=== PATIENT | male | born 1970 | race African-American/Black ===

== ENCOUNTER 2018-07-19 11:29 | Inpatient (IN) | END 2018-08-15 02:10 | DRG 981 ==

== ENCOUNTER 2018-08-17 17:15 | Inpatient (IN) | END 2018-08-21 16:41 | DRG 388 ==

== ENCOUNTER 2019-02-04 13:24 | Inpatient (IN) | payer MEDICARE, MEDICAID ==
[~2019-02-04] VITALS: Ht 182.9 cm; Wt 90.0 kg
[~2019-02-04 13:24] MED LIST: BACL20TA PO; BISA10SU75 PR; OXYB5TAB7 PO
[2019-02-04] MEDS ORDERED: AMLO2.5T78 PO (16:14)
[2019-02-04] MEDS ORDERED: ACET325T45 PO (16:14)
[2019-02-04] MEDS ORDERED: BACL20TA PO (16:15)
[2019-02-04] MEDS ORDERED: OXYB5TAB7 PO (16:16)
[2019-02-04] MEDS ORDERED: BISA10SU75 PR (16:16)
[2019-02-04] MEDS ORDERED: POTA-57 PO (16:17)
[2019-02-04] MEDS ORDERED: POLY17PO6 PO (16:17)
[2019-02-04] MEDS ORDERED: SIME80TA45 PO (16:20)
[2019-02-04] MEDS ORDERED: BISA10SU55 RC (16:22)
[2019-02-04] MEDS ORDERED: PIPER-TAZO 3.375 GM IV (PMX) 100 ML IVPB ONE (18:00)
[2019-02-04] MEDS ORDERED: SOD CHLORIDE 0.9% 1,000 ML IV ONE (18:00)
--- NOTE | 2019-02-04 18:11 | ERD ---
ER Documentation Chief Complaint Chief Complaint BIB private ambulance, sent from [facility] abd distention -pt denies any pain now HPI 48-year-old male transferred to the emergency department from his care facility for evaluation of abdominal distention. Outpatient studies demonstrated evidence of a questionable ileus and the patient was referred to the emergency department. Upon arrival, patient states that he is having abdominal distention without significant abdominal pain. He is passing gas, which makes him feel better and did have a large stool yesterday. Patient reports no vomiting, but does feel like he has nausea. He reports no fevers or chills or other complaints. ROS All systems reviewed and are negative except as per history of present illness. Medications Home Meds Reported Medications Bisacodyl (Dulcolax) 10 Mg Supp.rect, 10 MG RC Q MON,WED,FRI, SUPP.RECT OR NEEDED 02/04/19 Simethicone (Gas Relief 80) 80 Mg Tab.chew, 160 MG PO QID, TAB.CHEW 02/04/19 Potassium Chloride* (Klor-Con*) 20 Meq Tabsr, 40 MEQ PO DAILY, TAB.SA 02/04/19 Polyethylene Glycol* (Miralax*) 17 Gm Powd.pack, 17 GM PO DAILY for CONSTIPATION, #30 PACKET 02/04/19 Oxybutynin Chloride* (Ditropan*) 5 Mg Tab, 5 MG PO DAILY, TAB 02/04/19 Baclofen* (Baclofen*) 20 Mg Tablet, 30 MG PO QID, TAB 02/04/19 Amlodipine Besylate* (Amlodipine Besylate*) 2.5 Mg Tablet, 2.5 MG PO BID, #30 TAB 02/04/19 Acetaminophen* (Acetaminophen*) 325 Mg Tablet, 650 MG PO Q6H PRN for MILD PAIN(1-3)OR ELEVATED TEMP, #30 TAB 02/04/19 Discontinued Reported Medications Bisacodyl* (Bisacodyl*) 10 Mg Supp, 10 MG OR Q24H PRN for NEEDED, SUPP 02/04/19 Bisacodyl* (Bisacodyl*) 10 Mg Supp, 10 MG OR QHS for CONSTIPATION, SUPP ON MON, WED,FRI 07/19/18 Oxybutynin Chloride* (Ditropan*) 5 Mg Tab, 5 MG PO BID, TAB 07/19/18 Baclofen* (Baclofen*) 20 Mg Tablet, 30 MG PO QID, TAB 07/19/18 Allergies Allergies: Coded Allergies: iodine (Verified Allergy, Unknown, 02/04/19) PMhx/Soc History of Surgery: Yes (trach, gtube, nephrostomy placement) Anesthesia Reaction: No Hx Neurological Disorder: Yes (QUADRIPLEGIC) Hx Respiratory Disorders: Yes (RESPIRATORY FAILURE-trach vent, PNA) Hx Cardiac Disorders: No Hx Psychiatric Problems: No Hx Miscellaneous Medical Probl: Yes (neurogenic bladder, htn, bowel obstruction, ) Hx Alcohol Use: No Hx Substance Use: No Hx Tobacco Use: No Smoking Status: Never smoker FmHx Noncontributory for chief complaint Physical Exam Vitals Vital Signs Date Temp Pulse Resp B/P (MAP) Pulse Ox O2 O2 Flow FiO2 Time Delivery Rate 02/04/19 60 21 144/115 99 Mechanical 17:37 (125) Ventilator T Tube Trach Collar 02/04/19 58 17 30 17:21 02/04/19 60 18 100 30 13:41 02/04/19 98.3 57 21 141/92 100 13:38 (108) Physical Exam General: Frail, bed bound, ill appearing HEENT: Mucous membranes dry, sclera nonicteric Neck: Tracheostomy noted. Ostomy patent. No inflammatory changes noted. No JVD. Cardiovascular: Regular rate and rhythm, no murmurs rubs or gallops. Lungs: Transmission of upper airway sounds. Abdomen: Soft, markedly distended. Tympanic. : Diaper in place. Omalley catheter in place Extremities: Atrophic but atraumatic with no edema, cyanosis or clubbing. Neurologic: Awake, alert, oriented. He has a cervical spinal level. Skin: Skin breakdown noted per nursing note. Result Diagram: 02/04/19 1435 02/04/19 1435 Results 24 hrs Laboratory Tests Test 02/04/19 14:35 02/04/19 15:26 White Blood Count 8.4 10^3/ul Red Blood Count 4.72 10^6/ul Hemoglobin 12.1 g/dl Hematocrit 37.8 % Mean Corpuscular Volume 80.1 fl Mean Corpuscular Hemoglobin 25.6 pg Mean Corpuscular Hemoglobin Concent 32.0 g/dl Red Cell Distribution Width 17.1 % Platelet Count 306 10^3/UL Mean Platelet Volume 11.0 fl Immature Granulocytes % 0.600 % Neutrophils % 78.6 % Lymphocytes % 8.3 % Monocytes % 11.8 % Eosinophils % 0.6 % Basophils % 0.1 % Nucleated Red Blood Cells % 0.0 /100WBC Immature Granulocytes # 0.050 10^3/ul Neutrophils # 6.6 10^3/ul Lymphocytes # 0.7 10^3/ul Monocytes # 1.0 10^3/ul Eosinophils # 0.1 10^3/ul Basophils # 0.0 10^3/ul Nucleated Red Blood Cells # 0.0 10^3/ul Sodium Level 136 mmol/L Potassium Level 4.7 mmol/L Chloride Level 104 mmol/L Carbon Dioxide Level 15 mmol/L Anion Gap 17 Blood Urea Nitrogen 36 mg/dl Creatinine 0.90 mg/dl Est Glomerular Filtrat Rate mL/min > 60 mL/min Glucose Level 105 mg/dl Calcium Level 10.2 mg/dl Total Bilirubin 0.6 mg/dl Direct Bilirubin 0.00 mg/dl Indirect Bilirubin 0.6 mg/dl Aspartate Amino Transf (AST/SGOT) 38 IU/L Alanine Aminotransferase (ALT/SGPT) 158 IU/L Alkaline Phosphatase 349 IU/L Total Protein 9.7 g/dl Albumin 4.3 g/dl Globulin 5.40 g/dl Albumin/Globulin Ratio 0.79 Lipase 101 U/L Urine Color YELLOW Urine Clarity CLOUDY Urine pH 7.0 Urine Specific [place] 1.009 Urine Ketones NEGATIVE mg/dL Urine Nitrite POSITIVE mg/dL Urine Bilirubin NEGATIVE mg/dL Urine Urobilinogen NEGATIVE mg/dL Urine Leukocyte Esterase 3+ Jessica/ul Urine Microscopic RBC 3 /HPF Urine Microscopic WBC 26 /HPF Urine Squamous Epithelial Cells FEW /HPF Urine Amorphous Crystals FEW /HPF Urine Bacteria FEW /HPF Urine Hemoglobin NEGATIVE mg/dL Urine Glucose NEGATIVE mg/dL Urine Total Protein 1+ mg/dl Current Medications Medications Dose Sig/Marcia Start Time Status Last (Trade) Ordered Route PRN Stop Time Admin Dose Reason Admin Sodium 1,000 ml @ Q1H ONCE 02/04/19 Chloride 1,000 mls/hr IV 18:00 02/04/19 18:59 Piperacillin 100 ml @ ONCE ONCE 02/04/19 Sod/ 200 mls/hr IVPB 18:00 Tazobactam 02/04/19 18:29 Sod Procedures/MDM Patient was taken to a room, seen and evaluated. Comfort measures were initiated. Diagnostic tests were ordered and reviewed. 3 LEAD RHYTHM STRIP: Normal sinus rhythm without ectopy EK lead EKG reviewed by myself: Normal Sinus Rhythm Normal [place] and intervals No ST elevation, depression, or T wave inversion Impression: Normal EKG RADIOLOGY: Reviewed with the radiologist CONSULTATION: Hospitalist was notified for admission. Surgical consultation was requested @ approx 1800. REEVALUATION: Patient remained hemodynamically stable. After CT scan was appreciated and reviewed with the radiologist, an NG tube was placed. Further IV fluids were given and antibiotics were provided. MEDICAL DECISION MAKIN-year-old male presents to the emergency department with abdominal distention. Diagnostic tests confirm that he has a bowel obstruction and I am concerned he may have a large bowel obstruction versus a volvulus. His labs do not indicate significant ischemia although his spinal level and lack of sensation will make this difficult to assess clinically. Patient will be admitted to the hospital for fluids and hydration with surgical consultation pending. Departure Diagnosis: Primary Impression: Bowel obstruction Additional Impression: Chronic respiratory failure Condition: Serious JULIUS BARROSO Feb 04, 2019 18:11
[2019-02-04 19:30] VITALS: BP 115/77; PULSE 58; RESP 20
[2019-02-04 19:34] VITALS: RESP 29
[2019-02-04 20:00] VITALS: PULSE 56; BMI 29.3
[2019-02-04] MEDS ORDERED: morphine 2 MG INJ IV PRN (20:00)
[2019-02-04] MEDS ORDERED: BISACODYL (EC) 5 MG TAB PO PRN (20:00)
[2019-02-04] MEDS ORDERED: NACL 0.9% 3 ML SYG IV SCH (20:00)
[2019-02-04] MEDS ORDERED: DOCUSATE SODIUM 100 MG CAP PO PRN (20:00)
[2019-02-04] MEDS ORDERED: ONDANSETRON 4 MG INJ IV PRN (20:00)
[2019-02-04 21:10] VITALS: RESP 27
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
[2019-02-04 23:23] VITALS: RESP 19
[2019-02-04] MEDS: SOD CHLORIDE 0.9% 1,000 ML IV SCH (23:36)
[2019-02-04] MEDS: PIPER-TAZO 3.375 GM IV (PMX) 100 ML IVPB SCH (23:36)
[2019-02-04] MEDS: BISACODYL 10 MG SUPP PR PRN (23:36)
[2019-02-05] VITALS (22 sets, daily range): BP systolic 110–187; BP diastolic 71–90; PULSE 48–88; RESP 18–30
[2019-02-05] MEDS: PIPER-TAZO 3.375 GM IV (PMX) 100 ML IVPB SCH ×3 (05:10→18:00)
[2019-02-05] MEDS: HEPARIN 5,000 UNIT/1 ML VIAL SC SCH ×3 (05:11→22:27)
[2019-02-05] MEDS ORDERED: NA PHOSPHATE/BIPHOS 133 ML ENEMA PR PRN (09:30)
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
--- NOTE | 2019-02-05 10:47 | PN ---
Date/Time of Note Date/Time of Note DATE: 02/05/19 TIME: 10:45 Assessment/Plan Lines/Catheters IV Catheter Type (from Nrsg): Peripheral IV Assessment/Plan Problems: (1) Ileus Status: Acute (2) Bowel obstruction Status: Acute Qualifiers: Intestinal obstruction type: paralytic ileus Qualified Codes: K56.0 - Paralytic ileus Assessment/Plan Patient shows significant progress. On KUB from this morning is significantly less distended loops of bowel. No distended stomach anymore. GI consult appreciated. Agree with the Gastrografin enema and possible colonoscopy if possible to prep the patientthank you Subjective 24 Hr Interval Summary Patient is second day after admission. Doing much better. Passing gas. Had bowel movement. Constitutional: no complaints Feeding: NPO Pain Control: well controlled Exam/Review of Systems Vital Signs Vitals Vital Signs Date Temp Pulse Resp B/P (MAP) Pulse Ox O2 O2 Flow FiO2 Time Delivery Rate 02/05/19 98.6 58 18 155/90 100 Mechanical 07:47 (111) Ventilator 02/04/19 30 19:34 Intake and Output 02/04/19 02/04/19 02/05/19 1515:00 23:00 07:00 IntakeIntake Total 650 ml OutputOutput Total 1000 ml BalanceBalance -350 ml Exam Constitutional: alert, oriented Psych: no complaints Head: normocephalic Eyes: nl conjunctiva ENMT: nl external ears & nose Neck: supple Respiratory: clear to auscultation Cardiovascular: regular rate and rhythm Gastrointestinal: other (Abdomen is significantly less distended soft nontender) Genitourinary - Male: nl penis, nl scrotum, other (Suprapubic catheter in place) Results Result Diagram: 02/05/19 0550 02/05/19 0550 ARACELIS WESTBROOK MD Feb 05, 2019 10:47
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
[2019-02-05] MEDS: SOD CHLORIDE 0.9% 1,000 ML IV SCH (13:49)
[2019-02-05] MEDS ORDERED: DIATR MEGLU/DIATRIZOATE SODIUM 120 ML BTL ONE ×6 (15:40→16:10)
[2019-02-06] VITALS (24 sets, daily range): BP systolic 142–185; BP diastolic 75–100; PULSE 55–88; RESP 16–25
[2019-02-06] MEDS: PIPER-TAZO 3.375 GM IV (PMX) 100 ML IVPB SCH ×4 (01:48→17:29)
[2019-02-06] MEDS: SOD CHLORIDE 0.9% 1,000 ML IV SCH ×2 (02:32→15:22)
[2019-02-06] MEDS: HEPARIN 5,000 UNIT/1 ML VIAL SC SCH ×3 (06:01→22:00)
[2019-02-06] MEDS: hydrALAzine 20 MG INJ IV PRN ×2 (07:32→16:15)
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
[2019-02-06] MEDS ORDERED: DIATR MEGLU/DIATRIZOATE SODIUM 120 ML BTL ONE ×2 (15:18→15:19)
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
[2019-02-06] MEDS: BISACODYL 10 MG SUPP PR PRN (17:15)
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
[2019-02-07] VITALS (33 sets, daily range): BP systolic 127–194; BP diastolic 81–100; PULSE 39–80; RESP 16–30
[2019-02-07] MEDS: PIPER-TAZO 3.375 GM IV (PMX) 100 ML IVPB SCH ×5 (00:46→23:18)
[2019-02-07] MEDS: SOD CHLORIDE 0.9% 1,000 ML IV SCH ×2 (04:50→11:22)
[2019-02-07] MEDS: HEPARIN 5,000 UNIT/1 ML VIAL SC SCH ×3 (05:38→21:33)
[2019-02-07] MEDS: hydrALAzine 20 MG INJ IV PRN ×2 (08:22→21:27)
[2019-02-07] MEDS ORDERED: DIATR MEGLU/DIATRIZOATE SODIUM 120 ML BTL ONE (12:26)
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
[2019-02-07] MEDS ORDERED: BISACODYL 10 MG SUPP PR PRN (22:00)
[2019-02-07] MEDS ORDERED: BACLOFEN 10 MG TAB PO SCH (22:00)
[2019-02-07] MEDS: BACLOFEN 10 MG TAB PO SCH (22:19)
[2019-02-07] MEDS: ACETAMINOPHEN 325 MG TAB PO PRN (22:19)
[2019-02-08] VITALS (35 sets, daily range): BP systolic 76–208; BP diastolic 48–104; PULSE 46–86; RESP 18–33; Ht 182.9 cm; Wt 90.0 kg
[2019-02-08] MEDS: ACETAMINOPHEN 325 MG TAB PO PRN (05:25)
[2019-02-08] MEDS: hydrALAzine 20 MG INJ IV PRN (05:26)
[2019-02-08] MEDS: PIPER-TAZO 3.375 GM IV (PMX) 100 ML IVPB SCH ×3 (05:26→17:42)
[2019-02-08] MEDS: HEPARIN 5,000 UNIT/1 ML VIAL SC SCH ×4 (05:26→21:42)
[2019-02-08] MEDS ORDERED: hydrALAzine 20 MG INJ IV PRN (07:00)
[2019-02-08] MEDS: AMLODIPINE 2.5 MG TAB PO SCH ×2 (08:05→20:53)
[2019-02-08] MEDS: BACLOFEN 10 MG TAB PO SCH ×4 (08:05→20:59)
[2019-02-08] MEDS: OXYBUTYNIN 5 MG TAB PO SCH (08:06)
[2019-02-08] MEDS ORDERED: POTASSIUM CHLORIDE 20 MEQ POWDER FOR ORAL SOLN PO ONE ×2 (10:00→16:30)
[2019-02-08] MEDS ORDERED: SOD CHLORIDE 0.9% 1,000 ML IV ONE (10:00)
[2019-02-08] MEDS: SOD CHLORIDE 0.45% 1,000 ML IV SCH ×2 (11:31→20:53)
[2019-02-08] MEDS: POLYETHYLENE GLYCOL 17 GM PACKET PO SCH (11:31)
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
[2019-02-08] MEDS ORDERED: BISACODYL (EC) 5 MG TAB PO ONE (13:00)
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
[2019-02-08] MEDS ORDERED: POTASSIUM CHLORIDE (SR) 20 MEQ TAB PO STA (16:55)
[2019-02-08] MEDS ORDERED: MAGNESIUM CITRATE 300 ML BTL PO ONE (17:30)
[2019-02-08] MEDS ORDERED: POLYETHYLENE GLYCOL 3350 119 GM POWDER PO ONE (18:30)
[2019-02-08] MEDS ORDERED: ALBUTEROL/IPRATROPIUM (NEB) 3 ML AMP HHN PRN (19:00)
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
[2019-02-08] MEDS ORDERED: ENOXAPARIN 100 MG/ML SYG SC SCH (22:20)
[2019-02-09] VITALS (24 sets, daily range): BP systolic 127–159; BP diastolic 72–90; PULSE 39–64; RESP 18–29
[2019-02-09] MEDS: PIPER-TAZO 3.375 GM IV (PMX) 100 ML IVPB SCH ×4 (00:25→17:58)
[2019-02-09] MEDS: SOD CHLORIDE 0.45% 1,000 ML IV SCH ×3 (00:26→11:19)
[2019-02-09] MEDS ORDERED: POLYETHYLENE GLYCOL 3350 119 GM POWDER PO ONE (06:00)
[2019-02-09] MEDS ORDERED: BISACODYL (EC) 5 MG TAB PO ONE (08:00)
[2019-02-09] MEDS ORDERED: ENOXAPARIN 100 MG/ML SYG SC SCH (09:00)
[2019-02-09] MEDS: AMLODIPINE 2.5 MG TAB PO SCH (09:00)
[2019-02-09] MEDS: POLYETHYLENE GLYCOL 17 GM PACKET PO SCH (09:00)
[2019-02-09] MEDS: OXYBUTYNIN 5 MG TAB PO SCH (09:26)
[2019-02-09] MEDS: BACLOFEN 10 MG TAB PO SCH ×3 (09:26→17:58)
[2019-02-09] MEDS ORDERED: POTASSIUM CHLORIDE (SR) 20 MEQ TAB PO STA (15:34)
--- NOTE | 2019-02-15 19:40 | DS ---
Date/Time of Note Date/Time of Note DATE: 02/15/19 TIME: 19:38 Discharge Summary Admission/Discharge Info Admit Date/Time Feb 04, 2019 at 18:07 Discharge Date/Time Feb 09, 2019 at 21:17 Discharge Diagnosis 48 yo male with quadriplegia, chronic respiratory failure on MV who presents with constipation from paralytic ileus -Patient with bowel movements, ileus appears resolved - continue laxatives - Colonoscopy no longer indicated Hypernatremia and hypokalemia: Resolved - IV fluids, potassium repletion Chronic respiratory failure - Continue MV via trach Quadriplegia - stable Patient Condition: Good Hospital Course Patient is a 48 yo male with quadriplegia, chronic respiratory failure on MV who presents with constipation from paralytic ileus. Patient was also noted to have electrolyte deficiencies which resolved with fluid resuscitation. Patient did have resolution of his ileus and no longer required endoscopy. Patient was stable for DC back to facility, on the day of discharge patient's vitals, labs of exam are stable. Home Meds Reported Medications Bisacodyl (Dulcolax) 10 Mg Supp.rect, 10 MG RC Q MON,WED,FRI, SUPP.RECT OR NEEDED 02/04/19 Simethicone (Gas Relief 80) 80 Mg Tab.chew, 160 MG PO QID, TAB.CHEW 02/04/19 Potassium Chloride* (Klor-Con*) 20 Meq Tabsr, 40 MEQ PO DAILY, TAB.SA 02/04/19 Polyethylene Glycol* (Miralax*) 17 Gm Powd.pack, 17 GM PO DAILY for CONSTIPATION, #30 PACKET 02/04/19 Oxybutynin Chloride* (Ditropan*) 5 Mg Tab, 5 MG PO DAILY, TAB 02/04/19 Baclofen* (Baclofen*) 20 Mg Tablet, 30 MG PO QID, TAB 02/04/19 Amlodipine Besylate* (Amlodipine Besylate*) 2.5 Mg Tablet, 2.5 MG PO BID, #30 TAB 02/04/19 Acetaminophen* (Acetaminophen*) 325 Mg Tablet, 650 MG PO Q6H PRN for MILD PAIN(1-3)OR ELEVATED TEMP, #30 TAB 02/04/19 Follow-up Plan Follow-up with physicians at facility Primary Care Provider Fernando Martinez MD Time spent on discharge: > 30 minutes AARTI FRENCH Feb 15, 2019 19:40
== END 2019-02-09 21:17 | DRG 388 ==
LOC: E/R 13:24 → TEL 18:07 → CANRESERV 18:26 → EDBEDREQ 18:28
PROVIDERS: ADMIT Internal Medicine; ATTEND Internal Medicine
PROC: 5A1955Z Respiratory Ventilation, Greater than 96 Consecutive Hours (ICD-10-PCS; principal; 2019-02-04)
DX: K56.0 Paralytic ileus (principal); G82.50 Quadriplegia, unspecified; T83.511A Infection and inflammatory reaction due to indwelling urethral catheter, initial encounter; N39.0 Urinary tract infection, site not specified; E87.0 Hyperosmolality and hypernatremia; J96.11 Chronic respiratory failure with hypoxia; Y73.2 Prosthetic and other implants, materials and accessory gastroenterology and urology devices associated with adverse incidents; S14.102S Unspecified injury at C2 level of cervical spinal cord, sequela; V89.2XXS Person injured in unspecified motor-vehicle accident, traffic, sequela; I10 Essential (primary) hypertension; Z87.81 Personal history of (healed) traumatic fracture; Z93.0 Tracheostomy status; Z93.3 Colostomy status; N31.9 Neuromuscular dysfunction of bladder, unspecified; N28.1 Cyst of kidney, acquired; N21.0 Calculus in bladder; E87.6 Hypokalemia; I95.89 Other hypotension
CPT/HCPCS: 36415; 36600; 71045; 74018; 74176; 74250; 74270; 76775; 80048; 80053; 80061; 81001; 82803; 83036; 83690; 83735; 84443; 85025; 85610; 87086; 93005; 94002; 94003; J0360; J1644; J1650; J2543; J7030

== ENCOUNTER 2019-05-28 03:18 | Inpatient (IN) | payer MEDICARE, MEDICAID ==
[~2019-05-28] VITALS: Ht 190.5 cm; Wt 72.0 kg
[2019-05-28] VITALS (16 sets, daily range): BP systolic 82–142; BP diastolic 65–88; PULSE 59–91; RESP 16–24; Ht 190.5 cm; Wt 72.0 kg
[~2019-05-28 03:18] MED LIST changes: +ACET325T45 PO; +AMLO2.5T78 PO; +BACI1TAB3 PO; +BISA-57 PO; +BISA10SU55 RC; -BISA10SU75 PR; +DOCU-144 PO; +IPRA3AMP29 INHALATION; +POLY17PO6 PO; +POTA-57 PO; +SIME80TA45 PO
[2019-05-28] MEDS ORDERED: ONDANSETRON 4 MG INJ ONE ×2 (04:45→04:53)
[2019-05-28] MEDS ORDERED: ONDANSETRON INJ 8 MG in DEXTROSE 5% 50 ML IV STA (04:51)
--- NOTE | 2019-05-28 05:52 | ERD ---
ER Documentation Chief Complaint Chief Complaint n/v since 2199, decreased u/o, distended abd. no fevers. pt suspects uti. HPI This is a 40-year-old male nausea vomiting 2199 with the decreased urine output and distended abdomen. Patient has history of multiple small bowel obstructions in the past. Denies any fevers or chills. Denies any other current complaints. ROS All systems reviewed and are negative except as per history of present illness. Medications Home Meds Reported Medications Ipratropium-Albuterol (Ipratropium-Albuterol) 0.5-3 Mg/3 Ml Ampul.neb, 3 ML INHALATION Q6 for SOB, #30 VIAL 05/28/19 Bacillus Coagulans (Probiotic) 1 Each Tab.chew, 1 EACH PO BID, TAB.CHEW 05/28/19 Docusate Sodium* (Colace*) 100 Mg Capsule, 200 MG PO DAILY, #30 CAP 05/28/19 Bisacodyl* (Dulcolax*) 5 Mg Tablet.dr, 10 MG PO DAILY PRN for [id number], TAB 05/28/19 Bisacodyl (Dulcolax) 10 Mg Supp.rect, 10 MG RC Q MON,WED,FRI, SUPP.RECT OR NEEDED 02/04/19 Simethicone (Gas Relief 80) 80 Mg Tab.chew, 160 MG PO QID, TAB.CHEW 02/04/19 Potassium Chloride* (Klor-Con*) 20 Meq Tabsr, 40 MEQ PO DAILY, TAB.SA 02/04/19 Polyethylene Glycol* (Miralax*) 17 Gm Powd.pack, 17 GM PO DAILY for CONSTIPATION, #30 PACKET 02/04/19 Oxybutynin Chloride* (Ditropan*) 5 Mg Tab, 5 MG PO DAILY, TAB 02/04/19 Baclofen* (Baclofen*) 20 Mg Tablet, 30 MG PO QID, TAB 02/04/19 Amlodipine Besylate* (Amlodipine Besylate*) 2.5 Mg Tablet, 2.5 MG PO BID, #30 TAB 02/04/19 Acetaminophen* (Acetaminophen*) 325 Mg Tablet, 650 MG PO Q6H PRN for MILD PAIN(1-3)OR ELEVATED TEMP, #30 TAB 02/04/19 Allergies Allergies: Coded Allergies: iodine (Unverified Allergy, Unknown, 05/28/19) PMhx/Soc History of Surgery: Yes Anesthesia Reaction: No Hx Neurological Disorder: Yes Hx Respiratory Disorders: Yes (trach to vent) Hx Cardiac Disorders: No Hx Psychiatric Problems: No Hx Miscellaneous Medical Probl: Yes (quadraplegic) Hx Alcohol Use: No Hx Substance Use: No Hx Tobacco Use: No Smoking Status: Never smoker Physical Exam Vitals Vital Signs Date Temp Pulse Resp B/P (MAP) Pulse Ox O2 O2 Flow FiO2 Time Delivery Rate 05/28/19 79 22 100 50 05:33 05/28/19 77 25 96 50 03:30 05/28/19 98.7 80 20 138/98 97 03:27 (111) Physical Exam Const: No acute distress Head: Atraumatic Eyes: Normal Conjunctiva ENT: Normal External Ears, Nose and Mouth. Neck: Full range of motion. No meningismus. Resp: Clear to auscultation bilaterally Cardio: Regular rate and rhythm, no murmurs Abd: Soft, non tender, non distended. Normal bowel sounds Skin: No petechiae or rashes Back: No midline or flank tenderness Ext: No cyanosis, or edema Neur: Awake and alert Psych: Normal Mood and Affect Result Diagram: 05/28/19 0427 05/28/19 042 Results 24 hrs Laboratory Tests Test 05/28/19 04:13 05/28/19 04:27 05/28/19 04:30 Urine Color BARBARA Urine Clarity TURBID Urine pH 8.0 Urine Specific [place] 1.023 Urine Ketones NEGATIVE mg/dL Urine Nitrite NEGATIVE mg/dL Urine Bilirubin 1+ mg/dL Urine Urobilinogen NEGATIVE mg/dL Urine Leukocyte Esterase 3+ Jessica/ul Urine Microscopic RBC 2 /HPF Urine Microscopic WBC 121 /HPF Urine Squamous FEW /HPF Epithelial Cells Urine Uric Acid Crystals MANY /HPF Urine Bacteria FEW /HPF Urine Mucus MANY /HPF Urine Hemoglobin NEGATIVE mg/dL Urine Glucose NEGATIVE mg/dL Urine Total Protein 3+ mg/dl White Blood Count 13.2 10^3/ul Red Blood Count 5.02 10^6/ul Hemoglobin 12.1 g/dl Hematocrit 36.3 % Mean Corpuscular Volume 72.3 fl Mean Corpuscular 24.1 pg Hemoglobin Mean Corpuscular 33.3 g/dl Hemoglobin Concent Red Cell Distribution 16.7 % Width Platelet Count 411 10^3/UL Mean Platelet Volume 10.3 fl Immature Granulocytes % 0.800 % Neutrophils % 90.8 % Lymphocytes % 1.6 % Monocytes % 6.6 % Eosinophils % 0.0 % Basophils % 0.2 % Nucleated Red Blood Cells 0.0 /100WBC % Immature Granulocytes # 0.100 10^3/ul Neutrophils # 12.0 10^3/ul Lymphocytes # 0.2 10^3/ul Monocytes # 0.9 10^3/ul Eosinophils # 0.0 10^3/ul Basophils # 0.0 10^3/ul Nucleated Red Blood Cells 0.0 10^3/ul # Sodium Level 132 mmol/L Potassium Level 4.6 mmol/L Chloride Level 94 mmol/L Carbon Dioxide Level 16 mmol/L Anion Gap 22 Blood Urea Nitrogen 40 mg/dl Creatinine 1.21 mg/dl Est Glomerular Filtrat > 60 mL/min Rate mL/min Glucose Level 132 mg/dl Calcium Level 11.2 mg/dl Total Bilirubin 0.5 mg/dl Direct Bilirubin 0.00 mg/dl Indirect Bilirubin 0.5 mg/dl Aspartate Amino 19 IU/L Transf (AST/SGOT) Alanine 35 IU/L Aminotransferase (ALT/SGP T) Alkaline Phosphatase 374 IU/L Troponin I < 0.012 ng/ml Total Protein 10.9 g/dl Albumin 4.6 g/dl Globulin 6.30 g/dl Albumin/Globulin Ratio 0.73 Lipase 32 U/L Blood Gas Specimen Source Blood arterial Arterial Blood Date 05/28/2019 5:35:37 AM Drawn Arterial Blood pH 7.448 (Temp corrected) Arterial Blood pCO2 26.0 mmhg (Temp correct) Arterial Blood pO2 90.9 mmHG (Temp corrected) Arterial Blood HCO3 17.6 mmol/L Arterial Blood Base -4.8 mmol/L Excess Arterial Blood 97.6 mmHG Oxygen Saturation Kwame Test ACCEPTAB Arterial Blood Gas Right Radial Puncture Site Arterial 0.5 % Blood Carboxyhemoglobin Arterial Blood 0.5 % Methemoglobin Blood Gas A-a O2 236.4 mmHg Differential Oxyhemoglobin Percent 96.6 % Blood Gas Temperature 37.0 C Blood Gas Respiration 16.0 Rate Blood Gas Actual 22 Respiration Rate Blood Gas Modality VENT - SIMV FiO2 50.0 % Blood Gas Inspiratory 1 Time Blood Gas High PEEP 28.0 cmH2O Setting Blood Gas Low PEEP 5.0 cmH2O Setting Blood Gas Inspiratory 33.0 Pressure Blood Gas Notified Whom KM Blood Gas Notified Time 05/28/2019 5:45:25 AM Current Medications Medications Dose Sig/Marcia Start Time Status Last (Trade) Ordered Route PRN Stop Time Admin Dose Reason Admin Ondansetron 54 ml @ ONCE STAT 05/28/19 DC 05/28/19 HCl 8 200 mls/hr IV 04:51 05:13 mg/Dextrose 05/28/19 05:07 10 mg ONCE ONCE 05/28/19 05/28/19 Metoclopramid IV 06:00 05:42 e HCl 05/28/19 06:01 (Reglan) Procedures/MDM X-ray Abdomen 1V Interpreted by me: Free Air: [None] Bowel Gas: Distended bowel loops Soft Tissue: [Normal] Patient was unable to tolerate CT as he could not lie flat down that significant discomfort and vomiting despite multiple rounds of Zofran and Reglan. NG tube was placed EKG: Rate/Rhythm: [Normal Sinus Rhythm] QRS, ST, T-waves: [No changes consistent w/ acute ischemia] Impression: [No evidence of ischemia or arrhythmia] Chest X-ray 1V Interpreted by me: Soft Tissue: No acute abnormalities Bones: No acute abnormalities Mediastinum/Cardiac Silhouette/Lungs: [No acute abnormalities] Medical decision making: This 48-year-old male has a presumed small bowel obstruction based on KUB will need to be admitted. Dr. Avelar is been made aware. Dr. Quinonez of surgery has been contacted. Departure Diagnosis: Primary Impression: Abdominal pain Abdominal location: unspecified location Qualified Codes: R10.9 - Unspecified abdominal pain Additional Impression: SBO (small bowel obstruction) Condition: Serious FRAN ALEGRE May 28, 2019 05:52
[2019-05-28] MEDS ORDERED: METOCLOPRAMIDE 10 MG INJ IV ONE (06:00)
[2019-05-28] MEDS ORDERED: SOD CHLORIDE 0.9% 1,000 ML IV SCH (06:17)
[2019-05-28] MEDS ORDERED: METOCLOPRAMIDE 10 MG INJ IV PRN (06:30)
[2019-05-28] MEDS ORDERED: NACL 0.9% 3 ML SYG IV SCH ×2 (06:30→10:30)
[2019-05-28] MEDS ORDERED: ONDANSETRON 4 MG INJ IV PRN ×2 (06:30→10:30)
[2019-05-28] MEDS ORDERED: morphine 2 MG INJ IV PRN (06:30)
--- NOTE | 2019-05-28 07:34 | CONS ---
Assessment/Plan Assessment/Plan Assessment/Plan (Daily) KUB suggest small bowel obstruction. There are no hernias Plan: Small bowel follow-through Further recommendations will be forthcoming based on the patient's further work- up and clinical course. Consultation Date/Type/Reason Admit Date/Time Date of Consultation: May 28, 2019 Type of Consult General surgery Reason for Consultation Small bowel obstruction Date/Time of Note DATE: 05/28/19 TIME: 07:30 Hx of Present Illness Patient is a 48-year-old quadriplegic ventilator dependent who was brought in because of nausea and vomiting. He was found to have a slightly distended abdomen and a KUB was compatible with small bowel obstruction. Review of systems: Head ears eyes nose and throat: Tracheostomy Pulmonary: No known history of pneumonia Cardiac: No history of chest pain, MO or arrhythmia Abdomen: As in the HPI Past Medical History Medical History: other (Quadriplegia) Home Meds Reported Medications Ipratropium-Albuterol (Ipratropium-Albuterol) 0.5-3 Mg/3 Ml Ampul.neb, 3 ML INHALATION Q6 for SOB, #30 VIAL 05/28/19 Bacillus Coagulans (Probiotic) 1 Each Tab.chew, 1 EACH PO BID, TAB.CHEW 05/28/19 Docusate Sodium* (Colace*) 100 Mg Capsule, 200 MG PO DAILY, #30 CAP 05/28/19 Bisacodyl* (Dulcolax*) 5 Mg Tablet.dr, 10 MG PO DAILY PRN for [id number], TAB 05/28/19 Bisacodyl (Dulcolax) 10 Mg Supp.rect, 10 MG RC Q MON,WED,FRI, SUPP.RECT OR NEEDED 02/04/19 Simethicone (Gas Relief 80) 80 Mg Tab.chew, 160 MG PO QID, TAB.CHEW 02/04/19 Potassium Chloride* (Klor-Con*) 20 Meq Tabsr, 40 MEQ PO DAILY, TAB.SA 02/04/19 Polyethylene Glycol* (Miralax*) 17 Gm Powd.pack, 17 GM PO DAILY for CONSTIPATION, #30 PACKET 02/04/19 Oxybutynin Chloride* (Ditropan*) 5 Mg Tab, 5 MG PO DAILY, TAB 02/04/19 Baclofen* (Baclofen*) 20 Mg Tablet, 30 MG PO QID, TAB 02/04/19 Amlodipine Besylate* (Amlodipine Besylate*) 2.5 Mg Tablet, 2.5 MG PO BID, #30 TAB 02/04/19 Acetaminophen* (Acetaminophen*) 325 Mg Tablet, 650 MG PO Q6H PRN for MILD PAIN(1-3)OR ELEVATED TEMP, #30 TAB 02/04/19 Medications Current Medications Sodium Chloride 1,000 ml @ 70 mls/hr [id number] IV Last administered on 05/28/19at 06:48; Admin Dose 70 MLS/HR; Start 05/28/19 at 06:17 IV Flush (NS 3 ml) 3 ml PER PROTOCOL IV ; Start 05/28/19 at 06:30 Ondansetron HCl (Zofran Inj) 4 mg Q4 PRN IV NAUSEA/VOMITING; Start 05/28/19 at 06:30 Metoclopramide HCl (Reglan) 10 mg Q6H PRN IV NAUSEA/VOMITING; Start 05/28/19 at 06:30 Acetaminophen (Tylenol Tab) 650 mg Q6H PRN PO .PAIN 1-3 OR TEMP; Start 05/28/19 at 06:30 Morphine Sulfate (morphine) 2 mg Q4H PRN IV .PAIN 7-10; Start 05/28/19 at 06:30 Allergies: Coded Allergies: iodine (Unverified Allergy, Unknown, 05/28/19) Past Surgical History Past Surgical Hx: no surgical history, other (Tracheostomy) Family History Significant Family History: no pertinent family hx Social History Smoking Status: Never smoker Exam/Review of Systems Exam Vitals Vital Signs Date Temp Pulse Resp B/P (MAP) Pulse Ox O2 O2 Flow FiO2 Time Delivery Rate 05/28/19 77 20 106/83 100 Mechanical 06:55 (91) Ventilator 05/28/19 50 05:33 05/28/19 98.7 03:27 Constitutional: alert, oriented Psych: no complaints Head: normocephalic ENMT: other (Bib ostomy) Neck: supple Respiratory: clear to auscultation Cardiovascular: regular rate and rhythm Gastrointestinal: distended Musculoskeletal: nl extremities to inspection Extremities: normal pulses Neurological: FLOWER MAKER II-XII intact Results Result Diagram: 05/28/1942605/28/19426 Results 24hrs Laboratory Tests Test 05/28/19 04:13 05/28/19 04:27 05/28/19 04:30 Urine Color BARBARA Urine Clarity TURBID A Urine pH 8.0 Urine Specific [place] 1.023 Urine Ketones NEGATIVE Urine Nitrite NEGATIVE Urine Bilirubin 1+ H Urine Urobilinogen NEGATIVE Urine Leukocyte Esterase 3+ H Urine Microscopic RBC 2 Urine Microscopic WBC 121 H Urine Squamous FEW Epithelial Cells Urine Uric Acid Crystals MANY A Urine Bacteria FEW A Urine Mucus MANY A Urine Hemoglobin NEGATIVE Urine Glucose NEGATIVE Urine Total Protein 3+ H White Blood Count 13.2 #H Red Blood Count 5.02 # Hemoglobin 12.1 L Hematocrit 36.3 L Mean Corpuscular Volume 72.3 L Mean Corpuscular Hemoglobin 24.1 L Mean Corpuscular 33.3 Hemoglobin Concent Red Cell Distribution Width 16.7 H Platelet Count 411 # Mean Platelet Volume 10.3 Immature Granulocytes % 0.800 H Neutrophils % 90.8 H Lymphocytes % 1.6 L Monocytes % 6.6 Eosinophils % 0.0 Basophils % 0.2 Nucleated Red Blood Cells % 0.0 Immature Granulocytes # 0.100 H Neutrophils # 12.0 H Lymphocytes # 0.2 L Monocytes # 0.9 Eosinophils # 0.0 Basophils # 0.0 Nucleated Red Blood Cells # 0.0 Sodium Level 132 L Potassium Level 4.6 Chloride Level 94 L Carbon Dioxide Level 16 L Anion Gap 22 H Blood Urea Nitrogen 40 H Creatinine 1.21 Est Glomerular Filtrat > 60 Rate mL/min Glucose Level 132 Calcium Level 11.2 H Total Bilirubin 0.5 Direct Bilirubin 0.00 Indirect Bilirubin 0.5 Aspartate Amino 19 Transf (AST/SGOT) Alanine 35 Aminotransferase (ALT/SGPT) Alkaline Phosphatase 374 H Troponin I < 0.012 Total Protein 10.9 H Albumin 4.6 Globulin 6.30 H Albumin/Globulin Ratio 0.73 Lipase 32 Blood Gas Specimen Source Blood arterial Arterial Blood Date Drawn 05/28/2019 5:35:37 AM Arterial Blood pH 7.448 (Temp corrected) Arterial Blood pCO2 26.0 L (Temp correct) Arterial Blood pO2 90.9 (Temp corrected) Arterial Blood HCO3 17.6 L Arterial Blood Base Excess -4.8 L Arterial Blood 97.6 Oxygen Saturation Kwame Test ACCEPTAB Arterial Blood Gas Right Radial Puncture Site Arterial 0.5 Blood Carboxyhemoglobin Arterial Blood Methemoglobin 0.5 Blood Gas A-a O2 236.4 H Differential Oxyhemoglobin Percent 96.6 Blood Gas Temperature 37.0 Blood Gas Respiration Rate 16.0 Blood Gas Actual 22 Respiration Rate Blood Gas Modality VENT - SIMV FiO2 50.0 Blood Gas Inspiratory Time 1 Blood Gas High PEEP Setting 28.0 Blood Gas Low PEEP Setting 5.0 Blood Gas Inspiratory 33.0 Pressure Blood Gas Notified Whom KM Blood Gas Notified Time 05/28/2019 5:45:25 AM Medications Medication Current Medications Sodium Chloride 1,000 ml @ 70 mls/hr [id number] IV Last administered on 05/28/19at 06:48; Admin Dose 70 MLS/HR; Start 05/28/19 at 06:17 IV Flush (NS 3 ml) 3 ml PER PROTOCOL IV ; Start 05/28/19 at 06:30 Ondansetron HCl (Zofran Inj) 4 mg Q4 PRN IV NAUSEA/VOMITING; Start 05/28/19 at 06:30 Metoclopramide HCl (Reglan) 10 mg Q6H PRN IV NAUSEA/VOMITING; Start 05/28/19 at 06:30 Acetaminophen (Tylenol Tab) 650 mg Q6H PRN PO .PAIN 1-3 OR TEMP; Start 05/28/19 at 06:30 Morphine Sulfate (morphine) 2 mg Q4H PRN IV .PAIN 7-10; Start 05/28/19 at 06:30 ZENA CALDERÓN MD May 28, 2019 07:34
[2019-05-28] MEDS ORDERED: ALBUTEROL/IPRATROPIUM (NEB) 3 ML AMP NEB PRN (10:30)
[2019-05-28] MEDS ORDERED: NITROGLYCERIN (SL) 0.4 MG TAB SL PRN (10:30)
[2019-05-28] MEDS ORDERED: VANCOMYCIN IV PER PHARMACY XX SCH (10:30)
[2019-05-28] MEDS ORDERED: ACETAMINOPHEN 650 MG SUPP PR PRN (10:30)
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
[2019-05-28] MEDS: SOD CHLORIDE 0.9% 1,000 ML IV SCH ×2 (10:32→23:28)
[2019-05-28] MEDS: PIPER-TAZO 3.375 GM IV (PMX) 100 ML IVPB SCH ×2 (11:14→22:00)
[2019-05-28] MEDS ORDERED: SOD CHLORIDE 0.9% 2,540 ML IV ONE (11:30)
[2019-05-28] MEDS ORDERED: BISACODYL 10 MG SUPP PR ONE (11:30)
[2019-05-28] MEDS ORDERED: IOHEXOL 300MG/ML 150 ML BTL ONE ×2 (11:58→14:57)
[2019-05-28] MEDS ORDERED: VANCOMYCIN HCL 1.5 GM in SOD CHLORIDE 0.9% 250 ML IVPB SCH (12:00)
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
[2019-05-28] MEDS ORDERED: ALBUTEROL/IPRATROPIUM (NEB) 3 ML AMP NEB SCH (13:00)
[2019-05-28] MEDS ORDERED: LIDOCAINE 1% (MPF) 5 ML VIAL SC ONE (13:00)
[2019-05-28] MEDS: IPRATROPIUM (HFA) 12.9 GM INHALER INH SCH ×2 (14:30→20:22)
[2019-05-28] MEDS: ALBUTEROL HFA 8 GM INHALER INH SCH ×2 (17:00→20:22)
[2019-05-28] MEDS: metroNIDAZOLE 500 MG/NS (PMX) 100 ML IVPB SCH ×2 (19:16→22:00)
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
[2019-05-28] MEDS: FAMOTIDINE 20 MG INJ IV SCH (21:33)
[2019-05-29] VITALS (30 sets, daily range): BP systolic 88–139; BP diastolic 61–103; PULSE 50–76; RESP 16–26
[2019-05-29] MEDS: IPRATROPIUM (HFA) 12.9 GM INHALER INH SCH ×4 (01:04→19:30)
[2019-05-29] MEDS: ALBUTEROL HFA 8 GM INHALER INH SCH ×5 (01:04→19:30)
[2019-05-29] MEDS: metroNIDAZOLE 500 MG/NS (PMX) 100 ML IVPB SCH ×3 (06:22→21:09)
[2019-05-29] MEDS: PIPER-TAZO 3.375 GM IV (PMX) 100 ML IVPB SCH ×3 (06:22→21:09)
[2019-05-29] MEDS: FAMOTIDINE 20 MG INJ IV SCH ×2 (08:28→21:09)
[2019-05-29] MEDS ORDERED: ENOXAPARIN 40 MG/0.4 ML SYG SC SCH (09:00)
--- NOTE | 2019-05-29 09:42 | CONS ---
Assessment/Plan Assessment/Plan Assessment/Plan (Daily) Ventilator setting; assist control of 16, pressure controlled, PEEP of 5, 40% FiO2. Assessment and recommendations; 1. Patient with history of quadriplegia and VDR F admitted for small bowel obstruction with interval clinical improvement. Etiology is unclear. 2. Intravascular volume depletion with acute renal injury. 3. History of muscle spasms. 4. Right lower lobe segmental atelectasis. 5. Anemia. Continue current supportive care. Increase IV fluid to normal saline 150 mL/h. Monitor renal function. Add Mucomyst via nebulizer 4 times daily at least for 48 hours for right lower lobe segmental atelectasis. Obtain follow-up chest x- ray 24 hours. Consider starting TPN. Further recommendations per general surgeons. His input is appreciated. 35 minutes of critical care time was spent evaluating patient. Consultation Date/Type/Reason Admit Date/Time May 28, 2019 at 06:21 Initial Consult Date 05/28/19 Type of Consult Pulmonary/critical care Patient is a pleasant 48-year-old gentleman who was sent over from detention with abdominal distention and vomiting. Upon evaluation here patient was hypotensive and had been diagnosed with bowel obstruction. Nasogastric tube was placed and 3200 mL of fluid was drained. Chest x-ray also was done which is showing right upper lobe infiltrate. Possibly aspiration. At the time I saw the patient in ER, patient is on ventilator via tracheostomy and is completely awake and alert. Denies any shortness of breath, abdominal pain any fever or chills. Past medical history; 1. VDRF. 2. Quadriplegia. 3. Status post tracheostomy with interval removal of G-tube. Medications; reviewed. Allergies; iodine. Social history; noncontributory. Family history; noncontributory. Occupational history; patient is disabled. Review of systems; denies any headache, shortness of breath, coughing. Complains of abdominal discomfort. Complains of nausea. Denies any fever or chills. Denies any chronic dysphagia. General exam; young male, quadriplegic. On ventilator via tracheostomy currently no distress. Requesting Provider: TYLOR REESE Date/Time of Note DATE: 05/29/19 TIME: 09:39 24 HR Interval Summary Free Text/Dictation Patient's condition has improved. Denies any shortness of breath, abdominal pain. No further drainage from nasogastric tube. General exam; middle-aged male, on ventilator via tracheostomy, awake and alert. Able to talk. Exam/Review of Systems Exam Vitals Vital Signs Date Temp Pulse Resp B/P (MAP) Pulse Ox O2 O2 Flow FiO2 Time Delivery Rate 05/29/19 59 16 91/76 (81) 100 Mechanical 09:00 Ventilator 05/29/19 97.7 08:00 05/29/19 40 08:00 Intake and Output 05/28/19 05/28/19 05/29/19 1515:00 23:00 07:00 IntakeIntake Total 200 ml 450 ml OutputOutput Total 2000 ml 55 ml 40 ml BalanceBalance -2000 ml 145 ml 410 ml Exam H ENT exam; supple neck, no JVD. No lymphadenopathy. Midline trachea. No thyromegaly. Tracheostomy placed. Insertion site is clean. Patient has fair dentition. Pupils are midsize bilaterally. Chest exam; diminished but clear breath sounds. S1-S2 audible, no murmurs. Regular rhythm. Abdomen exam; mildly protuberant. Nontender. Bowel sounds are audible. Multiple well-healed scars are present. No organomegaly felt. Extremity exam; no peripheral edema. Patient does have mild contractures. [employer]; patient is awake alert able to talk. Exhibiting stable quadriplegia. Results Result Diagram: 05/29/19 0400 05/29/19 0525 Results 24hrs Laboratory Tests Test 05/28/19 10:28 05/29/19 04:00 05/29/19 05:25 Lactic Acid Level 1.4 White Blood Count 11.8 H Red Blood Count 4.37 L Hemoglobin 10.5 L Hematocrit 32.1 L Mean Corpuscular Volume 73.5 L Mean Corpuscular Hemoglobin 24.0 L Mean Corpuscular Hemoglobin Concent 32.7 Red Cell Distribution Width 16.9 H Platelet Count 376 Mean Platelet Volume 10.8 H Immature Granulocytes % 0.500 H Neutrophils % 83.5 H Lymphocytes % 3.4 L Monocytes % 12.4 H Eosinophils % 0.0 Basophils % 0.2 Nucleated Red Blood Cells % 0.0 Immature Granulocytes # 0.060 H Neutrophils # 9.9 H Lymphocytes # 0.4 L Monocytes # 1.5 H Eosinophils # 0.0 Basophils # 0.0 Nucleated Red Blood Cells # 0.0 Hemoglobin A1c 5.3 Sodium Level 139 Potassium Level 3.6 Chloride Level 101 Carbon Dioxide Level 18 L Anion Gap 20 H Blood Urea Nitrogen 63 H Creatinine 2.17 H Est Glomerular Filtrat Rate mL/min 39 L Glucose Level 116 Calcium Level 9.7 Magnesium Level 2.1 Total Bilirubin 0.5 Direct Bilirubin 0.00 Indirect Bilirubin 0.5 Aspartate Amino Transf (AST/SGOT) 17 Alanine Aminotransferase (ALT/SGPT) 16 Alkaline Phosphatase 283 H Total Protein 9.8 H Albumin 4.1 Globulin 5.70 H Albumin/Globulin Ratio 0.71 Medications Medication Current Medications IV Flush (NS 3 ml) 3 ml PER PROTOCOL IV ; Start 05/28/19 at 06:30 Metoclopramide HCl (Reglan) 10 mg Q6H PRN IV NAUSEA/VOMITING; Start 05/28/19 at 06:30 Acetaminophen (Tylenol Tab) 650 mg Q6H PRN PO .PAIN 1-3 OR TEMP; Start 05/28/19 at 06:30 Piperacillin Sod/ Tazobactam Sod 100 ml @ 200 mls/hr Q8 IVPB Last administered on 05/29/19at 06:22; Admin Dose 200 MLS/HR; Start 05/28/19 at 11:15 Vancomycin HCl (Vanco Iv Per Pharmacy) VANCOMYCIN PER PHARMACY PER PROTOCOL XX ; Start 05/28/19 at 10:30 Metronidazole 100 ml @ 100 mls/hr Q8 IVPB Last administered on 05/29/19at 06:22; Admin Dose 100 MLS/HR; Start 05/28/19 at 11:30 Albuterol/ Ipratropium (Duoneb) 3 ml Q2H RESP THERAPY PRN NEB SHORTNESS OF BREATH; Start 05/28/19 at 10:30 Nitroglycerin (Nitroglycerin (Sl Tab) 0.4 Mg) 1 tab Q5M PRN SL CHEST PAIN; Start 05/28/19 at 10:30 Acetaminophen (Tylenol Supp) 650 mg Q4H PRN [place] PAIN LEVEL 1-3 OR FEVER; Start 05/28/19 at 10:30 Morphine Sulfate (morphine) 2 mg Q4H PRN IV PAIN LEVEL 7-10; Start 05/28/19 at 10:30 Bisacodyl (Dulcolax Supp) 10 mg DAILY PRN [place] CONSTIPATION; Start 05/28/19 at 10:30 Enoxaparin Sodium (Lovenox) 40 mg DAILY SC Last administered on 05/29/19 08:31; Admin Dose 40 MG; Start 05/29/19 at 09:00 Sodium Chloride 1,000 ml @ 150 mls/hr Q6H40M IV Last administered on 05/28/19 23:28; Admin Dose 75 MLS/HR; Start 05/28/19 at 10:08 IV Flush (NS 3 ml) 3 ml PER PROTOCOL IV ; Start 05/28/19 at 10:30 Ondansetron HCl (Zofran Inj) 4 mg Q6H PRN IV NAUSEA/VOMITING; Start 05/28/19 at 10:30 Famotidine (Pepcid Iv) 20 mg Q12 IV Last administered on 05/29/19 08:28; Admin Dose 20 MG; Start 05/28/19 at 21:00 Vancomycin HCl 1.25 gm/Sodium Chloride 250 ml @ 83.333 mls/ hr Q24H IVPB ; Start 05/29/19 at 21:00 Miscellaneous Information (*Rx Drug Level Order Reminder*) SERGIO VICKERS AT 11... 1999 ONCE XX ; Start 05/31/19 at 20:00; Stop 05/31/19 at 20:01 Albuterol (Ventolin Hfa) 4 puff Q4H RESP THERAPY INH Last administered on 05/29/19 08:54; Admin Dose 4 PUFF; Start 05/28/19 at 17:00 Ipratropium [place] (Atrovent Hfa) 4 puff Q6H RESP THERAPY INH Last administered on 05/29/19 08:54; Admin Dose 4 PUFF; Start 05/28/19 at 14:30 IV Flush (NS 10 ml) 10 ml Q8 PRN IV IV PROTOCOL; Start 05/28/19 at 19:00 ROLANDO OLIVEROS May 29, 2019 09:42
[2019-05-29] MEDS: ACETYLCYSTEINE 20% 4 ML VIAL NEB SCH ×3 (10:00→19:30)
[2019-05-29] MEDS: SOD CHLORIDE 0.9% 1,000 ML IV SCH ×3 (11:02→17:42)
[2019-05-29] MEDS: ACCU-CHEK XX SCH ×6 (13:22→21:00)
--- NOTE | 2019-05-29 14:49 | CONS ---
DATE OF ADMISSION: 05/28/2019 DATE OF CONSULTATION: 05/29/2019 TYPE OF CONSULTATION: Infectious disease. REASON FOR CONSULTATION: Antibiotic management. HISTORY OF PRESENT ILLNESS: Burke Owusu Jr. is a 48-year-old male who comes in with decreased urinary output, distended abdomen and possible UTI. The patient has had nausea and vomiting with decreased urine output and distended abdomen. He has a history of multiple small bowel obstructions in the pas t. Denies any other complaints. PAST MEDICAL HISTORY: He is trached to vent. He is quadriplegic. Obviously neurological difficulti es. FAMILY HISTORY: Noncontributory. SOCIAL HISTORY: He does not smoke, drink or abuse drugs. ALLERGIES: NONE TO PENICILLIN, SULFA OR FOODS. MEDICATIONS: Per chart. REVIEW OF SYSTEMS: Noncontributory. PHYSICAL EXAMINATION: GENERAL: He is in no acute distress. VITAL SIGNS: Stable. He is afebrile. SKIN: Without generalized rash. HEENT: Within normal limits. NECK: Supple. LYMPH NODES: None palpable. CHEST: Decreased breath sounds at the bases. HEART: Without murmur or gallop. ABDOMEN: Soft, nontender, without organosplenomegaly or masses. EXTREMITIES: No cyanosis, clubbing, or edema. RECTAL AND GENITAL: Deferred. NEUROLOGIC: The patient is quadriplegic. HOSPITAL COURSE: He also has a trach and PEG. He has an NG tube in place. His white count is 13.2 with 91% neutrophils, H and H 12.1 and 36.3, platelet count 411,000. BUN and creatinine 40/1.21. Hi s urinalysis shows 3+ leukocyte esterase, 121 white cells per high powered field. A small bowel x-ra y showed very slow bowel transit with dilated loops of jejunum and ileum either partial small-bowel o bstruction or moderately severe hypodynamic ileus. NG tube with the tip distorting the duodenal bulb , withdrawal of the tube by at least 2 to 3 cm is suggested. Chest x-ray: Interval placement of an NG tube, small-bowel obstruction, consolidation involving the mid right lower lung consistent with at electasis and/or scarring, right basilar infiltrate should not be excluded. A chest ultrasound was d one, trace right pleural effusion. Chest x-ray: increased density right perihilar lung region, acut e infiltrate cannot be excluded. CT scan of the abdomen and pelvis, incomplete visualization, perica rdial effusion, moderate right pleural effusion, patchy consolidation of the left lower lobe with ass ociated small left pleural effusion, mild emphysema. Follow up to resolution to exclude underlying n eoplasm, 6.2 cm exophytic lesion arising from the lower pole of the right kidney, 5.4 cm, concerning for neoplasm, suprapubic catheter with a decompressed urinary bladder, severely fluid and particulate -filled dilated loops of small bowel. The patient was seen by Dr. Lucian Quinonez in surgical consulta tion. Small bowel follow through is the plan, small-bowel obstruction. Further recommendations depe nding on patient's clinical course. The patient is a 48-year-old quadriplegic, ventilator dependent individual with nausea and vomiting. He has tracheostomy. He has an NG tube in place. Suprapubic c atheter and a PICC line placed. He has a neurogenic bladder. The patient seems to be improving at t he present time. White count today is 11.8. Urine showed gram-negative rods. Patient is on vancomy damien and metronidazole and Zosyn, being followed by pulmonary as well. Right lower lobe segmental ate lectasis. We will continue him on vancomycin and Zosyn. We may discontinue is metronidazole shortly . I will dictate my findings to the hospitalist and to the aforementioned consultants. Dictated By: APOLLO MOREL MD, JD/SUNDAY Conf#: [id number] DID#: [id number] CC: TYLOR REESE MD;*EndCC*
--- NOTE | 2019-05-29 15:16 | QN ---
Documentation Comment Awake and alert Abdomen is less distended Had a large bowel movement today Plan: IV Reglan. Follow-up [facility] in [email or web address]. ZENA CALDERÓN MD May 29, 2019 15:16
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
[2019-05-29] MEDS ORDERED: METOCLOPRAMIDE 10 MG INJ IV SCH ×2 (18:00)
[2019-05-29] MEDS: METOCLOPRAMIDE 10 MG INJ IV SCH (18:02)
[2019-05-29] MEDS: HEPARIN 5,000 UNIT/1 ML VIAL SC SCH (21:14)
[2019-05-30] VITALS (16 sets, daily range): BP systolic 133–196; BP diastolic 71–104; PULSE 49–73; RESP 16–29
[2019-05-30] MEDS: METOCLOPRAMIDE 10 MG INJ IV SCH ×2 (00:42→05:11)
[2019-05-30] MEDS: SOD CHLORIDE 0.9% 1,000 ML IV SCH (00:43)
[2019-05-30] MEDS: ACCU-CHEK XX SCH ×7 (01:00→21:52)
[2019-05-30] MEDS: IPRATROPIUM (HFA) 12.9 GM INHALER INH SCH ×4 (01:21→20:06)
[2019-05-30] MEDS: ALBUTEROL HFA 8 GM INHALER INH SCH ×4 (01:21→20:06)
[2019-05-30] MEDS: ACETYLCYSTEINE 20% 4 ML VIAL NEB SCH ×4 (01:21→20:06)
[2019-05-30] MEDS ORDERED: DEXTROSE 5%-0.9% NACL 1,000 ML IV SCH (02:00)
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
[2019-05-30] MEDS: PIPER-TAZO 3.375 GM IV (PMX) 100 ML IVPB SCH ×3 (05:11→20:40)
[2019-05-30] MEDS: metroNIDAZOLE 500 MG/NS (PMX) 100 ML IVPB SCH ×3 (05:11→21:49)
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
[2019-05-30] MEDS ORDERED: POTASSIUM CHLORIDE 50 ML IVPB SCH (09:00)
[2019-05-30] MEDS ORDERED: SOD CHLORIDE 0.45% 1,000 ML IV SCH (09:00)
--- NOTE | 2019-05-30 09:42 | QN ---
Documentation Comment Patient has had 2 more bowel movements The abdomen is much less distended and quite soft Tolerating NG tube clamping Plan: Discontinue NG tube and start clear liquids. Can consider PEG tube ZENA CALDERÓN MD May 30, 2019 09:42
[2019-05-30] MEDS: FAMOTIDINE 20 MG INJ IV SCH ×2 (09:57→20:40)
[2019-05-30] MEDS ORDERED: VANCOMYCIN HCL 1.25 GM in SOD CHLORIDE 0.9% 250 ML IVPB SCH (10:00)
[2019-05-30] MEDS: POTASSIUM CHLORIDE 20 MEQ/SW 100 ML IVPB SCH ×2 (10:03→12:54)
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
[2019-05-30] MEDS: HEPARIN 5,000 UNIT/1 ML VIAL SC SCH ×2 (10:28→20:42)
[2019-05-30] MEDS: DEXTROSE 5%-0.45% NACL 1,000 ML IV SCH (11:23)
--- NOTE | 2019-05-30 14:13 | CONS ---
Assessment/Plan Assessment/Plan Hospital Course (Demo Recall) Patient is alert looks comfortable denies pain discomfort no fevers overnight. WBC 11.8 from yesterday with neutrophils 83.5 BUN this morning 47 creatinine 1.2 potassium 2.8 sodium 146 Microbiology: Urine culture 2 days ago grew Providencia stuartii, blood cultures and MRSA swab negative, sputum culture growing gram-negative rods CT of the abdomen on admission revealed moderate right pleural effusion with associated right lung base consolidation. Patchy consolidation of the left lower lobe with associated small left pleural effusion. Questionable underlying neoplasm. 6.2 cm exophytic lesion arising from the lower pole of the right kidney. Previously it measures 5.4 cm. This is concerning for neoplasm. Severely fluid and particulate filled dilated loops of small bowel measuring up to 6.3 cm. Stomach and small bowel loops are very dilated with air-fluid levels. Questionable high-grade small bowel obstruction. Large stable right hydrocephaly. Please see full report in the chart. Indwelling: Trach, suprapubic catheter, PICC line Antimicrobials: Vancomycin, Zosyn PHYSICAL EXAMINATION: GENERAL: This is a chronically ill-appearing, quadriplegic 48-year-old - [place] man who is alert, in no distress. HEENT: Head atraumatic, normocephalic. Sclerae anicteric. Buccal mucosa dry. NECK: Supple. Tracheostomy present. CHEST: Rise symmetrical. Breath sounds diminished to bases. HEART: S1, S2. ABDOMEN: Distended, semi-soft. Bowel sounds present. The patient has NG tube to suction. EXTREMITIES: With trace edema. ASSESSMENT: 1. Small bowel obstruction on admission 2. Healthcare associated pneumonia 3. Urinary tract infection 4. Neurogenic bladder with chronic suprapubic catheter 5. Quadriplegia status post C-spine injury 6. Questionable right kidney neoplasm Plan: Patient is doing better, surgery on case, plan to start clears, continue Zosyn, discontinue vancomycin Consultation Date/Type/Reason Admit Date/Time May 28, 2019 at 06:21 Initial Consult Date 05/28/19 Type of Consult id Requesting Provider: TYLOR REESE Date/Time of Note DATE: 05/30/19 TIME: 14:13 Exam/Review of Systems Exam Vitals Vital Signs Date Temp Pulse Resp B/P (MAP) Pulse Ox O2 O2 Flow FiO2 Time Delivery Rate 05/30/19 40 13:38 05/30/19 59 18 98 13:02 05/30/19 98.2 177/87 Mechanical 12:18 (117) Ventilator Intake and Output 05/29/19 05/29/19 05/30/19 1515:00 23:00 07:00 IntakeIntake Total 450 ml 200 ml 800 ml OutputOutput Total 30 ml 200 ml 1650 ml BalanceBalance 420 ml 0 ml -850 ml Results Result Diagram: 05/29/19 0400 05/30/19 0545 Results 24hrs Laboratory Tests Test 05/29/19 19:00 05/29/19 21:07 05/30/19 01:24 05/30/19 05:13 Urine Color YELLOW Urine Clarity CLOUDY Urine pH 5.0 Urine Specific 1.018 [place] Urine Ketones TRACE Urine Nitrite NEGATIVE Urine Bilirubin NEGATIVE Urine Urobilinogen NEGATIVE Urine Leukocyte 3+ H Esterase Urine Microscopic 4 RBC Urine Microscopic 128 H WBC Urine Squamous FEW Epithelial Cells Urine Hemoglobin 1+ H Urine Random 47.20 Creatinine Urine Random Sodium 54 Urine Glucose NEGATIVE Urine Total Protein 85.0 H Bedside Glucose 85 79 101 Test 05/30/19 05:45 05/30/19 08:25 05/30/19 12:46 Sodium Level 146 H Potassium Level 2.8 *L Chloride Level 115 H Carbon Dioxide Level 16 L Anion Gap 15 H Blood Urea Nitrogen 47 #H Creatinine 1.20 Est Glomerular > 60 Filtrat Rate mL/min Glucose Level 88 Calcium Level 9.0 Phosphorus Level 2.4 #L Magnesium Level 2.1 Bedside Glucose 108 102 Medications Medication Current Medications IV Flush (NS 3 ml) 3 ml PER PROTOCOL IV ; Start 05/28/19 at 06:30 Acetaminophen (Tylenol Tab) 650 mg Q6H PRN PO .PAIN 1-3 OR TEMP; Start 05/28/19 at 06:30 Piperacillin Sod/ Tazobactam Sod 100 ml @ 200 mls/hr Q8 IVPB Last administered on 05/30/19at 05:11; Admin Dose 200 MLS/HR; Start 05/28/19 at 11:15 Vancomycin HCl (Vanco Iv Per Pharmacy) VANCOMYCIN PER PHARMACY PER PROTOCOL XX ; Start 05/28/19 at 10:30 Metronidazole 100 ml @ 100 mls/hr Q8 IVPB Last administered on 05/30/19at 05:11; Admin Dose 100 MLS/HR; Start 05/28/19 at 11:30 Albuterol/ Ipratropium (Duoneb) 3 ml Q2H RESP THERAPY PRN NEB SHORTNESS OF BREATH; Start 05/28/19 at 10:30 Nitroglycerin (Nitroglycerin (Sl Tab) 0.4 Mg) 1 tab Q5M PRN SL CHEST PAIN; Start 05/28/19 at 10:30 Acetaminophen (Tylenol Supp) 650 mg Q4H PRN AR PAIN LEVEL 1-3 OR FEVER; Start 05/28/19 at 10:30 Morphine Sulfate (morphine) 2 mg Q4H PRN IV PAIN LEVEL 7-10; Start 05/28/19 at 10:30 Bisacodyl (Dulcolax Supp) 10 mg DAILY PRN AR CONSTIPATION; Start 05/28/19 at 10:30 IV Flush (NS 3 ml) 3 ml PER PROTOCOL IV ; Start 05/28/19 at 10:30 Ondansetron HCl (Zofran Inj) 4 mg Q6H PRN IV NAUSEA/VOMITING; Start 05/28/19 at 10:30 Famotidine (Pepcid Iv) 20 mg Q12 IV Last administered on 05/30/19 09:57; Admin Dose 20 MG; Start 05/28/19 at 21:00 Ipratropium [place] (Atrovent Hfa) 4 puff Q6H RESP THERAPY INH Last administered on 05/30/19at 12:57; Admin Dose 4 PUFF; Start 05/28/19 at 14:30 IV Flush (NS 10 ml) 10 ml Q8 PRN IV IV PROTOCOL; Start 05/28/19 at 19:00 Acetylcysteine (Mucomyst) 3 ml Q6H RESP THERAPY NEB Last administered on 05/30/19at 12:42; Admin Dose 3 ML; Start 05/29/19 at 10:00 Diagnostic Test (Pha) (Accu-Chek) 1 ea Q4 XX Last administered on 05/30/19at 12:54; Admin Dose 1 EA; Start 05/29/19 at 13:00 Albuterol (Ventolin Hfa) 4 puff Q6H RESP THERAPY INH Last administered on 05/30/19 12:57; Admin Dose 4 PUFF; Start 05/29/19 at 14:00 Heparin Sodium (Porcine) (Heparin (5000 Units/1ml)) 5,000 unit BID SC Last administered on 05/30/19at 10:28; Admin Dose 5,000 UNIT; Start 05/29/19 at 21:00 Dextrose/Sodium Chloride 1,000 ml @ 80 mls/hr [id number] IV Last administered on 05/30/19at 11:23; Admin Dose 80 MLS/HR; Start 05/30/19 at 10:30 Vancomycin HCl 1.25 gm/Sodium Chloride 250 ml @ 83.333 mls/ hr Q24H IVPB ; Start 05/31/19 at 11:00 JOSIAS BELLA NP May 30, 2019 14:13
--- NOTE | 2019-05-30 14:37 | PN ---
DATE: 05/30/2019 SUBJECTIVE: Chart reviewed. The patient remains on ventilator on 30% FIO2 saturating 98%. The kimberlee ent had 2 large bowel movements today. PHYSICAL EXAMINATION: VITAL SIGNS: Blood pressure 177/87, pulse 66, respirations 24, temperature 98.2. HEENT: Pupils are equal and reactive to light. NECK: Supple, no JVD noted. Tracheostomy in place. LUNGS: Few scattered rhonchi. CARDIOVASCULAR: S1, S2 normal. ABDOMEN: Soft, nontender. Positive bowel sounds. EXTREMITIES: No clubbing or cyanosis noted. NEUROLOGIC: No changes. LABORATORY DATA: Sodium 146, potassium 2.8, chloride 115, CO2 16, BUN 47, creatinine 1.2, glucose 88 . IMPRESSION: 1. Ventilator-dependent respiratory failure. 2. History of quadriplegia. 3. Ileus, probably resolving. 4. Dehydration. 5. Acute kidney injury. 6. Hypokalemia. 7. Anemia. RECOMMENDATIONS: 1. Potassium supplementation as per hospitalist team. 2. Continue vent support. 3. Antibiotics. 4. Followup labs. Dictated By: RAY ARCOS MD, MA/SUNDAY Conf#: [id number] DID#: [id number] CC: TYLOR REESE MD;*EndCC*
--- NOTE | 2019-05-30 15:38 | CONS ---
Assessment/Plan Assessment/Plan Assessment/Plan (Daily) Assessment: Recurrent small bowel obstruction Quadriplegia Chronic respiratory failure status post tracheostomy Abdominal gas UTI Pneumonia Neurogenic bladder Plan: Small bowel follow-through PEG placement on Saturday Patient seen in collaboration Dr. Hall Consultation Date/Type/Reason Admit Date/Time May 28, 2019 at 06:21 Date of Consultation: May 30, 2019 Type of Consult GI Reason for Consultation Dysphagia/recurrent small bowel obstruction Date/Time of Note DATE: 05/30/19 TIME: 15:23 Hx of Present Illness This is a 48-year-old male with a history of quadriplegia status post tracheostomy and recurrent small bowel obstruction. GI was consulted for small bowel obstruction and possible G-tube placement for decompression. Nominal x- ray shows no specific gas bowel patterns, patient is complaining of slow transit and chronic gas buildup in the abdomen. He had multiple previous hospitalizations for small bowel obstruction. History of EGD and colonoscopy in the past. Currently there is no evidence of nausea, vomiting, abdominal pain or diarrhea. We will obtain small bowel follow-through with Gastrografin to rule out more bowel obstruction. Plan for PEG placement on Saturday. Gastrointestinal: no complaints (See HPI) Past Medical History Quadriplegia Medical History: hypertension, other (Quadriplegia, anemia, right renal cyst) Home Meds Reported Medications Ipratropium-Albuterol (Ipratropium-Albuterol) 0.5-3 Mg/3 Ml Ampul.neb, 3 ML INHALATION Q6 for SOB, #30 VIAL 05/28/19 Bacillus Coagulans (Probiotic) 1 Each Tab.chew, 1 EACH PO BID, TAB.CHEW 05/28/19 Docusate Sodium* (Colace*) 100 Mg Capsule, 200 MG PO DAILY, #30 CAP 05/28/19 Bisacodyl* (Dulcolax*) 5 Mg Tablet.dr, 10 MG PO DAILY PRN for QMEZ-LJB-UMA, TAB 05/28/19 Bisacodyl (Dulcolax) 10 Mg Supp.rect, 10 MG RC Q MON,WED,FRI, SUPP.RECT OR NEEDED 02/04/19 Simethicone (Gas Relief 80) 80 Mg Tab.chew, 160 MG PO QID, TAB.CHEW 02/04/19 Potassium Chloride* (Klor-Con*) 20 Meq Tabsr, 40 MEQ PO DAILY, TAB.SA 02/04/19 Polyethylene Glycol* (Miralax*) 17 Gm Powd.pack, 17 GM PO DAILY for CONSTIPATION, #30 PACKET 02/04/19 Oxybutynin Chloride* (Ditropan*) 5 Mg Tab, 5 MG PO DAILY, TAB 02/04/19 Baclofen* (Baclofen*) 20 Mg Tablet, 30 MG PO QID, TAB 02/04/19 Amlodipine Besylate* (Amlodipine Besylate*) 2.5 Mg Tablet, 2.5 MG PO BID, #30 TAB 02/04/19 Acetaminophen* (Acetaminophen*) 325 Mg Tablet, 650 MG PO Q6H PRN for MILD PAIN(1-3)OR ELEVATED TEMP, #30 TAB 02/04/19 Medications Current Medications IV Flush (NS 3 ml) 3 ml PER PROTOCOL IV ; Start 05/28/19 at 06:30 Acetaminophen (Tylenol Tab) 650 mg Q6H PRN PO .PAIN 1-3 OR TEMP; Start 05/28/19 at 06:30 Piperacillin Sod/ Tazobactam Sod 100 ml @ 200 mls/hr Q8 IVPB Last administered on 05/30/19at 14:43; Admin Dose 200 MLS/HR; Start 05/28/19 at 11:15 Vancomycin HCl (Vanco Iv Per Pharmacy) VANCOMYCIN PER PHARMACY PER PROTOCOL XX ; Start 05/28/19 at 10:30 Metronidazole 100 ml @ 100 mls/hr Q8 IVPB Last administered on 05/30/19at 14:43; Admin Dose 100 MLS/HR; Start 05/28/19 at 11:30 Albuterol/ Ipratropium (Duoneb) 3 ml Q2H RESP THERAPY PRN NEB SHORTNESS OF BREATH; Start 05/28/19 at 10:30 Nitroglycerin (Nitroglycerin (Sl Tab) 0.4 Mg) 1 tab Q5M PRN SL CHEST PAIN; S tart 05/28/19 at 10:30 Acetaminophen (Tylenol Supp) 650 mg Q4H PRN AL PAIN LEVEL 1-3 OR FEVER; Start 05/28/19 at 10:30 Morphine Sulfate (morphine) 2 mg Q4H PRN IV PAIN LEVEL 7-10; Start 05/28/19 at 10:30 Bisacodyl (Dulcolax Supp) 10 mg DAILY PRN AL CONSTIPATION; Start 05/28/19 at 10:30 IV Flush (NS 3 ml) 3 ml PER PROTOCOL IV ; Start 05/28/19 at 10:30 Ondansetron HCl (Zofran Inj) 4 mg Q6H PRN IV NAUSEA/VOMITING; Start 05/28/19 at 10:30 Famotidine (Pepcid Iv) 20 mg Q12 IV Last administered on 05/30/19 09:57; Admin Dose 20 MG; Start 05/28/19 at 21:00 Ipratropium [place] (Atrovent Hfa) 4 puff Q6H RESP THERAPY INH Last administered on 05/30/19 12:57; Admin Dose 4 PUFF; Start 05/28/19 at 14:30 IV Flush (NS 10 ml) 10 ml Q8 PRN IV IV PROTOCOL; Start 05/28/19 at 19:00 Acetylcysteine (Mucomyst) 3 ml Q6H RESP THERAPY NEB Last administered on 05/30/19 12:42; Admin Dose 3 ML; Start 05/29/19 at 10:00 Diagnostic Test (Pha) (Accu-Chek) 1 ea Q4 XX Last administered on 05/30/19 12:54; Admin Dose 1 EA; Start 05/29/19 at 13:00 Albuterol (Ventolin Hfa) 4 puff Q6H RESP THERAPY INH Last administered on 05/30/19 12:57; Admin Dose 4 PUFF; Start 05/29/19 at 14:00 Heparin Sodium (Porcine) (Heparin (5000 Units/1ml)) 5,000 unit BID SC Last administered on 05/30/19 10:28; Admin Dose 5,000 UNIT; Start 05/29/19 at 21:00 Dextrose/Sodium Chloride 1,000 ml @ 80 mls/hr [id number] IV Last administered on 05/30/19 11:23; Admin Dose 80 MLS/HR; Start 05/30/19 at 10:30 Vancomycin HCl 1.25 gm/Sodium Chloride 250 ml @ 83.333 mls/ hr Q24H IVPB ; Start 05/31/19 at 11:00 Allergies: Coded Allergies: iodine (Unverified Allergy, Unknown, 05/28/19) Past Surgical History Past Surgical Hx: other (Tracheostomy, suprapubic tube) Social History Smoking Status: Never smoker Exam/Review of Systems Exam Vitals Vital Signs Date Temp Pulse Resp B/P (MAP) Pulse Ox O2 O2 Flow FiO2 Time Delivery Rate 05/30/19 40 13:38 05/30/19 59 18 98 13:02 05/30/19 98.2 177/87 Mechanical 12:18 (117) Ventilator Intake and Output 05/29/19 05/29/19 05/30/19 1515:00 23:00 07:00 IntakeIntake Total 450 ml 200 ml 800 ml OutputOutput Total 30 ml 200 ml 1650 ml BalanceBalance 420 ml 0 ml -850 ml Exam PHYSICAL EXAMINATION: GENERAL: Quadriplegic, trached, alert & oriented x 3, in no acute distress SKIN: No lesions, no stigmata chronic liver disease, no evidence of bleeding diathesis LYMPHATIC: No palpable lymphadenopathy. HEAD: Normocephalic, atraumatic, no tenderness. EYES: Pupils equal reactive to light and accommodation, full extraocular movements, sclera clear, non-icteric, no discharge. EARS/NOSE AND THROAT: Ears normal, nose normal, oropharynx normal, oral membranes well hydrated without lesions. NECK: Supple, no masses, thyroid normal, JVP within normal limits, carotids norm al without bruits. Ileostomy in place CHEST: Inspection within normal limits. CARDIOVASCULAR: Heart: Regular rate and rhythm, no murmurs, gallops or rubs. Peripheral pulses present within normal limits, no cyanosis, clubbing or edemas. No pulsatile abdominal mass RESPIRATORY: Lungs clear to auscultation and percussion, no wheezing, no rubs GASTROINTESTINAL AND LIVER: Abdomen: Soft, no tenderness, really distended, no hernias, no masses, no organomegaly, no ascites, no guarding, no rebound tende rness, normoactive bowel sounds. Rectal: Deferred. GENITOURINARY: [Male genitalia within normal limits. EXTREMITIES: No cyanosis, clubbing or edema. Results Result Diagram: 05/29/19 0400 05/30/19 0545 Results 24hrs Laboratory Tests Test 05/29/19 19:00 05/29/19 21:07 05/30/19 01:24 05/30/19 05:13 Urine Color YELLOW Urine Clarity CLOUDY Urine pH 5.0 Urine Specific 1.018 [place] Urine Ketones TRACE Urine Nitrite NEGATIVE Urine Bilirubin NEGATIVE Urine Urobilinogen NEGATIVE Urine Leukocyte 3+ H Esterase Urine Microscopic 4 RBC Urine Microscopic 128 H WBC Urine Squamous FEW Epithelial Cells Urine Hemoglobin 1+ H Urine Random 47.20 Creatinine Urine Random Sodium 54 Urine Glucose NEGATIVE Urine Total Protein 85.0 H Bedside Glucose 85 79 101 Test 05/30/19 05:45 05/30/19 08:25 05/30/19 12:46 Sodium Level 146 H Potassium Level 2.8 *L Chloride Level 115 H Carbon Dioxide Level 16 L Anion Gap 15 H Blood Urea Nitrogen 47 #H Creatinine 1.20 Est Glomerular > 60 Filtrat Rate mL/min Glucose Level 88 Calcium Level 9.0 Phosphorus Level 2.4 #L Magnesium Level 2.1 Bedside Glucose 108 102 Medications Medication Current Medications IV Flush (NS 3 ml) 3 ml PER PROTOCOL IV ; Start 05/28/19 at 06:30 Acetaminophen (Tylenol Tab) 650 mg Q6H PRN PO .PAIN 1-3 OR TEMP; Start 05/28/19 at 06:30 Piperacillin Sod/ Tazobactam Sod 100 ml @ 200 mls/hr Q8 IVPB Last administered on 05/30/19at 14:43; Admin Dose 200 MLS/HR; Start 05/28/19 at 11:15 Vancomycin HCl (Vanco Iv Per Pharmacy) VANCOMYCIN PER PHARMACY PER PROTOCOL XX ; Start 05/28/19 at 10:30 Metronidazole 100 ml @ 100 mls/hr Q8 IVPB Last administered on 05/30/19at 14:43; Admin Dose 100 MLS/HR; Start 05/28/19 at 11:30 Albuterol/ Ipratropium (Duoneb) 3 ml Q2H RESP THERAPY PRN NEB SHORTNESS OF BREATH; Start 05/28/19 at 10:30 Nitroglycerin (Nitroglycerin (Sl Tab) 0.4 Mg) 1 tab Q5M PRN SL CHEST PAIN; Start 05/28/19 at 10:30 Acetaminophen (Tylenol Supp) 650 mg Q4H PRN AL PAIN LEVEL 1-3 OR FEVER; Start 05/28/19 at 10:30 Morphine Sulfate (morphine) 2 mg Q4H PRN IV PAIN LEVEL 7-10; Start 05/28/19 at 10:30 Bisacodyl (Dulcolax Supp) 10 mg DAILY PRN [place] CONSTIPATION; Start 05/28/19 at 10:30 IV Flush (NS 3 ml) 3 ml PER PROTOCOL IV ; Start 05/28/19 at 10:30 Ondansetron HCl (Zofran Inj) 4 mg Q6H PRN IV NAUSEA/VOMITING; Start 05/28/19 at 10:30 Famotidine (Pepcid Iv) 20 mg Q12 IV Last administered on 05/30/19 09:57; Admin Dose 20 MG; Start 05/28/19 at 21:00 Ipratropium [place] (Atrovent Hfa) 4 puff Q6H RESP THERAPY INH Last administered on 05/30/19 12:57; Admin Dose 4 PUFF; Start 05/28/19 at 14:30 IV Flush (NS 10 ml) 10 ml Q8 PRN IV IV PROTOCOL; Start 05/28/19 at 19:00 Acetylcysteine (Mucomyst) 3 ml Q6H RESP THERAPY NEB Last administered on 05/30/19 12:42; Admin Dose 3 ML; Start 05/29/19 at 10:00 Diagnostic Test (Pha) (Accu-Chek) 1 ea Q4 XX Last administered on 05/30/19 12:54; Admin Dose 1 EA; Start 05/29/19 at 13:00 Albuterol (Ventolin Hfa) 4 puff Q6H RESP THERAPY INH Last administered on 05/30/19 12:57; Admin Dose 4 PUFF; Start 05/29/19 at 14:00 Heparin Sodium (Porcine) (Heparin (5000 Units/1ml)) 5,000 unit BID SC Last administered on 05/30/19 10:28; Admin Dose 5,000 UNIT; Start 05/29/19 at 21:00 Dextrose/Sodium Chloride 1,000 ml @ 80 mls/hr [id number] IV Last administered on 05/30/19 11:23; Admin Dose 80 MLS/HR; Start 05/30/19 at 10:30 Vancomycin HCl 1.25 gm/Sodium Chloride 250 ml @ 83.333 mls/ hr Q24H IVPB ; Start 05/31/19 at 11:00 TABBY FREITAS NP May 30, 2019 15:33
[2019-05-30] MEDS ORDERED: POTASSIUM CHLORIDE 50 ML IVPB PRN (19:00)
[2019-05-30] MEDS: POTASSIUM CHLORIDE 100 ML IVPB SCH ×4 (20:28→23:19)
[2019-05-31] VITALS (18 sets, daily range): BP systolic 116–179; BP diastolic 82–98; PULSE 55–83; RESP 19–32
[2019-05-31] MEDS: ACETYLCYSTEINE 20% 4 ML VIAL NEB SCH ×4 (00:43→20:49)
[2019-05-31] MEDS: ALBUTEROL HFA 8 GM INHALER INH SCH ×4 (00:43→20:00)
[2019-05-31] MEDS: IPRATROPIUM (HFA) 12.9 GM INHALER INH SCH ×4 (00:43→21:12)
[2019-05-31] MEDS: ACCU-CHEK XX SCH ×6 (01:00→21:20)
[2019-05-31] MEDS: DEXTROSE 5%-0.45% NACL 1,000 ML IV SCH (03:19)
[2019-05-31] MEDS: PIPER-TAZO 3.375 GM IV (PMX) 100 ML IVPB SCH ×3 (05:56→21:19)
[2019-05-31] MEDS: metroNIDAZOLE 500 MG/NS (PMX) 100 ML IVPB SCH ×3 (05:56→21:19)
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
[2019-05-31] MEDS ORDERED: MAGNESIUM SULFATE 2 GM/50 ML 50 ML IVPB ONE (08:00)
[2019-05-31] MEDS: FAMOTIDINE 20 MG INJ IV SCH ×2 (08:23→21:19)
[2019-05-31] MEDS ORDERED: POTASSIUM PHOSPHATE 20 MEQ in SOD CHLORIDE 0.9% 250 ML IVPB ONE (08:30)
[2019-05-31] MEDS: HEPARIN 5,000 UNIT/1 ML VIAL SC SCH ×2 (09:38→21:00)
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
[2019-05-31] MEDS ORDERED: VANCOMYCIN HCL 1.25 GM in SOD CHLORIDE 0.9% 250 ML IVPB SCH (11:00)
[2019-05-31] MEDS: BACLOFEN 10 MG TAB NGT SCH ×2 (13:02→21:18)
--- NOTE | 2019-05-31 13:57 | PN ---
Date/Time of Note Date/Time of Note DATE: 05/31/19 TIME: 13:55 Assessment/Plan VTE Prophylaxis Risk score (from Nsg)>0 risk: 4 SCD applied (from Nsg): Yes Pharmacological prophylaxis: heparin Lines/Catheters IV Catheter Type (from Nrsg): Central Line Central line still needed: No Urinary Cath still in place: Yes (Suprapubic) Reason Cath still needed: other (indicate) Assessment/Plan Assessment/Plan Assessment: Recurrent small bowel obstruction Quadriplegia Chronic respiratory failure status post tracheostomy Abdominal gas UTI Pneumonia Neurogenic bladder Plan: Continue present regimen PEG placement on Saturday Patient seen in collaboration Dr. Hall Subjective: Patient is doing well. Reviewed results of small bowel follow-through is being negative for bowel obstruction. The study is showing gas and small intestine and ileus. Plan for PEG placement on Saturday. Patient is agreeable. Exam PHYSICAL EXAMINATION: GENERAL: Quadriplegic, trached, alert & oriented x 3, in no acute distress SKIN: No lesions, no stigmata chronic liver disease, no evidence of bleeding diathesis LYMPHATIC: No palpable lymphadenopathy. HEAD: Normocephalic, atraumatic, no tenderness. EYES: Pupils equal reactive to light and accommodation, full extraocular movements, sclera clear, non-icteric, no discharge. EARS/NOSE AND THROAT: Ears normal, nose normal, oropharynx normal, oral membranes well hydrated without lesions. NECK: Supple, no masses, thyroid normal, JVP within normal limits, carotids normal without bruits. Ileostomy in place CHEST: Inspection within normal limits. CARDIOVASCULAR: Heart: Regular rate and rhythm, no murmurs, gallops or rubs. Peripheral pulses present within normal limits, no cyanosis, clubbing or edemas. No pulsatile abdominal mass RESPIRATORY: Lungs clear to auscultation and percussion, no wheezing, no rubs GASTROINTESTINAL AND LIVER: Abdomen: Soft, no tenderness, really distended, no hernias, no masses, no organomegaly, no ascites, no guarding, no rebound tenderness, normoactive bowel sounds. Rectal: Deferred. GENITOURINARY: [Male genitalia within normal limits. EXTREMITIES: No cyanosis, clubbing or edema. Result Diagram: 05/29/19 0400 05/31/19 0736 Results 24hrs Laboratory Tests Test 05/30/19 17:04 05/30/19 17:31 05/30/19 20:27 05/31/19 01:18 Bedside Glucose 107 104 91 Potassium Level 2.7 *L Test 05/31/19 04:50 05/31/19 05:41 05/31/19 06:44 05/31/19 07:36 Bedside Glucose 102 88 Sodium Level 139 Potassium Level 3.5 Chloride Level 112 H Carbon Dioxide Level 17 L Anion Gap 10 # Blood Urea Nitrogen 23 #H Creatinine 0.77 Est Glomerular > 60 Filtrat Rate mL/min Glucose Level 443 #*H 91 # Calcium Level 8.2 L Phosphorus Level 1.6 L Magnesium Level 1.6 L Test 05/31/19 13:01 Bedside Glucose 105 CC: CHAPITO HALL MD ; Exam/Review of Systems Exam Vitals Vital Signs Date Temp Pulse Resp B/P (MAP) Pulse Ox O2 O2 Flow FiO2 Time Delivery Rate 05/31/19 40 11:32 05/31/19 98.4 83 20 116/82 98 11:20 (93) 05/30/19 Mechanical 16:14 Ventilator Intake and Output 05/30/19 05/30/19 05/31/19 1515:00 23:00 07:00 IntakeIntake Total 440 ml 320 ml 1140 ml OutputOutput Total 1500 ml 2100 ml BalanceBalance 440 ml -1180 ml -960 ml Results Results 24hrs Laboratory Tests Test 05/30/19 17:04 05/30/19 17:31 05/30/19 20:27 05/31/19 01:18 Bedside Glucose 107 104 91 Potassium Level 2.7 *L Test 05/31/19 04:50 05/31/19 05:41 05/31/19 06:44 05/31/19 07:36 Bedside Glucose 102 88 Sodium Level 139 Potassium Level 3.5 Chloride Level 112 H Carbon Dioxide Level 17 L Anion Gap 10 # Blood Urea Nitrogen 23 #H Creatinine 0.77 Est Glomerular > 60 Filtrat Rate mL/min Glucose Level 443 #*H 91 # Calcium Level 8.2 L Phosphorus Level 1.6 L Magnesium Level 1.6 L Test 05/31/19 13:01 Bedside Glucose 105 Medications Medication Current Medications IV Flush (NS 3 ml) 3 ml PER PROTOCOL IV ; Start 05/28/19 at 06:30 Acetaminophen (Tylenol Tab) 650 mg Q6H PRN PO .PAIN 1-3 OR TEMP; Start 05/28/19 at 06:30 Piperacillin Sod/ Tazobactam Sod 100 ml @ 200 mls/hr Q8 IVPB Last administered on 05/31/19at 05:56; Admin Dose 200 MLS/HR; Start 05/28/19 at 11:15 Metronidazole 100 ml @ 100 mls/hr Q8 IVPB Last administered on 05/31/19at 05:56; Admin Dose 100 MLS/HR; Start 05/28/19 at 11:30 Albuterol/ Ipratropium (Duoneb) 3 ml Q2H RESP THERAPY PRN NEB SHORTNESS OF BREATH; Start 05/28/19 at 10:30 Nitroglycerin (Nitroglycerin (Sl Tab) 0.4 Mg) 1 tab Q5M PRN SL CHEST PAIN; Start 05/28/19 at 10:30 Acetaminophen (Tylenol Supp) 650 mg Q4H PRN [place] PAIN LEVEL 1-3 OR FEVER; Start 05/28/19 at 10:30 Morphine Sulfate (morphine) 2 mg Q4H PRN IV PAIN LEVEL 7-10; Start 05/28/19 at 10:30 Bisacodyl (Dulcolax Supp) 10 mg DAILY PRN [place] CONSTIPATION; Start 05/28/19 at 10:30 IV Flush (NS 3 ml) 3 ml PER PROTOCOL IV ; Start 05/28/19 at 10:30 Ondansetron HCl (Zofran Inj) 4 mg Q6H PRN IV NAUSEA/VOMITING; Start 05/28/19 at 10:30 Famotidine (Pepcid Iv) 20 mg Q12 IV Last administered on 05/31/19at 08:23; Admin Dose 20 MG; Start 05/28/19 at 21:00 Ipratropium [place] (Atrovent Hfa) 4 puff Q6H RESP THERAPY INH Last administered on 05/31/19at 08:12; Admin Dose 4 PUFF; Start 05/28/19 at 14:30 IV Flush (NS 10 ml) 10 ml Q8 PRN IV IV PROTOCOL; Start 05/28/19 at 19:00 Acetylcysteine (Mucomyst) 3 ml Q6H RESP THERAPY NEB Last administered on 05/31/19at 08:12; Admin Dose 3 ML; Start 7/12/19 at 10:00 Diagnostic Test (Pha) (Accu-Chek) 1 ea Q4 XX Last administered on 05/31/19 13:02; Admin Dose 1 EA; Start 05/29/19 at 13:00 Albuterol (Ventolin Hfa) 4 puff Q6H RESP THERAPY INH Last administered on 05/18 08:12; Admin Dose 4 PUFF; Start 05/29/19 at 14:00 Heparin Sodium (Porcine) (Heparin (5000 Units/1ml)) 5,000 unit BID SC Last administered on 05/31/19 09:38; Admin Dose 5,000 UNIT; Start 05/29/19 at 21:00 Baclofen (Lioresal) 5 mg TID NGT Last administered on 05/31/19 13:02; Admin Dose 5 MG; Start 05/31/19 at 13:00 TABBY FREITAS NP May 31, 2019 13:57
--- NOTE | 2019-05-31 15:24 | CONS ---
Assessment/Plan Assessment/Plan Hospital Course (Demo Recall) Patient is alert feels better tolerates clears no fevers overnight Microbiology: Urine culture 2 days ago grew Providencia stuartii, blood cultures and MRSA swab negative, sputum culture growing gram-negative rods CT of the abdomen on admission revealed moderate right pleural effusion with a ssociated right lung base consolidation. Patchy consolidation of the left lower lobe with associated small left pleural effusion. Questionable underlying neoplasm. 6.2 cm exophytic lesion arising from the lower pole of the right kidney. Previously it measures 5.4 cm. This is concerning for neoplasm. Severely fluid and particulate filled dilated loops of small bowel measuring up to 6.3 cm. Stomach and small bowel loops are very dilated with air-fluid levels. Questionable high-grade small bowel obstruction. Large stable right hydrocephaly. Please see full report in the chart. Indwelling: Trach, suprapubic catheter, PICC line Antimicrobials: Zosyn PHYSICAL EXAMINATION: GENERAL: This is a chronically ill-appearing, quadriplegic 48-year-old - [place] man who is alert, in no distress. HEENT: Head atraumatic, normocephalic. Sclerae anicteric. Buccal mucosa dry. NECK: Supple. Tracheostomy present. CHEST: Rise symmetrical. Breath sounds diminished to bases. HEART: S1, S2. ABDOMEN: Distended, semi-soft. Bowel sounds present. The patient has NG tube to suction. EXTREMITIES: With trace edema. ASSESSMENT: 1. Small bowel obstruction on admission, resolved 2. Healthcare associated pneumonia 3. Urinary tract infection 4. Neurogenic bladder with chronic suprapubic catheter 5. Quadriplegia status post C-spine injury 6. Questionable right kidney neoplasm Plan: Remains stable, continue antibiotics Consultation Date/Type/Reason Admit Date/Time May 28, 2019 at 06:21 Initial Consult Date 05/28/19 Type of Consult id Requesting Provider: TYLOR REESE Date/Time of Note DATE: 05/31/19 TIME: 15:23 Exam/Review of Systems Exam Vitals Vital Signs Date Temp Pulse Resp B/P (MAP) Pulse Ox O2 O2 Flow FiO2 Time Delivery Rate 05/31/19 40 11:32 05/31/19 98.4 83 20 116/82 98 11:20 (93) 05/30/19 Mechanical 16:14 Ventilator Intake and Output 05/30/19 05/30/19 05/31/19 1515:00 23:00 07:00 IntakeIntake Total 440 ml 320 ml 1140 ml OutputOutput Total 1500 ml 2100 ml BalanceBalance 440 ml -1180 ml -960 ml Results Result Diagram: 05/29/19 0400 05/31/19 0736 Results 24hrs Laboratory Tests Test 05/30/19 17:04 05/30/19 17:31 05/30/19 20:27 05/31/19 01:18 Bedside Glucose 107 104 91 Potassium Level 2.7 *L Test 05/31/19 04:50 05/31/19 05:41 05/31/19 06:44 05/31/19 07:36 Bedside Glucose 102 88 Sodium Level 139 Potassium Level 3.5 Chloride Level 112 H Carbon Dioxide Level 17 L Anion Gap 10 # Blood Urea Nitrogen 23 #H Creatinine 0.77 Est Glomerular > 60 Filtrat Rate mL/min Glucose Level 443 #*H 91 # Calcium Level 8.2 L Phosphorus Level 1.6 L Magnesium Level 1.6 L Test 05/31/19 13:01 Bedside Glucose 105 Medications Medication Current Medications IV Flush (NS 3 ml) 3 ml PER PROTOCOL IV ; Start 05/28/19 at 06:30 Acetaminophen (Tylenol Tab) 650 mg Q6H PRN PO .PAIN 1-3 OR TEMP; Start 05/28/19 at 06:30 Piperacillin Sod/ Tazobactam Sod 100 ml @ 200 mls/hr Q8 IVPB Last administered on 05/31/19at 15:09; Admin Dose 200 MLS/HR; Start 05/28/19 at 11:15 Metronidazole 100 ml @ 100 mls/hr Q8 IVPB Last administered on 05/31/19at 15:09; Admin Dose 100 MLS/HR; Start 05/28/19 at 11:30 Albuterol/ Ipratropium (Duoneb) 3 ml Q2H RESP THERAPY PRN NEB SHORTNESS OF BREATH; Start 05/28/19 at 10:30 Nitroglycerin (Nitroglycerin (Sl Tab) 0.4 Mg) 1 tab Q5M PRN SL CHEST PAIN; Start 05/28/19 at 10:30 Acetaminophen (Tylenol Supp) 650 mg Q4H PRN [place] PAIN LEVEL 1-3 OR FEVER; Start 05/28/19 at 10:30 Morphine Sulfate (morphine) 2 mg Q4H PRN IV PAIN LEVEL 7-10; Start 05/28/19 at 10:30 Bisacodyl (Dulcolax Supp) 10 mg DAILY PRN [place] CONSTIPATION; Start 05/28/19 at 10:30 IV Flush (NS 3 ml) 3 ml PER PROTOCOL IV ; Start 05/28/19 at 10:30 Ondansetron HCl (Zofran Inj) 4 mg Q6H PRN IV NAUSEA/VOMITING; Start 05/28/19 at 10:30 Famotidine (Pepcid Iv) 20 mg Q12 IV Last administered on 05/31/19 08:23; Admin Dose 20 MG; Start 05/28/19 at 21:00 Ipratropium [place] (Atrovent Hfa) 4 puff Q6H RESP THERAPY INH Last adm inistered on 05/31/19 14:25; Admin Dose 4 PUFF; Start 05/28/19 at 14:30 IV Flush (NS 10 ml) 10 ml Q8 PRN IV IV PROTOCOL; Start 05/28/19 at 19:00 Acetylcysteine (Mucomyst) 3 ml Q6H RESP THERAPY NEB Last administered on 05/31/19 14:39; Admin Dose 3 ML; Start 05/29/19 at 10:00 Diagnostic Test (Pha) (Accu-Chek) 1 ea Q4 XX Last administered on 05/31/19 13:02; Admin Dose 1 EA; Start 05/29/19 at 13:00 Albuterol (Ventolin Hfa) 4 puff Q6H RESP THERAPY INH Last administered on 05/31/19 14:25; Admin Dose 4 PUFF; Start 05/29/19 at 14:00 Heparin Sodium (Porcine) (Heparin (5000 Units/1ml)) 5,000 unit BID SC Last administered on 05/31/19 09:38; Admin Dose 5,000 UNIT; Start 05/29/19 at 21:00 Baclofen (Lioresal) 5 mg TID NGT Last administered on 05/31/19 13:02; Admin Dose 5 MG; Start 05/31/19 at 13:00 JOSIAS BELLA NP May 31, 2019 15:24
--- NOTE | 2019-05-31 17:34 | PN ---
DATE: 05/31/2019 SUBJECTIVE: Chart reviewed. The patient remains on 40% FIO2, saturating 98% and does not appear in acute distress. PHYSICAL EXAMINATION: VITAL SIGNS: Blood pressure 116/82, pulse 83, respirations 20, temperature 98.4. HEENT: Pupils are equal and reactive to light. NECK: Supple, no JVD noted. No cervical adenopathy noted. Tracheostomy in place. LUNGS: Fair breath sounds bilaterally with few scattered rhonchi. CARDIOVASCULAR: S1, S2 normal. ABDOMEN: Soft, nontender, no megaly or masses noted. EXTREMITIES: No clubbing or cyanosis noted. NEUROLOGIC: No changes. LABORATORY DATA: Sodium 139, potassium 3.5, chloride 112, CO2 17, BUN 23, creatinine 0.77, glucose 4 43. IMPRESSION: 1. Ventilator-dependent respiratory failure. 2. History of quadriplegia. 3. Ileus. 4. Dehydration. 5. Acute kidney injury. 6. Anemia. RECOMMENDATIONS: 1. Continue vent support. 2. Antibiotics. 3. Consultants noted. Dictated By: RAY ARCOS MD, MA/SUNDAY Conf#: [id number] DID#: [id number] CC: TYLOR REESE MD;*EndCC*
[2019-05-31] MEDS: BALSAM PERU/CASTOR OIL 60 GM TUBE TOP SCH (21:00)
[2019-06-01] VITALS (20 sets, daily range): BP systolic 90–207; BP diastolic 57–106; PULSE 56–64; RESP 18–24
[2019-06-01] MEDS: ACETYLCYSTEINE 20% 4 ML VIAL NEB SCH ×4 (01:46→19:18)
[2019-06-01] MEDS: ACCU-CHEK XX SCH ×6 (01:49→21:27)
[2019-06-01] MEDS: IPRATROPIUM (HFA) 12.9 GM INHALER INH SCH ×4 (01:53→19:18)
[2019-06-01] MEDS: ALBUTEROL HFA 8 GM INHALER INH SCH ×4 (01:53→19:18)
[2019-06-01] MEDS: metroNIDAZOLE 500 MG/NS (PMX) 100 ML IVPB SCH ×3 (05:04→21:29)
[2019-06-01] MEDS: PIPER-TAZO 3.375 GM IV (PMX) 100 ML IVPB SCH ×2 (05:05→13:17)
[2019-06-01] MEDS: HEPARIN 5,000 UNIT/1 ML VIAL SC SCH ×2 (08:46→21:00)
[2019-06-01] MEDS: FAMOTIDINE 20 MG INJ IV SCH ×2 (08:46→21:28)
[2019-06-01] MEDS: BACLOFEN 10 MG TAB NGT SCH ×3 (08:46→21:29)
[2019-06-01] MEDS: BALSAM PERU/CASTOR OIL 60 GM TUBE TOP SCH ×2 (08:47→21:29)
[2019-06-01] MEDS: BISACODYL 10 MG SUPP PR PRN (08:57)
[2019-06-01] MEDS: hydrALAzine 20 MG INJ IV PRN (08:58)
--- NOTE | 2019-06-01 11:17 | CONS ---
Consultation Date/Type/Reason Admit Date/Time May 28, 2019 at 06:21 Initial Consult Date 05/28/19 Type of Consult Pulmonary/critical care Patient is a pleasant 48-year-old gentleman who was sent over from senior care with abdominal distention and vomiting. Upon evaluation here patient was hypotensive and had been diagnosed with bowel obstruction. Nasogastric tube was placed and 3200 mL of fluid was drained. Chest x-ray also was done which is showing right upper lobe infiltrate. Possibly aspiration. At the time I saw the patient in ER, patient is on ventilator via tracheostomy and is completely awake and alert. Denies any shortness of breath, abdominal pain any fever or chills. Past medical history; 1. VDRF. 2. Quadriplegia. 3. Status post tracheostomy with interval removal of G-tube. Medications; reviewed. Allergies; iodine. Social history; noncontributory. Family history; noncontributory. Occupational history; patient is disabled. Review of systems; denies any headache, shortness of breath, coughing. Complains of abdominal discomfort. Complains of nausea. Denies any fever or chills. Denies any chronic dysphagia. General exam; young male, quadriplegic. On ventilator via tracheostomy curr ently no distress. Requesting Provider: TYLOR REESE Date/Time of Note DATE: 06/01/19 TIME: 11:14 24 HR Interval Summary Free Text/Dictation Patient's condition is stable. Has remained hemodynamically stable. Denies any nausea vomiting. Any abdominal pain. General exam; young male, on ventilator via tracheostomy, awake and alert. Currently in no distress. H ENT exam; supple neck, no JVD. No lymphadenopathy. Midline trachea. No thyromegaly. Patient has fair dentition. Tracheostomy in place. Chest exam; diminished but clear breath sounds. S1-S2 audible, no murmurs. Regular rhythm. Abdomen exam; soft, nontender. No organomegaly. Bowel sounds are audible. Extremity exam; no peripheral edema. Patient has a flexion contractures. SERVER ADMINISTRATOR exam; patient has stable quadriplegia. Ventilator setting; assist control of 16, pressure control. PEEP of 5. 30% FiO2. Abdomen x-ray showing persistent ileus. Assessment and recommendations; 1. Patient with history of quadriplegia admitted for ileus. Clinically improving. 2. Likely right lower lobe aspiration pneumonia. Continue current supportive care. Patient will benefit from G-tube placement. Cleared from pulmonary perspective for the procedure. Patient also can have some amount of oral diet for gratification purposes. Exam/Review of Systems Exam Vitals Vital Signs Date Temp Pulse Resp B/P (MAP) Pulse Ox O2 O2 Flow FiO2 Time Delivery Rate 06/01/19 76 22 100 30 11:03 06/01/19 186/105 09:17 (132) 06/01/19 97.5 07:55 05/30/19 Mechanical 16:14 Ventilator Intake and Output 05/31/19 05/31/19 06/01/19 1515:00 23:00 07:00 IntakeIntake Total 600 ml 100 ml 950 ml OutputOutput Total 1200 ml 600 ml BalanceBalance -600 ml 100 ml 350 ml Results Result Diagram: 06/01/19 0525 06/01/19 0524 Results 24hrs Laboratory Tests Test 05/31/19 13:01 05/31/19 16:26 05/31/19 20:46 06/01/19 00:58 Bedside Glucose 105 94 99 86 Test 06/01/19 04:53 06/01/19 05:24 06/01/19 05:25 06/01/19 08:52 Bedside Glucose 84 84 Sodium Level 139 Potassium Level 3.7 Chloride Level 111 H Carbon Dioxide Level 17 L Anion Gap 11 Blood Urea Nitrogen 19 Creatinine 0.68 Est Glomerular > 60 Filtrat Rate mL/min Glucose Level 83 Calcium Level 8.5 Phosphorus Level 2.8 Magnesium Level 1.9 White Blood Count 8.7 # Red Blood Count 4.16 L Hemoglobin 9.8 L Hematocrit 33.3 L Mean Corpuscular 80.0 L Volume Mean Corpuscular 23.6 L Hemoglobin Mean Corpuscular 29.4 L Hemoglobin Concent Red Cell 17.8 H Distribution Width Platelet Count 288 # Mean Platelet Volume 11.3 H Immature 3.700 H Granulocytes % Neutrophils % 76.4 Lymphocytes % 9.4 L Monocytes % 8.5 Eosinophils % 1.7 Basophils % 0.3 Nucleated Red Blood 0.0 Cells % Immature 0.320 H Granulocytes # Neutrophils # 6.6 Lymphocytes # 0.8 Monocytes # 0.7 Eosinophils # 0.2 Basophils # 0.0 Nucleated Red Blood 0.0 Cells # Medications Medication Current Medications IV Flush (NS 3 ml) 3 ml PER PROTOCOL IV ; Start 05/28/19 at 06:30 Acetaminophen (Tylenol Tab) 650 mg Q6H PRN PO .PAIN 1-3 OR TEMP; Start 05/28/19 at 06:30 Piperacillin Sod/ Tazobactam Sod 100 ml @ 200 mls/hr Q8 IVPB Last administered on 06/01/19at 05:05; Admin Dose 200 MLS/HR; Start 05/28/19 at 11:15 Metronidazole 100 ml @ 100 mls/hr Q8 IVPB Last administered on 06/01/19at 05:04; Admin Dose 100 MLS/HR; Start 05/28/19 at 11:30 Albuterol/ Ipratropium (Duoneb) 3 ml Q2H RESP THERAPY PRN NEB SHORTNESS OF BREATH; Start 05/28/19 at 10:30 Nitroglycerin (Nitroglycerin (Sl Tab) 0.4 Mg) 1 tab Q5M PRN SL CHEST PAIN; Start 05/28/19 at 10:30 Acetaminophen (Tylenol Supp) 650 mg Q4H PRN [place] PAIN LEVEL 1-3 OR FEVER; Start 05/28/19 at 10:30 Morphine Sulfate (morphine) 2 mg Q4H PRN IV PAIN LEVEL 7-10; Start 05/28/19 at 10:30 Bisacodyl (Dulcolax Supp) 10 mg DAILY PRN [place] CONSTIPATION Last administered on 06/01/19at 08:57; Admin Dose 10 MG; Start 05/28/19 at 10:30 IV Flush (NS 3 ml) 3 ml PER PROTOCOL IV ; Start 05/28/19 at 10:30 Ondansetron HCl (Zofran Inj) 4 mg Q6H PRN IV NAUSEA/VOMITING; Start 05/28/19 at 10:30 Famotidine (Pepcid Iv) 20 mg Q12 IV Last administered on 06/01/19at 08:46; Admin Dose 20 MG; Start 05/28/19 at 21:00 Ipratropium [place] (Atrovent Hfa) 4 puff Q6H RESP THERAPY INH Last administered on 06/01/19at 08:18; Admin Dose 4 PUFF; Start 05/28/19 at 14:30 IV Flush (NS 10 ml) 10 ml Q8 PRN IV IV PROTOCOL; Start 05/28/19 at 19:00 Acetylcysteine (Mucomyst) 3 ml Q6H RESP THERAPY NEB Last administered on 06/01/19 08:18; Admin Dose 3 ML; Start 05/29/19 at 10:00 Diagnostic Test (Pha) (Accu-Chek) 1 ea Q4 XX Last administered on 06/01/19 08:53; Admin Dose 1 EA; Start 05/29/19 at 13:00 Albuterol (Ventolin Hfa) 4 puff Q6H RESP THERAPY INH Last administered on 06/01/19 08:18; Admin Dose 4 PUFF; Start 05/29/19 at 14:00 Heparin Sodium (Porcine) (Heparin (5000 Units/1ml)) 5,000 unit BID SC Last administered on 06/01/19 08:46; Admin Dose 5,000 UNIT; Start 05/29/19 at 21:00 Baclofen (Lioresal) 5 mg TID NGT Last administered on 06/01/19 08:46; Admin Dose 5 MG; Start 05/31/19 at 13:00 Hydralazine HCl (Apresoline) 10 mg Q6H PRN IV SBP>160 Last administered on 06/01/19 08:58; Admin Dose 10 MG; Start 06/01/19 at 09:00 Simethicone (Mylicon) 80 mg Q6 PO ; Start 06/01/19 at 12:00 ROLANDO OLIVEROS Jun 01, 2019 11:17
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
[2019-06-01] MEDS: CEFEPIME 1GM/50 ML (PMX) 50 ML IVPB SCH (21:28)
[2019-06-02] VITALS (24 sets, daily range): BP systolic 94–141; BP diastolic 56–86; PULSE 53–110; RESP 18–50
[2019-06-02] MEDS: ACCU-CHEK XX SCH ×5 (01:30→17:08)
[2019-06-02] MEDS: IPRATROPIUM (HFA) 12.9 GM INHALER INH SCH ×4 (01:41→19:44)
[2019-06-02] MEDS: ALBUTEROL HFA 8 GM INHALER INH SCH ×4 (01:41→19:43)
[2019-06-02] MEDS: ACETYLCYSTEINE 20% 4 ML VIAL NEB SCH ×4 (01:41→19:44)
[2019-06-02] MEDS: metroNIDAZOLE 500 MG/NS (PMX) 100 ML IVPB SCH ×3 (05:35→22:41)
[2019-06-02] MEDS: ONDANSETRON 4 MG INJ IV PRN ×2 (06:04→14:31)
[2019-06-02] MEDS: POTASSIUM CHLORIDE 100 ML IVPB SCH ×2 (08:45→12:25)
[2019-06-02] MEDS: CEFEPIME 1GM/50 ML (PMX) 50 ML IVPB SCH ×2 (08:45→20:51)
[2019-06-02] MEDS: FAMOTIDINE 20 MG INJ IV SCH ×2 (08:46→20:51)
[2019-06-02] MEDS: metroNIDAZOLE 500 MG TAB PO SCH ×2 (08:47→14:00)
[2019-06-02] MEDS: BACLOFEN 10 MG TAB NGT SCH ×3 (08:47→20:51)
[2019-06-02] MEDS: BALSAM PERU/CASTOR OIL 60 GM TUBE TOP SCH ×2 (08:47→20:51)
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
[2019-06-02] MEDS ORDERED: POTASSIUM CHLORIDE 100 ML IVPB SCH (09:00)
--- NOTE | 2019-06-02 10:05 | CONS ---
Consultation Date/Type/Reason Admit Date/Time May 28, 2019 at 06:21 Initial Consult Date 05/28/19 Type of Consult Pulmonary/critical care Patient is a pleasant 48-year-old gentleman who was [facility] with abdominal distention and vomiting. Upon evaluation here patient was hypotensive and had been diagnosed with bowel obstruction. Nasogastric tube was placed and 3200 mL of fluid was drained. Chest x-ray also was done which is showing right upper lobe infiltrate. Possibly aspiration. At the time I saw the patient in ER, patient is on ventilator via tracheostomy and is completely awake and alert. Denies any shortness of breath, abdominal pain any fever or chills. Past medical history; 1. VDRF. 2. Quadriplegia. 3. Status post tracheostomy with interval removal of G-tube. Medications; reviewed. Allergies; iodine. Social history; noncontributory. Family history; noncontributory. Occupational history; patient is disabled. Review of systems; denies any headache, shortness of breath, coughing. Complains of abdominal discomfort. Complains of nausea. Denies any fever or chills. Denies any chronic dysphagia. General exam; young male, quadriplegic. On ventilator via tracheostomy curr ently no distress. Requesting Provider: TYLOR REESE Date/Time of Note DATE: 06/02/19 TIME: 10:01 24 HR Interval Summary Free Text/Dictation Patient's condition is stable. Remains awake and alert. Has remained hemodyna mically stable. General exam; young male, on ventilator via tracheostomy, currently no distress. H ENT exam; supple neck, no JVD. No lymphadenopathy. Midline trachea. No thyromegaly. Patient has fair dentition. Tracheostomy in place. Chest exam; diminished but clear breath sounds. S1-S2 audible, no murmurs. Regular rhythm. Abdomen exam; soft, bowel sounds are audible. No organomegaly. Epigastric scar in place. Extremity exam; no peripheral edema. 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 Ventilator setting; assist control of 16, pressure controlled, PEEP of 5, 30% FiO2. Assessment and recommendations; 1. Patient with history of quadriplegia and VDR F admitted for bowel obstructi on with spontaneous interval improvement. 2. Right lower lobe pneumonia, possibly aspiration. 3. Intravascular volume depletion with acute renal injury with significant interval improvement. 4. History of muscle spasms. 5. Anemia. Continue current supportive care. Patient has agreed for G-tube placement. Exam/Review of Systems Exam Vitals Vital Signs Date Temp Pulse Resp B/P (MAP) Pulse Ox O2 O2 Flow FiO2 Time Delivery Rate 06/02/19 64 20 100 30 09:36 06/02/19 97.6 128/81 07:59 (97) 05/30/19 Mechanical 16:14 Ventilator Intake and Output 06/01/19 06/01/19 06/02/19 1515:00 23:00 07:00 IntakeIntake Total 360 ml 600 ml 150 ml OutputOutput Total 1900 ml 300 ml BalanceBalance 360 ml -1300 ml -150 ml Results Result Diagram: 06/02/19 0545 06/02/19 0545 Results 24hrs Laboratory Tests Test 06/01/19 13:12 06/01/19 16:13 06/01/19 21:26 06/02/19 01:24 Bedside Glucose 88 86 76 75 Test 06/02/19 05:45 06/02/19 08:55 White Blood Count 10.4 Red Blood Count 4.46 L Hemoglobin 10.6 L Hematocrit 33.9 L Mean Corpuscular 76.0 L Volume Mean Corpuscular 23.8 L Hemoglobin Mean Corpuscular 31.3 L Hemoglobin Concent Red Cell 17.5 H Distribution Width Platelet Count 405 # Mean Platelet Volume 10.5 H Immature 5.400 H Granulocytes % Neutrophils % Segmented 76 Neutrophils % (Manual) Band Neutrophils % 3 (Manual) Lymphocytes % Lymphocytes % 9 L (Manual) Reactive Lymphocytes 1 H % (Manual) Monocytes % Monocytes % (Manual) 8 Eosinophils % Basophils % Metamyelocytes % 2 H (manual) Myelocytes % 1 H (Manual) Nucleated Red Blood 0.0 Cells % Immature 0.560 H Granulocytes # Neutrophils # Neutrophils # 7.9 H (Manual) Band Neutrophils # 0.3 Lymphocytes (Manual) 0.9 Lymphocytes # Reactive Lymphocytes 0.1 H # Monocytes # Monocytes # (Manual) 0.8 Eosinophils # Basophils # Metamyelocytes # 0.2 H Myelocytes # 0.1 H Nucleated Red Blood Cells # Platelet Estimate NORMAL Giant Platelets 3 H Polychromasia 3+ Poikilocytosis 3+ Anisocytosis 1+ Microcytosis 1+ Target Cells 1+ Sodium Level 139 Potassium Level 2.9 *L Chloride Level 107 Carbon Dioxide Level 18 L Anion Gap 14 H Blood Urea Nitrogen 20 Creatinine 0.69 Est Glomerular > 60 Filtrat Rate mL/min Glucose Level 82 Calcium Level 9.1 Magnesium Level 1.9 Bedside Glucose 83 Medications Medication Current Medications IV Flush (NS 3 ml) 3 ml PER PROTOCOL IV ; Start 05/28/19 at 06:30 Acetaminophen (Tylenol Tab) 650 mg Q6H PRN PO .PAIN 1-3 OR TEMP; Start 05/28/19 at 06:30 Metronidazole 100 ml @ 100 mls/hr Q8 IVPB Last administered on 06/02/19at 05:35; Admin Dose 100 MLS/HR; Start 05/28/19 at 11:30 Albuterol/ Ipratropium (Duoneb) 3 ml Q2H RESP THERAPY PRN NEB SHORTNESS OF BREATH; Start 05/28/19 at 10:30 Nitroglycerin (Nitroglycerin (Sl Tab) 0.4 Mg) 1 tab Q5M PRN SL CHEST PAIN; Start 05/28/19 at 10:30 Acetaminophen (Tylenol Supp) 650 mg Q4H PRN [place] PAIN LEVEL 1-3 OR FEVER; Start 05/28/19 at 10:30 Morphine Sulfate (morphine) 2 mg Q4H PRN IV PAIN LEVEL 7-10; Start 05/28/19 at 10:30 Bisacodyl (Dulcolax Supp) 10 mg DAILY PRN [place] CONSTIPATION Last administered on 06/01/19at 08:57; Admin Dose 10 MG; Start 05/28/19 at 10:30 IV Flush (NS 3 ml) 3 ml PER PROTOCOL IV ; Start 05/28/19 at 10:30 Ondansetron HCl (Zofran Inj) 4 mg Q6H PRN IV NAUSEA/VOMITING Last administered on 06/02/19at 06:04; Admin Dose 4 MG; Start 05/28/19 at 10:30 Famotidine (Pepcid Iv) 20 mg Q12 IV Last administered on 06/02/19at 08:46; Admin Dose 20 MG; Start 05/28/19 at 21:00 Ipratropium [place] (Atrovent Hfa) 4 puff Q6H RESP THERAPY INH Last administered on 06/02/19at 09:36; Admin Dose 4 PUFF; Start 05/28/19 at 14:30 IV Flush (NS 10 ml) 10 ml Q8 PRN IV IV PROTOCOL Last administered on 06/02/19 06:04; Admin Dose 10 ML; Start 05/28/19 at 19:00 Acetylcysteine (Mucomyst) 3 ml Q6H RESP THERAPY NEB Last administered on 06/02/19 09:35; Admin Dose 3 ML; Start 05/29/19 at 10:00 Diagnostic Test (Pha) (Accu-Chek) 1 ea Q4 XX Last administered on 06/02/19 08:47; Admin Dose 1 EA; Start 05/29/19 at 13:00 Albuterol (Ventolin Hfa) 4 puff Q6H RESP THERAPY INH Last administered on 06/02/19 09:36; Admin Dose 4 PUFF; Start 05/29/19 at 14:00 Heparin Sodium (Porcine) (Heparin (5000 Units/1ml)) 5,000 unit BID SC Last administered on 06/01/19 08:46; Admin Dose 5,000 UNIT; Start 05/29/19 at 21:00; Status Hold Baclofen (Lioresal) 5 mg TID NGT Last administered on 06/01/19 21:29; Admin Dose 5 MG; Start 05/31/19 at 13:00 Hydralazine HCl (Apresoline) 10 mg Q6H PRN IV SBP>160 Last administered on 06/01/19 08:58; Admin Dose 10 MG; Start 06/01/19 at 09:00 Simethicone (Mylicon) 80 mg Q6 PO Last administered on 06/01/19 17:00; Admin Dose 80 MG; Start 06/01/19 at 12:00 Cefepime HCl 50 ml @ 100 mls/hr Q12 IVPB Last administered on 06/02/19 08:45; Admin Dose 100 MLS/HR; Start 06/01/19 at 21:00 Potassium Chloride 100 ml @ 50 mls/hr Q2H IVPB Last administered on 06/02/19 08:45; Admin Dose 50 MLS/HR; Start 06/02/19 at 08:00; Stop 06/02/19 at 11:59 Metronidazole (Flagyl) 500 mg Q8 PO ; Start 06/02/19 at 09:00; Stop 06/09/19 at 08:59 Potassium Chloride 100 ml @ 50 mls/hr ONCE ONCE IVPB ; Start 06/02/19 at 12:00; Stop 06/02/19 at 13:59 ROLANDO OLIVEROS Jun 02, 2019 10:05
[2019-06-02] MEDS ORDERED: POTASSIUM CHLORIDE 100 ML IVPB ONE (12:00)
--- NOTE | 2019-06-02 14:18 | CONS ---
Assessment/Plan Assessment/Plan Hospital Course (Demo Recall) All noted, no acute events, looks comfortable, no fevers Microbiology: Urine culture 2 days ago grew Providencia stuartii, blood cultures and MRSA swab negative, sputum culture growing gram-negative rods Indwelling: Trach, suprapubic catheter, PICC line Antimicrobials: Cefepime, Flagyl PHYSICAL EXAMINATION: GENERAL: This is a chronically ill-appearing, quadriplegic 48-year-old -[place] man who is alert, in no distress. HEENT: Head atraumatic, normocephalic. Sclerae anicteric. Buccal mucosa dry. NECK: Supple. Tracheostomy present. CHEST: Rise symmetrical. Breath sounds diminished to bases. HEART: S1, S2. ABDOMEN: Distended, semi-soft. Bowel sounds present. The patient has NG tube to suction. EXTREMITIES: With trace edema. ASSESSMENT: 1. Small bowel obstruction on admission, resolved 2. Healthcare associated pneumonia 3. Urinary tract infection 4. Neurogenic bladder with chronic suprapubic catheter 5. Quadriplegia status post C-spine injury 6. Questionable right kidney neoplasm Plan: Remains stable, continue abx, pending PEG Consultation Date/Type/Reason Admit Date/Time May 28, 2019 at 06:21 Initial Consult Date 05/28/19 Type of Consult id Requesting Provider: TYLOR REESE Date/Time of Note DATE: 06/02/19 TIME: 14:17 Exam/Review of Systems Exam Vitals Vital Signs Date Temp Pulse Resp B/P (MAP) Pulse Ox O2 O2 Flow FiO2 Time Delivery Rate 06/02/19 98.5 59 20 109/76 100 11:52 (87) 06/02/19 30 09:36 05/30/19 Mechanical 16:14 Ventilator Intake and Output 06/01/19 06/01/19 06/02/19 1515:00 23:00 07:00 IntakeIntake Total 360 ml 600 ml 150 ml OutputOutput Total 1900 ml 300 ml BalanceBalance 360 ml -1300 ml -150 ml Results Result Diagram: 06/02/19 0545 06/02/19 0545 Results 24hrs Laboratory Tests Test 06/01/19 16:13 06/01/19 21:26 06/02/19 01:24 06/02/19 05:45 Bedside Glucose 86 76 75 White Blood Count 10.4 Red Blood Count 4.46 L Hemoglobin 10.6 L Hematocrit 33.9 L Mean Corpuscular 76.0 L Volume Mean Corpuscular 23.8 L Hemoglobin Mean Corpuscular 31.3 L Hemoglobin Concent Red Cell 17.5 H Distribution Width Platelet Count 405 # Mean Platelet Volume 10.5 H Immature 5.400 H Granulocytes % Neutrophils % Segmented 76 Neutrophils % (Manual) Band Neutrophils % 3 (Manual) Lymphocytes % Lymphocytes % 9 L (Manual) Reactive Lymphocytes 1 H % (Manual) Monocytes % Monocytes % (Manual) 8 Eosinophils % Basophils % Metamyelocytes % 2 H (manual) Myelocytes % 1 H (Manual) Nucleated Red Blood 0.0 Cells % Immature 0.560 H Granulocytes # Neutrophils # Neutrophils # 7.9 H (Manual) Band Neutrophils # 0.3 Lymphocytes (Manual) 0.9 Lymphocytes # Reactive Lymphocytes 0.1 H # Monocytes # Monocytes # (Manual) 0.8 Eosinophils # Basophils # Metamyelocytes # 0.2 H Myelocytes # 0.1 H Nucleated Red Blood Cells # Platelet Estimate NORMAL Giant Platelets 3 H Polychromasia 3+ Poikilocytosis 3+ Anisocytosis 1+ Microcytosis 1+ Target Cells 1+ Sodium Level 139 Potassium Level 2.9 *L Chloride Level 107 Carbon Dioxide Level 18 L Anion Gap 14 H Blood Urea Nitrogen 20 Creatinine 0.69 Est Glomerular > 60 Filtrat Rate mL/min Glucose Level 82 Calcium Level 9.1 Magnesium Level 1.9 Test 06/02/19 08:55 Bedside Glucose 83 Medications Medication Current Medications IV Flush (NS 3 ml) 3 ml PER PROTOCOL IV ; Start 05/28/19 at 06:30 Acetaminophen (Tylenol Tab) 650 mg Q6H PRN PO .PAIN 1-3 OR TEMP; Start 05/28/19 at 06:30 Metronidazole 100 ml @ 100 mls/hr Q8 IVPB Last administered on 06/02/19at 05:35; Admin Dose 100 MLS/HR; Start 05/28/19 at 11:30; Stop 06/02/19 at 23:59 Albuterol/ Ipratropium (Duoneb) 3 ml Q2H RESP THERAPY PRN NEB SHORTNESS OF BREATH; Start 05/28/19 at 10:30 Nitroglycerin (Nitroglycerin (Sl Tab) 0.4 Mg) 1 tab Q5M PRN SL CHEST PAIN; Start 05/28/19 at 10:30 Acetaminophen (Tylenol Supp) [address] PAIN LEVEL 1-3 OR FEVER; Start 05/28/19 at 10:30 Morphine Sulfate (morphine) 2 mg Q4H PRN IV PAIN LEVEL 7-10; Start 05/28/19 at 10:30 Bisacodyl (Dulcolax Supp) [address] CONSTIPATION Last administered on 06/01/19 08:57; Admin Dose 10 MG; Start 05/28/19 at 10:30 IV Flush (NS 3 ml) 3 ml PER PROTOCOL IV ; Start 05/28/19 at 10:30 Ondansetron HCl (Zofran Inj) 4 mg Q6H PRN IV NAUSEA/VOMITING Last administered on 06/02/19 06:04; Admin Dose 4 MG; Start 05/28/19 at 10:30 Famotidine (Pepcid Iv) 20 mg Q12 IV Last administered on 06/02/19 08:46; Admin Dose 20 MG; Start 05/28/19 at 21:00 Ipratropium [place] (Atrovent Hfa) 4 puff Q6H RESP THERAPY INH Last administered on 06/02/19 09:36; Admin Dose 4 PUFF; Start 05/28/19 at 14:30 IV Flush (NS 10 ml) 10 ml Q8 PRN IV IV PROTOCOL Last administered on 06/02/19 06:04; Admin Dose 10 ML; Start 05/28/19 at 19:00 Acetylcysteine (Mucomyst) 3 ml Q6H RESP THERAPY NEB Last administered on 06/02/19 09:35; Admin Dose 3 ML; Start 05/29/19 at 10:00 Diagnostic Test (Pha) (Accu-Chek) 1 ea Q4 XX Last administered on 06/02/19 08:47; Admin Dose 1 EA; Start 05/29/19 at 13:00 Albuterol (Ventolin Hfa) 4 puff Q6H RESP THERAPY INH Last administered on 06/02/19 09:36; Admin Dose 4 PUFF; Start 05/29/19 at 14:00 Heparin Sodium (Porcine) (Heparin (5000 Units/1ml)) 5,000 unit BID SC Last administered on 06/01/19 08:46; Admin Dose 5,000 UNIT; Start 05/29/19 at 21:00; Status Hold Baclofen (Lioresal) 5 mg TID NGT Last administered on 06/01/19at 21:29; Admin Dose 5 MG; Start 05/31/19 at 13:00 Hydralazine HCl (Apresoline) 10 mg Q6H PRN IV SBP>160 Last administered on 06/01/19 08:58; Admin Dose 10 MG; Start 06/01/19 at 09:00 Simethicone (Mylicon) 80 mg Q6 PO Last administered on 06/02/19at 12:25; Admin Dose 80 MG; Start 06/01/19 at 12:00 Cefepime HCl 50 ml @ 100 mls/hr Q12 IVPB Last administered on 06/02/19at 08:45; Admin Dose 100 MLS/HR; Start 06/01/19 at 21:00 Metronidazole (Flagyl) 500 mg Q8 PO ; Start 06/02/19 at 09:00; Stop 06/09/19 at 08:59 JOSIAS BELLA NP Jun 02, 2019 14:18
--- NOTE | 2019-06-02 18:39 | PREAC ---
Date/Time of Note Date/Time of Note DATE: 06/02/19 TIME: 18:37 Anesthesia Eval and Record Evaluation Time Pre-Procedure Interview DATE: 06/02/19 TIME: 18:37 Age 48 Sex male NPO: 8 hrs Preoperative diagnosis Dysphagia Planned procedure EGD, PEG Placement Past Medical History Past Medical History: Includes Cardio: HTN Pulm: Other (Intubated, Respiratory Failure) Neuro: Other (Quadriplagic) Heme: Anemia Surgery & Anesthesia Issues No known issue Meds Anticoagulation: No Beta Silvia within 24 hr: No Reason Beta Silvia not given: Pt. not on B-Silvia Reported Medications Ipratropium-Albuterol (Ipratropium-Albuterol) 0.5-3 Mg/3 Ml Ampul.neb, 3 ML INHALATION Q6 for SOB, #30 VIAL 05/28/19 Bacillus Coagulans (Probiotic) 1 Each Tab.chew, 1 EACH PO BID, TAB.CHEW 05/28/19 Docusate Sodium* (Colace*) 100 Mg Capsule, 200 MG PO DAILY, #30 CAP 05/28/19 Bisacodyl* (Dulcolax*) 5 Mg Tablet.dr, 10 MG PO DAILY PRN for [id number], TAB 05/28/19 Bisacodyl (Dulcolax) 10 Mg Supp.rect, 10 MG RC Q MON,SAT,FRI, SUPP.RECT OR NEEDED 02/04/19 Simethicone (Gas Relief 80) 80 Mg Tab.chew, 160 MG PO QID, TAB.CHEW 02/04/19 Potassium Chloride* (Klor-Con*) 20 Meq Tabsr, 40 MEQ PO DAILY, TAB.SA 02/04/19 Polyethylene Glycol* (Miralax*) 17 Gm Powd.pack, 17 GM PO DAILY for CONSTIPATION, #30 PACKET 02/04/19 Oxybutynin Chloride* (Ditropan*) 5 Mg Tab, 5 MG PO DAILY, TAB 02/04/19 Baclofen* (Baclofen*) 20 Mg Tablet, 30 MG PO QID, TAB 02/04/19 Amlodipine Besylate* (Amlodipine Besylate*) 2.5 Mg Tablet, 2.5 MG PO BID, #30 TAB 02/04/19 Acetaminophen* (Acetaminophen*) 325 Mg Tablet, 650 MG PO Q6H PRN for MILD PAIN(1-3)OR ELEVATED TEMP, #30 TAB 02/04/19 Current Medications IV Flush (NS 3 ml) 3 ml PER PROTOCOL IV ; Start 05/28/19 at 06:30 Acetaminophen (Tylenol Tab) 650 mg Q6H PRN PO .PAIN 1-3 OR TEMP; Start 05/28/19 at 06:30 Metronidazole 100 ml @ 100 mls/hr Q8 IVPB Last administered on 06/02/19at 14:31; Admin Dose 100 MLS/HR; Start 05/28/19 at 11:30; Stop 06/02/19 at 23:59 Albuterol/ Ipratropium (Duoneb) 3 ml Q2H RESP THERAPY PRN NEB SHORTNESS OF BREATH; Start 05/28/19 at 10:30 Nitroglycerin (Nitroglycerin (Sl Tab) 0.4 Mg) 1 tab Q5M PRN SL CHEST PAIN; Start 05/28/19 at 10:30 Acetaminophen (Tylenol Supp) 650 mg Q4H PRN [place] PAIN LEVEL 1-3 OR FEVER; Start 05/28/19 at 10:30 Morphine Sulfate (morphine) 2 mg Q4H PRN IV PAIN LEVEL 7-10; Start 05/28/19 at 10:30 Bisacodyl (Dulcolax Supp) 10 mg DAILY PRN [place] CONSTIPATION Last administered on 06/01/19at 08:57; Admin Dose 10 MG; Start 05/28/19 at 10:30 IV Flush (NS 3 ml) 3 ml PER PROTOCOL IV ; Start 05/28/19 at 10:30 Ondansetron HCl (Zofran Inj) 4 mg Q6H PRN IV NAUSEA/VOMITING Last administered on 06/02/19at 14:31; Admin Dose 4 MG; Start 05/28/19 at 10:30 Famotidine (Pepcid Iv) 20 mg Q12 IV Last administered on 06/02/19 08:46; Admin Dose 20 MG; Start 05/28/19 at 21:00 Ipratropium [place] (Atrovent Hfa) 4 puff Q6H RESP THERAPY INH Last administered on 06/02/19 09:36; Admin Dose 4 PUFF; Start 05/28/19 at 14:30 IV Flush (NS 10 ml) 10 ml Q8 PRN IV IV PROTOCOL Last administered on 06/02/19 06:04; Admin Dose 10 ML; Start 05/28/19 at 19:00 Acetylcysteine (Mucomyst) 3 ml Q6H RESP THERAPY NEB Last administered on 06/02/19 09:35; Admin Dose 3 ML; Start 05/29/19 at 10:00 Diagnostic Test (Pha) (Accu-Chek) 1 ea Q4 XX Last administered on 06/02/19 17:08; Admin Dose 1 EA; Start 05/29/19 at 13:00 Albuterol (Ventolin Hfa) 4 puff Q6H RESP THERAPY INH Last administered on 06/02/19 09:36; Admin Dose 4 PUFF; Start 05/29/19 at 14:00 Heparin Sodium (Porcine) (Heparin (5000 Units/1ml)) 5,000 unit BID SC Last administered on 06/01/19 08:46; Admin Dose 5,000 UNIT; Start 05/29/19 at 21:00; Status Hold Baclofen (Lioresal) 5 mg TID NGT Last administered on 06/01/19 21:29; Admin Dose 5 MG; Start 05/31/19 at 13:00 Hydralazine HCl (Apresoline) 10 mg Q6H PRN IV SBP>160 Last administered on 06/01/19 08:58; Admin Dose 10 MG; Start 06/01/19 at 09:00 Simethicone (Mylicon) 80 mg Q6 PO Last administered on 06/02/19 12:25; Admin Dose 80 MG; Start 06/01/19 at 12:00 Cefepime HCl 50 ml @ 100 mls/hr Q12 IVPB Last administered on 06/02/19 08:45; Admin Dose 100 MLS/HR; Start 06/01/19 at 21:00 Meds reviewed: Yes Allergies Coded Allergies: iodine (Unverified Allergy, Unknown, 05/28/19) Allergies Reviewed: Yes Labs/Studies Labs Reviewed: Reviewed by anesthesiologist Result Diagram: 06/02/19 0545 06/02/19 1701 Laboratory Tests 06/02/19 05:45 06/02/19 17:01 test: N/A Studies: ECG (n/a), CXR (n/a) Pre-procedure Exam Last vitals Vital Signs Date Temp Pulse Resp B/P (MAP) Pulse Ox O2 O2 Flow FiO2 Time Delivery Rate 06/02/19 64 22 99 30 17:55 06/02/19 97.9 111/57 15:57 (75) 05/30/19 Mechanical 16:14 Ventilator Airway: Adequate mouth opening, Adequate thyromental dist Mallampati: Mallampati II Teeth: Normal Lung: Normal Heart: Normal ASA Physical Status ASA physical status: 3 Emergency: None Planned Anesthetic General/MAC: MAC Planned Pain Management Parenteral pain med Pre-operative Attestations Prior to commencing anesthesia and surgery, the patient was re-evaluated, there was verification of: *The patient's identity *The results of appropriate recent lab work and preoperative vital signs *The above evaluation not changing prior to induction *Anesthetic plan, risk benefits, alternative and complications discussed with patient/family; questions answered; patient/family understands, accepts and wishes to proceed. ALICIA CHEN MD Jun 02, 2019 18:39
--- NOTE | 2019-06-02 19:20 | OPPN ---
Date/Time of Note Date/Time of Note DATE: 06/02/19 TIME: 19:20 Proc Note GI Procedure Date 06/02/19 Indication: treatment Pre-procedure Diagnosis RECURRENT SBO REQUIRING DECOMPRESSION Feeding difficulties Post-procedure Diagnosis Impression: Uneventful PEG. Plan; Connect G-tube to low intermittent suction for decompression. Continue to monitor for bowel obstruction Procedure Performed: Other (EGD/PEG) Surgeon see signature line Duct Layer Helper none Anesthesia Type: MAC Tourniquet Time none EBL none Transfusion required none Biopsy 1: none Grafts/Implants FR 20 GT Tubes/Drains none Complication(s) none Disposition: other (room) Procedure Description After informed consent, with the patient/relatives understanding the procedure, its indications, potential risks and complications, including but not limited to: Allergic reaction, bleeding, perforation or infection, and all after all pertinent questions were answered to the patient's satisfaction, patient/relative signed witnessed informed consent. Following this, premedication was administered slowly IV push under care of cardiovascular respiratory monitoring with pulse oximetry, and automatic blood pressure, and digital media representative. Once to sedative effect was achieved the patient was placed in the left lateral decubitus, the panendoscope was introduced and advanced under visual control. Careful examination of the upper gastrointestinal tract, both on insertion as well as withdrawal of the instrument disclosed following findings: ESOPHAGUS: The mucosa of the entire esophagus was carefully examined and showed the following findings: []The mucosa appears within normal limits. There is no evidence of esophagitis, varices, neoplasm or stricture. No hiatal hernia identified. STOMACH: Upon entrance to the stomach air was insufflated, the gastric murphy distended normally. The mucosa of the fundus, body and antrum of the stomach was carefully examined both head-on and on retroflexion, and showed the following findings: []The mucosa appears within normal limits with no abnormalities. There is no evidence of gastritis, ulcers or neoplasm. PYLORUS: The pylorus was carefully examined and showed the following findings: []The pylorus appears patent and within normal limits, with no evidence of gastric outlet obstruction. DUODENUM: The duodenal mucosa was carefully examined in the duodenal bulb as well as the second portion of the duodenum and showed the following findings: []The mucosa appears unremarkable with no evidence of duodenitis, ulcer or neoplasm. The instrument was then brought back to the stomach and the anterior wall mid- body was identified by transillumination and "finger indentation", this area was then marked in the anterior wall of the abdomen, it was cleansed with Betadine and infiltrated with Xylocaine 1%. Following this a trocar needle was introduced into the gastric lumen under visual control with the endoscope, once in the gastric lumen a guide wire was advanced and secured with a polypectomy snare, at this point the endoscope was withdrawn bringing the guidewire out through the patient's mouth. Following this a [place]ino #20 gastrostomy tube was introduced over the guidewire, with the Sachs-Vinne technique without difficulty, a small incision was performed in the skin to allow easy passage of the G-tube, once the position of the gastrostomy was confirmed, the external stopper and connectors were installed, and a clean dressing applied. The patient tolerated the procedure well and was transferred out of the endoscopy suite awake, and in good condition to continue recovery under observation, feedings will start in the next 12-24 hours and the discharge in the care will be instituted. CHAPITO LOPEZ MD Jun 02, 2019 19:20
--- NOTE | 2019-06-02 19:25 | PAC ---
Date/Time of Note Date/Time of Note DATE: 06/02/19 TIME: 19:24 Post-Anesthesia Notes Post-Anesthesia Note Last documented vital signs Vital Signs Date Temp Pulse Resp B/P (MAP) Pulse Ox O2 O2 Flow FiO2 Time Delivery Rate 06/02/19 64 22 99 30 17:55 06/02/19 97.9 83 21 111/57 100 Mechanical 19:24 (75) Ventilator 05/30/19 Mechanical 16:14 Ventilator Activity: WNL Respiratory function: WNL Cardiovascular function: WNL Mental status: Baseline Pain reasonably controlled: Yes Hydration appropriate: Yes Nausea/Vomiting absent: Yes ALICIA CHEN MD Jun 02, 2019 19:25
[2019-06-02] MEDS ORDERED: PROPOFOL 20 ML ONE (19:29)
[2019-06-03] VITALS (17 sets, daily range): BP systolic 90–156; BP diastolic 60–83; PULSE 79–97; RESP 18–48
[2019-06-03] MEDS: ACCU-CHEK XX SCH ×5 (00:32→22:04)
[2019-06-03] MEDS ORDERED: DEXTROSE 5%-0.45% NACL 1,000 ML IV SCH (01:00)
[2019-06-03] MEDS: ACETYLCYSTEINE 20% 4 ML VIAL NEB SCH ×4 (01:33→20:25)
[2019-06-03] MEDS: ALBUTEROL HFA 8 GM INHALER INH SCH ×4 (01:33→20:25)
[2019-06-03] MEDS: IPRATROPIUM (HFA) 12.9 GM INHALER INH SCH ×4 (01:33→20:25)
[2019-06-03] MEDS: morphine 2 MG INJ IV PRN (02:17)
[2019-06-03] MEDS: BACLOFEN 10 MG TAB NGT SCH ×3 (08:56→21:00)
[2019-06-03] MEDS: FAMOTIDINE 20 MG INJ IV SCH ×2 (08:57→22:05)
[2019-06-03] MEDS: HEPARIN 5,000 UNIT/1 ML VIAL SC SCH ×2 (08:58→22:48)
[2019-06-03] MEDS: BALSAM PERU/CASTOR OIL 60 GM TUBE TOP SCH ×2 (08:58→21:00)
[2019-06-03] MEDS: CEFEPIME 1GM/50 ML (PMX) 50 ML IVPB SCH ×2 (08:58→22:05)
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
[2019-06-03] MEDS ORDERED: POTASSIUM CHLORIDE 100 ML IVPB ONE (09:30)
[2019-06-03] MEDS ORDERED: MAGNESIUM SULFATE 3 GM in DEXTROSE 5% 100 ML IVPB ONE (10:00)
[2019-06-03] MEDS: SOD CHLORIDE 0.9% 1,000 ML IV SCH (10:30)
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
--- NOTE | 2019-06-03 11:42 | CONS ---
Consultation Date/Type/Reason Admit Date/Time May 28, 2019 at 06:21 Initial Consult Date 05/28/19 Type of Consult Pulmonary/critical care Patient is a pleasant 48-year-old gentleman who was sent over from residential with abdominal distention and vomiting. Upon evaluation here patient was hypotensive and had been diagnosed with bowel obstruction. Nasogastric tube was placed and 3200 mL of fluid was drained. Chest x-ray also was done which is showing right upper lobe infiltrate. Possibly aspiration. At the time I saw the patient in ER, patient is on ventilator via tracheostomy and is completely awake and alert. Denies any shortness of breath, abdominal pain any fever or chills. Past medical history; 1. VDRF. 2. Quadriplegia. 3. Status post tracheostomy with interval removal of G-tube. Medications; reviewed. Allergies; iodine. Social history; noncontributory. Family history; noncontributory. Occupational history; patient is disabled. Review of systems; denies any headache, shortness of breath, coughing. Complains of abdominal discomfort. Complains of nausea. Denies any fever or chills. Denies any chronic dysphagia. General exam; young male, quadriplegic. On ventilator via tracheostomy curr ently no distress. Requesting Provider: TYLOR REESE Date/Time of Note DATE: 06/03/19 TIME: 11:39 24 HR Interval Summary Free Text/Dictation Patient's condition is stable. Remains awake and alert. Underwent PEG tube pl acement yesterday. General exam; young male, on ventilator via tracheostomy, currently in no distress. H EENT exam; supple neck, no JVD. No lymphadenopathy. Midline trachea. No thyromegaly. Patient has fair dentition. Tracheostomy in place. Chest exam; diminished but clear breath sounds. S1-S2 audible, no murmurs. Regular rhythm. Abdomen exam; soft, mildly protuberant. PEG tube in place. Bowel sounds audible. No organomegaly. Nontender. Suprapubic catheter in place. Extremity exam; no peripheral edema. [employer] ADJUSTER exam; patient awake responsive appropriately exhibiting stable quadriplegia. Ventilator setting; assist control of 16, pressure control, PEEP of 5, 30% FiO2. Assessment and recommendations; 1. Patient admitted with partial small bowel obstruction with interval resolution spontaneously. 2. Right upper lobe pneumonia likely aspiration clinically improved. 3. Dysphagia. Status post PEG tube placement yesterday. 4. Mild dehydration with interval improvement as well. 5. History of neurogenic bladder, status post suprapubic catheter placement in the past. Continue current supportive care. Patient responding well to current treatment regimen. Antibiotics per ID recommendations. Exam/Review of Systems Exam Vitals Vital Signs Date Temp Pulse Resp B/P (MAP) Pulse Ox O2 O2 Flow FiO2 Time Delivery Rate 06/03/19 40 07:59 06/03/19 98.3 79 20 93/64 (74) 97 Mechanical 07:47 Ventilator Trach Collar Intake and Output 06/02/19 06/02/19 06/03/19 1515:00 23:00 07:00 IntakeIntake Total 360 ml 80 ml OutputOutput Total 150 ml 225 ml BalanceBalance 360 ml -150 ml -145 ml Results Result Diagram: 06/02/19 0545 06/03/19 0800 Results 24hrs Laboratory Tests Test 06/02/19 14:42 06/02/19 17:01 06/02/19 17:03 06/03/19 00:31 Bedside Glucose 85 85 67 L Potassium Level 5.0 # Test 06/03/19 05:25 06/03/19 05:43 06/03/19 08:00 Bedside Glucose 100 Sodium Level 131 L Potassium Level 3.3 L Chloride Level 104 Carbon Dioxide Level 15 L Anion Gap 12 Blood Urea Nitrogen 19 Creatinine 0.66 Est Glomerular > 60 Filtrat Rate mL/min Glucose Level 492 #*H 87 # Calcium Level 7.8 L Magnesium Level 1.5 L Medications Medication Current Medications Acetaminophen (Tylenol Tab) 650 mg Q6H PRN PO .PAIN 1-3 OR TEMP; Start 05/28/19 at 06:30 Albuterol/ Ipratropium (Duoneb) 3 ml Q2H RESP THERAPY PRN NEB SHORTNESS OF BREATH; Start 05/28/19 at 10:30 Nitroglycerin (Nitroglycerin (Sl Tab) 0.4 Mg) 1 tab Q5M PRN SL CHEST PAIN; Start 05/28/19 at 10:30 Acetaminophen (Tylenol Supp) 650 mg Q4H PRN [place] PAIN LEVEL 1-3 OR FEVER; Start 05/28/19 at 10:30 Morphine Sulfate (morphine) 2 mg Q4H PRN IV PAIN LEVEL 7-10 Last administered on 06/03/19 02:17; Admin Dose 2 MG; Start 05/28/19 at 10:30 Bisacodyl (Dulcolax Supp) 10 mg DAILY PRN [place] CONSTIPATION Last administered on 06/01/19 08:57; Admin Dose 10 MG; Start 05/28/19 at 10:30 IV Flush (NS 3 ml) 3 ml PER PROTOCOL IV ; Start 05/28/19 at 10:30 Ondansetron HCl (Zofran Inj) 4 mg Q6H PRN IV NAUSEA/VOMITING Last administered on 06/02/19 14:31; Admin Dose 4 MG; Start 05/28/19 at 10:30 Famotidine (Pepcid Iv) 20 mg Q12 IV Last administered on 06/03/19 08:57; Admin Dose 20 MG; Start 05/28/19 at 21:00 Ipratropium [place] (Atrovent Hfa) 4 puff Q6H RESP THERAPY INH Last administered on 06/03/19 08:11; Admin Dose 4 PUFF; Start 05/28/19 at 14:30 IV Flush (NS 10 ml) 10 ml Q8 PRN IV IV PROTOCOL Last administered on 06/02/19 06:04; Admin Dose 10 ML; Start 05/28/19 at 19:00 Acetylcysteine (Mucomyst) 3 ml Q6H RESP THERAPY NEB Last administered on 06/03/19 08:11; Admin Dose 3 ML; Start 05/29/19 at 10:00 Albuterol (Ventolin Hfa) 4 puff Q6H RESP THERAPY INH Last administered on 06/03/19 08:11; Admin Dose 4 PUFF; Start 05/29/19 at 14:00 Heparin Sodium (Porcine) (Heparin (5000 Units/1ml)) 5,000 unit BID SC Last administered on 06/03/19 08:58; Admin Dose 5,000 UNIT; Start 05/29/19 at 21:00 Baclofen (Lioresal) 5 mg TID NGT Last administered on 06/03/19 08:56; Admin Dose 5 MG; Start 05/31/19 at 13:00 Hydralazine HCl (Apresoline) 10 mg Q6H PRN IV SBP>160 Last administered on 7/15/19at 08:58; Admin Dose 10 MG; Start 06/01/19 at 09:00 Simethicone (Mylicon) 80 mg Q6 PO Last administered on 06/03/19 05:27; Admin Dose 80 MG; Start 06/01/19 at 12:00 Cefepime HCl 50 ml @ 100 mls/hr Q12 IVPB Last administered on 06/03/19at 08:58; Admin Dose 100 MLS/HR; Start 06/01/19 at 21:00 Diagnostic Test (Pha) (Accu-Chek) 1 ea Q6 XX Last administered on 06/03/19at 05:26; Admin Dose 1 EA; Start 06/03/19 at 00:00 Sodium Chloride 1,000 ml @ 50 mls/hr Q20H IV Last administered on 06/03/19at 10:30; Admin Dose 50 MLS/HR; Start 06/03/19 at 09:30 Magnesium Sulfate 3 gm/Dextrose 106 ml @ 35.333 mls/ hr ONCE ONCE IVPB ; Start 06/03/19 at 10:00; Stop 06/03/19 at 12:59 ROLANDO OLIVEROS Jun 03, 2019 11:42
--- NOTE | 2019-06-03 12:23 | PN ---
Date/Time of Note Date/Time of Note DATE: 06/03/19 TIME: 12:17 Assessment/Plan VTE Prophylaxis Risk score (from Nsg)>0 risk: 8 SCD applied (from Nsg): Yes Pharmacological prophylaxis: other (scds) Lines/Catheters IV Catheter Type (from Nrsg): PICC Line Central line still needed: Yes (meds) Urinary Cath still in place: No (SUPRAPUBIC CATH) Assessment/Plan Hospital Course Assessment/Plan (Daily) Assessment: Recurrent small bowel obstruction Quadriplegia Chronic respiratory failure status post tracheostomy on MV Abdominal gas UTI Pneumonia Neurogenic bladder Plan: S/p PEG placement yesterday- currently to LIS Abd slightly more distended today- will order KUB Patient seen in collaboration Dr. Hall Subjective: Course reviewed with nursing staff Patient interviewed and examined All labs, imaging and other results reviewed Patient's abd slightly more distended today Plan to order KUB- PEG to LIS. Pt being evaluated by ST- video swallow pending per ST Exam PHYSICAL EXAMINATION: GENERAL: Quadriplegic, trached on MV, alert & oriented x 3, in no acute distress SKIN: No lesions, no stigmata chronic liver disease, no evidence of bleeding diathesis HEAD: Normocephalic, atraumatic, no tenderness. EYES: Pupils equal reactive to light, no discharge. EARS/NOSE AND THROAT: Ears normal, nose normal, oropharynx normal, oral membranes well hydrated without lesions. NECK: Supple, no masses CHEST: Inspection within normal limits. CARDIOVASCULAR: Heart: Regular rate and rhythm RESPIRATORY: Lungs clear to auscultation. GASTROINTESTINAL AND LIVER: Abdomen: Soft, no tenderness, mildly distended, no hernias, no masses, no organomegaly, no ascites, no guarding, no rebound tenderness, hypoactive bowel sounds RUQ.LUQ/ severely hypoactive to RLQ.LLQ. Rectal: Deferred. GENITOURINARY: Male genitalia within normal limits. EXTREMITIES: No cyanosis, clubbing or edema. Result Diagram: 06/02/19 0545 06/03/19 0800 Results 24hrs Laboratory Tests Test 06/02/19 14:42 06/02/19 17:01 06/02/19 17:03 06/03/19 00:31 Bedside Glucose 85 85 67 L Potassium Level 5.0 # Test 06/03/19 05:25 06/03/19 05:43 06/03/19 08:00 Bedside Glucose 100 Sodium Level 131 L Potassium Level 3.3 L Chloride Level 104 Carbon Dioxide Level 15 L Anion Gap 12 Blood Urea Nitrogen 19 Creatinine 0.66 Est Glomerular > 60 Filtrat Rate mL/min Glucose Level 492 #*H 87 # Calcium Level 7.8 L Magnesium Level 1.5 L Exam/Review of Systems Exam Vitals Vital Signs Date Temp Pulse Resp B/P (MAP) Pulse Ox O2 O2 Flow FiO2 Time Delivery Rate 06/03/19 98.5 86 20 96/60 (72) 98 Mechanical 11:39 Ventilator 06/03/19 40 07:59 Intake and Output 06/02/19 06/02/19 06/03/19 1515:00 23:00 07:00 IntakeIntake Total 360 ml 80 ml OutputOutput Total 150 ml 225 ml BalanceBalance 360 ml -150 ml -145 ml Results Results 24hrs Laboratory Tests Test 06/02/19 14:42 06/02/19 17:01 06/02/19 17:03 06/03/19 00:31 Bedside Glucose 85 85 67 L Potassium Level 5.0 # Test 06/03/19 05:25 06/03/19 05:43 06/03/19 08:00 Bedside Glucose 100 Sodium Level 131 L Potassium Level 3.3 L Chloride Level 104 Carbon Dioxide Level 15 L Anion Gap 12 Blood Urea Nitrogen 19 Creatinine 0.66 Est Glomerular > 60 Filtrat Rate mL/min Glucose Level 492 #*H 87 # Calcium Level 7.8 L Magnesium Level 1.5 L Medications Medication Current Medications Acetaminophen (Tylenol Tab) 650 mg Q6H PRN PO .PAIN 1-3 OR TEMP; Start 05/28/19 at 06:30 Albuterol/ Ipratropium (Duoneb) 3 ml Q2H RESP THERAPY PRN NEB SHORTNESS OF BREATH; Start 05/28/19 at 10:30 Nitroglycerin (Nitroglycerin (Sl Tab) 0.4 Mg) 1 tab Q5M PRN SL CHEST PAIN; Start 05/28/19 at 10:30 Acetaminophen (Tylenol Supp) 650 mg Q4H PRN [place] PAIN LEVEL 1-3 OR FEVER; Start 05/28/19 at 10:30 Morphine Sulfate (morphine) 2 mg Q4H PRN IV PAIN LEVEL 7-10 Last administered on 06/03/19at 02:17; Admin Dose 2 MG; Start 05/28/19 at 10:30 Bisacodyl (Dulcolax Supp) 10 mg DAILY PRN [place] CONSTIPATION Last administered on 06/01/19 08:57; Admin Dose 10 MG; Start 05/28/19 at 10:30 IV Flush (NS 3 ml) 3 ml PER PROTOCOL IV ; Start 05/28/19 at 10:30 Ondansetron HCl (Zofran Inj) 4 mg Q6H PRN IV NAUSEA/VOMITING Last administered on 06/02/19 14:31; Admin Dose 4 MG; Start 05/28/19 at 10:30 Famotidine (Pepcid Iv) 20 mg Q12 IV Last administered on 06/03/19 08:57; Admin Dose 20 MG; Start 05/28/19 at 21:00 Ipratropium [place] (Atrovent Hfa) 4 puff Q6H RESP THERAPY INH Last administered on 06/03/19 08:11; Admin Dose 4 PUFF; Start 05/28/19 at 14:30 IV Flush (NS 10 ml) 10 ml Q8 PRN IV IV PROTOCOL Last administered on 06/02/19 06:04; Admin Dose 10 ML; Start 05/28/19 at 19:00 Acetylcysteine (Mucomyst) 3 ml Q6H RESP THERAPY NEB Last administered on 06/03/19 08:11; Admin Dose 3 ML; Start 05/29/19 at 10:00 Albuterol (Ventolin Hfa) 4 puff Q6H RESP THERAPY INH Last administered on 06/03/19 08:11; Admin Dose 4 PUFF; Start 05/29/19 at 14:00 Heparin Sodium (Porcine) (Heparin (5000 Units/1ml)) 5,000 unit BID SC Last a dministered on 06/03/19 08:58; Admin Dose 5,000 UNIT; Start 05/29/19 at 21:00 Baclofen (Lioresal) 5 mg TID NGT Last administered on 06/03/19 08:56; Admin Dose 5 MG; Start 05/31/19 at 13:00 Hydralazine HCl (Apresoline) 10 mg Q6H PRN IV SBP>160 Last administered on 06/01/19 08:58; Admin Dose 10 MG; Start 06/01/19 at 09:00 Simethicone (Mylicon) 80 mg Q6 PO Last administered on 06/03/19at 05:27; Admin Dose 80 MG; Start 06/01/19 at 12:00 Cefepime HCl 50 ml @ 100 mls/hr Q12 IVPB Last administered on 06/03/19at 08:58; Admin Dose 100 MLS/HR; Start 06/01/19 at 21:00 Diagnostic Test (Pha) (Accu-Chek) 1 ea Q6 XX Last administered on 06/03/19at 05:26; Admin Dose 1 EA; Start 06/03/19 at 00:00 Sodium Chloride 1,000 ml @ 50 mls/hr Q20H IV Last administered on 06/03/19at 10:30; Admin Dose 50 MLS/HR; Start 06/03/19 at 09:30 Magnesium Sulfate 3 gm/Dextrose 106 ml @ 35.333 mls/ hr ONCE ONCE IVPB ; Start 06/03/19 at 10:00; Stop 06/03/19 at 12:59 HOWARD MARRERO Jun 03, 2019 12:22
[2019-06-03] MEDS: ACETAMINOPHEN 325 MG TAB PO PRN (15:36)
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
[2019-06-03] MEDS ORDERED: LORAZEPAM 2 MG INJ IV PRN (17:30)
[2019-06-04] VITALS (43 sets, daily range): BP systolic 76–269; BP diastolic 40–265; PULSE 80–98; RESP 15–35
[2019-06-04] MEDS: ACETYLCYSTEINE 20% 4 ML VIAL NEB SCH ×4 (01:27→21:13)
[2019-06-04] MEDS: IPRATROPIUM (HFA) 12.9 GM INHALER INH SCH ×4 (01:27→21:12)
[2019-06-04] MEDS: ALBUTEROL HFA 8 GM INHALER INH SCH ×4 (01:28→21:13)
[2019-06-04] MEDS: SOD CHLORIDE 0.9% 1,000 ML IV SCH ×2 (05:30→12:26)
[2019-06-04] MEDS: ACCU-CHEK XX SCH ×3 (06:21→18:00)
[2019-06-04] MEDS ORDERED: IOHEXOL 14.3 MG(I)/ML (ADULT) BTL PO ONE (09:30)
[2019-06-04] MEDS: FAMOTIDINE 20 MG INJ IV SCH ×2 (09:53→21:29)
[2019-06-04] MEDS: CEFEPIME 1GM/50 ML (PMX) 50 ML IVPB SCH (09:53)
[2019-06-04] MEDS: BALSAM PERU/CASTOR OIL 60 GM TUBE TOP SCH (09:56)
[2019-06-04] MEDS: BACLOFEN 10 MG TAB NGT SCH ×3 (09:58→21:00)
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
[2019-06-04] MEDS: HEPARIN 5,000 UNIT/1 ML VIAL SC SCH ×2 (10:29→21:35)
[2019-06-04] MEDS ORDERED: VANCOMYCIN IV PER PHARMACY XX SCH (11:00)
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
--- NOTE | 2019-06-04 11:19 | CONS ---
Consultation Date/Type/Reason Admit Date/Time May 28, 2019 at 06:21 Initial Consult Date 05/28/19 Type of Consult Pulmonary/critical care Patient is a pleasant 48-year-old gentleman who was sent over from skilled nursing with abdominal distention and vomiting. Upon evaluation here patient was hypotensive and had been diagnosed with bowel obstruction. Nasogastric tube was placed and 3200 mL of fluid was drained. Chest x-ray also was done which is showing right upper lobe infiltrate. Possibly aspiration. At the time I saw the patient in ER, patient is on ventilator via tracheostomy and is completely awake and alert. Denies any shortness of breath, abdominal pain any fever or chills. Past medical history; 1. VDRF. 2. Quadriplegia. 3. Status post tracheostomy with interval removal of G-tube. Medications; reviewed. Allergies; iodine. Social history; noncontributory. Family history; noncontributory. Occupational history; patient is disabled. Review of systems; denies any headache, shortness of breath, coughing. Complains of abdominal discomfort. Complains of nausea. Denies any fever or chills. Denies any chronic dysphagia. General exam; young male, quadriplegic. On ventilator via tracheostomy curr ently no distress. Requesting Provider: TYLOR REESE Date/Time of Note DATE: 06/04/19 TIME: 11:16 24 HR Interval Summary Free Text/Dictation Patient's condition is progressively getting worse. Patient now having low-gra de fever. Abdomen is distended. General exam; middle-aged male, on ventilator via tracheostomy, awake and alert. Currently in no distress. Appropriately communicative. H EENT exam; supple neck, no JVD. No lymphadenopathy. Midline trachea. No thyromegaly. Tracheostomy in place. Patient has good dentition. Chest exam; diminished breath sounds bilaterally. S1-S2 audible, no murmurs. Regular rhythm. Abdomen exam; protuberant. Distended. Tender. G-tube in place. Bowel sounds are absent. Extremity exam; no peripheral edema. 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 Ventilator setting; assist control of 16, pressure controlled, PEEP of 5, 100% FiO2. Abdominal x-ray showing persistent small bowel obstruction with possibly free air in the abdomen. Assessment and recommendations; 1. Patient with history of quadriplegia admitted for small bowel obstruction with possibility of perforation because of increasing abdominal distention, pain as well as significant increase in leukocytosis. 2. Element of bilateral pneumonia. 3. History of suprapubic catheter placement because of neurogenic bladder. Patient also has UTI. Continue current supportive care. Transfer the patient to ICU. Patient to have repeat surgical evaluation. CT abdomen pelvis is pending. Consider adding Cancidas. Tracheostomy changed to cuffed size 8 tube because of air leak. Exam/Review of Systems Exam Vitals Vital Signs Date Temp Pulse Resp B/P (MAP) Pulse Ox O2 O2 Flow FiO2 Time Delivery Rate 06/04/19 84 34 98 30 09:02 06/04/19 97.4 98/55 (69) Mechanical 07:46 Ventilator Intake and Output 06/03/19 06/03/19 06/04/19 1515:00 23:00 07:00 IntakeIntake Total 1090 ml 650 ml OutputOutput Total 100 ml 100 ml BalanceBalance 1090 ml -100 ml 550 ml Results Result Diagram: 06/04/19 0611 06/04/19 0611 Results 24hrs Laboratory Tests Test 06/03/19 14:12 06/03/19 18:08 06/03/19 22:04 06/04/19 06:11 Bedside Glucose 74 98 85 78 White Blood Count 40.3 #H Red Blood Count 4.97 Hemoglobin 11.8 L Hematocrit 37.6 L Mean Corpuscular 75.7 L Volume Mean Corpuscular 23.7 L Hemoglobin Mean Corpuscular 31.4 L Hemoglobin Concent Red Cell 18.6 H Distribution Width Platelet Count 423 H Mean Platelet Volume 10.4 Immature 3.500 H Granulocytes % Neutrophils % Segmented 68 Neutrophils % (Manual) Band Neutrophils % 21 H (Manual) Lymphocytes % Reactive Lymphocytes 2 H % (Manual) Monocytes % Monocytes % (Manual) 6 Eosinophils % Basophils % Myelocytes % 1 H (Manual) Promyelocytes % 2 H (Manual) Nucleated Red Blood 0.0 Cells % Immature 1.420 H Granulocytes # Neutrophils # Neutrophils # 30.8 H (Manual) Band Neutrophils # 8.4 H Lymphocytes # Reactive Lymphocytes 0.8 H # Monocytes # Monocytes # (Manual) 2.4 H Eosinophils # Basophils # Myelocytes # 0.4 H Promyelocytes # 0.8 H Nucleated Red Blood Cells # Platelet Estimate NORMAL Poikilocytosis 3+ Anisocytosis 1+ Sodium Level 136 Potassium Level 4.2 Chloride Level 109 Carbon Dioxide Level 14 L Anion Gap 13 Blood Urea Nitrogen 29 H Creatinine 1.51 H Est Glomerular 60 Filtrat Rate mL/min Glucose Level 84 Calcium Level 9.1 Magnesium Level 2.6 #H Medications Medication Current Medications Acetaminophen (Tylenol Tab) 650 mg Q6H PRN PO .PAIN 1-3 OR TEMP Last administered on 06/03/19at 15:36; Admin Dose 650 MG; Start 05/28/19 at 06:30 Albuterol/ Ipratropium (Duoneb) 3 ml Q2H RESP THERAPY PRN NEB SHORTNESS OF BREATH; Start 05/28/19 at 10:30 Nitroglycerin (Nitroglycerin (Sl Tab) 0.4 Mg) 1 tab Q5M PRN SL CHEST PAIN; Start 05/28/19 at 10:30 Acetaminophen (Tylenol Supp) 650 mg Q4H PRN [place] PAIN LEVEL 1-3 OR FEVER; Start 05/28/19 at 10:30 Morphine Sulfate (morphine) 2 mg Q4H PRN IV PAIN LEVEL 7-10 Last administered on 06/03/19at 02:17; Admin Dose 2 MG; Start 05/28/19 at 10:30 Bisacodyl (Dulcolax Supp) 10 mg DAILY PRN [place] CONSTIPATION Last administered on 06/01/19at 08:57; Admin Dose 10 MG; Start 05/28/19 at 10:30 IV Flush (NS 3 ml) 3 ml PER PROTOCOL IV ; Start 05/28/19 at 10:30 Ondansetron HCl (Zofran Inj) 4 mg Q6H PRN IV NAUSEA/VOMITING Last administered on 06/02/19at 14:31; Admin Dose 4 MG; Start 05/28/19 at 10:30 Famotidine (Pepcid Iv) 20 mg Q12 IV Last administered on 06/04/19 09:53; Admin Dose 20 MG; Start 05/28/19 at 21:00 Ipratropium [place] (Atrovent Hfa) 4 puff Q6H RESP THERAPY INH Last administered on 06/04/19 09:02; Admin Dose 4 PUFF; Start 05/28/19 at 14:30 IV Flush (NS 10 ml) 10 ml Q8 PRN IV IV PROTOCOL Last administered on 06/02/19 06:04; Admin Dose 10 ML; Start 05/28/19 at 19:00 Acetylcysteine (Mucomyst) 3 ml Q6H RESP THERAPY NEB Last administered on 06/04/19 09:01; Admin Dose 3 ML; Start 05/29/19 at 10:00 Albuterol (Ventolin Hfa) 4 puff Q6H RESP THERAPY INH Last administered on 06/04/19 09:02; Admin Dose 4 PUFF; Start 05/29/19 at 14:00 Heparin Sodium (Porcine) (Heparin (5000 Units/1ml)) 5,000 unit BID SC Last administered on 06/04/19 10:29; Admin Dose 5,000 UNIT; Start 05/29/19 at 21:00 Baclofen (Lioresal) 5 mg TID NGT Last administered on 06/04/19 09:58; Admin Dose 5 MG; Start 05/31/19 at 13:00 Hydralazine HCl (Apresoline) 10 mg Q6H PRN IV SBP>160 Last administered on 06/01/19 08:58; Admin Dose 10 MG; Start 06/01/19 at 09:00 Simethicone (Mylicon) 80 mg Q6 PO Last administered on 06/03/19 18:10; Admin Dose 80 MG; Start 06/01/19 at 12:00 Diagnostic Test (Pha) (Accu-Chek) 1 ea Q6 XX Last administered on 06/04/19 06:21; Admin Dose 1 EA; Start 06/03/19 at 00:00 Sodium Chloride 1,000 ml @ 50 mls/hr Q20H IV Last administered on 06/03/19at 10:30; Admin Dose 50 MLS/HR; Start 06/03/19 at 09:30 Lorazepam (Ativan) 2 mg Q4H PRN IV anxiety; Start 06/03/19 at 17:30 Meropenem/Sodium Chloride 50 ml @ 100 mls/hr Q12 IVPB ; Start 06/04/19 at 11:30 Vancomycin HCl (Vanco Iv Per Pharmacy) VANCOMYCIN PER PHARMACY PER PROTOCOL XX ; Start 06/04/19 at 11:00 Vancomycin HCl 1.5 gm/Sodium Chloride 250 ml @ 83.333 mls/ hr ONCE IVPB ; Start 06/04/19 at 13:00; Stop 06/04/19 at 18:00 ROLANDO OLIVEROS Jun 04, 2019 11:19
[2019-06-04] MEDS: MEROPENEM 1 GM/50ML(PMX) 50 ML IVPB SCH ×2 (12:29→21:30)
[2019-06-04] MEDS ORDERED: VANCOMYCIN HCL 1.5 GM in SOD CHLORIDE 0.9% 250 ML IVPB SCH (13:00)
--- NOTE | 2019-06-04 13:53 | PN ---
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 There are dilated small bowel loops, relative to the degree of colonic distension, the differential for which includes ileus or small bowel obstruction Ct with Gastrografin has been ordered Continue to monitor labs Patient transferred to ICU for closer observation Surgical consult pending Patient seen in collaboration Dr. Hall Subjective: Course reviewed with nursing staff Patient interviewed and examined All labs, imaging and other results reviewed WBC has increased to 40,000, with noted elevated in Cr, and need for to increase FIo2 KUB reviewed today Free intraperitoneal air which may relate to the recent PEG tube placement although the possibility of hollow viscus perforation CT pending. Pt remains in ICU- Exam PHYSICAL EXAMINATION: GENERAL: Quadriplegic, trached on MV, alert & oriented x 4 SKIN: No lesions, no stigmata chronic liver disease, no evidence of bleeding diathesis HEAD: Normocephalic, atraumatic, no tenderness. EYES: Pupils equal reactive to light, no discharge. EARS/NOSE AND THROAT: Ears normal, nose normal, oropharynx normal, oral membranes well hydrated without lesions. NECK: Supple, no masses CHEST: Inspection within normal limits. CARDIOVASCULAR: Heart: Regular rate and rhythm RESPIRATORY: Lungs clear to auscultation. GASTROINTESTINAL AND LIVER: Abdomen: Soft, no tenderness, increased distension , no hernias, no masses, no organomegaly, no ascites, no guarding, no rebound tenderness, hypoactive bowel sounds RUQ.LUQ/ absent RLQ.LLQ. Rectal: Deferred. GENITOURINARY: Male genitalia within normal limits. Result Diagram: 06/04/19 0611 06/04/19 0611 Results 24hrs Laboratory Tests Test 06/03/19 14:12 06/03/19 18:08 06/03/19 22:04 06/04/19 06:11 Bedside Glucose 74 98 85 78 White Blood Count 40.3 #H Red Blood Count 4.97 Hemoglobin 11.8 L Hematocrit 37.6 L Mean Corpuscular 75.7 L Volume Mean Corpuscular 23.7 L Hemoglobin Mean Corpuscular 31.4 L Hemoglobin Concent Red Cell 18.6 H Distribution Width Platelet Count 423 H Mean Platelet Volume 10.4 Immature 3.500 H Granulocytes % Neutrophils % Segmented 68 Neutrophils % (Manual) Band Neutrophils % 21 H (Manual) Lymphocytes % Reactive Lymphocytes 2 H % (Manual) Monocytes % Monocytes % (Manual) 6 Eosinophils % Basophils % Myelocytes % 1 H (Manual) Promyelocytes % 2 H (Manual) Nucleated Red Blood 0.0 Cells % Immature 1.420 H Granulocytes # Neutrophils # Neutrophils # 30.8 H (Manual) Band Neutrophils # 8.4 H Lymphocytes # Reactive Lymphocytes 0.8 H # Monocytes # Monocytes # (Manual) 2.4 H Eosinophils # Basophils # Myelocytes # 0.4 H Promyelocytes # 0.8 H Nucleated Red Blood Cells # Platelet Estimate NORMAL Poikilocytosis 3+ Anisocytosis 1+ Sodium Level 136 Potassium Level 4.2 Chloride Level 109 Carbon Dioxide Level 14 L Anion Gap 13 Blood Urea Nitrogen 29 H Creatinine 1.51 H Est Glomerular 60 Filtrat Rate mL/min Glucose Level 84 Calcium Level 9.1 Magnesium Level 2.6 #H Test 06/04/19 11:28 06/04/19 12:28 Lactic Acid Level 1.0 Bedside Glucose 86 Exam/Review of Systems Exam Vitals Vital Signs Date Temp Pulse Resp B/P (MAP) Pulse Ox O2 O2 Flow FiO2 Time Delivery Rate 06/04/19 82 20 94/70 (78) 100 Mechanical 13:00 Ventilator 06/04/19 97.7 12:00 06/04/19 30 11:35 Intake and Output 06/03/19 06/03/19 06/04/19 1515:00 23:00 07:00 IntakeIntake Total 1090 ml 650 ml OutputOutput Total 100 ml 100 ml BalanceBalance 1090 ml -100 ml 550 ml Results Results 24hrs Laboratory Tests Test 06/03/19 14:12 06/03/19 18:08 06/03/19 22:04 06/04/19 06:11 Bedside Glucose 74 98 85 78 White Blood Count 40.3 #H Red Blood Count 4.97 Hemoglobin 11.8 L Hematocrit 37.6 L Mean Corpuscular 75.7 L Volume Mean Corpuscular 23.7 L Hemoglobin Mean Corpuscular 31.4 L Hemoglobin Concent Red Cell 18.6 H Distribution Width Platelet Count 423 H Mean Platelet Volume 10.4 Immature 3.500 H Granulocytes % Neutrophils % Segmented 68 Neutrophils % (Manual) Band Neutrophils % 21 H (Manual) Lymphocytes % Reactive Lymphocytes 2 H % (Manual) Monocytes % Monocytes % (Manual) 6 Eosinophils % Basophils % Myelocytes % 1 H (Manual) Promyelocytes % 2 H (Manual) Nucleated Red Blood 0.0 Cells % Immature 1.420 H Granulocytes # Neutrophils # Neutrophils # 30.8 H (Manual) Band Neutrophils # 8.4 H Lymphocytes # Reactive Lymphocytes 0.8 H # Monocytes # Monocytes # (Manual) 2.4 H Eosinophils # Basophils # Myelocytes # 0.4 H Promyelocytes # 0.8 H Nucleated Red Blood Cells # Platelet Estimate NORMAL Poikilocytosis 3+ Anisocytosis 1+ Sodium Level 136 Potassium Level 4.2 Chloride Level 109 Carbon Dioxide Level 14 L Anion Gap 13 Blood Urea Nitrogen 29 H Creatinine 1.51 H Est Glomerular 60 Filtrat Rate mL/min Glucose Level 84 Calcium Level 9.1 Magnesium Level 2.6 #H Test 06/04/19 11:28 06/04/19 12:28 Lactic Acid Level 1.0 Bedside Glucose 86 Medications Medication Current Medications Acetaminophen (Tylenol Tab) 650 mg Q6H PRN PO .PAIN 1-3 OR TEMP Last administered on 06/03/19at 15:36; Admin Dose 650 MG; Start 05/28/19 at 06:30 Albuterol/ Ipratropium (Duoneb) 3 ml Q2H RESP THERAPY PRN NEB SHORTNESS OF [place] ATH; Start 05/28/19 at 10:30 Nitroglycerin (Nitroglycerin (Sl Tab) 0.4 Mg) 1 tab Q5M PRN SL CHEST PAIN; Start 05/28/19 at 10:30 Acetaminophen (Tylenol Supp) 650 mg Q4H PRN [place] PAIN LEVEL 1-3 OR FEVER; Start 05/28/19 at 10:30 Morphine Sulfate (morphine) 2 mg Q4H PRN IV PAIN LEVEL 7-10 Last administered on 06/03/19 02:17; Admin Dose 2 MG; Start 05/28/19 at 10:30 Bisacodyl (Dulcolax Supp) 10 mg DAILY PRN [place] CONSTIPATION Last administered on 06/01/19 08:57; Admin Dose 10 MG; Start 05/28/19 at 10:30 IV Flush (NS 3 ml) 3 ml PER PROTOCOL IV ; Start 05/28/19 at 10:30 Ondansetron HCl (Zofran Inj) 4 mg Q6H PRN IV NAUSEA/VOMITING Last administered on 06/02/19 14:31; Admin Dose 4 MG; Start 05/28/19 at 10:30 Famotidine (Pepcid Iv) 20 mg Q12 IV Last administered on 06/04/19 09:53; Admin Dose 20 MG; Start 05/28/19 at 21:00 Ipratropium [place] (Atrovent Hfa) 4 puff Q6H RESP THERAPY INH Last a dministered on 06/04/19 09:02; Admin Dose 4 PUFF; Start 05/28/19 at 14:30 IV Flush (NS 10 ml) 10 ml Q8 PRN IV IV PROTOCOL Last administered on 06/02/19 06:04; Admin Dose 10 ML; Start 05/28/19 at 19:00 Acetylcysteine (Mucomyst) 3 ml Q6H RESP THERAPY NEB Last administered on 06/04/19 09:01; Admin Dose 3 ML; Start 05/29/19 at 10:00 Albuterol (Ventolin Hfa) 4 puff Q6H RESP THERAPY INH Last administered on 06/04/19 09:02; Admin Dose 4 PUFF; Start 05/29/19 at 14:00 Heparin Sodium (Porcine) (Heparin (5000 Units/1ml)) 5,000 unit BID SC Last administered on 06/04/19 10:29; Admin Dose 5,000 UNIT; Start 05/29/19 at 21:00 Baclofen (Lioresal) 5 mg TID NGT Last administered on 06/04/19 09:58; Admin Dose 5 MG; Start 05/31/19 at 13:00 Hydralazine HCl (Apresoline) 10 mg Q6H PRN IV SBP>160 Last administered on 7/15/19at 08:58; Admin Dose 10 MG; Start 06/01/19 at 09:00 Simethicone (Mylicon) 80 mg Q6 PO Last administered on 06/03/19 18:10; Admin Dose 80 MG; Start 06/01/19 at 12:00 Diagnostic Test (Pha) (Accu-Chek) 1 ea Q6 XX Last administered on 06/04/19 06:21; Admin Dose 1 EA; Start 06/03/19 at 00:00 Sodium Chloride 1,000 ml @ 50 mls/hr Q20H IV Last administered on 06/04/19at 12:26; Admin Dose 50 MLS/HR; Start 06/03/19 at 09:30 Lorazepam (Ativan) 2 mg Q4H PRN IV anxiety; Start 06/03/19 at 17:30 Meropenem/Sodium Chloride 50 ml @ 100 mls/hr Q12 IVPB Last administered on 06/04/19at 12:29; Admin Dose 100 MLS/HR; Start 06/04/19 at 11:30 Vancomycin HCl (Vanco Iv Per Pharmacy) VANCOMYCIN PER PHARMACY PER PROTOCOL XX ; Start 06/04/19 at 11:00 Vancomycin HCl 1.5 gm/Sodium Chloride 250 ml @ 83.333 mls/ hr ONCE IVPB ; Start 06/04/19 at 13:00; Stop 06/04/19 at 18:00 Vancomycin/Sodium Chloride 250 ml @ 83.333 mls/ hr Q24H IVPB ; Start 06/05/19 at 14:00 HOWARD MARRERO Jun 04, 2019 13:53
--- NOTE | 2019-06-04 14:49 | QN ---
Documentation Comment not available and requested to call who is oncall for surgical services today. Dr. Heredia unable see the patient as case has been already reviewed by another surgeon with current admission. Deferred this to head of surgery for review to call appropriate surgeon. F/u pending gastrograffin study and will f/u with surgical services D/w and . RIK TINAJERO NP Jun 04, 2019 14:49
--- NOTE | 2019-06-04 15:18 | PN ---
DATE: 06/04/2019 SUBJECTIVE: The patient was transferred to ICU secondary to significant abdominal distention and harjeet iting for CT of the abdomen. He is awake, in no distress and afebrile. DIAGNOSTICS: KUB showed free intraperitoneal air which may be related to recent PEG placement. Also there is a possibility of viscus perforation. VITAL SIGNS: Viscus perforation. White blood cell count today went up to 40.3, H and H 11.8 and 37. 6, platelets 423, neutrophils 68, bands 21, BUN 29, creatinine 1.51. ANTIMICROBIALS: The patient is on: 1. Vancomycin. 2. Merrem. PHYSICAL EXAMINATION: INDWELLINGS: Trach, PEG, suprapubic catheter and PICC line. PHYSICAL EXAMINATION: GENERAL: This is a chronically ill-appearing, middle-aged man who is awake, respons mega. The patient is in no distress. HEENT: Head atraumatic, normocephalic. Sclerae anicteric. Buccal mucosa dry. NECK: Supple. Tracheostomy present. CHEST: Rise symmetrical. Breath sounds diminished to bases. HEART: S1, S2. ABDOMEN: Distended, , bowel tones hypoactive. EXTREMITIES: Wasted. ASSESSMENT: 1. Sepsis. 2. Status post small-bowel obstruction. 3. Increased abdominal distention with abnormal KUB, to rule out perforation. 4. Urinary tract infection on admission. 5. Quadriplegia. 6. Neurogenic bladder with chronic suprapubic catheter. 7. Possible right kidney neoplasm. PLAN: The patient is clinically stable, awaiting for CT of the abdomen and pelvis. Continue antibio tics. Follow gastroenterology, pulmonary recommendations. Dictated By: JOSIAS BELLA FIELD CANE SCALE CLERK for APOLLO MOREL MD NI/NTS Conf#: [id number] DID#: [id number] CC: TYLOR REESE MD;*EndCC*
[2019-06-04] MEDS ORDERED: ALTEPLASE (CATHFLO) 2 MG INJ CATHETER ONE (15:30)
--- NOTE | 2019-06-04 15:35 | QN ---
Documentation Comment Spoke w/ who will f/u patient. RN to call w/Repeat CT result RIK TINAJERO NP Jun 04, 2019 15:35
--- NOTE | 2019-06-04 17:58 | QN ---
Documentation Comment The repeat CT scan suggests that the patient has a complete small bowel ob struction secondary to internal hernia The pneumoperitoneum noticed last night is noncontributory to the patient's clinical status. The abdomen is now tense and distended more than ever Plan: Immediate surgical intervention is recommended in the form of exploratory laparotomy. I have discussed this in some detail with the patient who understands the need for surgery. We will be proceeding shortly. ZENA CALDERÓN MD Jun 04, 2019 17:58
--- NOTE | 2019-06-04 18:09 | PREAC ---
Date/Time of Note Date/Time of Note DATE: 06/04/19 TIME: 18:07 Anesthesia Eval and Record Evaluation Time Pre-Procedure Interview DATE: 06/04/19 TIME: 18:07 Age 48 Sex male NPO: 8 hrs Preoperative diagnosis complete small bowel obstruction secondary to internal hernia Planned procedure exploratory laparotomy Past Medical History Past Medical History: Includes (quadriplegia) Pulm: Other (respiratory failure s/p trach, pneumonia) Surgery & Anesthesia Issues No known issue Meds Anticoagulation: No Beta Silvia within 24 hr: No Reason Beta Silvia not given: Pt. not on B-Silvia Reported Medications Ipratropium-Albuterol (Ipratropium-Albuterol) 0.5-3 Mg/3 Ml Ampul.neb, 3 ML INHALATION Q6 for SOB, #30 VIAL 05/28/19 Bacillus Coagulans (Probiotic) 1 Each Tab.chew, 1 EACH PO BID, TAB.CHEW 05/28/19 Docusate Sodium* (Colace*) 100 Mg Capsule, 200 MG PO DAILY, #30 CAP 05/28/19 Bisacodyl* (Dulcolax*) 5 Mg Tablet.dr, 10 MG PO DAILY PRN for [id number], TAB 05/28/19 Bisacodyl (Dulcolax) 10 Mg Supp.rect, 10 MG RC Q MON,SAT,FRI, SUPP.RECT OR NEEDED 02/04/19 Simethicone (Gas Relief 80) 80 Mg Tab.chew, 160 MG PO QID, TAB.CHEW 02/04/19 Potassium Chloride* (Klor-Con*) 20 Meq Tabsr, 40 MEQ PO DAILY, TAB.SA 02/04/19 Polyethylene Glycol* (Miralax*) 17 Gm Powd.pack, 17 GM PO DAILY for CONSTIPATION, #30 PACKET 02/04/19 Oxybutynin Chloride* (Ditropan*) 5 Mg Tab, 5 MG PO DAILY, TAB 02/04/19 Baclofen* (Baclofen*) 20 Mg Tablet, 30 MG PO QID, TAB 02/04/19 Amlodipine Besylate* (Amlodipine Besylate*) 2.5 Mg Tablet, 2.5 MG PO BID, #30 TAB 02/04/19 Acetaminophen* (Acetaminophen*) 325 Mg Tablet, 650 MG PO Q6H PRN for MILD PAIN(1-3)OR ELEVATED TEMP, #30 TAB 02/04/19 Current Medications Acetaminophen (Tylenol Tab) 650 mg Q6H PRN PO .PAIN 1-3 OR TEMP Last administered on 06/03/19at 15:36; Admin Dose 650 MG; Start 05/28/19 at 06:30 Albuterol/ Ipratropium (Duoneb) 3 ml Q2H RESP THERAPY PRN NEB SHORTNESS OF BREATH; Start 05/28/19 at 10:30 Nitroglycerin (Nitroglycerin (Sl Tab) 0.4 Mg) 1 tab Q5M PRN SL CHEST PAIN; Start 05/28/19 at 10:30 Acetaminophen (Tylenol Supp) 650 mg Q4H PRN [place] PAIN LEVEL 1-3 OR FEVER; Start 05/28/19 at 10:30 Morphine Sulfate (morphine) 2 mg Q4H PRN IV PAIN LEVEL 7-10 Last administered on 06/03/19at 02:17; Admin Dose 2 MG; Start 05/28/19 at 10:30 Bisacodyl (Dulcolax Supp) 10 mg DAILY PRN [place] CONSTIPATION Last administered on 06/01/19at 08:57; Admin Dose 10 MG; Start 05/28/19 at 10:30 IV Flush (NS 3 ml) 3 ml PER PROTOCOL IV ; Start 05/28/19 at 10:30 Ondansetron HCl (Zofran Inj) 4 mg Q6H PRN IV NAUSEA/VOMITING Last administered on 06/02/19 14:31; Admin Dose 4 MG; Start 05/28/19 at 10:30 Famotidine (Pepcid Iv) 20 mg Q12 IV Last administered on 06/04/19 09:53; Admin Dose 20 MG; Start 05/28/19 at 21:00 Ipratropium [place] (Atrovent Hfa) 4 puff Q6H RESP THERAPY INH Last administered on 06/04/19 15:46; Admin Dose 4 PUFF; Start 05/28/19 at 14:30 IV Flush (NS 10 ml) 10 ml Q8 PRN IV IV PROTOCOL Last administered on 06/02/19 06:04; Admin Dose 10 ML; Start 05/28/19 at 19:00 Acetylcysteine (Mucomyst) 3 ml Q6H RESP THERAPY NEB Last administered on 06/04/19at 15:45; Admin Dose 3 ML; Start 05/29/19 at 10:00 Albuterol (Ventolin Hfa) 4 puff Q6H RESP THERAPY INH Last administered on 06/04/19 15:46; Admin Dose 4 PUFF; Start 05/29/19 at 14:00 Heparin Sodium (Porcine) (Heparin (5000 Units/1ml)) 5,000 unit BID SC Last administered on 06/04/19 10:29; Admin Dose 5,000 UNIT; Start 05/29/19 at 21:00 Baclofen (Lioresal) 5 mg TID NGT Last administered on 06/04/19 09:58; Admin Dose 5 MG; Start 05/31/19 at 13:00 Hydralazine HCl (Apresoline) 10 mg Q6H PRN IV SBP>160 Last administered on 06/01/19 08:58; Admin Dose 10 MG; Start 06/01/19 at 09:00 Simethicone (Mylicon) 80 mg Q6 PO Last administered on 06/03/19 18:10; Admin Dose 80 MG; Start 06/01/19 at 12:00 Diagnostic Test (Pha) (Accu-Chek) 1 ea Q6 XX Last administered on 06/04/19 06 :21; Admin Dose 1 EA; Start 06/03/19 at 00:00 Sodium Chloride 1,000 ml @ 50 mls/hr Q20H IV Last administered on 06/04/19 12:26; Admin Dose 50 MLS/HR; Start 06/03/19 at 09:30 Lorazepam (Ativan) 2 mg Q4H PRN IV anxiety; Start 06/03/19 at 17:30 Meropenem/Sodium Chloride 50 ml @ 100 mls/hr Q12 IVPB Last administered on 06/04/19 12:29; Admin Dose 100 MLS/HR; Start 06/04/19 at 11:30 Vancomycin HCl (Vanco Iv Per Pharmacy) VANCOMYCIN PER PHARMACY PER PROTOCOL XX ; Start 06/04/19 at 11:00 Vancomycin/Sodium Chloride 250 ml @ 83.333 mls/ hr Q24H IVPB ; Start 06/05/19 at 14:00 Meds reviewed: Yes Allergies Coded Allergies: iodine (Unverified Allergy, Unknown, 05/28/19) Allergies Reviewed: Yes Labs/Studies Labs Reviewed: Reviewed by anesthesiologist Result Diagram: 06/04/19 0611 06/04/19 0611 Laboratory Tests 06/04/19 06:11 test: N/A Studies: ECG, CXR Pre-procedure Exam Last vitals Vital Signs Date Temp Pulse Resp B/P (MAP) Pulse Ox O2 O2 Flow FiO2 Time Delivery Rate 06/04/19 90 22 122/90 100 Mechanical 17:00 (101) Ventilator 06/04/19 98.0 16:00 06/04/19 30 15:39 Airway: Adequate mouth opening, Adequate thyromental dist Mallampati: Mallampati II (trached ) Teeth: Normal Lung: Abnormal (trached) Heart: Normal ASA Physical Status ASA physical status: 3 Emergency: None Planned Anesthetic General/MAC: Other (trach) Planned Pain Management Parenteral pain med Pre-operative Attestations Prior to commencing anesthesia and surgery, the patient was re-evaluated, there was verification of: *The patient's identity *The results of appropriate recent lab work and preoperative vital signs *The above evaluation not changing prior to induction *Anesthetic plan, risk benefits, alternative and complications discussed with patient/family; questions answered; patient/family understands, accepts and wishes to proceed. STEFANIE LOCKWOOD MD Jun 04, 2019 18:09
[2019-06-04] MEDS ORDERED: GLUCOSE GEL 15 GRAM TUBE BUCCAL PRN (18:30)
[2019-06-04] MEDS ORDERED: GLUCAGON 1 MG INJ IM PRN (18:30)
[2019-06-04] MEDS ORDERED: DEXTROSE 50% 50 ML SYRINGE IV PRN ×2 (18:30)
[2019-06-04] MEDS ORDERED: GLUCOSE GEL 15 GRAM TUBE PO PRN ×2 (18:30)
[2019-06-04] MEDS ORDERED: DEXTROSE 50% 50 ML SYRINGE IV ONE (18:30)
[2019-06-04] MEDS ORDERED: ROCURONIUM 50 MG INJ ONE (19:12)
[2019-06-04] MEDS ORDERED: VASOPRESSIN 20 UNITS INJ ONE (19:45)
[2019-06-04] MEDS ORDERED: PHENYLephrine (100 MCG/ML) 10ML SYG ONE (19:45)
[2019-06-04] MEDS ORDERED: GLYCOPYRROLATE 0.4 MG INJ ONE (19:53)
[2019-06-04] MEDS ORDERED: NEOSTIGMINE 3 MG/3 ML SYRINGE ONE (19:53)
--- NOTE | 2019-06-04 20:08 | OPR ---
Date/Time of Note Date/Time of Note DATE: 06/04/19 TIME: 19:57 Operative Report Procedure Date: Jun 04, 2019 Preoperative Diagnosis Small bowel obstruction Postoperative Diagnosis 1. Small bowel obstruction with perforation secondary to PEG going through small bowel into stomach 2. Perforated appendicitis 3. Meckel's diverticulum Operation/Procedure Performed 1. Exploratory laparotomy 2. Repair small bowel 3. Appendectomy 4. Meckel's diverticulectomy Surgeon Zena Calderón MD Coding Quality Analyst None Anesthesia Type: general Anesthesiologist: STEFANIE LOCKWOOD MD Estimated Blood Loss: minimal Transfusion none Specimen 1. Appendix with perforation 2. Meckel's diverticulum Grafts/Implants none Tubes/Drains None Complications none Pt Condition Post Procedure: critical Disposition: other (ICU) Indications Small bowel obstruction with peritonitis Procedure Description After satisfactory general endotracheal anesthesia was achieved, the abdomen was prepped and draped in the usual fashion. The abdomen was entered through a standard vertical midline incision. Upon entering the peritoneum there was pneumoperitoneum encountered. There were several dilated loops of small bowel in the central mid abdomen. There was collapsed distal small bowel to the cecum. During mobilization of the viscera there was a gush of enteric fluid encountered. This was suctioned off. The source of the fluid was a loop of small bowel which was obstructed and perforated by a PEG tube going through the small bowel into the stomach. The antimesenteric border of the small intestine at the PEG insertion site was divided with electrocautery releasing the small bowel. Several 100 cc of small bowel enteric content were suctioned off. The PEG tube was now going safely into the stomach and was secured at the skin entry site via its bumper. The small bowel which was obstructed and perforated was viable and was able to be repaired by placing 2 transverse staple lines of a blue TA 60 stapler. The resulting repair was widely patent and watertight. It was reinforced with a running interlocking 3-0 Vicryl suture. The small bowel was now able to be run in its entirety from the ligament of Treitz to the ileocecal valve. The cecum was mobilized. There was an appendix with a perforation 1 cm distal to the cecum. The mesoappendix was divided with electrocautery. The cecum just proximal to the appendix was divided with a blue TA 30 stapler. The appendix was submitted as such. The small bowel contents we re then run from ileocecal valve into the cecum the small bowel was now entirely intact and watertight. 2 feet proximal to the ileocecal valve a Meckel's diverticulum was encountered and was resected over a blue TA-30 stapler and submitted as such. The abdomen was now copiously irrigated with saline until clear. At the beginning the procedure a nasogastric tube was placed and its position was confirmed by palpation. The abdomen was then closed en candie with 2 running sutures of #2 Vicryl. The skin was closed with faye. Sponge, needle and instrument counts were reported as correct x2. ZENA CALDERÓN MD Jun 04, 2019 20:08
[2019-06-04] MEDS ORDERED: ONDANSETRON 4 MG INJ IV PRN (20:30)
[2019-06-04] MEDS ORDERED: morphine 2 MG INJ IV PRN (20:30)
[2019-06-04] MEDS ORDERED: FENTAnyl 50 MCG/ML VIAL IV PRN (20:30)
[2019-06-04] MEDS ORDERED: HYDROmorphONE 0.5 MG/0.5 ML SYG IV PRN (20:30)
[2019-06-04] MEDS ORDERED: EPHEDrine 25 MG/5 ML SYG IV PRN (20:30)
[2019-06-04] MEDS: morphine 2 MG INJ IV PRN (20:32)
--- NOTE | 2019-06-04 20:39 | EN ---
Date/Time of Note Date/Time of Note DATE: 06/04/19 TIME: 20:35 Event Note Medicine Medicine Event Note CT shows: CT of the abdomen pelvis demonstrates continued small bowel obstruction. On the current exam there is a swirling of the mesentery vessels and small bowel loops with decompression of 1 of the loops suggesting this is an internal hernia has the cause of the small bowel obstruction. The patient status post G-tube placement. There is no evidence of contrast leak however there is free air anteriorly to the liver and anterior to the stomach. This may have been part of the placement process or perforation cannot be excluded although no contrast leak is seen. The colon is diffusely decompressed however there is a wall thickening throughout query secondary to decompression versus a an actual inflammatory proc ess. The sigmoid colon is noted to extend into the area of possible internal hernia in the can have reactive inflammatory changes secondary to this. There is slight prominent appearance of the appendiceal murphy measuring up to 10 mm. There is some fat stranding near the appendiceal tip and and appendicitis cannot be excluded. ASSESSMENT COMPLETE BOWEL OBSTRUCTION WITH PERFORATION LIKELY 2/2 PEG PERFORATED SMALL BOWEL PRIOR REACHING STOMACH PERFORATED APPENDIX PLAN: EMERGENT OR FOR EXPLORATORY LAP WITH CONTINUE BROAD SPECTRUM ABX W/ ANAEROBIC/ESBL COVERAGE Appreciates great care of Case d/w RIK Carpenter V. SALES OFFICE ADMINISTRATOR Jun 04, 2019 20:39
--- NOTE | 2019-06-04 20:40 | PAC ---
Date/Time of Note Date/Time of Note DATE: 06/04/19 TIME: 20:40 Post-Anesthesia Notes Post-Anesthesia Note Last documented vital signs Vital Signs Date Temp Pulse Resp B/P (MAP) Pulse Ox O2 O2 Flow FiO2 Time Delivery Rate 06/04/19 95 28 117/86 100 Mechanical 18:00 (96) Ventilator 06/04/19 98.0 16:00 06/04/19 30 15:39 Activity: WNL Respiratory function: WNL Cardiovascular function: WNL Mental status: Baseline Pain reasonably controlled: Yes Hydration appropriate: Yes Nausea/Vomiting absent: Yes Comments BP: 93/62 HR: 95 RR: 16 T: 98 SaO2: 100% STEFANIE LOCKWOOD MD Jun 04, 2019 20:40
[2019-06-04] MEDS: NORepinephrine 8MG/250 ML (PMX 250 ML IV SCH (23:27)
[2019-06-05] VITALS (105 sets, daily range): BP systolic 58–134; BP diastolic 18–91; PULSE 97–141; RESP 17–34
[2019-06-05] MEDS: BALSAM PERU/CASTOR OIL 60 GM TUBE TOP SCH ×3 (01:29→21:30)
[2019-06-05] MEDS: ACETYLCYSTEINE 20% 4 ML VIAL NEB SCH ×4 (02:10→19:40)
[2019-06-05] MEDS: IPRATROPIUM (HFA) 12.9 GM INHALER INH SCH ×4 (02:10→19:39)
[2019-06-05] MEDS: ALBUTEROL HFA 8 GM INHALER INH SCH ×4 (02:10→19:39)
[2019-06-05] MEDS: SOD CHLORIDE 0.9% 1,000 ML IV SCH (02:23)
[2019-06-05] MEDS ORDERED: NA BICARBONATE 8.4% 50 ML SYG IV ONE (02:30)
[2019-06-05] MEDS: ACCU-CHEK XX SCH ×4 (06:00→21:00)
[2019-06-05] MEDS ORDERED: SODIUM BICARBONATE IN D5W 1,000 ML IV SCH (08:00)
[2019-06-05] MEDS ORDERED: SODIUM BICARBONATE (IV ADD) 150 MEQ in DEXTROSE 5% 850 ML IV SCH (08:00)
--- NOTE | 2019-06-05 08:42 | QN ---
Documentation Comment Postoperative day #1 Awake and alert, off pressors WBC up to 61,800 with 15 bands Abdomen is flat Plan: Continue aggressive medical management TPN ZENA CALDERÓN MD Jun 05, 2019 08:42
[2019-06-05] MEDS: FAMOTIDINE 20 MG INJ IV SCH ×2 (08:47→21:29)
[2019-06-05] MEDS: MEROPENEM 1 GM/50ML(PMX) 50 ML IVPB SCH ×2 (08:47→20:14)
[2019-06-05] MEDS: BACLOFEN 10 MG TAB NGT SCH ×3 (09:00→20:15)
[2019-06-05] MEDS: HEPARIN 5,000 UNIT/1 ML VIAL SC SCH ×2 (09:06→20:17)
[2019-06-05] MEDS: NORepinephrine 8MG/250 ML (PMX 250 ML IV SCH (12:15)
--- NOTE | 2019-06-05 12:25 | CONS ---
Consult Date/Type/Reason Admit Date/Time May 28, 2019 at 06:21 Initial Consult Date 05/30/19 Type of Consult Pulmonary Requesting Provider: TYLOR REESE Date/Time of Note DATE: 06/05/19 TIME: 12:21 Subjective Acute abdomen yesterday found to have perforation requiring surgical repair with appendectomy. Patient stable now on low-dose Levophed. Initiated on TPN. Objective Vital Signs Date Temp Pulse Resp B/P (MAP) Pulse Ox O2 O2 Flow FiO2 Time Delivery Rate 06/05/19 117 24 82/63 (69) 100 11:30 06/05/19 Mechanical 11:00 Ventilator 06/05/19 60 08:00 06/05/19 98.3 08:00 Intake and Output 06/04/19 06/04/19 06/05/19 1515:00 23:00 07:00 IntakeIntake Total 859.163 ml 2529.167 ml 717.375 ml OutputOutput Total 50 ml 115 ml 30 ml BalanceBalance 809.163 ml 2414.167 ml 687.375 ml Exam GENERAL: Chronically ill-appearing gentleman on mechanical ventilation via tracheostomy VITAL SIGNS: per chart NECK: Supple. No JVD or lymphadenopathy. CARDIAC EXAM: S1, S2. No added sounds or murmurs. CHEST: Diminished breath sounds bilaterally ABDOMEN: Diminished bowel sounds EXTREMITIES: No cyanosis, clubbing or edema. NEUROLOGIC: Quadriplegia Vent Setting Ventilator Support Mode: AC Fraction of Inspired Oxygen pe: 60 Positive End Expiratory Pressu: 5.0 Results/Medications Result Diagram: 06/05/19 0310 06/05/19 0932 Results 24 hrs Laboratory Tests Test 06/04/19 12:28 06/04/19 18:12 06/04/19 18:27 06/04/19 20:19 Bedside Glucose 86 65 L 126 White Blood 43.1 H Count Red Blood Count 5.02 Hemoglobin 12.1 L Hematocrit 38.3 L Mean 76.3 L Corpuscular Volume Mean 24.1 L Corpuscular Hemoglobin Mean 31.6 L Corpuscular Hemoglobin Conc ent Red Cell 18.6 H Distribution Width Platelet Count 486 H Mean Platelet 9.7 Volume Immature 3.500 H Granulocytes % Neutrophils % Segmented 90 H Neutrophils % (Manual) Band 4 Neutrophils % (Manual) Lymphocytes % Monocytes % Monocytes % 3 (Manual) Eosinophils % Basophils % Myelocytes % 1 H (Manual) Promyelocytes % 2 H (Manual) Nucleated Red 0.0 Blood Cells % Immature 1.530 H Granulocytes # Neutrophils # Neutrophils # 39.5 H (Manual) Band 1.7 H Neutrophils # Lymphocytes # Monocytes # Monocytes # 1.2 H (Manual) Eosinophils # Basophils # Myelocytes # 0.4 H Promyelocytes # 0.8 H Nucleated Red Blood Cells # Platelet NORMAL Estimate Poikilocytosis 3+ Anisocytosis 1+ Macrocytosis 1+ Test 06/04/19 23:00 06/05/19 00:28 06/05/19 02:00 06/05/19 02:21 Blood Gas Blood arterial Blood Specimen arterial Source Arterial Blood 06/04/2019 11:15 06/05/2019 1:50 Date Drawn :37 PM :57 AM Arterial Blood 7.151 *L 7.149 *L pH (Temp corrected ) Arterial Blood 36.0 31.7 L pCO2 (Temp correct) Arterial Blood 232.5 H 230.0 H pO2 (Temp corrected ) Arterial Blood 12.3 L 10.8 L HCO3 Arterial Blood -15.6 L -16.9 L Base Excess Arterial Blood 99.3 H 99.5 H Oxygen Saturati on Kwame Test N/A N/A Arterial Blood A-Line A-Line Gas Puncture Site Arterial 0 0.3 Blood Carboxyhe moglobin Arterial Blood 0.6 0.6 Methemoglobin Blood Gas A-a 444.5 H 235.0 H O2 Differential Oxyhemoglobin 98.7 98.6 Percent Blood Gas 37.0 37.0 Temperature Blood Gas 16.0 24.0 Respiration Rate Blood Gas 23 24 Actual Respiration Rat e Blood Gas VENT - AC VENT - AC/VC+ Modality FiO2 100.0 70.0 Blood Gas Tidal 500.0 500.0 Volume Blood Gas Low 5.0 5.0 PEEP Setting Blood Gas EDUARD ARREGUIN R Critical Value N Read Back Blood Gas ADRIENNE TOLEDO Notified Whom Blood Gas 06/04/2019 11:28 06/05/2019 1:58 Notified Time :45 PM :47 AM Bedside Glucose 80 Blood Gas 0.7 Inspiratory Time Blood Gas 36.0 Inspiratory Pressure White Blood 61.8 #H Count Red Blood Count 5.46 Hemoglobin 13.1 L Hematocrit 42.3 Mean 77.5 L Corpuscular Volume Mean 24.0 L Corpuscular Hemoglobin Mean 31.0 L Corpuscular Hemoglobin Conc ent Red Cell 19.3 H Distribution Width Platelet Count 596 #H Mean Platelet 10.1 Volume Immature 3.400 H Granulocytes % Neutrophils % Segmented 80 H Neutrophils % (Manual) Band 15 H Neutrophils % (Manual) Lymphocytes % Lymphocytes % 2 L (Manual) Monocytes % Monocytes % 3 (Manual) Eosinophils % Basophils % Nucleated Red 0.0 Blood Cells % Immature 2.110 H Granulocytes # Neutrophils # Neutrophils # 55.1 H (Manual) Band 9.2 H Neutrophils # Lymphocytes 1.2 (Manual) Lymphocytes # Monocytes # Monocytes # 1.8 H (Manual) Eosinophils # Basophils # Nucleated Red Blood Cells # Platelet INCREASED Estimate Giant Platelets 1 H Poikilocytosis 3+ Anisocytosis 1+ Sodium Level 137 Potassium Level 4.4 Chloride Level 114 H Carbon Dioxide 12 L Level Anion Gap 11 Blood Urea 35 H Nitrogen Creatinine 1.27 H Est Glomerular > 60 Filtrat Rate mL/min Glucose Level 76 Calcium Level 8.1 L Magnesium Level 2.3 Prealbumin 8.2 L Test 06/05/19 03:10 06/05/19 05:00 06/05/19 06:01 06/05/19 06:24 Platelet Count 542 H Prothrombin 18.0 #H Time Prothrombin 1.4 Time Ratio INR 1.48 International Normalized Rati o Activated 33.8 Partial Thrombo plast Time Thrombin Time 16.7 Lactic Acid 0.9 Level Blood Gas Blood arterial Specimen Source Arterial Blood 06/05/2019 5:15: Date Drawn 30 AM Arterial Blood 7.231 *L pH (Temp corrected ) Arterial Blood 37.6 pCO2 (Temp correct) Arterial Blood 90.2 pO2 (Temp corrected ) Arterial Blood 15.4 L HCO3 Arterial Blood -11.3 L Base Excess Arterial Blood 96.8 Oxygen Saturati on Kwame Test N/A Arterial Blood A-Line Gas Puncture Site Arterial 0.4 Blood Carboxyhe moglobin Arterial Blood 0.5 Methemoglobin Blood Gas A-a 296.2 H O2 Differential Oxyhemoglobin 95.9 Percent Blood Gas 37.0 Temperature Blood Gas 24.0 Respiration Rate Blood Gas 24 Actual Respiration Rat e Blood Gas VENT - AC Modality FiO2 60.0 Blood Gas Tidal 500.0 Volume Blood Gas Low 5.0 PEEP Setting Blood Gas EDUARD NORIEGA Critical Value Read Back Blood Gas ADRIENNE Notified Whom Blood Gas 06/05/2019 5:34: Notified Time 44 AM Bedside Glucose 66 L 115 Test 06/05/19 06:40 06/05/19 09:32 06/05/19 11:46 Bedside Glucose 115 107 Sodium Level 143 Potassium Level 4.1 Chloride Level 115 H Carbon Dioxide 19 L Level Anion Gap 9 Blood Urea 35 H Nitrogen Creatinine 1.08 Est Glomerular > 60 Filtrat Rate mL/min Glucose Level 103 Calcium Level 9.6 Phosphorus 3.9 Level Magnesium Level 2.2 Total Bilirubin 0.3 Direct 0.00 Bilirubin Indirect 0.3 Bilirubin Aspartate Amino 24 Transf (AST/SGO T) Alanine 37 Aminotransferas e (ALT/SGPT) Alkaline 152 H Phosphatase Total Protein 5.8 L Albumin 2.5 L Globulin 3.30 H Albumin/Globuli 0.75 n Ratio Prealbumin 6.6 L Triglycerides 84 Level Medications Current Medications Acetaminophen (Tylenol Tab) 650 mg Q6H PRN PO .PAIN 1-3 OR TEMP Last administered on 06/03/19at 15:36; Admin Dose 650 MG; Start 05/28/19 at 06:30 Albuterol/ Ipratropium (Duoneb) 3 ml Q2H RESP THERAPY PRN NEB SHORTNESS OF BREATH; Start 05/28/19 at 10:30 Nitroglycerin (Nitroglycerin (Sl Tab) 0.4 Mg) 1 tab Q5M PRN SL CHEST PAIN; Start 05/28/19 at 10:30 Acetaminophen (Tylenol Supp) 650 mg Q4H PRN WI PAIN LEVEL 1-3 OR FEVER; Start 05/28/19 at 10:30 Bisacodyl (Dulcolax Supp) 10 mg DAILY PRN WI CONSTIPATION Last administered on 06/01/19at 08:57; Admin Dose 10 MG; Start 05/28/19 at 10:30 IV Flush (NS 3 ml) 3 ml PER PROTOCOL IV ; Start 05/28/19 at 10:30 Ondansetron HCl (Zofran Inj) 4 mg Q6H PRN IV NAUSEA/VOMITING Last administered on 06/02/19at 14:31; Admin Dose 4 MG; Start 05/28/19 at 10:30 Famotidine (Pepcid Iv) 20 mg Q12 IV Last administered on 06/05/19at 08:47; Admin Dose 20 MG; Start 05/28/19 at 21:00 Ipratropium Dragoon (Atrovent Hfa) 4 puff Q6H RESP THERAPY INH Last administered on 06/05/19 09:52; Admin Dose 4 PUFF; Start 05/28/19 at 14:30 IV Flush (NS 10 ml) 10 ml Q8 PRN IV IV PROTOCOL Last administered on 06/02/19 06:04; Admin Dose 10 ML; Start 05/28/19 at 19:00 Acetylcysteine (Mucomyst) 3 ml Q6H RESP THERAPY NEB Last administered on 06/05/19 09:47; Admin Dose 3 ML; Start 05/29/19 at 10:00 Albuterol (Ventolin Hfa) 4 puff Q6H RESP THERAPY INH Last administered on 06/05/19 09:45; Admin Dose 4 PUFF; Start 05/29/19 at 14:00 Heparin Sodium (Porcine) (Heparin (5000 Units/1ml)) 5,000 unit BID SC Last administered on 06/05/19 09:06; Admin Dose 5,000 UNIT; Start 05/29/19 at 21:00 Baclofen (Lioresal) 5 mg TID NGT Last administered on 06/04/19 09:58; Admin Dose 5 MG; Start 05/31/19 at 13:00 Hydralazine HCl (Apresoline) 10 mg Q6H PRN IV SBP>160 Last administered on 06/01/19 08:58; Admin Dose 10 MG; Start 06/01/19 at 09:00 Simethicone (Mylicon) 80 mg Q6 PO Last administered on 06/03/19 18:10; Admin Dose 80 MG; Start 06/01/19 at 12:00 Diagnostic Test (Pha) (Accu-Chek) 1 ea Q6 XX Last administered on 06/04/19 06:21; Admin Dose 1 EA; Start 06/03/19 at 00:00 Lorazepam (Ativan) 2 mg Q4H PRN IV anxiety; Start 06/03/19 at 17:30 Meropenem/Sodium Chloride 50 ml @ 100 mls/hr Q12 IVPB Last administered on 06/05/19 08:47; Admin Dose 100 MLS/HR; Start 06/04/19 at 11:30 Vancomycin HCl (Vanco Iv Per Pharmacy) VANCOMYCIN PER PHARMACY PER PROTOCOL XX ; Start 06/04/19 at 11:00 Vancomycin/Sodium Chloride 250 ml @ 83.333 mls/ hr Q24H IVPB ; Start 06/05/19 at 14:00 Miscellaneous Information 1 ea NOTE XX ; Start 06/04/19 at 18:30 Glucose (Glutose) 15 gm Q15M PRN PO DECREASED GLUCOSE; Start 06/04/19 at 18:30 Glucose (Glutose) 22.5 gm Q15M PRN PO DECREASED GLUCOSE; Start 06/04/19 at 18:30 Dextrose (D50w Syringe) 25 ml Q15M PRN IV DECREASED GLUCOSE; Start 06/04/19 at 18:30 Dextrose (D50w Syringe) 50 ml Q15M PRN IV DECREASED GLUCOSE; Start 06/04/19 at 18:30 Glucagon (Glucagen) 1 mg Q15M PRN IM DECREASED GLUCOSE; Start 06/04/19 at 18:30 Glucose (Glutose) 15 gm Q15M PRN BUCCAL DECREASED GLUCOSE; Start 06/04/19 at 18:30 Morphine Sulfate (morphine) 2 mg Q2H PRN IV SEVERE PAIN LEVEL 7-10; Start at 20:30 Norepinephrine 250 ml @ 1.875 mls/ hr TITRATE IV Last administered on 06/05/19at 12:15; Admin Dose 52.5 MLS/HR; Start 06/04/19 at 22:00 Sodium Bicarbonate/ Dextrose 1,000 ml @ 80 mls/hr [id number] IV Last administered on 06/05/19at 08:47; Admin Dose 80 MLS/HR; Start 06/05/19 at 08:00 Total Parenteral Nutrition 1,000 ml @ 0 mls/hr Q0M IV ; Start 06/05/19 at 09:12; Status UNV Metronidazole 100 ml @ 100 mls/hr Q8 IVPB ; Start 06/05/19 at 14:00 Assessment/Plan Hospital Course (Demo Recall) Assessment 1. Acute abdomen secondary to perforated bowel following PEG tube placement 2. Vent dependent respiratory failure 3. History of quadriplegia 4. Septic shock requiring vasopressors Plan 1. Continue mechanical ventilation 2. Postop surgical recommendations 3. Aggressive volume resuscitation with vasopressor support. 4. Postop antibiotics 5. DVT GI prophylaxis Critical care time 40 minutes CARYN PERLA MD, [facility] Jun 05, 2019 12:25
[2019-06-05] MEDS: PHENYLephrine 80 MG in DEXTROSE 5% 242 ML IV SCH ×2 (13:38→21:13)
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
[2019-06-05] MEDS ORDERED: ALBUMIN HUMAN 25% 100 ML IV ONE (14:00)
--- NOTE | 2019-06-05 14:06 | PN ---
DATE: 06/05/2019 SUBJECTIVE: Patient is awake. She is on Levophed drip. No fevers overnight. WBC today 61.8, platelets 596, BUN 35, creatinine 1.08. INDWELLINGS: Trach, PEG, suprapubic catheter. ANTIMICROBIALS: The patient is on: 1. IV vancomycin 2. Meropenem. 3. Flagyl. PHYSICAL EXAMINATION: GENERAL: This is a chronically ill-appearing, wasted, middle-aged man who is awake, in no distress. HEENT: Head atraumatic, normocephalic. NECK: Supple. CHEST: Rise symmetrical. Breath sounds diminished to bases. HEART: S1, S2, tachycardic. ABDOMEN: Distended. Mid abdominal incision clean, dry and intact. Bowel tones are hypoactive. EXTREMITIES: Wasted. ASSESSMENT: 1. Severe sepsis with shock. 2. Small-bowel obstruction with perforation, status post exploratory laparotomy with small bowel rep air as well as appendectomy. 3. Meckel's diverticulectomy. 4. Healthcare-associated pneumonia, possibly aspiration, status post vomiting. 5. Urinary tract infection on admission. 6. Quadriplegia. 7. Questionable right kidney neoplasm. PLAN: Patient is on appropriate antibiotics, clinically stable. He is being seen by multiple consul tants. Continue present care. Plan to start on TPN. Add empiric antifungal therapy. Dictated By: JOSIAS BELLA [employer] DR[employer] for APOLLO MOREL MD NI/NTS Conf#: [id number] DID#: [id number]
[2019-06-05] MEDS: metroNIDAZOLE 500 MG/NS (PMX) 100 ML IVPB SCH ×2 (14:09→21:29)
[2019-06-05] MEDS: VANCOMYCIN 1.25 GM/NS 250 ML 250 ML IVPB SCH (14:09)
[2019-06-05] MEDS ORDERED: CASPOFUNGIN 70 MG in SOD CHLORIDE 0.9% 250 ML IVPB ONE (15:00)
[2019-06-05] MEDS ORDERED: TPN 1,000 ML IV SCH (16:00)
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
[2019-06-05] MEDS: TPN 1,000 ML IV SCH (16:17)
--- NOTE | 2019-06-05 16:21 | PN ---
Date/Time of Note Date/Time of Note DATE: 06/05/19 TIME: 16:10 Assessment/Plan VTE Prophylaxis Risk score (from Nsg)>0 risk: 11 SCD applied (from Nsg): Yes Pharmacological prophylaxis: heparin Assessment/Plan Assessment/Plan Assessment: Severe sepsis due to small bowel perforation during PEG insertion Status post exploratory laparotomy with small bowel repair, Meckel diverticulectomy and appendectomy Acute on chronic RD on the ventilator BHARATI Recurrent small bowel obstruction Quadriplegia Abdominal gas UTI Pneumonia Neurogenic bladder Plan: Continue supportive care Antibiotics per ID Plan to start TPN Patient seen in collaboration Dr. Hall Subjective: Course reviewed with nursing staff Patient interviewed and examined All labs, imaging and other results reviewed Patient is status post exploratory laparotomy with appendectomy and small bowel repair. Severe sepsis with white blood count 60,000, currently on pressors. Plan to start TPN. NG tube currently clamped. Continue close observation. Exam PHYSICAL EXAMINATION: GENERAL: Quadriplegic, trached on MV, alert & oriented x 4 SKIN: No lesions, no stigmata chronic liver disease, no evidence of bleeding diathesis HEAD: Normocephalic, atraumatic, no tenderness. EYES: Pupils equal reactive to light, no discharge. EARS/NOSE AND THROAT: Ears normal, nose normal, oropharynx normal, oral membranes well hydrated without lesions. NECK: Supple, no masses CHEST: Inspection within normal limits. CARDIOVASCULAR: Heart: Regular rate and rhythm RESPIRATORY: Lungs clear to auscultation. GASTROINTESTINAL AND LIVER: Abdomen: Firm, no tenderness, mild distension , G- tube in placeclamped, transverse laparotomy incision covered with dressing, no hernias, no masses, no organomegaly, no ascites, no guarding, no rebound tenderness, hypoactive bowel sounds. Rectal: Deferred. GENITOURINARY: Male genitalia within normal limits. Result Diagram: 06/05/19 0310 06/05/19 0932 Results 24hrs Laboratory Tests Test 06/04/19 18:12 06/04/19 18:27 06/04/19 20:19 06/04/19 23:00 Bedside Glucose 65 L 126 White Blood 43.1 H Count Red Blood Count 5.02 Hemoglobin 12.1 L Hematocrit 38.3 L Mean 76.3 L Corpuscular Volume Mean 24.1 L Corpuscular Hemoglobin Mean 31.6 L Corpuscular Hemoglobin Conc ent Red Cell 18.6 H Distribution Width Platelet Count 486 H Mean Platelet 9.7 Volume Immature 3.500 H Granulocytes % Neutrophils % Segmented 90 H Neutrophils % (Manual) Band 4 Neutrophils % (Manual) Lymphocytes % Monocytes % Monocytes % 3 (Manual) Eosinophils % Basophils % Myelocytes % 1 H (Manual) Promyelocytes % 2 H (Manual) Nucleated Red 0.0 Blood Cells % Immature 1.530 H Granulocytes # Neutrophils # Neutrophils # 39.5 H (Manual) Band 1.7 H Neutrophils # Lymphocytes # Monocytes # Monocytes # 1.2 H (Manual) Eosinophils # Basophils # Myelocytes # 0.4 H Promyelocytes # 0.8 H Nucleated Red Blood Cells # Platelet NORMAL Estimate Poikilocytosis 3+ Anisocytosis 1+ Macrocytosis 1+ Blood Gas Blood Specimen arterial Source Arterial Blood 06/04/2019 11:1 Date Drawn 5:37 PM Arterial Blood 7.151 *L pH (Temp corrected ) Arterial Blood 36.0 pCO2 (Temp correct) Arterial Blood 232.5 H pO2 (Temp corrected ) Arterial Blood 12.3 L HCO3 Arterial Blood -15.6 L Base Excess Arterial Blood 99.3 H Oxygen Saturati on Kwame Test N/A Arterial Blood A-Line Gas Puncture Site Arterial 0 Blood Carboxyhe moglobin Arterial Blood 0.6 Methemoglobin Blood Gas A-a 444.5 H O2 Differential Oxyhemoglobin 98.7 Percent Blood Gas 37.0 Temperature Blood Gas 16.0 Respiration Rate Blood Gas 23 Actual Respiration Rat e Blood Gas VENT - AC Modality FiO2 100.0 Blood Gas Tidal 500.0 Volume Blood Gas Low 5.0 PEEP Setting Blood Gas ABERTIROTTI Critical Value RN Read Back Blood Gas ADRIENNE Notified Whom Blood Gas 06/04/2019 11:2 Notified Time 8:45 PM Test 06/05/19 00:28 06/05/19 02:00 06/05/19 02:21 06/05/19 03:10 Bedside Glucose 80 Blood Gas Blood arterial Specimen Source Arterial Blood 06/05/2019 1:50: Date Drawn 57 AM Arterial Blood 7.149 *L pH (Temp corrected ) Arterial Blood 31.7 L pCO2 (Temp correct) Arterial Blood 230.0 H pO2 (Temp corrected ) Arterial Blood 10.8 L HCO3 Arterial Blood -16.9 L Base Excess Arterial Blood 99.5 H Oxygen Saturati on Kwame Test N/A Arterial Blood A-Line Gas Puncture Site Arterial 0.3 Blood Carboxyhe moglobin Arterial Blood 0.6 Methemoglobin Blood Gas A-a 235.0 H O2 Differential Oxyhemoglobin 98.6 Percent Blood Gas 37.0 Temperature Blood Gas 24.0 Respiration Rate Blood Gas 24 Actual Respiration Rat e Blood Gas VENT - AC/VC+ Modality FiO2 70.0 Blood Gas 0.7 Inspiratory Time Blood Gas Tidal 500.0 Volume Blood Gas Low 5.0 PEEP Setting Blood Gas 36.0 Inspiratory Pressure Blood Gas RODRÍGUEZ NORIEGA Critical Value Read Back Blood Gas AA Notified Whom Blood Gas 06/05/2019 1:58: Notified Time 47 AM White Blood 61.8 #H Count Red Blood Count 5.46 Hemoglobin 13.1 L Hematocrit 42.3 Mean 77.5 L Corpuscular Volume Mean 24.0 L Corpuscular Hemoglobin Mean 31.0 L Corpuscular Hemoglobin Conc ent Red Cell 19.3 H Distribution Width Platelet Count 596 #H 542 H Mean Platelet 10.1 Volume Immature 3.400 H Granulocytes % Neutrophils % Segmented 80 H Neutrophils % (Manual) Band 15 H Neutrophils % (Manual) Lymphocytes % Lymphocytes % 2 L (Manual) Monocytes % Monocytes % 3 (Manual) Eosinophils % Basophils % Nucleated Red 0.0 Blood Cells % Immature 2.110 H Granulocytes # Neutrophils # Neutrophils # 55.1 H (Manual) Band 9.2 H Neutrophils # Lymphocytes 1.2 (Manual) Lymphocytes # Monocytes # Monocytes # 1.8 H (Manual) Eosinophils # Basophils # Nucleated Red Blood Cells # Platelet INCREASED Estimate Giant Platelets 1 H Poikilocytosis 3+ Anisocytosis 1+ Sodium Level 137 Potassium Level 4.4 Chloride Level 114 H Carbon Dioxide 12 L Level Anion Gap 11 Blood Urea 35 H Nitrogen Creatinine 1.27 H Est Glomerular > 60 Filtrat Rate mL/min Glucose Level 76 Calcium Level 8.1 L Magnesium Level 2.3 Prealbumin 8.2 L Prothrombin 18.0 #H Time Prothrombin 1.4 Time Ratio INR 1.48 International Normalized Rati o Activated 33.8 Partial Thrombo plast Time Thrombin Time 16.7 Lactic Acid 0.9 Level Test 06/05/19 05:00 06/05/19 06:01 06/05/19 06:24 06/05/19 06:40 Blood Gas Blood arterial Specimen Source Arterial Blood 06/05/2019 5:15: Date Drawn 30 AM Arterial Blood 7.231 *L pH (Temp corrected ) Arterial Blood 37.6 pCO2 (Temp correct) Arterial Blood 90.2 pO2 (Temp corrected ) Arterial Blood 15.4 L HCO3 Arterial Blood -11.3 L Base Excess Arterial Blood 96.8 Oxygen Saturati on Kwame Test N/A Arterial Blood A-Line Gas Puncture Site Arterial 0.4 Blood Carboxyhe moglobin Arterial Blood 0.5 Methemoglobin Blood Gas A-a 296.2 H O2 Differential Oxyhemoglobin 95.9 Percent Blood Gas 37.0 Temperature Blood Gas 24.0 Respiration Rate Blood Gas 24 Actual Respiration Rat e Blood Gas VENT - AC Modality FiO2 60.0 Blood Gas Tidal 500.0 Volume Blood Gas Low 5.0 PEEP Setting Blood Gas ABERTIROTTI RN Critical Value Read Back Blood Gas MA Notified Whom Blood Gas 06/05/2019 5:34: Notified Time 44 AM Bedside Glucose 66 L 115 115 Test 06/05/19 09:32 06/05/19 11:46 Sodium Level 143 Potassium Level 4.1 Chloride Level 115 H Carbon Dioxide 19 L Level Anion Gap 9 Blood Urea 35 H Nitrogen Creatinine 1.08 Est Glomerular > 60 Filtrat Rate mL/min Glucose Level 103 Calcium Level 9.6 Phosphorus 3.9 Level Magnesium Level 2.2 Total Bilirubin 0.3 Direct 0.00 Bilirubin Indirect 0.3 Bilirubin Aspartate Amino 24 Transf (AST/SGO T) Alanine 37 Aminotransferas e (ALT/SGPT) Alkaline 152 H Phosphatase Total Protein 5.8 L Albumin 2.5 L Globulin 3.30 H Albumin/Globuli 0.75 n Ratio Prealbumin 6.6 L Triglycerides 84 Level Bedside Glucose 107 CC: CHAPITO HALL MD ; Exam/Review of Systems Exam Vitals Vital Signs Date Temp Pulse Resp B/P (MAP) Pulse Ox O2 O2 Flow FiO2 Time Delivery Rate 06/05/19 126 32 103/82 100 15:30 (89) 06/05/19 Mechanical 15:00 Ventilator 06/05/19 98.3 12:00 06/05/19 60 11:20 Intake and Output 06/04/19 06/04/19 06/05/19 1414:59 22:59 06:59 IntakeIntake Total 588.33 ml 2750.000 ml 644.875 ml OutputOutput Total 50 ml 110 ml 20 ml BalanceBalance 538.33 ml 2640.000 ml 624.875 ml Results Results 24hrs Laboratory Tests Test 06/04/19 18:12 06/04/19 18:27 06/04/19 20:19 06/04/19 23:00 Bedside Glucose 65 L 126 White Blood 43.1 H Count Red Blood Count 5.02 Hemoglobin 12.1 L Hematocrit 38.3 L Mean 76.3 L Corpuscular Volume Mean 24.1 L Corpuscular Hemoglobin Mean 31.6 L Corpuscular Hemoglobin Conc ent Red Cell 18.6 H Distribution Width Platelet Count 486 H Mean Platelet 9.7 Volume Immature 3.500 H Granulocytes % Neutrophils % Segmented 90 H Neutrophils % (Manual) Band 4 Neutrophils % (Manual) Lymphocytes % Monocytes % Monocytes % 3 (Manual) Eosinophils % Basophils % Myelocytes % 1 H (Manual) Promyelocytes % 2 H (Manual) Nucleated Red 0.0 Blood Cells % Immature 1.530 H Granulocytes # Neutrophils # Neutrophils # 39.5 H (Manual) Band 1.7 H Neutrophils # Lymphocytes # Monocytes # Monocytes # 1.2 H (Manual) Eosinophils # Basophils # Myelocytes # 0.4 H Promyelocytes # 0.8 H Nucleated Red Blood Cells # Platelet NORMAL Estimate Poikilocytosis 3+ Anisocytosis 1+ Macrocytosis 1+ Blood Gas Blood Specimen arterial Source Arterial Blood 06/04/2019 11:1 Date Drawn 5:37 PM Arterial Blood 7.151 *L pH (Temp corrected ) Arterial Blood 36.0 pCO2 (Temp correct) Arterial Blood 232.5 H pO2 (Temp corrected ) Arterial Blood 12.3 L HCO3 Arterial Blood -15.6 L Base Excess Arterial Blood 99.3 H Oxygen Saturati on Kwame Test N/A Arterial Blood A-Line Gas Puncture Site Arterial 0 Blood Carboxyhe moglobin Arterial Blood 0.6 Methemoglobin Blood Gas A-a 444.5 H O2 Differential Oxyhemoglobin 98.7 Percent Blood Gas 37.0 Temperature Blood Gas 16.0 Respiration Rate Blood Gas 23 Actual Respiration Rat e Blood Gas VENT - AC Modality FiO2 100.0 Blood Gas Tidal 500.0 Volume Blood Gas Low 5.0 PEEP Setting Blood Gas ABERTIROTTI Critical Value RN Read Back Blood Gas MA Notified Whom Blood Gas 06/04/2019 11:2 Notified Time 8:45 PM Test 06/05/19 00:28 7/19/19 02:00 06/05/19 02:21 06/05/19 03:10 Bedside Glucose 80 Blood Gas Blood arterial Specimen Source Arterial Blood 06/05/2019 1:50: Date Drawn 57 AM Arterial Blood 7.149 *L pH (Temp corrected ) Arterial Blood 31.7 L pCO2 (Temp correct) Arterial Blood 230.0 H pO2 (Temp corrected ) Arterial Blood 10.8 L HCO3 Arterial Blood -16.9 L Base Excess Arterial Blood 99.5 H Oxygen Saturati on Kwame Test N/A Arterial Blood A-Line Gas Puncture Site Arterial 0.3 Blood Carboxyhe moglobin Arterial Blood 0.6 Methemoglobin Blood Gas A-a 235.0 H O2 Differential Oxyhemoglobin 98.6 Percent Blood Gas 37.0 Temperature Blood Gas 24.0 Respiration Rate Blood Gas 24 Actual Respiration Rat e Blood Gas VENT - AC/VC+ Modality FiO2 70.0 Blood Gas 0.7 Inspiratory Time Blood Gas Tidal 500.0 Volume Blood Gas Low 5.0 PEEP Setting Blood Gas 36.0 Inspiratory Pressure Blood Gas RODRÍGUEZ NORIEGA Critical Value Read Back Blood Gas AA Notified Whom Blood Gas 06/05/2019 1:58: Notified Time 47 AM White Blood 61.8 #H Count Red Blood Count 5.46 Hemoglobin 13.1 L Hematocrit 42.3 Mean 77.5 L Corpuscular Volume Mean 24.0 L Corpuscular Hemoglobin Mean 31.0 L Corpuscular Hemoglobin Conc ent Red Cell 19.3 H Distribution Width Platelet Count 596 #H 542 H Mean Platelet 10.1 Volume Immature 3.400 H Granulocytes % Neutrophils % Segmented 80 H Neutrophils % (Manual) Band 15 H Neutrophils % (Manual) Lymphocytes % Lymphocytes % 2 L (Manual) Monocytes % Monocytes % 3 (Manual) Eosinophils % Basophils % Nucleated Red 0.0 Blood Cells % Immature 2.110 H Granulocytes # Neutrophils # Neutrophils # 55.1 H (Manual) Band 9.2 H Neutrophils # Lymphocytes 1.2 (Manual) Lymphocytes # Monocytes # Monocytes # 1.8 H (Manual) Eosinophils # Basophils # Nucleated Red Blood Cells # Platelet INCREASED Estimate Giant Platelets 1 H Poikilocytosis 3+ Anisocytosis 1+ Sodium Level 137 Potassium Level 4.4 Chloride Level 114 H Carbon Dioxide 12 L Level Anion Gap 11 Blood Urea 35 H Nitrogen Creatinine 1.27 H Est Glomerular > 60 Filtrat Rate mL/min Glucose Level 76 Calcium Level 8.1 L Magnesium Level 2.3 Prealbumin 8.2 L Prothrombin 18.0 #H Time Prothrombin 1.4 Time Ratio INR 1.48 International Normalized Rati o Activated 33.8 Partial Thrombo plast Time Thrombin Time 16.7 Lactic Acid 0.9 Level Test 06/05/19 05:00 06/05/19 06:01 06/05/19 06:24 06/05/19 06:40 Blood Gas Blood arterial Specimen Source Arterial Blood 06/05/2019 5:15: Date Drawn 30 AM Arterial Blood 7.231 *L pH (Temp corrected ) Arterial Blood 37.6 pCO2 (Temp correct) Arterial Blood 90.2 pO2 (Temp corrected ) Arterial Blood 15.4 L HCO3 Arterial Blood -11.3 L Base Excess Arterial Blood 96.8 Oxygen Saturati on Kwame Test N/A Arterial Blood A-Line Gas Puncture Site Arterial 0.4 Blood Carboxyhe moglobin Arterial Blood 0.5 Methemoglobin Blood Gas A-a 296.2 H O2 Differential Oxyhemoglobin 95.9 Percent Blood Gas 37.0 Temperature Blood Gas 24.0 Respiration Rate Blood Gas 24 Actual Respiration Rat e Blood Gas VENT - AC Modality FiO2 60.0 Blood Gas Tidal 500.0 Volume Blood Gas Low 5.0 PEEP Setting Blood Gas ABERTIROTTI RN Critical Value Read Back Blood Gas MA Notified Whom Blood Gas 06/05/2019 5:34: Notified Time 44 AM Bedside Glucose 66 L 115 115 Test 06/05/19 09:32 06/05/19 11:46 Sodium Level 143 Potassium Level 4.1 Chloride Level 115 H Carbon Dioxide 19 L Level Anion Gap 9 Blood Urea 35 H Nitrogen Creatinine 1.08 Est Glomerular > 60 Filtrat Rate mL/min Glucose Level 103 Calcium Level 9.6 Phosphorus 3.9 Level Magnesium Level 2.2 Total Bilirubin 0.3 Direct 0.00 Bilirubin Indirect 0.3 Bilirubin Aspartate Amino 24 Transf (AST/SGO T) Alanine 37 Aminotransferas e (ALT/SGPT) Alkaline 152 H Phosphatase Total Protein 5.8 L Albumin 2.5 L Globulin 3.30 H Albumin/Globuli 0.75 n Ratio Prealbumin 6.6 L Triglycerides 84 Level Bedside Glucose 107 Medications Medication Current Medications Acetaminophen (Tylenol Tab) 650 mg Q6H PRN PO .PAIN 1-3 OR TEMP Last administered on 06/03/19at 15:36; Admin Dose 650 MG; Start 05/28/19 at 06:30 Albuterol/ Ipratropium (Duoneb) 3 ml Q2H RESP THERAPY PRN NEB SHORTNESS OF BREATH; Start 05/28/19 at 10:30 Nitroglycerin (Nitroglycerin (Sl Tab) 0.4 Mg) 1 tab Q5M PRN SL CHEST PAIN; Start 05/28/19 at 10:30 Acetaminophen (Tylenol Supp) 650 mg Q4H PRN NE PAIN LEVEL 1-3 OR FEVER; Start 05/28/19 at 10:30 Bisacodyl (Dulcolax Supp) 10 mg DAILY PRN NE CONSTIPATION Last administered on 06/01/19 08:57; Admin Dose 10 MG; Start 05/28/19 at 10:30 IV Flush (NS 3 ml) 3 ml PER PROTOCOL IV ; Start 05/28/19 at 10:30 Ondansetron HCl (Zofran Inj) 4 mg Q6H PRN IV NAUSEA/VOMITING Last administered on 06/02/19 14:31; Admin Dose 4 MG; Start 05/28/19 at 10:30 Famotidine (Pepcid Iv) 20 mg Q12 IV Last administered on 06/05/19 08:47; Admin Dose 20 MG; Start 05/28/19 at 21:00 Ipratropium [place] (Atrovent Hfa) 4 puff Q6H RESP THERAPY INH Last administered on 06/05/19 13:53; Admin Dose 4 PUFF; Start 05/28/19 at 14:30 IV Flush (NS 10 ml) 10 ml Q8 PRN IV IV PROTOCOL Last administered on 06/02/19 06:04; Admin Dose 10 ML; Start 05/28/19 at 19:00 Acetylcysteine (Mucomyst) 3 ml Q6H RESP THERAPY NEB Last administered on 13:53; Admin Dose 3 ML; Start 05/29/19 at 10:00 Albuterol (Ventolin Hfa) 4 puff Q6H RESP THERAPY INH Last administered on 06/05/19 13:53; Admin Dose 4 PUFF; Start 05/29/19 at 14:00 Heparin Sodium (Porcine) (Heparin (5000 Units/1ml)) 5,000 unit BID SC Last administered on 06/05/19 09:06; Admin Dose 5,000 UNIT; Start 05/29/19 at 21:00 Baclofen (Lioresal) 5 mg TID NGT Last administered on 06/04/19at 09:58; Admin Dose 5 MG; Start 05/31/19 at 13:00 Hydralazine HCl (Apresoline) 10 mg Q6H PRN IV SBP>160 Last administered on 06/01/19at 08:58; Admin Dose 10 MG; Start 06/01/19 at 09:00 Simethicone (Mylicon) 80 mg Q6 PO Last administered on 06/03/19at 18:10; Admin Dose 80 MG; Start 06/01/19 at 12:00 Diagnostic Test (Pha) (Accu-Chek) 1 ea Q6 XX Last administered on 06/04/19at 06:21; Admin Dose 1 EA; Start 06/03/19 at 00:00 Lorazepam (Ativan) 2 mg Q4H PRN IV anxiety; Start 06/03/19 at 17:30 Meropenem/Sodium Chloride 50 ml @ 100 mls/hr Q12 IVPB Last administered on 06/05/19at 08:47; Admin Dose 100 MLS/HR; Start 06/04/19 at 11:30 Vancomycin HCl (Vanco Iv Per Pharmacy) VANCOMYCIN PER PHARMACY PER PROTOCOL XX ; Start 06/04/19 at 11:00 Vancomycin/Sodium Chloride 250 ml @ 83.333 mls/ hr Q24H IVPB Last administered on 06/05/19at 14:09; Admin Dose 83.333 MLS/HR; Start 06/05/19 at 14:00 Miscellaneous Information 1 ea NOTE XX ; Start 06/04/19 at 18:30 Glucose (Glutose) 15 gm Q15M PRN PO DECREASED GLUCOSE; Start 06/04/19 at 18:30 Glucose (Glutose) 22.5 gm Q15M PRN PO DECREASED GLUCOSE; Start 06/04/19 at 18:30 Dextrose (D50w Syringe) 25 ml Q15M PRN IV DECREASED GLUCOSE; Start 06/04/19 at 18:30 Dextrose (D50w Syringe) 50 ml Q15M PRN IV DECREASED GLUCOSE; Start 06/04/19 at 18:30 Glucagon (Glucagen) 1 mg Q15M PRN IM DECREASED GLUCOSE; Start 06/04/19 at 18:30 Glucose (Glutose) 15 gm Q15M PRN BUCCAL DECREASED GLUCOSE; Start 06/04/19 at 18:30 Morphine Sulfate (morphine) 2 mg Q2H PRN IV SEVERE PAIN LEVEL 7-10; Start 06/04/19 at 20:30 Norepinephrine 250 ml @ 1.875 mls/ hr TITRATE IV Last administered on 06/05/19at 12:15; Admin Dose 52.5 MLS/HR; Start 06/04/19 at 22:00 Sodium Bicarbonate/ Dextrose 1,000 ml @ 80 mls/hr [id number] IV Last administered on 06/05/19at 08:47; Admin Dose 80 MLS/HR; Start 06/05/19 at 08:00 Metronidazole 100 ml @ 100 mls/hr Q8 IVPB Last administered on 06/05/19at 14:09; Admin Dose 100 MLS/HR; Start 06/05/19 at 14:00 Total Parenteral Nutrition 1,000 ml @ 60 mls/hr [id number] IV ; Start 06/05/19 at 12:30 Phenylephrine HCl 80 mg/Dextrose 250 ml @ 18.75 mls/ hr TITRATE IV Last administered on 06/05/19at 13:38; Admin Dose 18.75 MLS/HR; Start 06/05/19 at 13:30 Caspofungin 50 mg/ Sodium Chloride 250 ml @ 250 mls/hr Q24H IVPB ; Start 06/06/19 at 15:00 Caspofungin 70 mg/ Sodium Chloride 250 ml @ 250 mls/hr ONCE ONCE IVPB Last administered on 06/05/19at 15:42; Admin Dose 250 MLS/HR; Start 06/05/19 at 15:00; Stop 06/05/19 at 15:59 TABBY FREITAS NP Jun 05, 2019 16:21
[2019-06-05] MEDS ORDERED: NORepinephrine 32 MG in DEXTROSE 5% 218 ML IV SCH (18:00)
[2019-06-05] MEDS: VASOPRESSIN 60 UNIT in DEXTROSE 5% 57 ML IV SCH (20:00)
[2019-06-06] VITALS (105 sets, daily range): BP systolic 40–143; BP diastolic 19–85; PULSE 76–116; RESP 22–29
[2019-06-06] MEDS: ACCU-CHEK XX SCH ×6 (01:00→20:50)
[2019-06-06] MEDS: ALBUTEROL HFA 8 GM INHALER INH SCH ×4 (01:22→19:43)
[2019-06-06] MEDS: ACETYLCYSTEINE 20% 4 ML VIAL NEB SCH ×4 (01:22→19:46)
[2019-06-06] MEDS: IPRATROPIUM (HFA) 12.9 GM INHALER INH SCH ×4 (01:22→19:44)
[2019-06-06] MEDS: PHENYLephrine 80 MG in DEXTROSE 5% 242 ML IV SCH ×2 (03:49→14:04)
[2019-06-06] MEDS: metroNIDAZOLE 500 MG/NS (PMX) 100 ML IVPB SCH ×2 (05:43→14:08)
[2019-06-06] MEDS: VASOPRESSIN 60 UNIT in DEXTROSE 5% 57 ML IV SCH ×2 (08:00→20:00)
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
[2019-06-06] MEDS: FAMOTIDINE 20 MG INJ IV SCH ×2 (08:43→20:50)
[2019-06-06] MEDS: BACLOFEN 10 MG TAB NGT SCH ×5 (08:43→20:37)
[2019-06-06] MEDS: MEROPENEM 1 GM/50ML(PMX) 50 ML IVPB SCH ×2 (08:44→20:50)
[2019-06-06] MEDS: HEPARIN 5,000 UNIT/1 ML VIAL SC SCH ×2 (08:45→20:57)
[2019-06-06] MEDS: BALSAM PERU/CASTOR OIL 60 GM TUBE TOP SCH ×2 (08:46→20:50)
[2019-06-06] MEDS: TPN 1,000 ML IV SCH (08:48)
--- NOTE | 2019-06-06 09:58 | CONS ---
Consult Date/Type/Reason Admit Date/Time May 28, 2019 at 06:21 Initial Consult Date 05/30/19 Type of Consult Pulmonary Requesting Provider: TYLOR REESE Date/Time of Note DATE: 06/06/19 TIME: 09:57 Subjective Patient continues mechanical ventilation still requiring 2 vasopressors. Continues TPN FiO2 at 60% awake and alert this morning. Objective Vital Signs Date Temp Pulse Resp B/P (MAP) Pulse Ox O2 O2 Flow FiO2 Time Delivery Rate 06/06/19 87 24 129/68 100 09:15 (88) 06/06/19 98.4 08:00 06/06/19 Mechanical 06:00 Ventilator 06/06/19 50 05:13 Intake and Output 06/05/19 06/05/19 06/06/19 1515:00 23:00 07:00 IntakeIntake Total 1157.415 ml 1774.270 ml 830.07 ml OutputOutput Total 75 ml 40 ml 25 ml BalanceBalance 1082.415 ml 1734.270 ml 805.07 ml Exam GENERAL: Chronically ill-appearing gentleman on mechanical ventilation via tr acheostomy VITAL SIGNS: per chart NECK: Supple. No JVD or lymphadenopathy. CARDIAC EXAM: S1, S2. No added sounds or murmurs. CHEST: Diminished breath sounds bilaterally ABDOMEN: Diminished bowel sounds EXTREMITIES: No cyanosis, clubbing or edema. NEUROLOGIC: Quadriplegia Vent Setting Ventilator Support Mode: AC, VC plus Fraction of Inspired Oxygen pe: 50 Positive End Expiratory Pressu: 5.0 Results/Medications Result Diagram: 06/05/19 0310 06/06/19 0240 Results 24 hrs Laboratory Tests Test 06/05/19 11:46 06/05/19 16:42 06/05/19 20:13 06/06/19 02:14 Bedside Glucose 107 152 162 173 Test 06/06/19 02:40 06/06/19 04:23 06/06/19 08:42 Sodium Level 139 Potassium Level 3.4 L Chloride Level 108 Carbon Dioxide Level 20 L Anion Gap 11 Blood Urea Nitrogen 44 H Creatinine 1.62 H Est Glomerular 55 L Filtrat Rate mL/min Glucose Level 142 Calcium Level 7.7 L Phosphorus Level 3.7 Magnesium Level 2.2 Bedside Glucose 171 162 Medications Current Medications Acetaminophen (Tylenol Tab) 650 mg Q6H PRN PO .PAIN 1-3 OR TEMP Last administered on 06/03/19 15:36; Admin Dose 650 MG; Start 05/28/19 at 06:30 Albuterol/ Ipratropium (Duoneb) 3 ml Q2H RESP THERAPY PRN NEB SHORTNESS OF BREATH; Start 05/28/19 at 10:30 Nitroglycerin (Nitroglycerin (Sl Tab) 0.4 Mg) 1 tab Q5M PRN SL CHEST PAIN; Start 05/28/19 at 10:30 Acetaminophen (Tylenol Supp) 650 mg Q4H PRN [place] PAIN LEVEL 1-3 OR FEVER; Start 05/28/19 at 10:30 Bisacodyl (Dulcolax Supp) 10 mg DAILY PRN [place] CONSTIPATION Last administered on 06/01/19 08:57; Admin Dose 10 MG; Start 05/28/19 at 10:30 IV Flush (NS 3 ml) 3 ml PER PROTOCOL IV ; Start 05/28/19 at 10:30 Ondansetron HCl (Zofran Inj) 4 mg Q6H PRN IV NAUSEA/VOMITING Last administered on 06/02/19 14:31; Admin Dose 4 MG; Start 05/28/19 at 10:30 Famotidine (Pepcid Iv) 20 mg Q12 IV Last administered on 06/06/19 08:43; Admin Dose 20 MG; Start 05/28/19 at 21:00 Ipratropium [place] (Atrovent Hfa) 4 puff Q6H RESP THERAPY INH Last administered on 06/06/19 08:06; Admin Dose 4 PUFF; Start 05/28/19 at 14:30 IV Flush (NS 10 ml) 10 ml Q8 PRN IV IV PROTOCOL Last administered on 06/02/19 06:04; Admin Dose 10 ML; Start 05/28/19 at 19:00 Acetylcysteine (Mucomyst) 3 ml Q6H RESP THERAPY NEB Last administered on 06/06/19 08:06; Admin Dose 3 ML; Start 05/29/19 at 10:00 Albuterol (Ventolin Hfa) 4 puff Q6H RESP THERAPY INH Last administered on 06/06/19 08:06; Admin Dose 4 PUFF; Start 05/29/19 at 14:00 Heparin Sodium (Porcine) (Heparin (5000 Units/1ml)) 5,000 unit BID SC Last administered on 06/06/19 08:45; Admin Dose 5,000 UNIT; Start 05/29/19 at 21:00 Baclofen (Lioresal) 5 mg TID NGT Last administered on 06/04/19 09:58; Admin Dose 5 MG; Start 05/31/19 at 13:00 Hydralazine HCl (Apresoline) 10 mg Q6H PRN IV SBP>160 Last administered on 06/01/19 08:58; Admin Dose 10 MG; Start 06/01/19 at 09:00 Simethicone (Mylicon) 80 mg Q6 PO Last administered on 06/03/19 18:10; Admin Dose 80 MG; Start 06/01/19 at 12:00 Lorazepam (Ativan) 2 mg Q4H PRN IV anxiety; Start 06/03/19 at 17:30 Meropenem/Sodium Chloride 50 ml @ 100 mls/hr Q12 IVPB Last administered on 06/06/19at 08:44; Admin Dose 100 MLS/HR; Start 06/04/19 at 11:30 Vancomycin HCl (Vanco Iv Per Pharmacy) VANCOMYCIN PER PHARMACY PER PROTOCOL XX ; Start 06/04/19 at 11:00 Vancomycin/Sodium Chloride 250 ml @ 83.333 mls/ hr Q24H IVPB Last administered on 06/05/19 14:09; Admin Dose 83.333 MLS/HR; Start 06/05/19 at 14:00 Miscellaneous Information 1 ea NOTE XX ; Start 06/04/19 at 18:30 Glucose (Glutose) 15 gm Q15M PRN PO DECREASED GLUCOSE; Start 06/04/19 at 18:30 Glucose (Glutose) 22.5 gm Q15M PRN PO DECREASED GLUCOSE; Start 06/04/19 at 18:30 Dextrose (D50w Syringe) 25 ml Q15M PRN IV DECREASED GLUCOSE; Start 06/04/19 at 18:30 Dextrose (D50w Syringe) 50 ml Q15M PRN IV DECREASED GLUCOSE; Start 06/04/19 at 18:30 Glucagon (Glucagen) 1 mg Q15M PRN IM DECREASED GLUCOSE; Start 06/04/19 at 18:30 Glucose (Glutose) 15 gm Q15M PRN BUCCAL DECREASED GLUCOSE; Start 06/04/19 at 18:30 Morphine Sulfate (morphine) 2 mg Q2H PRN IV SEVERE PAIN LEVEL 7-10; Start 06/04/19 at 20:30 Metronidazole 100 ml @ 100 mls/hr Q8 IVPB Last administered on 06/06/19 05:43; Admin Dose 100 MLS/HR; Start 06/05/19 at 14:00 Total Parenteral Nutrition 1,000 ml @ 60 mls/hr [id number] IV Last administered on 06/06/19 08:48; Admin Dose 60 MLS/HR; Start 06/05/19 at 12:30 Phenylephrine HCl 80 mg/Dextrose 250 ml @ 18.75 mls/ hr TITRATE IV Last administered on 06/06/19 03:49; Admin Dose 37.5 MLS/HR; Start 06/05/19 at 13:30 Caspofungin 50 mg/ Sodium Chloride 250 ml @ 250 mls/hr Q24H IVPB ; Start 06/06/19 at 15:00 Diagnostic Test (Pha) (Accu-Chek) 1 ea Q4 XX Last administered on 06/06/19 08:47; Admin Dose 1 EA; Start 06/05/19 at 21:00 Norepinephrine 32 mg/Dextrose 250 ml @ 0 mls/hr TITRATE IV Last administered on 06/05/19 18:18; Admin Dose 11.25 MLS/HR; Start 06/05/19 at 18:00 Vasopressin 60 unit/Dextrose 60 ml @ 0 mls/hr Q12H IV ; Start 06/05/19 at 20:00 Assessment/Plan Hospital Course (Demo Recall) Assessment 1. Acute abdomen secondary to perforated bowel following PEG tube placement 2. Vent dependent respiratory failure 3. History of quadriplegia 4. Septic shock requiring vasopressors possible component of adrenal insufficiency Plan 1. Continue mechanical ventilation 2. Postop surgical recommendations 3. Aggressive volume resuscitation with vasopressor support. Check random cortisol 4. Postop antibiotics 5. DVT GI prophylaxis Critical care time 40 minutes CARYN PERLA MD, [facility] Jun 06, 2019 09:58
--- NOTE | 2019-06-06 10:07 | CONS ---
Assessment/Plan Assessment/Plan Hospital Course (Demo Recall) ID PROGRESS NOTE CURRENT ABX: DAY # => Vanco IV + Merrem + Cancidas + Flagyl 24H INTERVAL SUMMARY * POD#2=> S/P 06/04/19 Operation/Procedure Performed 1. Exploratory laparotomy 2. Repair small bowel 3. Appendectomy 4. Meckel's diverticulectomy * Noncommunicative on the vent -- sepsis due to BOWEL PERF * WBC down by half today @ 33,000+ prior > 61,000+ DIAGNOSTIC IMAGING * 06/03/19 CXR: Interval development left lower lobe infiltrate - rule out pneumonia.Persistent partial collapse right lower lobe. Interval development pneumoperitoneum - rule out perforated viscus. * CT ABD-PEL: IMPRESSION: * CT of the abdomen pelvis demonstrates continued small bowel obstruction. On the current exam there is a swirling of the mesentery vessels and small bowel loops with decompression of 1 of the loops suggesting this is an internal hernia has the cause of the small bowel obstruction. * The patient status post G-tube placement. There is no evidence of contrast leak however there is free air anteriorly to the liver and anterior to the stomach. This may have been part of the placement process or perforation cannot be excluded although no contrast leak is seen. * The colon is diffusely decompressed however there is a wall thickening throughout query secondary to decompression versus a an actual inflammatory process. The sigmoid colon is noted to extend into the area of possible internal hernia in the can have reactive inflammatory changes secondary to this. * There is slight prominent appearance of the appendiceal murphy measuring up to 10 mm. There is some fat stranding near the appendiceal tip and and appendicitis cannot be excluded. * Stable appearance of lobulated large exophytic mass extending from the right renal inferior pole. * More confluent bilateral lower lobe infiltrates and small left pleural effusion. MICRO * 06/04/19 BCX (-) * 05/29/19 SUPRAPUBIC URINE CULTURE Final Organism 1 KLEBSIELLA ORNITHINOLYTICA COLONY COUNT 40,000 - 50,000 CFU/ml KLEB ORNIT M.I.C. RX --------- --- CEFAZOLIN R CEFOTAXIME S CIPROFLOXACIN 1 S GENTAMICIN <=1 S LEVOFLOXACIN >=8 R NITROFURANTOIN 64 I TOBRAMYCIN <=1 S TRIMETHOPRIM/SULFAMETHOXAZOLE 40 S PIPERACILLIN/TAZOBACTAM 16 S * 05/28/19 RESPIRATORY CULTURE Final Organism 1 CITROBACTER KOSERI QUANTITY 4+ Organism 2 PROVIDENCIA STUARTII QUANTITY 4+ CITROKOSER P STUARTII M.I.C. RX M.I.C. RX --------- --- --------- --- AMIKACIN <=2 S CEFOTAXIME S S CIPROFLOXACIN 1 S >=4 R GENTAMICIN <=1 S >=16 R LEVOFLOXACIN 1 S >=8 R TOBRAMYCIN <=1 S >=16 R TRIMETHOPRIM/SULFAMETHOXAZOLE <=20 S <=20 S * 05/28/19 (-)MRSA Nares * 05/28/19 BCx (-) * 05/28/19 URINE CULTURE Final Organism 1 PROVIDENCIA STUARTII COLONY COUNT >100,000 CFU/ml P STUARTII M.I.C. RX --------- --- AMIKACIN <=2 S CEFOTAXIME S CIPROFLOXACIN >=4 R GENTAMICIN >=16 R LEVOFLOXACIN >=8 R NITROFURANTOIN 256 R TOBRAMYCIN >=16 R TRIMETHOPRIM/SULFAMETHOXAZOLE <=20 S PHYSICAL EXAMINATION: GENERAL: VSS, NAD HEENT: AT, NC, NECK: Supple, CHEST: Rise symmetrical HEART: Pulse RRR ABDOMEN: POST OP : Suprapubic cath EXTREMITIES: Warm, dry SKIN: No rash, no diaphoresis ID ASSESSMENT 48 yo M admit with: Acute abdomen secondary to perforated small bowel after PEG tube placement- s/p repair of small bowel Perforated appendix- s/p appendectomy Sepsis- 2/2 to above Pneumonia Acute on chronic respiratory failure on MV- FiO2 increased 100% BHARATI Recurrent small bowel obstruction Abdominal gas UTI = COMPLICATED GNR Neurogenic bladder- suprapubic catheter Quadriplegia (-)MRSA Nares ABX ALLERGIES: IODINE INVASIVES: PIV CURRENT ABX: DAY # => Vanco IV + Merrem + Cancidas + Flagyl ID RECOMMENDATIONS/PLAN: 1. Continue current ABX & supportive care 2. DC Flagyl -- will continue to monitor . Consultation Date/Type/Reason Admit Date/Time May 28, 2019 at 06:21 Initial Consult Date 05/30/19 Requesting Provider: TYLOR REESE Date/Time of Note DATE: 06/06/19 TIME: 10:07 Exam/Review of Systems Exam Vitals Vital Signs Date Temp Pulse Resp B/P (MAP) Pulse Ox O2 O2 Flow FiO2 Time Delivery Rate 06/06/19 90 26 100 50 09:20 06/06/19 129/68 09:15 (88) 06/06/19 98.4 08:00 06/06/19 Mechanical 06:00 Ventilator Intake and Output 06/05/19 06/05/19 06/06/19 1515:00 23:00 07:00 IntakeIntake Total 1157.415 ml 1774.270 ml 830.07 ml OutputOutput Total 75 ml 40 ml 25 ml BalanceBalance 1082.415 ml 1734.270 ml 805.07 ml Results Result Diagram: 06/05/19 0310 06/06/19 0240 Results 24hrs Laboratory Tests Test 06/05/19 11:46 06/05/19 16:42 06/05/19 20:13 06/06/19 02:14 Bedside Glucose 107 152 162 173 Test 06/06/19 02:40 06/06/19 04:23 06/06/19 08:42 Sodium Level 139 Potassium Level 3.4 L Chloride Level 108 Carbon Dioxide Level 20 L Anion Gap 11 Blood Urea Nitrogen 44 H Creatinine 1.62 H Est Glomerular 55 L Filtrat Rate mL/min Glucose Level 142 Calcium Level 7.7 L Phosphorus Level 3.7 Magnesium Level 2.2 Bedside Glucose 171 162 Medications Medication Current Medications Acetaminophen (Tylenol Tab) 650 mg Q6H PRN PO .PAIN 1-3 OR TEMP Last admi nistered on 06/03/19at 15:36; Admin Dose 650 MG; Start 05/28/19 at 06:30 Albuterol/ Ipratropium (Duoneb) 3 ml Q2H RESP THERAPY PRN NEB SHORTNESS OF BREATH; Start 05/28/19 at 10:30 Nitroglycerin (Nitroglycerin (Sl Tab) 0.4 Mg) 1 tab Q5M PRN SL CHEST PAIN; Start 05/28/19 at 10:30 Acetaminophen (Tylenol Supp) 650 mg Q4H PRN MA PAIN LEVEL 1-3 OR FEVER; Start 05/28/19 at 10:30 Bisacodyl (Dulcolax Supp) 10 mg DAILY PRN MA CONSTIPATION Last administered on 06/01/19 08:57; Admin Dose 10 MG; Start 05/28/19 at 10:30 IV Flush (NS 3 ml) 3 ml PER PROTOCOL IV ; Start 05/28/19 at 10:30 Ondansetron HCl (Zofran Inj) 4 mg Q6H PRN IV NAUSEA/VOMITING Last administered on 06/02/19 14:31; Admin Dose 4 MG; Start 05/28/19 at 10:30 Famotidine (Pepcid Iv) 20 mg Q12 IV Last administered on 06/06/19 08:43; Admin Dose 20 MG; Start 05/28/19 at 21:00 Ipratropium [place] (Atrovent Hfa) 4 puff Q6H RESP THERAPY INH Last administered on 06/06/19 08:06; Admin Dose 4 PUFF; Start 05/28/19 at 14:30 IV Flush (NS 10 ml) 10 ml Q8 PRN IV IV PROTOCOL Last administered on 06/02/19 06:04; Admin Dose 10 ML; Start 05/28/19 at 19:00 Acetylcysteine (Mucomyst) 3 ml Q6H RESP THERAPY NEB Last administered on 06/06/19 08:06; Admin Dose 3 ML; Start 05/29/19 at 10:00 Albuterol (Ventolin Hfa) 4 puff Q6H RESP THERAPY INH Last administered on 06/06/19 08:06; Admin Dose 4 PUFF; Start 05/29/19 at 14:00 Heparin Sodium (Porcine) (Heparin (5000 Units/1ml)) 5,000 unit BID SC Last administered on 06/06/19 08:45; Admin Dose 5,000 UNIT; Start 05/29/19 at 21:00 Baclofen (Lioresal) 5 mg TID NGT Last administered on 06/04/19 09:58; Admin Dose 5 MG; Start 05/31/19 at 13:00 Hydralazine HCl (Apresoline) 10 mg Q6H PRN IV SBP>160 Last administered on 06/01/19 08:58; Admin Dose 10 MG; Start 06/01/19 at 09:00 Simethicone (Mylicon) 80 mg Q6 PO Last administered on 06/03/19 18:10; Admin Dose 80 MG; Start 06/01/19 at 12:00 Lorazepam (Ativan) 2 mg Q4H PRN IV anxiety; Start 06/03/19 at 17:30 Meropenem/Sodium Chloride 50 ml @ 100 mls/hr Q12 IVPB Last administered on 06/06/19at 08:44; Admin Dose 100 MLS/HR; Start 06/04/19 at 11:30 Vancomycin HCl (Vanco Iv Per Pharmacy) VANCOMYCIN PER PHARMACY PER PROTOCOL XX ; Start 06/04/19 at 11:00 Vancomycin/Sodium Chloride 250 ml @ 83.333 mls/ hr Q24H IVPB Last administered on 06/05/19at 14:09; Admin Dose 83.333 MLS/HR; Start 06/05/19 at 14:00 Miscellaneous Information 1 ea NOTE XX ; Start 06/04/19 at 18:30 Glucose (Glutose) 15 gm Q15M PRN PO DECREASED GLUCOSE; Start 06/04/19 at 18:30 Glucose (Glutose) 22.5 gm Q15M PRN PO DECREASED GLUCOSE; Start 06/04/19 at 18:30 Dextrose (D50w Syringe) 25 ml Q15M PRN IV DECREASED GLUCOSE; Start 06/04/19 at 18:30 Dextrose (D50w Syringe) 50 ml Q15M PRN IV DECREASED GLUCOSE; Start 06/04/19 at 18:30 Glucagon (Glucagen) 1 mg Q15M PRN IM DECREASED GLUCOSE; Start 06/04/19 at 18:30 Glucose (Glutose) 15 gm Q15M PRN BUCCAL DECREASED GLUCOSE; Start 06/04/19 at 18:30 Morphine Sulfate (morphine) 2 mg Q2H PRN IV SEVERE PAIN LEVEL 7-10; Start 06/04/19 at 20:30 Metronidazole 100 ml @ 100 mls/hr Q8 IVPB Last administered on 06/06/19at 05:43; Admin Dose 100 MLS/HR; Start 06/05/19 at 14:00 Total Parenteral Nutrition 1,000 ml @ 60 mls/hr [id number] IV Last administered on 06/06/19at 08:48; Admin Dose 60 MLS/HR; Start 06/05/19 at 12:30 Phenylephrine HCl 80 mg/Dextrose 250 ml @ 18.75 mls/ hr TITRATE IV Last administered on 06/06/19at 03:49; Admin Dose 37.5 MLS/HR; Start 06/05/19 at 13:30 Caspofungin 50 mg/ Sodium Chloride 250 ml @ 250 mls/hr Q24H IVPB ; Start 06/06/19 at 15:00 Diagnostic Test (Pha) (Accu-Chek) 1 ea Q4 XX Last administered on 06/06/19at 08:47; Admin Dose 1 EA; Start 06/05/19 at 21:00 Norepinephrine 32 mg/Dextrose 250 ml @ 0 mls/hr TITRATE IV Last administered on 06/05/19at 18:18; Admin Dose 11.25 MLS/HR; Start 06/05/19 at 18:00 Vasopressin 60 unit/Dextrose 60 ml @ 0 mls/hr Q12H IV ; Start 06/05/19 at 20:00 TAWNY JEFFERS NP Jun 06, 2019 10:07
[2019-06-06] MEDS ORDERED: POTASSIUM CHLORIDE 100 ML IVPB ONE (10:30)
--- NOTE | 2019-06-06 10:37 | PN ---
Date/Time of Note Date/Time of Note DATE: 06/06/19 TIME: 10:11 Assessment/Plan VTE Prophylaxis Risk score (from Nsg)>0 risk: 6 SCD applied (from Nsg): Yes Pharmacological prophylaxis: other (scds) Lines/Catheters IV Catheter Type (from Nrsg): PICC Line Central line still needed: Yes (meds) Urinary Cath still in place: Yes Reason Cath still needed: other (indicate) (monitor output) Assessment/Plan Hospital Course Assessment/Plan (Daily) Assessment: Acute abdomen secondary to perforated small bowel after PEG tube placement- s/p repair of small bowel Perforated appendix- s/p appendectomy Sepsis- 2/2 to above Acute on chronic RD on MV- FiO2 increased 100% BHARATI Recurrent small bowel obstruction Quadriplegia Abdominal gas UTI Pneumonia Neurogenic bladder- suprapubic catheter Plan: TPN Continue supportive care Antibiotics per ID Patient seen in collaboration Dr. Hall Subjective: Course reviewed with nursing staff Patient interviewed and examined All labs, imaging and other results reviewed Patient is awake and alert this am. states he feels a little better He is still requiring 2 vasopressors. FiO2 now at 50% Exam PHYSICAL EXAMINATION: GENERAL: Quadriplegic, trached on MV, alert & oriented x 4 SKIN: No lesions, no stigmata chronic liver disease, no evidence of bleeding diathesis HEAD: Normocephalic, atraumatic, no tenderness. EYES: Pupils equal reactive to light, no discharge. EARS/NOSE AND THROAT: Ears normal, nose normal, oropharynx normal, oral membranes well hydrated without lesions. NECK: Supple, no masses CHEST: Inspection within normal limits. CARDIOVASCULAR: Heart: Regular rate and rhythm RESPIRATORY: Lungs clear to auscultation. GASTROINTESTINAL AND LIVER: Abdomen: Soft, no tenderness, increased distension , no hernias, no masses, no organomegaly, no ascites, no guarding, no rebound tenderness, hypoactive bowel sounds RUQ.LUQ/ absent RLQ.LLQ. Rectal: Deferred. GENITOURINARY: Male genitalia within normal limits. Result Diagram: 06/05/19 0310 06/06/19 0240 Results 24hrs Laboratory Tests Test 06/05/19 11:46 06/05/19 16:42 06/05/19 20:13 06/06/19 02:14 Bedside Glucose 107 152 162 173 Test 06/06/19 02:40 06/06/19 04:23 06/06/19 08:42 Sodium Level 139 Potassium Level 3.4 L Chloride Level 108 Carbon Dioxide Level 20 L Anion Gap 11 Blood Urea Nitrogen 44 H Creatinine 1.62 H Est Glomerular 55 L Filtrat Rate mL/min Glucose Level 142 Calcium Level 7.7 L Phosphorus Level 3.7 Magnesium Level 2.2 Bedside Glucose 171 162 Exam/Review of Systems Exam Vitals Vital Signs Date Temp Pulse Resp B/P (MAP) Pulse Ox O2 O2 Flow FiO2 Time Delivery Rate 06/06/19 90 26 100 50 09:20 06/06/19 129/68 09:15 (88) 06/06/19 98.4 08:00 06/06/19 Mechanical 06:00 Ventilator Intake and Output 06/05/19 06/05/19 06/06/19 1515:00 23:00 07:00 IntakeIntake Total 1157.415 ml 1774.270 ml 830.07 ml OutputOutput Total 75 ml 40 ml 25 ml BalanceBalance 1082.415 ml 1734.270 ml 805.07 ml Results Results 24hrs Laboratory Tests Test 06/05/19 11:46 06/05/19 16:42 06/05/19 20:13 06/06/19 02:14 Bedside Glucose 107 152 162 173 Test 06/06/19 02:40 06/06/19 04:23 06/06/19 08:42 Sodium Level 139 Potassium Level 3.4 L Chloride Level 108 Carbon Dioxide Level 20 L Anion Gap 11 Blood Urea Nitrogen 44 H Creatinine 1.62 H Est Glomerular 55 L Filtrat Rate mL/min Glucose Level 142 Calcium Level 7.7 L Phosphorus Level 3.7 Magnesium Level 2.2 Bedside Glucose 171 162 Medications Medication Current Medications Acetaminophen (Tylenol Tab) 650 mg Q6H PRN PO .PAIN 1-3 OR TEMP Last administered on 06/03/19at 15:36; Admin Dose 650 MG; Start 05/28/19 at 06:30 Albuterol/ Ipratropium (Duoneb) 3 ml Q2H RESP THERAPY PRN NEB SHORTNESS OF BREATH; Start 05/28/19 at 10:30 Nitroglycerin (Nitroglycerin (Sl Tab) 0.4 Mg) 1 tab Q5M PRN SL CHEST PAIN; Start 05/28/19 at 10:30 Acetaminophen (Tylenol Supp) 650 mg Q4H PRN ND PAIN LEVEL 1-3 OR FEVER; Start 05/28/19 at 10:30 Bisacodyl (Dulcolax Supp) 10 mg DAILY PRN ND CONSTIPATION Last administered on 06/01/19 08:57; Admin Dose 10 MG; Start 05/28/19 at 10:30 IV Flush (NS 3 ml) 3 ml PER PROTOCOL IV ; Start 05/28/19 at 10:30 Ondansetron HCl (Zofran Inj) 4 mg Q6H PRN IV NAUSEA/VOMITING Last administered on 06/02/19 14:31; Admin Dose 4 MG; Start 05/28/19 at 10:30 Famotidine (Pepcid Iv) 20 mg Q12 IV Last administered on 06/06/19 08:43; Admin Dose 20 MG; Start 05/28/19 at 21:00 Ipratropium [place] (Atrovent Hfa) 4 puff Q6H RESP THERAPY INH Last administered on 06/06/19 08:06; Admin Dose 4 PUFF; Start 05/28/19 at 14:30 IV Flush (NS 10 ml) 10 ml Q8 PRN IV IV PROTOCOL Last administered on 06/02/19 06:04; Admin Dose 10 ML; Start 05/28/19 at 19:00 Acetylcysteine (Mucomyst) 3 ml Q6H RESP THERAPY NEB Last administered on 06/06/19 08:06; Admin Dose 3 ML; Start 05/29/19 at 10:00 Albuterol (Ventolin Hfa) 4 puff Q6H RESP THERAPY INH Last administered on 06/06/19 08:06; Admin Dose 4 PUFF; Start 05/29/19 at 14:00 Heparin Sodium (Porcine) (Heparin (5000 Units/1ml)) 5,000 unit BID SC Last administered on 06/06/19 08:45; Admin Dose 5,000 UNIT; Start 05/29/19 at 21:00 Baclofen (Lioresal) 5 mg TID NGT Last administered on 06/04/19 09:58; Admin Dose 5 MG; Start 05/31/19 at 13:00 Hydralazine HCl (Apresoline) 10 mg Q6H PRN IV SBP>160 Last administered on 7/15/19at 08:58; Admin Dose 10 MG; Start 06/01/19 at 09:00 Simethicone (Mylicon) 80 mg Q6 PO Last administered on 06/03/19at 18:10; Admin Dose 80 MG; Start 06/01/19 at 12:00 Lorazepam (Ativan) 2 mg Q4H PRN IV anxiety; Start 06/03/19 at 17:30 Meropenem/Sodium Chloride 50 ml @ 100 mls/hr Q12 IVPB Last administered on 06/06/19at 08:44; Admin Dose 100 MLS/HR; Start 06/04/19 at 11:30 Vancomycin HCl (Vanco Iv Per Pharmacy) VANCOMYCIN PER PHARMACY PER PROTOCOL XX ; Start 06/04/19 at 11:00 Vancomycin/Sodium Chloride 250 ml @ 83.333 mls/ hr Q24H IVPB Last administered on 06/05/19at 14:09; Admin Dose 83.333 MLS/HR; Start 06/05/19 at 14:00 Miscellaneous Information 1 ea NOTE XX ; Start 06/04/19 at 18:30 Glucose (Glutose) 15 gm Q15M PRN PO DECREASED GLUCOSE; Start 06/04/19 at 18:30 Glucose (Glutose) 22.5 gm Q15M PRN PO DECREASED GLUCOSE; Start 06/04/19 at 18:30 Dextrose (D50w Syringe) 25 ml Q15M PRN IV DECREASED GLUCOSE; Start 06/04/19 at 18:30 Dextrose (D50w Syringe) 50 ml Q15M PRN IV DECREASED GLUCOSE; Start 06/04/19 at 18:30 Glucagon (Glucagen) 1 mg Q15M PRN IM DECREASED GLUCOSE; Start 06/04/19 at 18:30 Glucose (Glutose) 15 gm Q15M PRN BUCCAL DECREASED GLUCOSE; Start 06/04/19 at 18:30 Morphine Sulfate (morphine) 2 mg Q2H PRN IV SEVERE PAIN LEVEL 7-10; Start 06/04/19 at 20:30 Metronidazole 100 ml @ 100 mls/hr Q8 IVPB Last administered on 06/06/19at 05:43; Admin Dose 100 MLS/HR; Start 06/05/19 at 14:00 Total Parenteral Nutrition 1,000 ml @ 60 mls/hr [id number] IV Last administered on 06/06/19at 08:48; Admin Dose 60 MLS/HR; Start 06/05/19 at 12:30 Phenylephrine HCl 80 mg/Dextrose 250 ml @ 18.75 mls/ hr TITRATE IV Last administered on 06/06/19at 03:49; Admin Dose 37.5 MLS/HR; Start 06/05/19 at 13:30 Caspofungin 50 mg/ Sodium Chloride 250 ml @ 250 mls/hr Q24H IVPB ; Start 06/06/19 at 15:00 Diagnostic Test (Pha) (Accu-Chek) 1 ea Q4 XX Last administered on 06/06/19at 08:47; Admin Dose 1 EA; Start 06/05/19 at 21:00 Norepinephrine 32 mg/Dextrose 250 ml @ 0 mls/hr TITRATE IV Last administered on 06/05/19at 18:18; Admin Dose 11.25 MLS/HR; Start 06/05/19 at 18:00 Vasopressin 60 unit/Dextrose 60 ml @ 0 mls/hr Q12H IV ; Start 06/05/19 at 20:00 HOWARD MARRERO Jun 06, 2019 10:22
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
--- NOTE | 2019-06-06 12:41 | QN ---
Documentation Comment Postoperative day #2 Still on pressors WBC down to 33,000 Hematocrit down to 16 Oliguric Plan: Transfuse 2 units now. Increase IV rate by 50 cc an hour ZENA CALDERÓN MD Jun 06, 2019 12:41
[2019-06-06] MEDS: DEXTROSE 5%-0.45% NACL 1,000 ML IV SCH (13:06)
[2019-06-06] MEDS: VANCOMYCIN 1.25 GM/NS 250 ML 250 ML IVPB SCH (14:07)
[2019-06-06] MEDS: CASPOFUNGIN 50 MG in SOD CHLORIDE 0.9% 250 ML IVPB SCH (15:50)
[2019-06-07] VITALS (93 sets, daily range): BP systolic 81–217; BP diastolic 49–110; PULSE 68–99; RESP 22–29
[2019-06-07] MEDS: ACCU-CHEK XX SCH ×6 (01:00→21:00)
[2019-06-07] MEDS: TPN 1,000 ML IV SCH ×2 (01:36→17:16)
[2019-06-07] MEDS: IPRATROPIUM (HFA) 12.9 GM INHALER INH SCH ×4 (01:43→19:24)
[2019-06-07] MEDS: ACETYLCYSTEINE 20% 4 ML VIAL NEB SCH ×4 (01:43→19:25)
[2019-06-07] MEDS: ALBUTEROL HFA 8 GM INHALER INH SCH ×4 (01:43→19:24)
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
[2019-06-07] MEDS: VASOPRESSIN 60 UNIT in DEXTROSE 5% 57 ML IV SCH ×2 (07:56→19:14)
[2019-06-07] MEDS: DEXTROSE 5%-0.45% NACL 1,000 ML IV SCH ×2 (07:57→21:15)
[2019-06-07] MEDS: BACLOFEN 10 MG TAB NGT SCH ×3 (07:58→20:57)
[2019-06-07] MEDS: FAMOTIDINE 20 MG INJ IV SCH ×2 (08:00→20:57)
[2019-06-07] MEDS: MEROPENEM 1 GM/50ML(PMX) 50 ML IVPB SCH ×2 (08:00→20:57)
[2019-06-07] MEDS: HEPARIN 5,000 UNIT/1 ML VIAL SC SCH ×2 (08:01→21:02)
[2019-06-07] MEDS: BALSAM PERU/CASTOR OIL 60 GM TUBE TOP SCH ×2 (08:05→20:57)
--- NOTE | 2019-06-07 10:01 | CONS ---
Consult Date/Type/Reason Admit Date/Time May 28, 2019 at 06:21 Initial Consult Date 05/30/19 Type of Consult Pulmonary Requesting Provider: TYLOR REESE Date/Time of Note DATE: 06/07/19 TIME: 10:01 Subjective Awake alert this morning no respiratory distress. Objective Vital Signs Date Temp Pulse Resp B/P (MAP) Pulse Ox O2 O2 Flow FiO2 Time Delivery Rate 06/07/19 81 24 98/60 (73) 99 09:45 06/07/19 Mechanical 09:00 Ventilator 06/07/19 98.4 08:00 06/07/19 40 08:00 Intake and Output 06/06/19 06/06/19 06/07/19 1515:00 23:00 07:00 IntakeIntake Total 1322.18 ml 1727.831 ml 1358.44 ml OutputOutput Total 245 ml 195 ml 310 ml BalanceBalance 1077.18 ml 1532.831 ml 1048.44 ml Exam GENERAL: Chronically ill-appearing gentleman on mechanical ventilation via tracheostomy VITAL SIGNS: per chart NECK: Supple. No JVD or lymphadenopathy. CARDIAC EXAM: S1, S2. No added sounds or murmurs. CHEST: Diminished breath sounds bilaterally ABDOMEN: Diminished bowel sounds EXTREMITIES: No cyanosis, clubbing or edema. NEUROLOGIC: Quadriplegia Vent Setting Ventilator Support Mode: AC Fraction of Inspired Oxygen pe: 40 Positive End Expiratory Pressu: 5.0 Results/Medications Result Diagram: 06/07/19 0400 06/07/19 0400 Results 24 hrs Laboratory Tests Test 06/06/19 10:13 06/06/19 11:48 06/06/19 17:38 06/06/19 17:39 White Blood Count 33.1 #H 29.3 H Red Blood Count 2.14 #L 2.60 #L Hemoglobin 5.2 #*L 6.9 #*L Hematocrit 16.0 #L 20.1 #L Mean Corpuscular 74.8 L 77.3 L Volume Mean Corpuscular 24.3 L 26.5 L Hemoglobin Mean Corpuscular 32.5 34.3 Hemoglobin Concent Red Cell 18.4 H 17.6 H Distribution Width Platelet Count 356 # 256 # Mean Platelet Volume 10.4 10.0 Immature 3.200 H 3.300 H Granulocytes % Neutrophils % 83.3 H 83.8 H Segmented 82 H Neutrophils % (Manual) Band Neutrophils % 8 H (Manual) Lymphocytes % 4.2 L 4.2 L Lymphocytes % 4 L (Manual) Monocytes % 9.1 8.5 Monocytes % (Manual) 6 Eosinophils % 0.0 0.0 Basophils % 0.2 0.2 Nucleated Red Blood 0.0 0.0 Cells % Immature 1.070 H 0.960 H Granulocytes # Neutrophils # 27.6 H 24.6 H Neutrophils # 28.0 H (Manual) Band Neutrophils # 2.6 H Lymphocytes (Manual) 1.3 Lymphocytes # 1.4 1.2 Monocytes # 3.0 H 2.5 H Monocytes # (Manual) 1.9 H Eosinophils # 0.0 0.0 Basophils # 0.1 0.1 Nucleated Red Blood 0.0 0.0 Cells # Platelet Estimate NORMAL Giant Platelets 2 H Polychromasia 3+ Hypochromasia 1+ Poikilocytosis 1+ Anisocytosis 1+ Target Cells 1+ Bedside Glucose 159 135 Test 06/06/19 21:06 06/07/19 01:08 06/07/19 04:00 06/07/19 05:26 Bedside Glucose 138 141 148 White Blood Count 27.6 H Red Blood Count 3.06 L Hemoglobin 8.4 #L Hematocrit 24.1 L Mean Corpuscular 78.8 L Volume Mean Corpuscular 27.5 L Hemoglobin Mean Corpuscular 34.9 Hemoglobin Concent Red Cell 17.3 H Distribution Width Platelet Count 225 Mean Platelet Volume 10.3 Immature 2.000 H Granulocytes % Neutrophils % 86.7 H Lymphocytes % 3.6 L Monocytes % 7.3 Eosinophils % 0.1 Basophils % 0.3 Nucleated Red Blood 0.0 Cells % Immature 0.550 H Granulocytes # Neutrophils # 23.9 H Lymphocytes # 1.0 Monocytes # 2.0 H Eosinophils # 0.0 Basophils # 0.1 Nucleated Red Blood 0.0 Cells # Sodium Level 142 Potassium Level 3.1 L Chloride Level 108 Carbon Dioxide Level 25 Anion Gap 9 Blood Urea Nitrogen 44 H Creatinine 1.08 Est Glomerular > 60 Filtrat Rate mL/min Glucose Level 128 Calcium Level 7.6 L Phosphorus Level 2.1 #L Magnesium Level 2.1 Random Cortisol 48.2 Test 06/07/19 08:06 Bedside Glucose 132 Medications Current Medications Acetaminophen (Tylenol Tab) 650 mg Q6H PRN PO .PAIN 1-3 OR TEMP Last administered on 06/03/19 15:36; Admin Dose 650 MG; Start 05/28/19 at 06:30 Albuterol/ Ipratropium (Duoneb) 3 ml Q2H RESP THERAPY PRN NEB SHORTNESS OF BREATH; Start 05/28/19 at 10:30 Nitroglycerin (Nitroglycerin (Sl Tab) 0.4 Mg) 1 tab Q5M PRN SL CHEST PAIN; Start 05/28/19 at 10:30 Acetaminophen (Tylenol Supp) 650 mg Q4H PRN [place] PAIN LEVEL 1-3 OR FEVER; Start 05/28/19 at 10:30 Bisacodyl (Dulcolax Supp) 10 mg DAILY PRN [place] CONSTIPATION Last administered on 06/01/19 08:57; Admin Dose 10 MG; Start 05/28/19 at 10:30 IV Flush (NS 3 ml) 3 ml PER PROTOCOL IV ; Start 05/28/19 at 10:30 Ondansetron HCl (Zofran Inj) 4 mg Q6H PRN IV NAUSEA/VOMITING Last administered on 06/02/19 14:31; Admin Dose 4 MG; Start 05/28/19 at 10:30 Famotidine (Pepcid Iv) 20 mg Q12 IV Last administered on 06/07/19 08:00; Admin Dose 20 MG; Start 05/28/19 at 21:00 Ipratropium [place] (Atrovent Hfa) 4 puff Q6H RESP THERAPY INH Last administered on 06/07/19 08:45; Admin Dose 4 PUFF; Start 05/28/19 at 14:30 IV Flush (NS 10 ml) 10 ml Q8 PRN IV IV PROTOCOL Last administered on 06/02/19 06:04; Admin Dose 10 ML; Start 05/28/19 at 19:00 Acetylcysteine (Mucomyst) 3 ml Q6H RESP THERAPY NEB Last administered on 05/19 08:45; Admin Dose 3 ML; Start 05/29/19 at 10:00 Albuterol (Ventolin Hfa) 4 puff Q6H RESP THERAPY INH Last administered on 06/07/19 08:45; Admin Dose 4 PUFF; Start 05/29/19 at 14:00 Heparin Sodium (Porcine) (Heparin (5000 Units/1ml)) 5,000 unit BID SC Last administered on 06/07/19at 08:01; Admin Dose 5,000 UNIT; Start 05/29/19 at 21:00 Baclofen (Lioresal) 5 mg TID NGT Last administered on 06/04/19at 09:58; Admin Dose 5 MG; Start 05/31/19 at 13:00 Hydralazine HCl (Apresoline) 10 mg Q6H PRN IV SBP>160 Last administered on 06/01/19at 08:58; Admin Dose 10 MG; Start 06/01/19 at 09:00 Simethicone (Mylicon) 80 mg Q6 PO Last administered on 06/03/19at 18:10; Admin Dose 80 MG; Start 06/01/19 at 12:00 Lorazepam (Ativan) 2 mg Q4H PRN IV anxiety; Start 06/03/19 at 17:30 Meropenem/Sodium Chloride 50 ml @ 100 mls/hr Q12 IVPB Last administered on 06/07/19at 08:00; Admin Dose 100 MLS/HR; Start 06/04/19 at 11:30 Vancomycin HCl (Vanco Iv Per Pharmacy) VANCOMYCIN PER PHARMACY PER PROTOCOL XX ; Start 06/04/19 at 11:00 Vancomycin/Sodium Chloride 250 ml @ 83.333 mls/ hr Q24H IVPB Last administered on 06/06/19at 14:07; Admin Dose 83.333 MLS/HR; Start 06/05/19 at 14:00 Miscellaneous Information 1 ea NOTE XX ; Start 06/04/19 at 18:30 Glucose (Glutose) 15 gm Q15M PRN PO DECREASED GLUCOSE; Start 06/04/19 at 18:30 Glucose (Glutose) 22.5 gm Q15M PRN PO DECREASED GLUCOSE; Start 06/04/19 at 18 :30 Dextrose (D50w Syringe) 25 ml Q15M PRN IV DECREASED GLUCOSE; Start 06/04/19 at 18:30 Dextrose (D50w Syringe) 50 ml Q15M PRN IV DECREASED GLUCOSE; Start 06/04/19 at 18:30 Glucagon (Glucagen) 1 mg Q15M PRN IM DECREASED GLUCOSE; Start 06/04/19 at 18:30 Glucose (Glutose) 15 gm Q15M PRN BUCCAL DECREASED GLUCOSE; Start 06/04/19 at 18:30 Morphine Sulfate (morphine) 2 mg Q2H PRN IV SEVERE PAIN LEVEL 7-10; Start 06/04/19 at 20:30 Total Parenteral Nutrition 1,000 ml @ 60 mls/hr [id number] IV Last administered on 06/07/19at 01:36; Admin Dose 60 MLS/HR; Start 06/05/19 at 12:30 Phenylephrine HCl 80 mg/Dextrose 250 ml @ 18.75 mls/ hr TITRATE IV Last administered on 06/06/19at 14:04; Admin Dose 18.75 MLS/HR; Start 06/05/19 at 13:30 Caspofungin 50 mg/ Sodium Chloride 250 ml @ 250 mls/hr Q24H IVPB Last administered on 06/06/19at 15:50; Admin Dose 250 MLS/HR; Start 06/06/19 at 15:00 Diagnostic Test (Pha) (Accu-Chek) 1 ea Q4 XX Last administered on 06/06/19at 17:39; Admin Dose 1 EA; Start 06/05/19 at 21:00 Norepinephrine 32 mg/Dextrose 250 ml @ 0 mls/hr TITRATE IV Last administered on 06/05/19at 18:18; Admin Dose 11.25 MLS/HR; Start 06/05/19 at 18:00 Vasopressin 60 unit/Dextrose 60 ml @ 0 mls/hr Q12H IV ; Start 06/05/19 at 20:00 Miscellaneous Information (*Rx Drug Level Order Reminder*) VANCO TROUGH @ 1,300 ON... 1300 ONCE XX ; Start 06/07/19 at 13:00; Stop 06/07/19 at 13:01 Dextrose/Sodium Chloride 1,000 ml @ 50 mls/hr Q20H IV Last administered on 06/06/19at 13:06; Admin Dose 50 MLS/HR; Start 06/06/19 at 13:00 Potassium Phosphate 15 mm/ Sodium Chloride 255 ml @ 63.75 mls/ hr ONCE ONCE IVPB ; Start 06/07/19 at 11:00; Stop 06/07/19 at 14:59 Assessment/Plan Hospital Course (Demo Recall) Assessment 1. Acute abdomen secondary to perforated bowel following PEG tube placement 2. Vent dependent respiratory failure 3. History of quadriplegia 4. Septic shock requiring vasopressors possible component of adrenal insufficiency, decreased vasopressor requirements. Plan 1. Continue mechanical ventilation 2. Postop surgical recommendations 3. Aggressive volume resuscitation with vasopressor support. Check random cortisol, titrate to keep map greater than 65 4. Postop antibiotics 5. DVT GI prophylaxis 6. Continues TPN Critical care time 40 minutes CARYN PERLA MD, [facility] Jun 07, 2019 10:01
--- NOTE | 2019-06-07 10:58 | CONS ---
Assessment/Plan Assessment/Plan Hospital Course (Demo Recall) ID PROGRESS NOTE CURRENT ABX: DAY # => Vanco IV + Merrem + Cancidas s/p Flagyl 24H INTERVAL SUMMARY * POD#3=> S/P 06/04/19 Operation/Procedure Performed 1. Exploratory laparotomy 2. Repair small bowel 3. Appendectomy 4. Meckel's diverticulectomy * NO FEVERS, WBC CONTINUED DOWNTREND ON CURRENT ABX * Noncommunicative on the vent -- sepsis due to BOWEL PERF DIAGNOSTIC IMAGING * 06/07/19 CXR: 1. Small right greater than left pleural effusions with superimposed airspace disease not excluded.2. Lines and tubes as above. * 06/03/19 CXR: Interval development left lower lobe infiltrate - rule out pneumonia.Persistent partial collapse right lower lobe. Interval development pneumoperitoneum - rule out perforated viscus. * CT ABD-PEL: IMPRESSION: * CT of the abdomen pelvis demonstrates continued small bowel obstruction. On the current exam there is a swirling of the mesentery vessels and small bowel loops with decompression of 1 of the loops suggesting this is an internal hernia has the cause of the small bowel obstruction. * The patient status post G-tube placement. There is no evidence of contrast leak however there is free air anteriorly to the liver and anterior to the stomach. This may have been part of the placement process or perforation cannot be excluded although no contrast leak is seen. * The colon is diffusely decompressed however there is a wall thickening throughout query secondary to decompression versus a an actual inflammatory process. The sigmoid colon is noted to extend into the area of possible internal hernia in the can have reactive inflammatory changes secondary to this. * There is slight prominent appearance of the appendiceal murphy measuring up to 10 mm. There is some fat stranding near the appendiceal tip and and appendicitis cannot be excluded. * Stable appearance of lobulated large exophytic mass extending from the right renal inferior pole. * More confluent bilateral lower lobe infiltrates and small left pleural effusion. MICRO * 06/04/19 BCX (-) * 05/29/19 SUPRAPUBIC URINE CULTURE Final Organism 1 KLEBSIELLA ORNITHINOLYTICA COLONY COUNT 40,000 - 50,000 CFU/ml KLEB ORNIT M.I.C. RX --------- --- CEFAZOLIN R CEFOTAXIME S CIPROFLOXACIN 1 S GENTAMICIN <=1 S LEVOFLOXACIN >=8 R NITROFURANTOIN 64 I TOBRAMYCIN <=1 S TRIMETHOPRIM/SULFAMETHOXAZOLE 40 S PIPERACILLIN/TAZOBACTAM 16 S * 05/28/19 RESPIRATORY CULTURE Final Organism 1 CITROBACTER KOSERI QUANTITY 4+ Organism 2 PROVIDENCIA STUARTII QUANTITY 4+ CITROKOSER P STUARTII M.I.C. RX M.I.C. RX --------- --- --------- --- AMIKACIN <=2 S CEFOTAXIME S S CIPROFLOXACIN 1 S >=4 R GENTAMICIN <=1 S >=16 R LEVOFLOXACIN 1 S >=8 R TOBRAMYCIN <=1 S >=16 R TRIMETHOPRIM/SULFAMETHOXAZOLE <=20 S <=20 S * 05/28/19 (-)MRSA Nares * 05/28/19 BCx (-) * 05/28/19 URINE CULTURE Final Organism 1 PROVIDENCIA STUARTII COLONY COUNT >100,000 CFU/ml P STUARTII M.I.C. RX --------- --- AMIKACIN <=2 S CEFOTAXIME S CIPROFLOXACIN >=4 R GENTAMICIN >=16 R LEVOFLOXACIN >=8 R NITROFURANTOIN 256 R TOBRAMYCIN >=16 R TRIMETHOPRIM/SULFAMETHOXAZOLE <=20 S PHYSICAL EXAMINATION: GENERAL: VSS, NAD HEENT: AT, NC, NECK: Supple, CHEST: Rise symmetrical HEART: Pulse RRR ABDOMEN: POST OP : Suprapubic cath EXTREMITIES: Warm, dry SKIN: No rash, no diaphoresis ID ASSESSMENT 48 yo M admit with: POD#3=> S/P 06/04/19 Operation/Procedure Performed 1. Exploratory laparotomy 2. Repair small bowel 3. Appendectomy 4. Meckel's diverticulectomy * Acute abdomen secondary to perforated small bowel after PEG tube placement- s/p repair of small bowel * Perforated appendix- s/p appendectomy Sepsis- 2/2 to above Pneumonia Acute on chronic respiratory failure on MV- FiO2 increased 100% BHARATI Recurrent small bowel obstruction Abdominal gas UTI = COMPLICATED GNR Neurogenic bladder- suprapubic catheter Quadriplegia (-)MRSA Nares ABX ALLERGIES: IODINE INVASIVES: PIV CURRENT ABX: DAY # => Vanco IV + Merrem + Cancidas S/P + Flagyl ID RECOMMENDATIONS/PLAN: 1. Continue current ABX & supportive care . Consultation Date/Type/Reason Admit Date/Time May 28, 2019 at 06:21 Initial Consult Date 05/30/19 Requesting Provider: TYLOR REESE Date/Time of Note DATE: 06/07/19 TIME: 10:56 Exam/Review of Systems Exam Vitals Vital Signs Date Temp Pulse Resp B/P (MAP) Pulse Ox O2 O2 Flow FiO2 Time Delivery Rate 06/07/19 79 24 96/58 (71) 99 10:15 06/07/19 Mechanical 10:00 Ventilator 06/07/19 98.4 08:00 06/07/19 40 08:00 Intake and Output 06/06/19 06/06/19 06/07/19 1515:00 23:00 07:00 IntakeIntake Total 1322.18 ml 1727.831 ml 1469.38 ml OutputOutput Total 245 ml 195 ml 310 ml BalanceBalance 1077.18 ml 1532.831 ml 1159.38 ml Results Result Diagram: 06/07/19 0400 06/07/19 0400 Results 24hrs Laboratory Tests Test 06/06/19 11:48 06/06/19 17:38 06/06/19 17:39 06/06/19 21:06 Bedside Glucose 159 135 138 White Blood Count 29.3 H Red Blood Count 2.60 #L Hemoglobin 6.9 #*L Hematocrit 20.1 #L Mean Corpuscular 77.3 L Volume Mean Corpuscular 26.5 L Hemoglobin Mean Corpuscular 34.3 Hemoglobin Concent Red Cell 17.6 H Distribution Width Platelet Count 256 # Mean Platelet Volume 10.0 Immature 3.300 H Granulocytes % Neutrophils % 83.8 H Lymphocytes % 4.2 L Monocytes % 8.5 Eosinophils % 0.0 Basophils % 0.2 Nucleated Red Blood 0.0 Cells % Immature 0.960 H Granulocytes # Neutrophils # 24.6 H Lymphocytes # 1.2 Monocytes # 2.5 H Eosinophils # 0.0 Basophils # 0.1 Nucleated Red Blood 0.0 Cells # Test 06/07/19 01:08 06/07/19 04:00 06/07/19 05:26 06/07/19 08:06 Bedside Glucose 141 148 132 White Blood Count 27.6 H Red Blood Count 3.06 L Hemoglobin 8.4 #L Hematocrit 24.1 L Mean Corpuscular 78.8 L Volume Mean Corpuscular 27.5 L Hemoglobin Mean Corpuscular 34.9 Hemoglobin Concent Red Cell 17.3 H Distribution Width Platelet Count 225 Mean Platelet Volume 10.3 Immature 2.000 H Granulocytes % Neutrophils % 86.7 H Lymphocytes % 3.6 L Monocytes % 7.3 Eosinophils % 0.1 Basophils % 0.3 Nucleated Red Blood 0.0 Cells % Immature 0.550 H Granulocytes # Neutrophils # 23.9 H Lymphocytes # 1.0 Monocytes # 2.0 H Eosinophils # 0.0 Basophils # 0.1 Nucleated Red Blood 0.0 Cells # Sodium Level 142 Potassium Level 3.1 L Chloride Level 108 Carbon Dioxide Level 25 Anion Gap 9 Blood Urea Nitrogen 44 H Creatinine 1.08 Est Glomerular > 60 Filtrat Rate mL/min Glucose Level 128 Calcium Level 7.6 L Phosphorus Level 2.1 #L Magnesium Level 2.1 Random Cortisol 48.2 Medications Medication Current Medications Acetaminophen (Tylenol Tab) 650 mg Q6H PRN PO .PAIN 1-3 OR TEMP Last administered on 06/03/19at 15:36; Admin Dose 650 MG; Start 05/28/19 at 06:30 Albuterol/ Ipratropium (Duoneb) 3 ml Q2H RESP THERAPY PRN NEB SHORTNESS OF BREATH; Start 05/28/19 at 10:30 Nitroglycerin (Nitroglycerin (Sl Tab) 0.4 Mg) 1 tab Q5M PRN SL CHEST PAIN; Start 05/28/19 at 10:30 Acetaminophen (Tylenol Supp) 650 mg Q4H PRN [place] PAIN LEVEL 1-3 OR FEVER; Start 05/28/19 at 10:30 Bisacodyl (Dulcolax Supp) 10 mg DAILY PRN [place] CONSTIPATION Last administered on 06/01/19at 08:57; Admin Dose 10 MG; Start 05/28/19 at 10:30 IV Flush (NS 3 ml) 3 ml PER PROTOCOL IV ; Start 05/28/19 at 10:30 Ondansetron HCl (Zofran Inj) 4 mg Q6H PRN IV NAUSEA/VOMITING Last administered on 06/02/19at 14:31; Admin Dose 4 MG; Start 05/28/19 at 10:30 Famotidine (Pepcid Iv) 20 mg Q12 IV Last administered on 06/07/19 08:00; Admin Dose 20 MG; Start 05/28/19 at 21:00 Ipratropium [place] (Atrovent Hfa) 4 puff Q6H RESP THERAPY INH Last administered on 06/07/19 08:45; Admin Dose 4 PUFF; Start 05/28/19 at 14:30 IV Flush (NS 10 ml) 10 ml Q8 PRN IV IV PROTOCOL Last administered on 06/02/19 06:04; Admin Dose 10 ML; Start 05/28/19 at 19:00 Acetylcysteine (Mucomyst) 3 ml Q6H RESP THERAPY NEB Last administered on 06/07/19 08:45; Admin Dose 3 ML; Start 05/29/19 at 10:00 Albuterol (Ventolin Hfa) 4 puff Q6H RESP THERAPY INH Last administered on 06/07/19 08:45; Admin Dose 4 PUFF; Start 05/29/19 at 14:00 Heparin Sodium (Porcine) (Heparin (5000 Units/1ml)) 5,000 unit BID SC Last administered on 06/07/19 08:01; Admin Dose 5,000 UNIT; Start 05/29/19 at 21:00 Baclofen (Lioresal) 5 mg TID NGT Last administered on 06/04/19 09:58; Admin Dose 5 MG; Start 05/31/19 at 13:00 Hydralazine HCl (Apresoline) 10 mg Q6H PRN IV SBP>160 Last administered on 06/01/19 08:58; Admin Dose 10 MG; Start 06/01/19 at 09:00 Simethicone (Mylicon) 80 mg Q6 PO Last administered on 06/03/19 18:10; Admin Dose 80 MG; Start 06/01/19 at 12:00 Lorazepam (Ativan) 2 mg Q4H PRN IV anxiety; Start 06/03/19 at 17:30 Meropenem/Sodium Chloride 50 ml @ 100 mls/hr Q12 IVPB Last administered on 06/07/19 08:00; Admin Dose 100 MLS/HR; Start 06/04/19 at 11:30 Vancomycin HCl (Vanco Iv Per Pharmacy) VANCOMYCIN PER PHARMACY PER PROTOCOL XX ; Start 06/04/19 at 11:00 Vancomycin/Sodium Chloride 250 ml @ 83.333 mls/ hr Q24H IVPB Last administered on 06/06/19at 14:07; Admin Dose 83.333 MLS/HR; Start 06/05/19 at 14:00 Miscellaneous Information 1 ea NOTE XX ; Start 06/04/19 at 18:30 Glucose (Glutose) 15 gm Q15M PRN PO DECREASED GLUCOSE; Start 06/04/19 at 18:30 Glucose (Glutose) 22.5 gm Q15M PRN PO DECREASED GLUCOSE; Start 06/04/19 at 18:30 Dextrose (D50w Syringe) 25 ml Q15M PRN IV DECREASED GLUCOSE; Start 06/04/19 at 18:30 Dextrose (D50w Syringe) 50 ml Q15M PRN IV DECREASED GLUCOSE; Start 06/04/19 at 18:30 Glucagon (Glucagen) 1 mg Q15M PRN IM DECREASED GLUCOSE; Start 06/04/19 at 18:30 Glucose (Glutose) 15 gm Q15M PRN BUCCAL DECREASED GLUCOSE; Start 06/04/19 at 18:30 Morphine Sulfate (morphine) 2 mg Q2H PRN IV SEVERE PAIN LEVEL 7-10; Start 06/04/19 at 20:30 Total Parenteral Nutrition 1,000 ml @ 60 mls/hr [id number] IV Last administered on 06/07/19at 01:36; Admin Dose 60 MLS/HR; Start 06/05/19 at 12:30 Phenylephrine HCl 80 mg/Dextrose 250 ml @ 18.75 mls/ hr TITRATE IV Last administered on 06/06/19at 14:04; Admin Dose 18.75 MLS/HR; Start 06/05/19 at 13:30 Caspofungin 50 mg/ Sodium Chloride 250 ml @ 250 mls/hr Q24H IVPB Last administered on 06/06/19at 15:50; Admin Dose 250 MLS/HR; Start 06/06/19 at 15:00 Diagnostic Test (Pha) (Accu-Chek) 1 ea Q4 XX Last administered on 06/06/19at 17:39; Admin Dose 1 EA; Start 06/05/19 at 21:00 Norepinephrine 32 mg/Dextrose 250 ml @ 0 mls/hr TITRATE IV Last administered on 06/05/19 18:18; Admin Dose 11.25 MLS/HR; Start 06/05/19 at 18:00 Vasopressin 60 unit/Dextrose 60 ml @ 0 mls/hr Q12H IV ; Start 06/05/19 at 20:00 Miscellaneous Information (*Rx Drug Level Order Reminder*) VANCO TROUGH @ 1,300 ON... 1300 ONCE XX ; Start 06/07/19 at 13:00; Stop 06/07/19 at 13:01 Dextrose/Sodium Chloride 1,000 ml @ 50 mls/hr Q20H IV Last administered on 06/06/19at 13:06; Admin Dose 50 MLS/HR; Start 06/06/19 at 13:00 Potassium Phosphate 15 mm/ Sodium Chloride 255 ml @ 63.75 mls/ hr ONCE ONCE IVPB ; Start 06/07/19 at 11:00; Stop 06/07/19 at 14:59 TAWNY JEFFERS NP Jun 07, 2019 10:58
[2019-06-07] MEDS ORDERED: POTASSIUM PHOSPHATE 15 MM in SOD CHLORIDE 0.9% 250 ML IVPB ONE (11:00)
--- NOTE | 2019-06-07 11:28 | QN ---
Documentation Comment Postoperative day #3 Patient awake and alert Off pressors WBC down to 27,600 Leaking around cystostomy tube Plan: Consider evaluation to evaluate cystostomy Continue aggressive medical management ZENA CALDERÓN MD Jun 07, 2019 11:28
[2019-06-07] MEDS: VANCOMYCIN 1.25 GM/NS 250 ML 250 ML IVPB SCH (13:00)
[2019-06-07] MEDS: CASPOFUNGIN 50 MG in SOD CHLORIDE 0.9% 250 ML IVPB SCH (14:29)
--- NOTE | 2019-06-07 14:51 | PN ---
Date/Time of Note Date/Time of Note DATE: 06/07/19 TIME: 14:46 Assessment/Plan VTE Prophylaxis Risk score (from Nsg)>0 risk: 5 SCD applied (from Nsg): Yes Pharmacological prophylaxis: other (scds) Lines/Catheters IV Catheter Type (from Nrsg): PICC Line Central line still needed: Yes (TPN) Urinary Cath still in place: No Assessment/Plan Hospital Course Assessment/Plan (Daily) Assessment: Acute abdomen secondary to perforated small bowel after PEG tube placement- s/p repair of small bowel Perforated appendix- s/p appendectomy Sepsis- 2/2 to above Acute on chronic RD on MV- FiO2 increased 100% BHARATI Recurrent small bowel obstruction Quadriplegia Abdominal gas UTI Pneumonia Neurogenic bladder- suprapubic catheter Plan: TPN Continue supportive care Antibiotics per ID Patient seen in collaboration Dr. Hall Subjective: Course reviewed with nursing staff Patient interviewed and examined All labs, imaging and other results reviewed Improvement of acute anemia post transfusion, WBC trending down Patient states each day he feels a little better, continue current regimen Exam PHYSICAL EXAMINATION: GENERAL: Quadriplegic, trached on MV, alert & oriented x 4 SKIN: No lesions, no stigmata chronic liver disease, no evidence of bleeding diathesis HEAD: Normocephalic, atraumatic, no tenderness. EYES: Pupils equal reactive to light, no discharge. EARS/NOSE AND THROAT: Ears normal, nose normal, oropharynx normal, oral membranes well hydrated without lesions. NECK: Supple, no masses CHEST: Inspection within normal limits. CARDIOVASCULAR: Heart: Regular rate and rhythm RESPIRATORY: Lungs clear to auscultation. GASTROINTESTINAL AND LIVER: Abdomen: Soft, no tenderness, increased distension , no hernias, no masses, no organomegaly, no ascites, no guarding, no rebound tenderness, extremely hypoactive distant BS. Rectal: Deferred. GENITOURINARY: Male genitalia within normal limits. suprapubic catheter Result Diagram: 06/07/19 0400 06/07/19 0400 Results 24hrs Laboratory Tests Test 06/06/19 17:38 06/06/19 17:39 06/06/19 21:06 06/07/19 01:08 White Blood Count 29.3 H Red Blood Count 2.60 #L Hemoglobin 6.9 #*L Hematocrit 20.1 #L Mean Corpuscular 77.3 L Volume Mean Corpuscular 26.5 L Hemoglobin Mean Corpuscular 34.3 Hemoglobin Concent Red Cell 17.6 H Distribution Width Platelet Count 256 # Mean Platelet Volume 10.0 Immature 3.300 H Granulocytes % Neutrophils % 83.8 H Lymphocytes % 4.2 L Monocytes % 8.5 Eosinophils % 0.0 Basophils % 0.2 Nucleated Red Blood 0.0 Cells % Immature 0.960 H Granulocytes # Neutrophils # 24.6 H Lymphocytes # 1.2 Monocytes # 2.5 H Eosinophils # 0.0 Basophils # 0.1 Nucleated Red Blood 0.0 Cells # Bedside Glucose 135 138 141 Test 06/07/19 04:00 06/07/19 05:26 06/07/19 08:06 06/07/19 12:50 White Blood Count 27.6 H Red Blood Count 3.06 L Hemoglobin 8.4 #L Hematocrit 24.1 L Mean Corpuscular 78.8 L Volume Mean Corpuscular 27.5 L Hemoglobin Mean Corpuscular 34.9 Hemoglobin Concent Red Cell 17.3 H Distribution Width Platelet Count 225 Mean Platelet Volume 10.3 Immature 2.000 H Granulocytes % Neutrophils % 86.7 H Lymphocytes % 3.6 L Monocytes % 7.3 Eosinophils % 0.1 Basophils % 0.3 Nucleated Red Blood 0.0 Cells % Immature 0.550 H Granulocytes # Neutrophils # 23.9 H Lymphocytes # 1.0 Monocytes # 2.0 H Eosinophils # 0.0 Basophils # 0.1 Nucleated Red Blood 0.0 Cells # Sodium Level 142 Potassium Level 3.1 L Chloride Level 108 Carbon Dioxide Level 25 Anion Gap 9 Blood Urea Nitrogen 44 H Creatinine 1.08 Est Glomerular > 60 Filtrat Rate mL/min Glucose Level 128 Calcium Level 7.6 L Phosphorus Level 2.1 #L Magnesium Level 2.1 Random Cortisol 48.2 Bedside Glucose 148 132 Vancomycin Level 20.9 *H Trough Test 06/07/19 12:52 Bedside Glucose 122 Exam/Review of Systems Exam Vitals Vital Signs Date Temp Pulse Resp B/P (MAP) Pulse Ox O2 O2 Flow FiO2 Time Delivery Rate 06/07/19 93 25 101/64 100 12:15 (76) 06/07/19 Mechanical 12:00 Ventilator 06/07/19 40 11:40 06/07/19 98.4 08:00 Intake and Output 06/06/19 06/06/19 06/07/19 1515:00 23:00 07:00 IntakeIntake Total 1322.18 ml 1727.831 ml 1469.38 ml OutputOutput Total 245 ml 195 ml 310 ml BalanceBalance 1077.18 ml 1532.831 ml 1159.38 ml Results Results 24hrs Laboratory Tests Test 06/06/19 17:38 06/06/19 17:39 06/06/19 21:06 06/07/19 01:08 White Blood Count 29.3 H Red Blood Count 2.60 #L Hemoglobin 6.9 #*L Hematocrit 20.1 #L Mean Corpuscular 77.3 L Volume Mean Corpuscular 26.5 L Hemoglobin Mean Corpuscular 34.3 Hemoglobin Concent Red Cell 17.6 H Distribution Width Platelet Count 256 # Mean Platelet Volume 10.0 Immature 3.300 H Granulocytes % Neutrophils % 83.8 H Lymphocytes % 4.2 L Monocytes % 8.5 Eosinophils % 0.0 Basophils % 0.2 Nucleated Red Blood 0.0 Cells % Immature 0.960 H Granulocytes # Neutrophils # 24.6 H Lymphocytes # 1.2 Monocytes # 2.5 H Eosinophils # 0.0 Basophils # 0.1 Nucleated Red Blood 0.0 Cells # Bedside Glucose 135 138 141 Test 06/07/19 04:00 06/07/19 05:26 06/07/19 08:06 06/07/19 12:50 White Blood Count 27.6 H Red Blood Count 3.06 L Hemoglobin 8.4 #L Hematocrit 24.1 L Mean Corpuscular 78.8 L Volume Mean Corpuscular 27.5 L Hemoglobin Mean Corpuscular 34.9 Hemoglobin Concent Red Cell 17.3 H Distribution Width Platelet Count 225 Mean Platelet Volume 10.3 Immature 2.000 H Granulocytes % Neutrophils % 86.7 H Lymphocytes % 3.6 L Monocytes % 7.3 Eosinophils % 0.1 Basophils % 0.3 Nucleated Red Blood 0.0 Cells % Immature 0.550 H Granulocytes # Neutrophils # 23.9 H Lymphocytes # 1.0 Monocytes # 2.0 H Eosinophils # 0.0 Basophils # 0.1 Nucleated Red Blood 0.0 Cells # Sodium Level 142 Potassium Level 3.1 L Chloride Level 108 Carbon Dioxide Level 25 Anion Gap 9 Blood Urea Nitrogen 44 H Creatinine 1.08 Est Glomerular > 60 Filtrat Rate mL/min Glucose Level 128 Calcium Level 7.6 L Phosphorus Level 2.1 #L Magnesium Level 2.1 Random Cortisol 48.2 Bedside Glucose 148 132 Vancomycin Level 20.9 *H Trough Test 06/07/19 12:52 Bedside Glucose 122 Medications Medication Current Medications Acetaminophen (Tylenol Tab) 650 mg Q6H PRN PO .PAIN 1-3 OR TEMP Last administered on 06/03/19at 15:36; Admin Dose 650 MG; Start 05/28/19 at 06:30 Albuterol/ Ipratropium (Duoneb) 3 ml Q2H RESP THERAPY PRN NEB SHORTNESS OF BREATH; Start 05/28/19 at 10:30 Nitroglycerin (Nitroglycerin (Sl Tab) 0.4 Mg) 1 tab Q5M PRN SL CHEST PAIN; Start 05/28/19 at 10:30 Acetaminophen (Tylenol Supp) 650 mg Q4H PRN [place] PAIN LEVEL 1-3 OR FEVER; Start 05/28/19 at 10:30 Bisacodyl (Dulcolax Supp) 10 mg DAILY PRN [place] CONSTIPATION Last administered on 06/01/19at 08:57; Admin Dose 10 MG; Start 05/28/19 at 10:30 IV Flush (NS 3 ml) 3 ml PER PROTOCOL IV ; Start 05/28/19 at 10:30 Ondansetron HCl (Zofran Inj) 4 mg Q6H PRN IV NAUSEA/VOMITING Last administered on 06/02/19at 14:31; Admin Dose 4 MG; Start 05/28/19 at 10:30 Famotidine (Pepcid Iv) 20 mg Q12 IV Last administered on 06/07/19at 08:00; Admin Dose 20 MG; Start 05/28/19 at 21:00 Ipratropium [place] (Atrovent Hfa) 4 puff Q6H RESP THERAPY INH Last administered on 06/07/19 14:03; Admin Dose 4 PUFF; Start 05/28/19 at 14:30 IV Flush (NS 10 ml) 10 ml Q8 PRN IV IV PROTOCOL Last administered on 06/02/19at 06:04; Admin Dose 10 ML; Start 05/28/19 at 19:00 Acetylcysteine (Mucomyst) 3 ml Q6H RESP THERAPY NEB Last administered on 06/07/19at 14:03; Admin Dose 3 ML; Start 05/29/19 at 10:00 Albuterol (Ventolin Hfa) 4 puff Q6H RESP THERAPY INH Last administered on 06/07/19at 14:03; Admin Dose 4 PUFF; Start 05/29/19 at 14:00 Heparin Sodium (Porcine) (Heparin (5000 Units/1ml)) 5,000 unit BID SC Last administered on 06/07/19at 08:01; Admin Dose 5,000 UNIT; Start 05/29/19 at 21:00 Baclofen (Lioresal) 5 mg TID NGT Last administered on 06/04/19at 09:58; Admin Dose 5 MG; Start 05/31/19 at 13:00 Hydralazine HCl (Apresoline) 10 mg Q6H PRN IV SBP>160 Last administered on 06/01/19at 08:58; Admin Dose 10 MG; Start 06/01/19 at 09:00 Simethicone (Mylicon) 80 mg Q6 PO Last administered on 06/03/19at 18:10; Admin Dose 80 MG; Start 06/01/19 at 12:00 Lorazepam (Ativan) 2 mg Q4H PRN IV anxiety; Start 06/03/19 at 17:30 Meropenem/Sodium Chloride 50 ml @ 100 mls/hr Q12 IVPB Last administered on 06/07/19at 08:00; Admin Dose 100 MLS/HR; Start 06/04/19 at 11:30 Vancomycin HCl (Vanco Iv Per Pharmacy) VANCOMYCIN PER PHARMACY PER PROTOCOL XX ; Start 06/04/19 at 11:00 Miscellaneous Information 1 ea NOTE XX ; Start 06/04/19 at 18:30 Glucose (Glutose) 15 gm Q15M PRN PO DECREASED GLUCOSE; Start 06/04/19 at 18:30 Glucose (Glutose) 22.5 gm Q15M PRN PO DECREASED GLUCOSE; Start 06/04/19 at 18:30 Dextrose (D50w Syringe) 25 ml Q15M PRN IV DECREASED GLUCOSE; Start 06/04/19 at 18:30 Dextrose (D50w Syringe) 50 ml Q15M PRN IV DECREASED GLUCOSE; Start 06/04/19 at 18:30 Glucagon (Glucagen) 1 mg Q15M PRN IM DECREASED GLUCOSE; Start 06/04/19 at 18:30 Glucose (Glutose) 15 gm Q15M PRN BUCCAL DECREASED GLUCOSE; Start 06/04/19 at 18:30 Morphine Sulfate (morphine) 2 mg Q2H PRN IV SEVERE PAIN LEVEL 7-10; Start 06/04/19 at 20:30 Total Parenteral Nutrition 1,000 ml @ 60 mls/hr [id number] IV Last administered on 06/07/19 01:36; Admin Dose 60 MLS/HR; Start 06/05/19 at 12:30 Phenylephrine HCl 80 mg/Dextrose 250 ml @ 18.75 mls/ hr TITRATE IV Last administered on 06/06/19 14:04; Admin Dose 18.75 MLS/HR; Start 06/05/19 at 13:30 Caspofungin 50 mg/ Sodium Chloride 250 ml @ 250 mls/hr Q24H IVPB Last administered on 06/07/19 14:29; Admin Dose 250 MLS/HR; Start 06/06/19 at 15:00 Diagnostic Test (Pha) (Accu-Chek) 1 ea Q4 XX Last administered on 06/06/19 17:39; Admin Dose 1 EA; Start 06/05/19 at 21:00 Norepinephrine 32 mg/Dextrose 250 ml @ 0 mls/hr TITRATE IV Last administered on 06/05/19 18:18; Admin Dose 11.25 MLS/HR; Start 06/05/19 at 18:00 Vasopressin 60 unit/Dextrose 60 ml @ 0 mls/hr Q12H IV ; Start 06/05/19 at 20:00 Dextrose/Sodium Chloride 1,000 ml @ 50 mls/hr Q20H IV Last administered on 06/06/19 13:06; Admin Dose 50 MLS/HR; Start 06/06/19 at 13:00 Potassium Phosphate 15 mm/ Sodium Chloride 255 ml @ 63.75 mls/ hr ONCE ONCE IVPB Last administered on 06/07/19 11:33; Admin Dose 63.75 MLS/HR; Start 06/07/19 at 11:00; Stop 06/07/19 at 14:59 Vancomycin HCl 250 ml @ 125 mls/hr Q24H IVPB ; Start 06/07/19 at 23:00 HOWARD MARRERO Jun 07, 2019 14:50
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
[2019-06-07] MEDS: VANCOMYCIN 1 GM 250 ML IVPB SCH (22:48)
[2019-06-08] VITALS (37 sets, daily range): BP systolic 98–169; BP diastolic 66–92; PULSE 61–76; RESP 21–25
[2019-06-08] MEDS: ACCU-CHEK XX SCH ×6 (01:00→21:00)
[2019-06-08] MEDS: ACETYLCYSTEINE 20% 4 ML VIAL NEB SCH ×4 (01:25→20:00)
[2019-06-08] MEDS: IPRATROPIUM (HFA) 12.9 GM INHALER INH SCH ×5 (01:25→20:02)
[2019-06-08] MEDS: ALBUTEROL HFA 8 GM INHALER INH SCH ×5 (01:25→20:02)
[2019-06-08] MEDS: POTASSIUM CHLORIDE 50 ML IVPB SCH ×3 (06:45→11:47)
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
[2019-06-08] MEDS: VASOPRESSIN 60 UNIT in DEXTROSE 5% 57 ML IV SCH ×2 (08:00→20:00)
[2019-06-08] MEDS: FAMOTIDINE 20 MG INJ IV SCH ×2 (08:30→21:20)
[2019-06-08] MEDS: BACLOFEN 10 MG TAB NGT SCH ×3 (08:30→21:20)
[2019-06-08] MEDS: HEPARIN 5,000 UNIT/1 ML VIAL SC SCH ×2 (08:35→21:32)
[2019-06-08] MEDS: MEROPENEM 1 GM/50ML(PMX) 50 ML IVPB SCH ×2 (08:35→21:21)
[2019-06-08] MEDS: BALSAM PERU/CASTOR OIL 60 GM TUBE TOP SCH ×2 (08:35→21:22)
--- NOTE | 2019-06-08 09:13 | QN ---
Documentation Comment Postoperative day #4 Abdomen is tense and distended Large amount of NG output Renal function improving Hypokalemic Leukocytosis very slightly improved. Bandemia resolved. Abdominal incision is clean Plan: Continue aggressive medical management. Expect prolonged ileus ZENA CALDERÓN MD Jun 08, 2019 09:13
--- NOTE | 2019-06-08 10:27 | CONS ---
Consult Date/Type/Reason Admit Date/Time May 28, 2019 at 06:21 Initial Consult Date 05/30/19 Type of Consult Pulmonary Requesting Provider: TYLOR REESE Date/Time of Note DATE: 06/08/19 TIME: 10:26 Subjective Patient remains stable off vasopressors. Awake alert this morning no respiratory distress. Continues TPN. Objective Vital Signs Date Temp Pulse Resp B/P (MAP) Pulse Ox O2 O2 Flow FiO2 Time Delivery Rate 06/08/19 40 08:00 06/08/19 98.0 62 25 150/80 100 Mechanical 08:00 (103) Ventilator Intake and Output 06/07/19 06/07/19 06/08/19 1515:00 23:00 07:00 IntakeIntake Total 932.82 ml 1215 ml 1080 ml OutputOutput Total 90 ml 375 ml 90 ml BalanceBalance 842.82 ml 840 ml 990 ml Exam GENERAL: Chronically ill-appearing gentleman on mechanical ventilation via tracheostomy VITAL SIGNS: per chart NECK: Supple. No JVD or lymphadenopathy. CARDIAC EXAM: S1, S2. No added sounds or murmurs. CHEST: Diminished breath sounds bilaterally ABDOMEN: Diminished bowel sounds EXTREMITIES: No cyanosis, clubbing or edema. NEUROLOGIC: Quadriplegia Vent Setting Ventilator Support Mode: AC Fraction of Inspired Oxygen pe: 40 Positive End Expiratory Pressu: 5.0 Results/Medications Result Diagram: 06/08/19 0500 06/08/19 0500 Results 24 hrs Laboratory Tests Test 06/07/19 12:50 06/07/19 12:52 06/07/19 16:21 06/07/19 20:56 Vancomycin Level 20.9 *H Trough Bedside Glucose 122 116 124 Test 06/08/19 01:10 06/08/19 05:00 06/08/19 05:05 06/08/19 05:38 Bedside Glucose 121 118 White Blood Count 26.4 H Red Blood Count 2.93 L Hemoglobin 8.1 L Hematocrit 23.2 L Mean Corpuscular 79.2 L Volume Mean Corpuscular 27.6 L Hemoglobin Mean Corpuscular 34.9 Hemoglobin Concent Red Cell 17.5 H Distribution Width Platelet Count 191 Mean Platelet 10.1 Volume Immature 1.900 H Granulocytes % Neutrophils % 86.9 H Lymphocytes % 3.9 L Monocytes % 7.1 Eosinophils % 0.0 Basophils % 0.2 Nucleated Red 0.0 Blood Cells % Immature 0.500 H Granulocytes # Neutrophils # 23.0 H Lymphocytes # 1.0 Monocytes # 1.9 H Eosinophils # 0.0 Basophils # 0.1 Nucleated Red 0.0 Blood Cells # Sodium Level 146 H Potassium Level 2.8 *L Chloride Level 107 Carbon Dioxide 32 H Level Anion Gap 7 Blood Urea 39 H Nitrogen Creatinine 0.83 Est Glomerular > 60 Filtrat Rate mL/min Glucose Level 120 Calcium Level 7.6 L Phosphorus Level 2.3 L Magnesium Level 1.9 Lab Scanned Report REFERENCE LAB Test 06/08/19 08:40 Bedside Glucose 117 Medications Current Medications Acetaminophen (Tylenol Tab) 650 mg Q6H PRN PO .PAIN 1-3 OR TEMP Last administ ered on 06/03/19at 15:36; Admin Dose 650 MG; Start 05/28/19 at 06:30 Albuterol/ Ipratropium (Duoneb) 3 ml Q2H RESP THERAPY PRN NEB SHORTNESS OF BREATH; Start 05/28/19 at 10:30 Nitroglycerin (Nitroglycerin (Sl Tab) 0.4 Mg) 1 tab Q5M PRN SL CHEST PAIN; Start 05/28/19 at 10:30 Acetaminophen (Tylenol Supp) 650 mg Q4H PRN [place] PAIN LEVEL 1-3 OR FEVER; Start 05/28/19 at 10:30 Bisacodyl (Dulcolax Supp) 10 mg DAILY PRN [place] CONSTIPATION Last administered on 06/01/19at 08:57; Admin Dose 10 MG; Start 05/28/19 at 10:30 IV Flush (NS 3 ml) 3 ml PER PROTOCOL IV ; Start 05/28/19 at 10:30 Ondansetron HCl (Zofran Inj) 4 mg Q6H PRN IV NAUSEA/VOMITING Last administered on 06/02/19at 14:31; Admin Dose 4 MG; Start 05/28/19 at 10:30 Famotidine (Pepcid Iv) 20 mg Q12 IV Last administered on 06/08/19at 08:30; Admin Dose 20 MG; Start 05/28/19 at 21:00 Ipratropium [place] (Atrovent Hfa) 4 puff Q6H RESP THERAPY INH Last administered on 06/08/19 08:11; Admin Dose 4 PUFF; Start 05/28/19 at 14:30 IV Flush (NS 10 ml) 10 ml Q8 PRN IV IV PROTOCOL Last administered on 06/02/19at 06:04; Admin Dose 10 ML; Start 05/28/19 at 19:00 Acetylcysteine (Mucomyst) 3 ml Q6H RESP THERAPY NEB Last administered on 06/07/19at 14:03; Admin Dose 3 ML; Start 05/29/19 at 10:00 Albuterol (Ventolin Hfa) 4 puff Q6H RESP THERAPY INH Last administered on 06/08/19at 08:10; Admin Dose 4 PUFF; Start 05/29/19 at 14:00 Heparin Sodium (Porcine) (Heparin (5000 Units/1ml)) 5,000 unit BID SC Last administered on 06/08/19at 08:35; Admin Dose 5,000 UNIT; Start 05/29/19 at 21:00 Baclofen (Lioresal) 5 mg TID NGT Last administered on 06/04/19at 09:58; Admin Dose 5 MG; Start 05/31/19 at 13:00 Hydralazine HCl (Apresoline) 10 mg Q6H PRN IV SBP>160 Last administered on 06/01/19at 08:58; Admin Dose 10 MG; Start 06/01/19 at 09:00 Simethicone (Mylicon) 80 mg Q6 PO Last administered on 06/03/19at 18:10; Admin Dose 80 MG; Start 06/01/19 at 12:00 Lorazepam (Ativan) 2 mg Q4H PRN IV anxiety; Start 06/03/19 at 17:30 Meropenem/Sodium Chloride 50 ml @ 100 mls/hr Q12 IVPB Last administered on 06/08/19at 08:35; Admin Dose 100 MLS/HR; Start 06/04/19 at 11:30 Vancomycin HCl (Vanco Iv Per Pharmacy) VANCOMYCIN PER PHARMACY PER PROTOCOL XX ; Start 06/04/19 at 11:00 Miscellaneous Information 1 ea NOTE XX ; Start 06/04/19 at 18:30 Glucose (Glutose) 15 gm Q15M PRN PO DECREASED GLUCOSE; Start 06/04/19 at 18:30 Glucose (Glutose) 22.5 gm Q15M PRN PO DECREASED GLUCOSE; Start 06/04/19 at 18:30 Dextrose (D50w Syringe) 25 ml Q15M PRN IV DECREASED GLUCOSE; Start 06/04/19 at 18:30 Dextrose (D50w Syringe) 50 ml Q15M PRN IV DECREASED GLUCOSE; Start 06/04/19 at 18:30 Glucagon (Glucagen) 1 mg Q15M PRN IM DECREASED GLUCOSE; Start 06/04/19 at 18:30 Glucose (Glutose) 15 gm Q15M PRN BUCCAL DECREASED GLUCOSE; Start 06/04/19 at 18:30 Morphine Sulfate (morphine) 2 mg Q2H PRN IV SEVERE PAIN LEVEL 7-10; Start 06/04/19 at 20:30 Total Parenteral Nutrition 1,000 ml @ 60 mls/hr [id number] IV Last administered on 06/07/19at 17:16; Admin Dose 60 MLS/HR; Start 06/05/19 at 12:30 Phenylephrine HCl 80 mg/Dextrose 250 ml @ 18.75 mls/ hr TITRATE IV Last administered on 06/06/19at 14:04; Admin Dose 18.75 MLS/HR; Start 06/05/19 at 13:30 Caspofungin 50 mg/ Sodium Chloride 250 ml @ 250 mls/hr Q24H IVPB Last administered on 06/07/19 14:29; Admin Dose 250 MLS/HR; Start 06/06/19 at 15:00 Diagnostic Test (Pha) (Accu-Chek) 1 ea Q4 XX Last administered on 06/06/19at 17:39; Admin Dose 1 EA; Start 06/05/19 at 21:00 Norepinephrine 32 mg/Dextrose 250 ml @ 0 mls/hr TITRATE IV Last administered on 06/05/19 18:18; Admin Dose 11.25 MLS/HR; Start 06/05/19 at 18:00 Vasopressin 60 unit/Dextrose 60 ml @ 0 mls/hr Q12H IV ; Start 06/05/19 at 20:00 Vancomycin HCl 250 ml @ 125 mls/hr Q24H IVPB Last administered on 06/07/19at 22:48; Admin Dose 125 MLS/HR; Start 06/07/19 at 23:00 Potassium Chloride 50 ml @ 25 mls/hr Q2H IVPB Last administered on 06/08/19at 09:43; Admin Dose 25 MLS/HR; Start 06/08/19 at 06:30; Stop 06/08/19 at 12:29 Dextrose/Sodium Chloride 1,000 ml @ 50 mls/hr Q20H IV ; Start 06/08/19 at 09:30 Assessment/Plan Hospital Course (Demo Recall) Assessment 1. Acute abdomen secondary to perforated bowel following PEG tube placement 2. Vent dependent respiratory failure 3. History of quadriplegia 4. Septic shock requiring vasopressors possible component of adrenal insufficiency, decreased vasopressor requirements. Plan 1. Continue mechanical ventilation 2. Postop surgical recommendations 3. Vasopressors as needed titrate to keep map greater than 65 4. Postop antibiotics 5. DVT GI prophylaxis 6. Continues TPN Critical care time 40 minutes CARYN PERLA MD, [facility] Jun 08, 2019 10:27
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
[2019-06-08] MEDS: TPN 1,000 ML IV SCH (11:47)
[2019-06-08] MEDS: DEXTROSE 5%-0.45% NACL 1,000 ML IV SCH (11:48)
--- NOTE | 2019-06-08 13:44 | PN ---
DATE: 06/08/2019 SUBJECTIVE: No acute changes overnight. The patient is alert, denies pain at the morning. Looks co mfortable, no fevers overnight. WBC 26.4, H and H 8.1 and 23.2, platelets 191, neutrophils 86.9, BUN 39, creatinine 0.83. MICROBIOLOGY: Blood cultures sent 4 days ago negative. INDWELLINGS: Trach, PEG, suprapubic catheter, PICC line. ANTIMICROBIALS: The patient is on: 1. IV vancomycin. 2. Cancidas. 3. Meropenem. PHYSICAL EXAMINATION: GENERAL: This is a chronically ill-appearing, debilitated, middle-aged man who is a wake, in no distress. HEENT: Head atraumatic, normocephalic. NECK: Supple. Tracheostomy present. CHEST: Rise symmetrical. Breath sounds diminished to bases. HEART: S1, S2. ABDOMEN: Distended, bowel tones hypoactive. EXTREMITIES: With trace edema, wasted. ASSESSMENT: 1. Resolving sepsis status post shock. 2. Status post exploratory laparotomy, small bowel repair and appendectomy secondary to perforation. 3. Healthcare-associated pneumonia. 4. Urinary tract infection. 5. Quadriplegia. 6. Kidney mass, rule out neoplasm. PLAN: The patient is stable. Postop day #4. He is covered with broad spectrum antibiotics. He is being followed by multiple consultants. He is on TPN. Continue present care. Dictated By: JOSIAS BELLA TICKET PRINTER for APOLLO MOREL MD NI/NTS Conf#: [id number] DID#: [id number] CC: TYLOR REESE MD;*EndCC*
[2019-06-08] MEDS: CASPOFUNGIN 50 MG in SOD CHLORIDE 0.9% 250 ML IVPB SCH (14:59)
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
[2019-06-08] MEDS: VANCOMYCIN 1 GM 250 ML IVPB SCH (22:53)
[2019-06-09] VITALS (35 sets, daily range): BP systolic 105–150; BP diastolic 70–102; PULSE 60–77; RESP 24
[2019-06-09] MEDS: ACCU-CHEK XX SCH ×6 (00:32→20:56)
[2019-06-09] MEDS: IPRATROPIUM (HFA) 12.9 GM INHALER INH SCH ×4 (01:55→19:58)
[2019-06-09] MEDS: ALBUTEROL HFA 8 GM INHALER INH SCH ×4 (01:55→19:58)
[2019-06-09] MEDS: ACETYLCYSTEINE 20% 4 ML VIAL NEB SCH ×4 (02:00→20:00)
[2019-06-09] MEDS: TPN 1,000 ML IV SCH ×2 (03:17→20:57)
[2019-06-09] MEDS: DEXTROSE 5%-0.45% NACL 1,000 ML IV SCH (05:15)
[2019-06-09] MEDS: POTASSIUM CHLORIDE 50 ML IVPB SCH ×3 (07:08→12:22)
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
[2019-06-09] MEDS: VASOPRESSIN 60 UNIT in DEXTROSE 5% 57 ML IV SCH ×2 (08:00→20:00)
[2019-06-09] MEDS: FAMOTIDINE 20 MG INJ IV SCH ×2 (08:38→20:56)
[2019-06-09] MEDS: MEROPENEM 1 GM/50ML(PMX) 50 ML IVPB SCH ×2 (08:38→20:57)
[2019-06-09] MEDS: HEPARIN 5,000 UNIT/1 ML VIAL SC SCH ×2 (08:47→21:00)
[2019-06-09] MEDS: BACLOFEN 10 MG TAB NGT SCH ×3 (08:48→20:56)
[2019-06-09] MEDS: BALSAM PERU/CASTOR OIL 60 GM TUBE TOP SCH ×2 (08:48→21:02)
--- NOTE | 2019-06-09 09:46 | CONS ---
Assessment/Plan Assessment/Plan Assessment/Plan (Daily) Ventilator setting; AC of 24, tidal volume 500, PEEP of 5, 30% FiO2. Patient is on TPN. Assessment and recommendations; 1. Patient with history of VDRF and quadriplegia admitted for acute abdomen due to bowel perforation status post exploratory laparotomy with surgical repair as well as appendectomy due to discovery of acute appendicitis. Patient clinically significantly improved. 2. Likely some degree of right lower lobe pneumonia with interval clinical and radiological improvement. Continue current supportive care. Continue TPN for now. Further recommendations per general surgeon. Consultation Date/Type/Reason Admit Date/Time May 28, 2019 at 06:21 Initial Consult Date 05/28/19 Type of Consult Pulmonary/critical care Patient is a pleasant 48-year-old gentleman who was sent over from [place] [facility] with abdominal distention and vomiting. Upon evaluation here patient was hypotensive and had been diagnosed with bowel obstruction. Nasogastric tube was placed and 3200 mL of fluid was drained. Chest x-ray also was done which is showing right upper lobe infiltrate. Possibly aspiration. At the time I saw the patient in ER, patient is on ventilator via tracheostomy and is completely awake and alert. Denies any shortness of breath, abdominal pain any fever or chills. Past medical history; 1. VDRF. 2. Quadriplegia. 3. Status post tracheostomy with interval removal of G-tube. Medications; reviewed. Allergies; iodine. Social history; noncontributory. Family history; noncontributory. Occupational history; patient is disabled. Review of systems; denies any headache, shortness of breath, coughing. Complains of abdominal discomfort. Complains of nausea. Denies any fever or chills. Denies any chronic dysphagia. General exam; young male, quadriplegic. On ventilator via tracheostomy curre ntly no distress. Requesting Provider: TYLOR REESE Date/Time of Note DATE: 06/09/19 TIME: 09:43 24 HR Interval Summary Free Text/Dictation Patient's condition has improved. Remains awake and alert. Has remained hemody namically stable. General exam; young male, on ventilator via tracheostomy, awake and alert. Watching TV. Exam/Review of Systems Exam Vitals Vital Signs Date Temp Pulse Resp B/P (MAP) Pulse Ox O2 O2 Flow FiO2 Time Delivery Rate 06/09/19 67 24 141/88 100 09:00 (105) 06/09/19 98.0 Mechanical 08:00 Ventilator 06/09/19 30 05:08 Intake and Output 06/08/19 06/08/19 06/09/19 1515:00 23:00 07:00 IntakeIntake Total 555 ml 1180 ml 1240 ml OutputOutput Total 180 ml 605 ml 485 ml BalanceBalance 375 ml 575 ml 755 ml Exam HEENT exam; supple neck, no JVD. No lymphadenopathy. Midline trachea. No thyromegaly. Patient has good dentition. No neck masses. Tracheostomy in place. Chest exam; clear to auscultation. S1-S2 audible, no murmurs. Regular rhythm. Abdomen exam; soft, midline dressing in place. G-tube in place. Bowel sounds audible. Extremity exam; no peripheral edema or clubbing. OFFAL SEPARATOR exam; patient has stable quadriplegia. Results Result Diagram: 06/08/19 0500 06/09/19 0446 Results 24hrs Laboratory Tests Test 06/08/19 13:28 06/08/19 16:51 06/08/19 21:14 06/09/19 00:30 Bedside Glucose 105 101 104 106 Test 06/09/19 04:46 06/09/19 04:52 06/09/19 05:03 06/09/19 08:52 Sodium Level 148 H Potassium Level 2.7 *L Chloride Level 107 Carbon Dioxide 36 H Level Anion Gap 5 Blood Urea 34 H Nitrogen Creatinine 0.76 Est Glomerular > 60 Filtrat Rate mL/min Glucose Level 101 Calcium Level 7.7 L Phosphorus Level 2.1 L Magnesium Level 1.8 Lab Scanned BLOOD TRANSFUSIO Report N Bedside Glucose 110 103 Medications Medication Current Medications Acetaminophen (Tylenol Tab) 650 mg Q6H PRN PO .PAIN 1-3 OR TEMP Last administered on 06/03/19at 15:36; Admin Dose 650 MG; Start 05/28/19 at 06:30 Albuterol/ Ipratropium (Duoneb) 3 ml Q2H RESP THERAPY PRN NEB SHORTNESS OF BREATH; Start 05/28/19 at 10:30 Nitroglycerin (Nitroglycerin (Sl Tab) 0.4 Mg) 1 tab Q5M PRN SL CHEST PAIN; Start 05/28/19 at 10:30 Acetaminophen (Tylenol Supp) 650 mg Q4H PRN [place] PAIN LEVEL 1-3 OR FEVER; Start 05/28/19 at 10:30 Bisacodyl (Dulcolax Supp) 10 mg DAILY PRN [place] CONSTIPATION Last administered on 06/01/19 08:57; Admin Dose 10 MG; Start 05/28/19 at 10:30 IV Flush (NS 3 ml) 3 ml PER PROTOCOL IV ; Start 05/28/19 at 10:30 Ondansetron HCl (Zofran Inj) 4 mg Q6H PRN IV NAUSEA/VOMITING Last administered on 06/02/19 14:31; Admin Dose 4 MG; Start 05/28/19 at 10:30 Famotidine (Pepcid Iv) 20 mg Q12 IV Last administered on 06/09/19 08:38; Admin Dose 20 MG; Start 05/28/19 at 21:00 Ipratropium [place] (Atrovent Hfa) 4 puff Q6H RESP THERAPY INH Last administered on 06/09/19 07:52; Admin Dose 4 PUFF; Start 05/28/19 at 14:30 IV Flush (NS 10 ml) 10 ml Q8 PRN IV IV PROTOCOL Last administered on 06/02/19 06:04; Admin Dose 10 ML; Start 05/28/19 at 19:00 Acetylcysteine (Mucomyst) 3 ml Q6H RESP THERAPY NEB Last administered on 06/07/19 14:03; Admin Dose 3 ML; Start 05/29/19 at 10:00 Albuterol (Ventolin Hfa) 4 puff Q6H RESP THERAPY INH Last administered on 06/09/19 07:52; Admin Dose 4 PUFF; Start 05/29/19 at 14:00 Heparin Sodium (Porcine) (Heparin (5000 Units/1ml)) 5,000 unit BID SC Last administered on 06/09/19 08:47; Admin Dose 5,000 UNIT; Start 05/29/19 at 21:00 Baclofen (Lioresal) 5 mg TID NGT Last administered on 06/08/19 21:20; Admin Dose 5 MG; Start 05/31/19 at 13:00 Hydralazine HCl (Apresoline) 10 mg Q6H PRN IV SBP>160 Last administered on 7/15/19at 08:58; Admin Dose 10 MG; Start 06/01/19 at 09:00 Simethicone (Mylicon) 80 mg Q6 PO Last administered on 06/09/19at 05:19; Admin Dose 80 MG; Start 06/01/19 at 12:00 Lorazepam (Ativan) 2 mg Q4H PRN IV anxiety; Start 06/03/19 at 17:30 Meropenem/Sodium Chloride 50 ml @ 100 mls/hr Q12 IVPB Last administered on 06/09/19at 08:38; Admin Dose 100 MLS/HR; Start 06/04/19 at 11:30 Vancomycin HCl (Vanco Iv Per Pharmacy) VANCOMYCIN PER PHARMACY PER PROTOCOL XX ; Start 06/04/19 at 11:00 Miscellaneous Information 1 ea NOTE XX ; Start 06/04/19 at 18:30 Glucose (Glutose) 15 gm Q15M PRN PO DECREASED GLUCOSE; Start 06/04/19 at 18:30 Glucose (Glutose) 22.5 gm Q15M PRN PO DECREASED GLUCOSE; Start 06/04/19 at 18:30 Dextrose (D50w Syringe) 25 ml Q15M PRN IV DECREASED GLUCOSE; Start 06/04/19 at 18:30 Dextrose (D50w Syringe) 50 ml Q15M PRN IV DECREASED GLUCOSE; Start 06/04/19 at 18:30 Glucagon (Glucagen) 1 mg Q15M PRN IM DECREASED GLUCOSE; Start 06/04/19 at 18:30 Glucose (Glutose) 15 gm Q15M PRN BUCCAL DECREASED GLUCOSE; Start 06/04/19 at 18:30 Morphine Sulfate (morphine) 2 mg Q2H PRN IV SEVERE PAIN LEVEL 7-10; Start 06/04/19 at 20:30 Total Parenteral Nutrition 1,000 ml @ 60 mls/hr [id number] IV Last administered on 06/09/19at 03:17; Admin Dose 60 MLS/HR; Start 06/05/19 at 12:30 Phenylephrine HCl 80 mg/Dextrose 250 ml @ 18.75 mls/ hr TITRATE IV Last administered on 06/06/19at 14:04; Admin Dose 18.75 MLS/HR; Start 06/05/19 at 13:30 Caspofungin 50 mg/ Sodium Chloride 250 ml @ 250 mls/hr Q24H IVPB Last administered on 06/08/19 14:59; Admin Dose 250 MLS/HR; Start 06/06/19 at 15:00 Diagnostic Test (Pha) (Accu-Chek) 1 ea Q4 XX Last administered on 06/06/19at 17:39; Admin Dose 1 EA; Start 06/05/19 at 21:00 Norepinephrine 32 mg/Dextrose 250 ml @ 0 mls/hr TITRATE IV Last administered on 06/05/19at 18:18; Admin Dose 11.25 MLS/HR; Start 06/05/19 at 18:00 Vasopressin 60 unit/Dextrose 60 ml @ 0 mls/hr Q12H IV ; Start 06/05/19 at 20:00 Vancomycin HCl 250 ml @ 125 mls/hr Q24H IVPB Last administered on 06/08/19at 22:53; Admin Dose 125 MLS/HR; Start 06/07/19 at 23:00 Potassium Chloride 50 ml @ 25 mls/hr Q2H IVPB Last administered on 06/09/19 07:08; Admin Dose 25 MLS/HR; Start 06/09/19 at 06:30; Stop 06/09/19 at 12:29 ROLANDO OLIVEROS Jun 09, 2019 09:46
--- NOTE | 2019-06-09 10:03 | PN ---
Date/Time of Note Date/Time of Note DATE: 06/09/19 TIME: 09:56 Assessment/Plan VTE Prophylaxis Risk score (from Ns)>0 risk: 8 SCD applied (from Ns): Yes Pharmacological prophylaxis: other (scds) Lines/Catheters IV Catheter Type (from Nrsg): PICC Line Central line still needed: Yes (TPN) Urinary Cath still in place: No (suprapubic catheter) Assessment/Plan Hospital Course Assessment/Plan (Daily) Assessment: Acute abdomen secondary to perforated small bowel after PEG tube placement- s/p repair of small bowel Perforated appendix- s/p appendectomy Sepsis- 2/2 to above Acute on chronic RD on MV- FiO2 increased 100% BHARATI Recurrent small bowel obstruction Quadriplegia Abdominal gas UTI Pneumonia Neurogenic bladder- suprapubic catheter Plan: NGT to suction- per surgery Continue TPN Close observation Supportive care Hypokalemia today- being replaced Patient seen in collaboration Dr. Hall Subjective: Course reviewed with nursing staff Patient interviewed and examined Labs not yet available to review Pt appears stable, no over night events less out-put from NGT- Supra-pubic catheter has been fixed- no more leakage noted Exam PHYSICAL EXAMINATION: GENERAL: Quadriplegic, trached on MV, alert & oriented x 4 SKIN: No lesions, no stigmata chronic liver disease, no evidence of bleeding diathesis HEAD: Normocephalic, atraumatic, no tenderness. EYES: Pupils equal reactive to light, no discharge. EARS/NOSE AND THROAT: Ears normal, nose normal, oropharynx normal, oral membranes well hydrated without lesions. NECK: Supple, no masses CHEST: Inspection within normal limits. CARDIOVASCULAR: Heart: Regular rate and rhythm RESPIRATORY: Lungs clear to auscultation. GASTROINTESTINAL AND LIVER: Abdomen: Soft, no tenderness, increased distension , no hernias, no masses, no organomegaly, no ascites, no guarding, no rebound tenderness, extremely hypoactive distant BS. Rectal: Deferred. GENITOURINARY: Male genitalia within normal limits. suprapubic catheter Result Diagram: 06/08/19 0500 06/09/19 0446 Results 24hrs Laboratory Tests Test 06/08/19 13:28 06/08/19 16:51 06/08/19 21:14 06/09/19 00:30 Bedside Glucose 105 101 104 106 Test 06/09/19 04:46 06/09/19 04:52 06/09/19 05:03 06/09/19 08:52 Sodium Level 148 H Potassium Level 2.7 *L Chloride Level 107 Carbon Dioxide 36 H Level Anion Gap 5 Blood Urea 34 H Nitrogen Creatinine 0.76 Est Glomerular > 60 Filtrat Rate mL/min Glucose Level 101 Calcium Level 7.7 L Phosphorus Level 2.1 L Magnesium Level 1.8 Lab Scanned BLOOD TRANSFUSIO Report N Bedside Glucose 110 103 Exam/Review of Systems Exam Vitals Vital Signs Date Temp Pulse Resp B/P (MAP) Pulse Ox O2 O2 Flow FiO2 Time Delivery Rate 06/09/19 67 24 141/88 100 09:00 (105) 06/09/19 98.0 Mechanical 08:00 Ventilator 06/09/19 30 05:08 Intake and Output 06/08/19 06/08/19 06/09/19 1515:00 23:00 07:00 IntakeIntake Total 555 ml 1180 ml 1240 ml OutputOutput Total 180 ml 605 ml 485 ml BalanceBalance 375 ml 575 ml 755 ml Results Results 24hrs Laboratory Tests Test 06/08/19 13:28 06/08/19 16:51 06/08/19 21:14 06/09/19 00:30 Bedside Glucose 105 101 104 106 Test 06/09/19 04:46 06/09/19 04:52 06/09/19 05:03 06/09/19 08:52 Sodium Level 148 H Potassium Level 2.7 *L Chloride Level 107 Carbon Dioxide 36 H Level Anion Gap 5 Blood Urea 34 H Nitrogen Creatinine 0.76 Est Glomerular > 60 Filtrat Rate mL/min Glucose Level 101 Calcium Level 7.7 L Phosphorus Level 2.1 L Magnesium Level 1.8 Lab Scanned BLOOD TRANSFUSIO Report N Bedside Glucose 110 103 Medications Medication Current Medications Acetaminophen (Tylenol Tab) 650 mg Q6H PRN PO .PAIN 1-3 OR TEMP Last administered on 06/03/19at 15:36; Admin Dose 650 MG; Start 05/28/19 at 06:30 Albuterol/ Ipratropium (Duoneb) 3 ml Q2H RESP THERAPY PRN NEB SHORTNESS OF BREATH; Start 05/28/19 at 10:30 Nitroglycerin (Nitroglycerin (Sl Tab) 0.4 Mg) 1 tab Q5M PRN SL CHEST PAIN; Start 05/28/19 at 10:30 Acetaminophen (Tylenol Supp) 650 mg Q4H PRN [place] PAIN LEVEL 1-3 OR FEVER; Start 05/28/19 at 10:30 Bisacodyl (Dulcolax Supp) 10 mg DAILY PRN [place] CONSTIPATION Last administered on 06/01/19 08:57; Admin Dose 10 MG; Start 05/28/19 at 10:30 IV Flush (NS 3 ml) 3 ml PER PROTOCOL IV ; Start 05/28/19 at 10:30 Ondansetron HCl (Zofran Inj) 4 mg Q6H PRN IV NAUSEA/VOMITING Last administered on 06/02/19 14:31; Admin Dose 4 MG; Start 05/28/19 at 10:30 Famotidine (Pepcid Iv) 20 mg Q12 IV Last administered on 06/09/19 08:38; Admin Dose 20 MG; Start 05/28/19 at 21:00 Ipratropium [place] (Atrovent Hfa) 4 puff Q6H RESP THERAPY INH Last administered on 06/09/19 07:52; Admin Dose 4 PUFF; Start 05/28/19 at 14:30 IV Flush (NS 10 ml) 10 ml Q8 PRN IV IV PROTOCOL Last administered on 06/02/19 06:04; Admin Dose 10 ML; Start 05/28/19 at 19:00 Acetylcysteine (Mucomyst) 3 ml Q6H RESP THERAPY NEB Last administered on 06/07/19 14:03; Admin Dose 3 ML; Start 05/29/19 at 10:00 Albuterol (Ventolin Hfa) 4 puff Q6H RESP THERAPY INH Last administered on 06/09/19 07:52; Admin Dose 4 PUFF; Start 05/29/19 at 14:00 Heparin Sodium (Porcine) (Heparin (5000 Units/1ml)) 5,000 unit BID SC Last administered on 06/09/19 08:47; Admin Dose 5,000 UNIT; Start 05/29/19 at 21:00 Baclofen (Lioresal) 5 mg TID NGT Last administered on 06/08/19 21:20; Admin Dose 5 MG; Start 05/31/19 at 13:00 Hydralazine HCl (Apresoline) 10 mg Q6H PRN IV SBP>160 Last administered on 06/01/19at 08:58; Admin Dose 10 MG; Start 06/01/19 at 09:00 Simethicone (Mylicon) 80 mg Q6 PO Last administered on 06/09/19at 05:19; Admin Dose 80 MG; Start 06/01/19 at 12:00 Lorazepam (Ativan) 2 mg Q4H PRN IV anxiety; Start 06/03/19 at 17:30 Meropenem/Sodium Chloride 50 ml @ 100 mls/hr Q12 IVPB Last administered on 06/09/19at 08:38; Admin Dose 100 MLS/HR; Start 06/04/19 at 11:30 Vancomycin HCl (Vanco Iv Per Pharmacy) VANCOMYCIN PER PHARMACY PER PROTOCOL XX ; Start 06/04/19 at 11:00 Miscellaneous Information 1 ea NOTE XX ; Start 06/04/19 at 18:30 Glucose (Glutose) 15 gm Q15M PRN PO DECREASED GLUCOSE; Start 06/04/19 at 18:30 Glucose (Glutose) 22.5 gm Q15M PRN PO DECREASED GLUCOSE; Start 06/04/19 at 18:30 Dextrose (D50w Syringe) 25 ml Q15M PRN IV DECREASED GLUCOSE; Start 06/04/19 at 18:30 Dextrose (D50w Syringe) 50 ml Q15M PRN IV DECREASED GLUCOSE; Start 06/04/19 at 18:30 Glucagon (Glucagen) 1 mg Q15M PRN IM DECREASED GLUCOSE; Start 06/04/19 at 18:30 Glucose (Glutose) 15 gm Q15M PRN BUCCAL DECREASED GLUCOSE; Start 06/04/19 at 18 :30 Morphine Sulfate (morphine) 2 mg Q2H PRN IV SEVERE PAIN LEVEL 7-10; Start 06/04/19 at 20:30 Total Parenteral Nutrition 1,000 ml @ 60 mls/hr [id number] IV Last administered on 06/09/19at 03:17; Admin Dose 60 MLS/HR; Start 06/05/19 at 12:30 Phenylephrine HCl 80 mg/Dextrose 250 ml @ 18.75 mls/ hr TITRATE IV Last administered on 06/06/19at 14:04; Admin Dose 18.75 MLS/HR; Start 06/05/19 at 13:30 Caspofungin 50 mg/ Sodium Chloride 250 ml @ 250 mls/hr Q24H IVPB Last administered on 06/08/19at 14:59; Admin Dose 250 MLS/HR; Start 06/06/19 at 15:00 Diagnostic Test (Pha) (Accu-Chek) 1 ea Q4 XX Last administered on 06/06/19at 17:39; Admin Dose 1 EA; Start 06/05/19 at 21:00 Norepinephrine 32 mg/Dextrose 250 ml @ 0 mls/hr TITRATE IV Last administered on 06/05/19at 18:18; Admin Dose 11.25 MLS/HR; Start 06/05/19 at 18:00 Vasopressin 60 unit/Dextrose 60 ml @ 0 mls/hr Q12H IV ; Start 06/05/19 at 20:00 Vancomycin HCl 250 ml @ 125 mls/hr Q24H IVPB Last administered on 06/08/19at 22:53; Admin Dose 125 MLS/HR; Start 06/07/19 at 23:00 Potassium Chloride 50 ml @ 25 mls/hr Q2H IVPB Last administered on 06/09/19at 07:08; Admin Dose 25 MLS/HR; Start 06/09/19 at 06:30; Stop 06/09/19 at 12:29 HOWARD MARRERO Jun 09, 2019 10:03
--- NOTE | 2019-06-09 10:10 | QN ---
Documentation Comment Postoperative day #5 Vital signs are stable NG output has diminished. Has had at least 2 bowel movements BUN improved. Still hypokalemic Abdomen remains tense but less distended Pathology shows perforated appendicitis There is no mention of the Meckel's diverticulum Plan: Continued aggressive medical management. Trial of NG tube clamping ZENA CALDERÓN MD Jun 09, 2019 10:10
[2019-06-09] MEDS ORDERED: VANCOMYCIN IV PER PHARMACY XX SCH (13:00)
--- NOTE | 2019-06-09 14:22 | PN ---
Date/Time of Note Date/Time of Note DATE: 06/09/19 TIME: 14:19 Assessment/Plan VTE Prophylaxis Risk score (from Ns)>0 risk: 8 SCD applied (from Ns): Yes Pharmacological prophylaxis: heparin Lines/Catheters IV Catheter Type (from Nrsg): PICC Line Central line still needed: Yes Urinary Cath still in place: No (suprapubic catheter) Assessment/Plan Hospital Course Paraplegia Alert, oriented no distress RRR CTAB Abdomen firm A/P: 48 yo male with paraplegia complicated by parayltic ileus, chronic respiratory failure on MV who presented with ileus, underwent PEG which was complicated by bowel perforation requiring urgent surgery Bowel perforation: - Resolved s/p OR by Dr Quinonez - Empiric abx per ID - NG management per Dr Quinonez - IV fluids//TPN for now Hypokalemia: - Replete as needed Chronic respiratory failure: - MV per pulmonary BHARATI: - Resolved Paraplegia: - Stable Paralytic ileus: - bowel regimen Anemia of chronic illness Result Diagram: 06/09/19 1046 06/09/19 0446 Results 24hrs Laboratory Tests Test 06/08/19 16:51 06/08/19 21:14 06/09/19 00:30 06/09/19 04:46 Bedside Glucose 101 104 106 Sodium Level 148 H Potassium Level 2.7 *L Chloride Level 107 Carbon Dioxide 36 H Level Anion Gap 5 Blood Urea 34 H Nitrogen Creatinine 0.76 Est Glomerular > 60 Filtrat Rate mL/min Glucose Level 101 Calcium Level 7.7 L Phosphorus Level 2.1 L Magnesium Level 1.8 Test 06/09/19 04:52 06/09/19 05:03 06/09/19 08:52 06/09/19 10:46 Lab Scanned BLOOD TRANSFUSIO Report N Bedside Glucose 110 103 White Blood Count 22.1 H Red Blood Count 2.97 L Hemoglobin 8.0 L Hematocrit 24.7 L Mean Corpuscular 83.2 Volume Mean Corpuscular 26.9 L Hemoglobin Mean Corpuscular 32.4 Hemoglobin Concen t Red Cell 18.5 H Distribution Width Platelet Count 201 Mean Platelet 10.4 Volume Immature 2.000 H Granulocytes % Neutrophils % 83.7 H Lymphocytes % 5.6 L Monocytes % 8.5 Eosinophils % 0.0 Basophils % 0.2 Nucleated Red 0.0 Blood Cells % Immature 0.440 H Granulocytes # Neutrophils # 18.5 H Lymphocytes # 1.2 Monocytes # 1.9 H Eosinophils # 0.0 Basophils # 0.1 Nucleated Red 0.0 Blood Cells # Test 06/09/19 12:24 Bedside Glucose 101 Subjective 24 Hr Interval Summary Free Text/Dictation Continues NG tube to suction, tolerating Passed BM Exam/Review of Systems Exam Vitals Vital Signs Date Temp Pulse Resp B/P (MAP) Pulse Ox O2 O2 Flow FiO2 Time Delivery Rate 06/09/19 97.9 68 24 138/95 100 Mechanical 12:00 (109) Ventilator 06/09/19 30 08:00 Intake and Output 06/08/19 06/08/19 06/09/19 1515:00 23:00 07:00 IntakeIntake Total 555 ml 1180 ml 1240 ml OutputOutput Total 180 ml 605 ml 485 ml BalanceBalance 375 ml 575 ml 755 ml Results Results 24hrs Laboratory Tests Test 06/08/19 16:51 06/08/19 21:14 06/09/19 00:30 06/09/19 04:46 Bedside Glucose 101 104 106 Sodium Level 148 H Potassium Level 2.7 *L Chloride Level 107 Carbon Dioxide 36 H Level Anion Gap 5 Blood Urea 34 H Nitrogen Creatinine 0.76 Est Glomerular > 60 Filtrat Rate mL/min Glucose Level 101 Calcium Level 7.7 L Phosphorus Level 2.1 L Magnesium Level 1.8 Test 06/09/19 04:52 06/09/19 05:03 06/09/19 08:52 06/09/19 10:46 Lab Scanned BLOOD TRANSFUSIO Report N Bedside Glucose 110 103 White Blood Count 22.1 H Red Blood Count 2.97 L Hemoglobin 8.0 L Hematocrit 24.7 L Mean Corpuscular 83.2 Volume Mean Corpuscular 26.9 L Hemoglobin Mean Corpuscular 32.4 Hemoglobin Concen t Red Cell 18.5 H Distribution Width Platelet Count 201 Mean Platelet 10.4 Volume Immature 2.000 H Granulocytes % Neutrophils % 83.7 H Lymphocytes % 5.6 L Monocytes % 8.5 Eosinophils % 0.0 Basophils % 0.2 Nucleated Red 0.0 Blood Cells % Immature 0.440 H Granulocytes # Neutrophils # 18.5 H Lymphocytes # 1.2 Monocytes # 1.9 H Eosinophils # 0.0 Basophils # 0.1 Nucleated Red 0.0 Blood Cells # Test 06/09/19 12:24 Bedside Glucose 101 Medications Medication Current Medications Acetaminophen (Tylenol Tab) 650 mg Q6H PRN PO .PAIN 1-3 OR TEMP Last administered on 06/03/19 15:36; Admin Dose 650 MG; Start 05/28/19 at 06:30 Albuterol/ Ipratropium (Duoneb) 3 ml Q2H RESP THERAPY PRN NEB SHORTNESS OF BREATH; Start 05/28/19 at 10:30 Nitroglycerin (Nitroglycerin (Sl Tab) 0.4 Mg) 1 tab Q5M PRN SL CHEST PAIN; Start 05/28/19 at 10:30 Acetaminophen (Tylenol Supp) 650 mg Q4H PRN [place] PAIN LEVEL 1-3 OR FEVER; Start 05/28/19 at 10:30 Bisacodyl (Dulcolax Supp) 10 mg DAILY PRN [place] CONSTIPATION Last administered on 06/01/19 08:57; Admin Dose 10 MG; Start 05/28/19 at 10:30 IV Flush (NS 3 ml) 3 ml PER PROTOCOL IV ; Start 05/28/19 at 10:30 Ondansetron HCl (Zofran Inj) 4 mg Q6H PRN IV NAUSEA/VOMITING Last administered on 06/02/19 14:31; Admin Dose 4 MG; Start 05/28/19 at 10:30 Famotidine (Pepcid Iv) 20 mg Q12 IV Last administered on 06/09/19 08:38; Admin Dose 20 MG; Start 05/28/19 at 21:00 Ipratropium [place] (Atrovent Hfa) 4 puff Q6H RESP THERAPY INH Last administered on 06/09/19 13:28; Admin Dose 4 PUFF; Start 05/28/19 at 14:30 IV Flush (NS 10 ml) 10 ml Q8 PRN IV IV PROTOCOL Last administered on 06/02/19 06:04; Admin Dose 10 ML; Start 05/28/19 at 19:00 Acetylcysteine (Mucomyst) 3 ml Q6H RESP THERAPY NEB Last administered on 06/07/19 14:03; Admin Dose 3 ML; Start 05/29/19 at 10:00 Albuterol (Ventolin Hfa) 4 puff Q6H RESP THERAPY INH Last administered on 7/23 /19at 13:28; Admin Dose 4 PUFF; Start 05/29/19 at 14:00 Heparin Sodium (Porcine) (Heparin (5000 Units/1ml)) 5,000 unit BID SC Last administered on 06/09/19at 08:47; Admin Dose 5,000 UNIT; Start 05/29/19 at 21:00 Baclofen (Lioresal) 5 mg TID NGT Last administered on 06/08/19at 21:20; Admin Dose 5 MG; Start 05/31/19 at 13:00 Hydralazine HCl (Apresoline) 10 mg Q6H PRN IV SBP>160 Last administered on 06/01/19at 08:58; Admin Dose 10 MG; Start 06/01/19 at 09:00 Simethicone (Mylicon) 80 mg Q6 PO Last administered on 06/09/19at 05:19; Admin Dose 80 MG; Start 06/01/19 at 12:00 Lorazepam (Ativan) 2 mg Q4H PRN IV anxiety; Start 06/03/19 at 17:30 Meropenem/Sodium Chloride 50 ml @ 100 mls/hr Q12 IVPB Last administered on 06/09/19at 08:38; Admin Dose 100 MLS/HR; Start 06/04/19 at 11:30 Miscellaneous Information 1 ea NOTE XX ; Start 06/04/19 at 18:30 Glucose (Glutose) 15 gm Q15M PRN PO DECREASED GLUCOSE; Start 06/04/19 at 18:30 Glucose (Glutose) 22.5 gm Q15M PRN PO DECREASED GLUCOSE; Start 06/04/19 at 18:30 Dextrose (D50w Syringe) 25 ml Q15M PRN IV DECREASED GLUCOSE; Start 06/04/19 at 18:30 Dextrose (D50w Syringe) 50 ml Q15M PRN IV DECREASED GLUCOSE; Start 06/04/19 at 18:30 Glucagon (Glucagen) 1 mg Q15M PRN IM DECREASED GLUCOSE; Start 06/04/19 at 18:30 Glucose (Glutose) 15 gm Q15M PRN BUCCAL DECREASED GLUCOSE; Start 06/04/19 at 18:30 Morphine Sulfate (morphine) 2 mg Q2H PRN IV SEVERE PAIN LEVEL 7-10; Start 06/04/19 at 20:30 Total Parenteral Nutrition 1,000 ml @ 60 mls/hr [id number] IV Last administered on 06/09/19 03:17; Admin Dose 60 MLS/HR; Start 06/05/19 at 12:30 Phenylephrine HCl 80 mg/Dextrose 250 ml @ 18.75 mls/ hr TITRATE IV Last administered on 06/06/19 14:04; Admin Dose 18.75 MLS/HR; Start 06/05/19 at 13:30 Caspofungin 50 mg/ Sodium Chloride 250 ml @ 250 mls/hr Q24H IVPB Last administered on 06/08/19at 14:59; Admin Dose 250 MLS/HR; Start 06/06/19 at 15:00 Diagnostic Test (Pha) (Accu-Chek) 1 ea Q4 XX Last administered on 06/06/19 17:39; Admin Dose 1 EA; Start 06/05/19 at 21:00 Norepinephrine 32 mg/Dextrose 250 ml @ 0 mls/hr TITRATE IV Last administered on 06/05/19 18:18; Admin Dose 11.25 MLS/HR; Start 06/05/19 at 18:00 Vasopressin 60 unit/Dextrose 60 ml @ 0 mls/hr Q12H IV ; Start 06/05/19 at 20:00 Vancomycin HCl 250 ml @ 125 mls/hr Q24H IVPB Last administered on 06/08/19 22:53; Admin Dose 125 MLS/HR; Start 06/07/19 at 23:00 Vancomycin HCl (Vanco Iv Per Pharmacy) VANCOMYCIN PER PHARMACY PER PROTOCOL XX ; Start 06/09/19 at 13:00 Miscellaneous Information (*Rx Drug Level Order Reminder*) VANCO TR AT 2200 2200 ONCE XX ; Start 06/10/19 at 22:00; Stop 06/10/19 at 22:01 YAN SANDERS MD Jun 09, 2019 14:22
[2019-06-09] MEDS: CASPOFUNGIN 50 MG in SOD CHLORIDE 0.9% 250 ML IVPB SCH (15:09)
[2019-06-09] MEDS: VANCOMYCIN 1 GM 250 ML IVPB SCH (22:51)
[2019-06-10] VITALS (33 sets, daily range): BP systolic 112–159; BP diastolic 76–99; PULSE 62–82; RESP 22–25
[2019-06-10] MEDS: ACCU-CHEK XX SCH ×5 (00:28→21:00)
[2019-06-10] MEDS: ALBUTEROL HFA 8 GM INHALER INH SCH ×2 (01:24→07:41)
[2019-06-10] MEDS: IPRATROPIUM (HFA) 12.9 GM INHALER INH SCH ×2 (01:24→07:42)
[2019-06-10] MEDS: ACETYLCYSTEINE 20% 4 ML VIAL NEB SCH ×2 (01:46→07:42)
--- NOTE | 2019-06-10 06:27 | PN ---
DATE: 06/09/2019 SUBJECTIVE: No acute changes overnight. The patient is alert, looks comfortable. Denies pain at the moment: WBC 22.1, H and H 8 and 24.7, platelets 201, neutrophils 83.7, BUN 34, creatinine 0.76. INDWELLINGS: Trach, PEG, suprapubic catheter, PICC line. ANTIMICROBIALS: The patient remains on: 1. Vancomycin. 2. Cancidas. 3. Meropenem. PHYSICAL EXAMINATION: GENERAL: This is a chronically ill-appearing, middle-aged man who is alert, in no distress. HEENT: Head atraumatic, normocephalic. Sclerae anicteric. Buccal mucosa dry. NECK: Supple. CHEST: Rise symmetrical. Breath sounds diminished to bases. HEART: S1, S2. ABDOMEN: Soft, bowel sounds present. EXTREMITIES: Without cyanosis, bilateral wasting and contractures. ASSESSMENT: 1. Severe sepsis, resolving. 2. Status post bowel perforation repair and appendectomy on 06/04/2019. 3. Small-bowel obstruction, resolved. 4. Chronic respiratory failure and dysphagia. 5. Status post urinary tract infection. 6. Resolving pneumonia. 7. Neurogenic bladder. 8. Kidney mass, rule out neoplasm. PLAN: The patient remains stable on appropriate antibiotic regimen. We will keep him on vancomycin for enterococcal coverage. Continue management per surgery, gastroenterology. Dictated By: JOSIAS BELLA TRAINING AND DEVELOPMENT ASSISTANT for APOLLO MOREL MD NI/NTS Conf#: [id number] DID#: [id number] CC: TYLOR REESE MD;*EndCC* MTDD
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
[2019-06-10] MEDS: VASOPRESSIN 60 UNIT in DEXTROSE 5% 57 ML IV SCH ×2 (08:00→20:00)
[2019-06-10] MEDS: BALSAM PERU/CASTOR OIL 60 GM TUBE TOP SCH ×2 (08:33→21:00)
[2019-06-10] MEDS: FAMOTIDINE 20 MG INJ IV SCH (08:33)
[2019-06-10] MEDS: MEROPENEM 1 GM/50ML(PMX) 50 ML IVPB SCH ×2 (08:33→22:10)
[2019-06-10] MEDS: BACLOFEN 10 MG TAB NGT SCH ×3 (08:33→21:00)
[2019-06-10] MEDS: HEPARIN 5,000 UNIT/1 ML VIAL SC SCH ×2 (08:47→22:14)
--- NOTE | 2019-06-10 08:56 | CONS ---
Assessment/Plan Assessment/Plan Assessment/Plan (Daily) Ventilator setting; AC of 24, tidal volume 500, PEEP of 5, 30% FiO2. Assessment and recommendations; 1. Patient with history of quadriplegia and VDR F admitted for acute abdomen due to bowel perforation with discovery of appendicitis as well during laparotomy. 2. Mild hypernatremia. 3. Improving leukocytosis. Continue current supportive care. Maintain TPN per general surgeon. Consider transfer to medical floor. Consultation Date/Type/Reason Admit Date/Time May 28, 2019 at 06:21 Initial Consult Date 05/28/19 Type of Consult Pulmonary/critical care Patient is a pleasant 48-year-old gentleman who was [facility] with abdominal distention and vomiting. Upon evaluation here patient was hypotensive and had been diagnosed with bowel obstruction. Nasogastric tube was placed and 3200 mL of fluid was drained. Chest x-ray also was done which is showing right upper lobe infiltrate. Possibly aspiration. At the time I saw the patient in ER, patient is on ventilator via tracheostomy and is completely awake and alert. Denies any shortness of breath, abdominal pain any fever or chills. Past medical history; 1. VDRF. 2. Quadriplegia. 3. Status post tracheostomy with interval removal of G-tube. Medications; reviewed. Allergies; iodine. Social history; noncontributory. Family history; noncontributory. Occupational history; patient is disabled. Review of systems; denies any headache, shortness of breath, coughing. Complains of abdominal discomfort. Complains of nausea. Denies any fever or chills. Denies any chronic dysphagia. General exam; young male, quadriplegic. On ventilator via tracheostomy currently no distress. Requesting Provider: TYLOR REESE Date/Time of Note DATE: 06/10/19 TIME: 08:54 24 HR Interval Summary Free Text/Dictation Patient's condition is stable. Has remained hemodynamically stable. Complains of very minimal abdominal pain. Denies any nausea vomiting. Any shortness of breath. General exam; young male, awake alert, on ventilator via tracheostomy. Currently in no distress. Watching TV. Exam/Review of Systems Exam Vitals Vital Signs Date Temp Pulse Resp B/P (MAP) Pulse Ox O2 O2 Flow FiO2 Time Delivery Rate 06/10/19 98.7 72 24 154/90 100 Mechanical 08:00 (111) Ventilator 06/10/19 30 07:39 Intake and Output 06/09/19 06/09/19 06/10/19 1515:00 23:00 07:00 IntakeIntake Total 680 ml 730 ml 670 ml OutputOutput Total 410 ml 360 ml 415 ml BalanceBalance 270 ml 370 ml 255 ml Exam HEENT exam; supple neck, no JVD. No lymphadenopathy. Midline trachea. No thyromegaly. Tracheostomy in place. Patient has good dentition. Nasogastric tube in place. Chest exam; clear to auscultation. S1-S2 audible, no murmurs. Regular rhythm. Abdomen exam; soft, no organomegaly. Midline dressing in place. Bowel sounds are very sluggish to absent. There is very minimal abdominal tenderness. Extremity exam; no peripheral edema. 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 Results Result Diagram: 06/10/19 0426 06/10/19 0430 Results 24hrs Laboratory Tests Test 06/09/19 10:46 06/09/19 12:24 06/09/19 16:51 06/09/19 20:55 White Blood Count 22.1 H Red Blood Count 2.97 L Hemoglobin 8.0 L Hematocrit 24.7 L Mean Corpuscular 83.2 Volume Mean Corpuscular 26.9 L Hemoglobin Mean Corpuscular 32.4 Hemoglobin Concent Red Cell 18.5 H Distribution Width Platelet Count 201 Mean Platelet Volume 10.4 Immature 2.000 H Granulocytes % Neutrophils % 83.7 H Lymphocytes % 5.6 L Monocytes % 8.5 Eosinophils % 0.0 Basophils % 0.2 Nucleated Red Blood 0.0 Cells % Immature 0.440 H Granulocytes # Neutrophils # 18.5 H Lymphocytes # 1.2 Monocytes # 1.9 H Eosinophils # 0.0 Basophils # 0.1 Nucleated Red Blood 0.0 Cells # Bedside Glucose 101 96 84 Test 06/10/19 00:28 06/10/19 04:26 06/10/19 04:28 06/10/19 04:30 Bedside Glucose 101 94 White Blood Count 18.3 H Red Blood Count 3.06 L Hemoglobin 8.1 L Hematocrit 26.3 L Mean Corpuscular 85.9 Volume Mean Corpuscular 26.5 L Hemoglobin Mean Corpuscular 30.8 L Hemoglobin Concent Red Cell 19.7 H Distribution Width Platelet Count 230 Mean Platelet Volume 11.1 H Immature 2.900 H Granulocytes % Neutrophils % 82.4 H Lymphocytes % 6.6 L Monocytes % 7.9 Eosinophils % 0.1 Basophils % 0.1 Nucleated Red Blood 0.0 Cells % Immature 0.530 H Granulocytes # Neutrophils # 15.1 H Lymphocytes # 1.2 Monocytes # 1.4 H Eosinophils # 0.0 Basophils # 0.0 Nucleated Red Blood 0.0 Cells # Sodium Level 148 H Potassium Level 3.4 L Chloride Level 110 Carbon Dioxide Level 32 H Anion Gap 6 Blood Urea Nitrogen 32 H Creatinine 0.71 Est Glomerular > 60 Filtrat Rate mL/min Glucose Level 109 Calcium Level 7.6 L Phosphorus Level 2.7 Magnesium Level 1.7 Medications Medication Current Medications Acetaminophen (Tylenol Tab) 650 mg Q6H PRN PO .PAIN 1-3 OR TEMP Last administered on 06/03/19at 15:36; Admin Dose 650 MG; Start 05/28/19 at 06:30 Albuterol/ Ipratropium (Duoneb) 3 ml Q2H RESP THERAPY PRN NEB SHORTNESS OF BREATH; Start 05/28/19 at 10:30 Nitroglycerin (Nitroglycerin (Sl Tab) 0.4 Mg) 1 tab Q5M PRN SL CHEST PAIN; Start 05/28/19 at 10:30 Acetaminophen (Tylenol Supp) 650 mg Q4H PRN OR PAIN LEVEL 1-3 OR FEVER; Start 05/28/19 at 10:30 Bisacodyl (Dulcolax Supp) 10 mg DAILY PRN OR CONSTIPATION Last administered on 06/01/19at 08:57; Admin Dose 10 MG; Start 05/28/19 at 10:30 IV Flush (NS 3 ml) 3 ml PER PROTOCOL IV ; Start 05/28/19 at 10:30 Ondansetron HCl (Zofran Inj) 4 mg Q6H PRN IV NAUSEA/VOMITING Last administered on 06/02/19at 14:31; Admin Dose 4 MG; Start 05/28/19 at 10:30 Famotidine (Pepcid Iv) 20 mg Q12 IV Last administered on 06/10/19at 08:33; Admin Dose 20 MG; Start 05/28/19 at 21:00 Ipratropium [place] (Atrovent Hfa) 4 puff Q6H RESP THERAPY INH Last ad ministered on 06/10/19 07:42; Admin Dose 4 PUFF; Start 05/28/19 at 14:30 IV Flush (NS 10 ml) 10 ml Q8 PRN IV IV PROTOCOL Last administered on 06/02/19 06:04; Admin Dose 10 ML; Start 05/28/19 at 19:00 Acetylcysteine (Mucomyst) 3 ml Q6H RESP THERAPY NEB Last administered on 06/07/19 14:03; Admin Dose 3 ML; Start 05/29/19 at 10:00 Albuterol (Ventolin Hfa) 4 puff Q6H RESP THERAPY INH Last administered on 06/10/19 07:41; Admin Dose 4 PUFF; Start 05/29/19 at 14:00 Heparin Sodium (Porcine) (Heparin (5000 Units/1ml)) 5,000 unit BID SC Last administered on 06/10/19 08:47; Admin Dose 5,000 UNIT; Start 05/29/19 at 21:00 Baclofen (Lioresal) 5 mg TID NGT Last administered on 06/09/19 20:56; Admin Dose 5 MG; Start 05/31/19 at 13:00 Hydralazine HCl (Apresoline) 10 mg Q6H PRN IV SBP>160 Last administered on 06/01/19 08:58; Admin Dose 10 MG; Start 06/01/19 at 09:00 Simethicone (Mylicon) 80 mg Q6 PO Last administered on 06/10/19 05:16; Admin Dose 80 MG; Start 06/01/19 at 12:00 Lorazepam (Ativan) 2 mg Q4H PRN IV anxiety; Start 06/03/19 at 17:30 Meropenem/Sodium Chloride 50 ml @ 100 mls/hr Q12 IVPB Last administered on 06/10/19 08:33; Admin Dose 100 MLS/HR; Start 06/04/19 at 11:30 Miscellaneous Information 1 ea NOTE XX ; Start 06/04/19 at 18:30 Glucose (Glutose) 15 gm Q15M PRN PO DECREASED GLUCOSE; Start 06/04/19 at 18:30 Glucose (Glutose) 22.5 gm Q15M PRN PO DECREASED GLUCOSE; Start 06/04/19 at 18:30 Dextrose (D50w Syringe) 25 ml Q15M PRN IV DECREASED GLUCOSE; Start 06/04/19 at 18:30 Dextrose (D50w Syringe) 50 ml Q15M PRN IV DECREASED GLUCOSE; Start 06/04/19 at 18:30 Glucagon (Glucagen) 1 mg Q15M PRN IM DECREASED GLUCOSE; Start 06/04/19 at 18:30 Glucose (Glutose) 15 gm Q15M PRN BUCCAL DECREASED GLUCOSE; Start 06/04/19 at 18:30 Morphine Sulfate (morphine) 2 mg Q2H PRN IV SEVERE PAIN LEVEL 7-10; Start 06/04/19 at 20:30 Total Parenteral Nutrition 1,000 ml @ 60 mls/hr [id number] IV Last administered on 06/09/19at 20:57; Admin Dose 60 MLS/HR; Start 06/05/19 at 12:30 Phenylephrine HCl 80 mg/Dextrose 250 ml @ 18.75 mls/ hr TITRATE IV Last administered on 06/06/19at 14:04; Admin Dose 18.75 MLS/HR; Start 06/05/19 at 13:30 Caspofungin 50 mg/ Sodium Chloride 250 ml @ 250 mls/hr Q24H IVPB Last administered on 06/09/19at 15:09; Admin Dose 250 MLS/HR; Start 06/06/19 at 15:00 Diagnostic Test (Pha) (Accu-Chek) 1 ea Q4 XX Last administered on 06/10/19at 05:31; Admin Dose 1 EA; Start 06/05/19 at 21:00 Norepinephrine 32 mg/Dextrose 250 ml @ 0 mls/hr TITRATE IV Last administered on 06/05/19at 18:18; Admin Dose 11.25 MLS/HR; Start 06/05/19 at 18:00 Vasopressin 60 unit/Dextrose 60 ml @ 0 mls/hr Q12H IV ; Start 06/05/19 at 20:00 Vancomycin HCl 250 ml @ 125 mls/hr Q24H IVPB Last administered on 06/09/19at 22:51; Admin Dose 125 MLS/HR; Start 06/07/19 at 23:00 Vancomycin HCl (Vanco Iv Per Pharmacy) VANCOMYCIN PER PHARMACY PER PROTOCOL XX ; Start 06/09/19 at 13:00 Miscellaneous Information (*Rx Drug Level Order Reminder*) VANCO TR AT 2200 2200 ONCE XX ; Start 06/10/19 at 22:00; Stop 06/10/19 at 22:01 ROLANDO OLIVEROS Jun 10, 2019 08:56
[2019-06-10] MEDS: POLYETHYLENE GLYCOL 17 GM PACKET PO SCH ×2 (10:00→21:00)
[2019-06-10] MEDS ORDERED: NA PHOSPHATE/BIPHOS 133 ML ENEMA PR PRN (10:00)
--- NOTE | 2019-06-10 10:20 | PN ---
Date/Time of Note Date/Time of Note DATE: 06/10/19 TIME: 10:18 Assessment/Plan VTE Prophylaxis Risk score (from Ns)>0 risk: 6 SCD applied (from Nsg): Yes Pharmacological prophylaxis: heparin Lines/Catheters IV Catheter Type (from Nrsg): PICC Line Central line still needed: Yes Urinary Cath still in place: No (suprapubic catheter) Assessment/Plan Hospital Course Paraplegia Alert, oriented no distress MV via trach PEG in place RRR CTAB Abdomen firm and distended A/P: 48 yo male with paraplegia complicated by parayltic ileus, chronic respiratory failure on MV who presented with ileus, underwent PEG which was complicated by bowel perforation requiring urgent surgery Bowel perforation: - Resolved s/p OR by Dr Quinonez - Empiric abx per ID - NG management per Dr Quinonez - IV fluids//TPN for now Paralytic ileus with abdominal distension and constipation: - KUB - Bowel regimen - Daily enema Hypokalemia: - Replete as needed Chronic respiratory failure: - MV per pulmonary BHARATI: - Resolved Paraplegia: - Stable Anemia of chronic illness Result Diagram: 06/10/19 0426 06/10/19 0430 Results 24hrs Laboratory Tests Test 06/09/19 10:46 06/09/19 12:24 06/09/19 16:51 06/09/19 20:55 White Blood Count 22.1 H Red Blood Count 2.97 L Hemoglobin 8.0 L Hematocrit 24.7 L Mean Corpuscular 83.2 Volume Mean Corpuscular 26.9 L Hemoglobin Mean Corpuscular 32.4 Hemoglobin Concent Red Cell 18.5 H Distribution Width Platelet Count 201 Mean Platelet Volume 10.4 Immature 2.000 H Granulocytes % Neutrophils % 83.7 H Lymphocytes % 5.6 L Monocytes % 8.5 Eosinophils % 0.0 Basophils % 0.2 Nucleated Red Blood 0.0 Cells % Immature 0.440 H Granulocytes # Neutrophils # 18.5 H Lymphocytes # 1.2 Monocytes # 1.9 H Eosinophils # 0.0 Basophils # 0.1 Nucleated Red Blood 0.0 Cells # Bedside Glucose 101 96 84 Test 06/10/19 00:28 06/10/19 04:26 06/10/19 04:28 06/10/19 04:30 Bedside Glucose 101 94 White Blood Count 18.3 H Red Blood Count 3.06 L Hemoglobin 8.1 L Hematocrit 26.3 L Mean Corpuscular 85.9 Volume Mean Corpuscular 26.5 L Hemoglobin Mean Corpuscular 30.8 L Hemoglobin Concent Red Cell 19.7 H Distribution Width Platelet Count 230 Mean Platelet Volume 11.1 H Immature 2.900 H Granulocytes % Neutrophils % 82.4 H Lymphocytes % 6.6 L Monocytes % 7.9 Eosinophils % 0.1 Basophils % 0.1 Nucleated Red Blood 0.0 Cells % Immature 0.530 H Granulocytes # Neutrophils # 15.1 H Lymphocytes # 1.2 Monocytes # 1.4 H Eosinophils # 0.0 Basophils # 0.0 Nucleated Red Blood 0.0 Cells # Sodium Level 148 H Potassium Level 3.4 L Chloride Level 110 Carbon Dioxide Level 32 H Anion Gap 6 Blood Urea Nitrogen 32 H Creatinine 0.71 Est Glomerular > 60 Filtrat Rate mL/min Glucose Level 109 Calcium Level 7.6 L Phosphorus Level 2.7 Magnesium Level 1.7 Subjective 24 Hr Interval Summary Free Text/Dictation Had numerous BMs overnight Denies complaints today Feels his normal self Exam/Review of Systems Exam Vitals Vital Signs Date Temp Pulse Resp B/P (MAP) Pulse Ox O2 O2 Flow FiO2 Time Delivery Rate 06/10/19 71 24 100 30 09:21 06/10/19 98.7 154/90 Mechanical 08:00 (111) Ventilator Intake and Output 06/09/19 06/09/19 06/10/19 1515:00 23:00 07:00 IntakeIntake Total 680 ml 730 ml 670 ml OutputOutput Total 410 ml 360 ml 415 ml BalanceBalance 270 ml 370 ml 255 ml Results Results 24hrs Laboratory Tests Test 06/09/19 10:46 06/09/19 12:24 06/09/19 16:51 06/09/19 20:55 White Blood Count 22.1 H Red Blood Count 2.97 L Hemoglobin 8.0 L Hematocrit 24.7 L Mean Corpuscular 83.2 Volume Mean Corpuscular 26.9 L Hemoglobin Mean Corpuscular 32.4 Hemoglobin Concent Red Cell 18.5 H Distribution Width Platelet Count 201 Mean Platelet Volume 10.4 Immature 2.000 H Granulocytes % Neutrophils % 83.7 H Lymphocytes % 5.6 L Monocytes % 8.5 Eosinophils % 0.0 Basophils % 0.2 Nucleated Red Blood 0.0 Cells % Immature 0.440 H Granulocytes # Neutrophils # 18.5 H Lymphocytes # 1.2 Monocytes # 1.9 H Eosinophils # 0.0 Basophils # 0.1 Nucleated Red Blood 0.0 Cells # Bedside Glucose 101 96 84 Test 06/10/19 00:28 06/10/19 04:26 06/10/19 04:28 06/10/19 04:30 Bedside Glucose 101 94 White Blood Count 18.3 H Red Blood Count 3.06 L Hemoglobin 8.1 L Hematocrit 26.3 L Mean Corpuscular 85.9 Volume Mean Corpuscular 26.5 L Hemoglobin Mean Corpuscular 30.8 L Hemoglobin Concent Red Cell 19.7 H Distribution Width Platelet Count 230 Mean Platelet Volume 11.1 H Immature 2.900 H Granulocytes % Neutrophils % 82.4 H Lymphocytes % 6.6 L Monocytes % 7.9 Eosinophils % 0.1 Basophils % 0.1 Nucleated Red Blood 0.0 Cells % Immature 0.530 H Granulocytes # Neutrophils # 15.1 H Lymphocytes # 1.2 Monocytes # 1.4 H Eosinophils # 0.0 Basophils # 0.0 Nucleated Red Blood 0.0 Cells # Sodium Level 148 H Potassium Level 3.4 L Chloride Level 110 Carbon Dioxide Level 32 H Anion Gap 6 Blood Urea Nitrogen 32 H Creatinine 0.71 Est Glomerular > 60 Filtrat Rate mL/min Glucose Level 109 Calcium Level 7.6 L Phosphorus Level 2.7 Magnesium Level 1.7 Medications Medication Current Medications Acetaminophen (Tylenol Tab) 650 mg Q6H PRN PO .PAIN 1-3 OR TEMP Last administered on 06/03/19at 15:36; Admin Dose 650 MG; Start 05/28/19 at 06:30 Albuterol/ Ipratropium (Duoneb) 3 ml Q2H RESP THERAPY PRN NEB SHORTNESS OF BREATH; Start 05/28/19 at 10:30 Nitroglycerin (Nitroglycerin (Sl Tab) 0.4 Mg) 1 tab Q5M PRN SL CHEST PAIN; Start 05/28/19 at 10:30 Acetaminophen (Tylenol Supp) 650 mg Q4H PRN [place] PAIN LEVEL 1-3 OR FEVER; Start 05/28/19 at 10:30 Bisacodyl (Dulcolax Supp) 10 mg DAILY PRN [place] CONSTIPATION Last administered on 06/01/19at 08:57; Admin Dose 10 MG; Start 05/28/19 at 10:30 IV Flush (NS 3 ml) 3 ml PER PROTOCOL IV ; Start 05/28/19 at 10:30 Ondansetron HCl (Zofran Inj) 4 mg Q6H PRN IV NAUSEA/VOMITING Last administered on 06/02/19at 14:31; Admin Dose 4 MG; Start 05/28/19 at 10:30 IV Flush (NS 10 ml) 10 ml Q8 PRN IV IV PROTOCOL Last administered on 06/02/19at 06:04; Admin Dose 10 ML; Start 05/28/19 at 19:00 Heparin Sodium (Porcine) (Heparin (5000 Units/1ml)) 5,000 unit BID SC Last administered on 06/10/19 08:47; Admin Dose 5,000 UNIT; Start 05/29/19 at 21:00 Baclofen (Lioresal) 5 mg TID NGT Last administered on 06/09/19at 20:56; Admin Dose 5 MG; Start 05/31/19 at 13:00 Hydralazine HCl (Apresoline) 10 mg Q6H PRN IV SBP>160 Last administered on 06/01/19at 08:58; Admin Dose 10 MG; Start 06/01/19 at 09:00 Simethicone (Mylicon) 80 mg Q6 PO Last administered on 06/10/19 05:16; Admin Dose 80 MG; Start 06/01/19 at 12:00 Lorazepam (Ativan) 2 mg Q4H PRN IV anxiety; Start 06/03/19 at 17:30 Meropenem/Sodium Chloride 50 ml @ 100 mls/hr Q12 IVPB Last administered on 06/10/19at 08:33; Admin Dose 100 MLS/HR; Start 06/04/19 at 11:30 Miscellaneous Information 1 ea NOTE XX ; Start 06/04/19 at 18:30 Glucose (Glutose) 15 gm Q15M PRN PO DECREASED GLUCOSE; Start 06/04/19 at 18:30 Glucose (Glutose) 22.5 gm Q15M PRN PO DECREASED GLUCOSE; Start 06/04/19 at 18:30 Dextrose (D50w Syringe) 25 ml Q15M PRN IV DECREASED GLUCOSE; Start 06/04/19 at 18:30 Dextrose (D50w Syringe) 50 ml Q15M PRN IV DECREASED GLUCOSE; Start 06/04/19 at 18:30 Glucagon (Glucagen) 1 mg Q15M PRN IM DECREASED GLUCOSE; Start 06/04/19 at 18:30 Glucose (Glutose) 15 gm Q15M PRN BUCCAL DECREASED GLUCOSE; Start 06/04/19 at 18:30 Morphine Sulfate (morphine) 2 mg Q2H PRN IV SEVERE PAIN LEVEL 7-10; Start 06/04/19 at 20:30 Total Parenteral Nutrition 1,000 ml @ 60 mls/hr [id number] IV Last administered on 06/09/19at 20:57; Admin Dose 60 MLS/HR; Start 06/05/19 at 12:30 Phenylephrine HCl 80 mg/Dextrose 250 ml @ 18.75 mls/ hr TITRATE IV Last administered on 06/06/19at 14:04; Admin Dose 18.75 MLS/HR; Start 06/05/19 at 1 3:30 Caspofungin 50 mg/ Sodium Chloride 250 ml @ 250 mls/hr Q24H IVPB Last administered on 06/09/19at 15:09; Admin Dose 250 MLS/HR; Start 06/06/19 at 15:00 Diagnostic Test (Pha) (Accu-Chek) 1 ea Q4 XX Last administered on 06/10/19at 05:31; Admin Dose 1 EA; Start 06/05/19 at 21:00 Norepinephrine 32 mg/Dextrose 250 ml @ 0 mls/hr TITRATE IV Last administered on 06/05/19at 18:18; Admin Dose 11.25 MLS/HR; Start 06/05/19 at 18:00 Vasopressin 60 unit/Dextrose 60 ml @ 0 mls/hr Q12H IV ; Start 06/05/19 at 20:00 Vancomycin HCl 250 ml @ 125 mls/hr Q24H IVPB Last administered on 06/09/19at 22:51; Admin Dose 125 MLS/HR; Start 06/07/19 at 23:00 Vancomycin HCl (Vanco Iv Per Pharmacy) VANCOMYCIN PER PHARMACY PER PROTOCOL XX ; Start 06/09/19 at 13:00 Miscellaneous Information (*Rx Drug Level Order Reminder*) VANCO TR AT 2200 2200 ONCE XX ; Start 06/10/19 at 22:00; Stop 06/10/19 at 22:01 Polyethylene Glycol (Miralax) 17 gm BID PO ; Start 06/10/19 at 10:00 Sodium Biphosphate/ Sodium Phosphate (Fleet Enema) 133 ml DAILY PRN [place] CONSTIPATION; Start 06/10/19 at 10:00 YAN SANDERS MD Jun 10, 2019 10:20
[2019-06-10] MEDS ORDERED: POTASSIUM CHLORIDE 20 MEQ /SW 100 ML IVPB ONE (10:30)
--- NOTE | 2019-06-10 13:08 | PN ---
Date/Time of Note Date/Time of Note DATE: 06/10/19 TIME: 13:05 Assessment/Plan VTE Prophylaxis Risk score (from Nsg)>0 risk: 6 SCD applied (from Nsg): Yes Pharmacological prophylaxis: heparin Lines/Catheters IV Catheter Type (from Nrsg): PICC Line Central line still needed: Yes (TPN) Urinary Cath still in place: No (Suprapubic Catheter) Assessment/Plan Hospital Course Assessment/Plan (Daily) Assessment: Acute abdomen secondary to perforated small bowel after PEG tube placement- s/p repair of small bowel Perforated appendix- s/p appendectomy Sepsis- 2/2 to above Acute on chronic RD on MV- FiO2 increased 100% BHARATI Recurrent small bowel obstruction Quadriplegia Abdominal gas UTI Pneumonia Neurogenic bladder- suprapubic catheter Plan: Slight increase in distension- KUB already ordered and currently pending NGT/G-tube suction- per surgery Continue TPN Close observation Supportive care Patient seen in collaboration Dr. Hall Subjective: Course reviewed with nursing staff Patient interviewed and examined No over night events, WBC trending down Patient is afebrile , with good UOP. Abd appears slightly more distended today- patient states cannot feel abd pain KUB ordered- currently pending Exam PHYSICAL EXAMINATION: GENERAL: Quadriplegic, trached on MV, alert & oriented x 4 SKIN: Midline incision HEAD: Normocephalic, atraumatic, no tenderness. EYES: Pupils equal reactive to light, no discharge. EARS/NOSE AND THROAT: Ears normal, nose normal, oropharynx normal, oral membranes well hydrated without lesions. NECK: Supple, no masses CHEST: Inspection within normal limits. CARDIOVASCULAR: Heart: Regular rate and rhythm RESPIRATORY: Lungs clear to auscultation. GASTROINTESTINAL AND LIVER: Abdomen: Soft, distension , no hernias, no masses, no organomegaly, no ascites, no guarding, no rebound tenderness, extremely hypo active distant BS. Rectal: Deferred. GENITOURINARY: Male genitalia within normal limits. suprapubic catheter Result Diagram: 06/10/19 0426 06/10/19 0430 Results 24hrs Laboratory Tests Test 06/09/19 16:51 06/09/19 20:55 06/10/19 00:28 06/10/19 04:26 Bedside Glucose 96 84 101 White Blood Count 18.3 H Red Blood Count 3.06 L Hemoglobin 8.1 L Hematocrit 26.3 L Mean Corpuscular 85.9 Volume Mean Corpuscular 26.5 L Hemoglobin Mean Corpuscular 30.8 L Hemoglobin Concent Red Cell 19.7 H Distribution Width Platelet Count 230 Mean Platelet Volume 11.1 H Immature 2.900 H Granulocytes % Neutrophils % 82.4 H Lymphocytes % 6.6 L Monocytes % 7.9 Eosinophils % 0.1 Basophils % 0.1 Nucleated Red Blood 0.0 Cells % Immature 0.530 H Granulocytes # Neutrophils # 15.1 H Lymphocytes # 1.2 Monocytes # 1.4 H Eosinophils # 0.0 Basophils # 0.0 Nucleated Red Blood 0.0 Cells # Test 06/10/19 04:28 06/10/19 04:30 Bedside Glucose 94 Sodium Level 148 H Potassium Level 3.4 L Chloride Level 110 Carbon Dioxide Level 32 H Anion Gap 6 Blood Urea Nitrogen 32 H Creatinine 0.71 Est Glomerular > 60 Filtrat Rate mL/min Glucose Level 109 Calcium Level 7.6 L Phosphorus Level 2.7 Magnesium Level 1.7 Exam/Review of Systems Exam Vitals Vital Signs Date Temp Pulse Resp B/P (MAP) Pulse Ox O2 O2 Flow FiO2 Time Delivery Rate 06/10/19 98.2 65 24 132/94 99 Mechanical 12:00 (107) Ventilator 06/10/19 30 11:03 Intake and Output 06/09/19 06/09/19 06/10/19 1515:00 23:00 07:00 IntakeIntake Total 680 ml 730 ml 730 ml OutputOutput Total 410 ml 360 ml 480 ml BalanceBalance 270 ml 370 ml 250 ml Results Results 24hrs Laboratory Tests Test 06/09/19 16:51 06/09/19 20:55 06/10/19 00:28 06/10/19 04:26 Bedside Glucose 96 84 101 White Blood Count 18.3 H Red Blood Count 3.06 L Hemoglobin 8.1 L Hematocrit 26.3 L Mean Corpuscular 85.9 Volume Mean Corpuscular 26.5 L Hemoglobin Mean Corpuscular 30.8 L Hemoglobin Concent Red Cell 19.7 H Distribution Width Platelet Count 230 Mean Platelet Volume 11.1 H Immature 2.900 H Granulocytes % Neutrophils % 82.4 H Lymphocytes % 6.6 L Monocytes % 7.9 Eosinophils % 0.1 Basophils % 0.1 Nucleated Red Blood 0.0 Cells % Immature 0.530 H Granulocytes # Neutrophils # 15.1 H Lymphocytes # 1.2 Monocytes # 1.4 H Eosinophils # 0.0 Basophils # 0.0 Nucleated Red Blood 0.0 Cells # Test 06/10/19 04:28 06/10/19 04:30 Bedside Glucose 94 Sodium Level 148 H Potassium Level 3.4 L Chloride Level 110 Carbon Dioxide Level 32 H Anion Gap 6 Blood Urea Nitrogen 32 H Creatinine 0.71 Est Glomerular > 60 Filtrat Rate mL/min Glucose Level 109 Calcium Level 7.6 L Phosphorus Level 2.7 Magnesium Level 1.7 Medications Medication Current Medications Acetaminophen (Tylenol Tab) 650 mg Q6H PRN PO .PAIN 1-3 OR TEMP Last administered on 06/03/19at 15:36; Admin Dose 650 MG; Start 05/28/19 at 06:30 Albuterol/ Ipratropium (Duoneb) 3 ml Q2H RESP THERAPY PRN NEB SHORTNESS OF BREATH; Start 05/28/19 at 10:30 Nitroglycerin (Nitroglycerin (Sl Tab) 0.4 Mg) 1 tab Q5M PRN SL CHEST PAIN; Start 05/28/19 at 10:30 Acetaminophen (Tylenol Supp) 650 mg Q4H PRN [place] PAIN LEVEL 1-3 OR FEVER; Start 05/28/19 at 10:30 Bisacodyl (Dulcolax Supp) 10 mg DAILY PRN [place] CONSTIPATION Last administered on 06/01/19at 08:57; Admin Dose 10 MG; Start 05/28/19 at 10:30 IV Flush (NS 3 ml) 3 ml PER PROTOCOL IV ; Start 05/28/19 at 10:30 Ondansetron HCl (Zofran Inj) 4 mg Q6H PRN IV NAUSEA/VOMITING Last administered on 06/02/19at 14:31; Admin Dose 4 MG; Start 05/28/19 at 10:30 IV Flush (NS 10 ml) 10 ml Q8 PRN IV IV PROTOCOL Last administered on 06/02/19at 06:04; Admin Dose 10 ML; Start 05/28/19 at 19:00 Heparin Sodium (Porcine) (Heparin (5000 Units/1ml)) 5,000 unit BID SC Last administered on 06/10/19at 08:47; Admin Dose 5,000 UNIT; Start 05/29/19 at 21:00 Baclofen (Lioresal) 5 mg TID NGT Last administered on 06/09/19 20:56; Admin Dose 5 MG; Start 05/31/19 at 13:00 Hydralazine HCl (Apresoline) 10 mg Q6H PRN IV SBP>160 Last administered on 06/01/19 08:58; Admin Dose 10 MG; Start 06/01/19 at 09:00 Simethicone (Mylicon) 80 mg Q6 PO Last administered on 06/10/19 05:16; Admin Dose 80 MG; Start 06/01/19 at 12:00 Lorazepam (Ativan) 2 mg Q4H PRN IV anxiety; Start 06/03/19 at 17:30 Meropenem/Sodium Chloride 50 ml @ 100 mls/hr Q12 IVPB Last administered on 06/10/19 08:33; Admin Dose 100 MLS/HR; Start 06/04/19 at 11:30 Miscellaneous Information 1 ea NOTE XX ; Start 06/04/19 at 18:30 Glucose (Glutose) 15 gm Q15M PRN PO DECREASED GLUCOSE; Start 06/04/19 at 18:30 Glucose (Glutose) 22.5 gm Q15M PRN PO DECREASED GLUCOSE; Start 06/04/19 at 18:30 Dextrose (D50w Syringe) 25 ml Q15M PRN IV DECREASED GLUCOSE; Start 06/04/19 at 18:30 Dextrose (D50w Syringe) 50 ml Q15M PRN IV DECREASED GLUCOSE; Start 06/04/19 at 18:30 Glucagon (Glucagen) 1 mg Q15M PRN IM DECREASED GLUCOSE; Start 06/04/19 at 18:30 Glucose (Glutose) 15 gm Q15M PRN BUCCAL DECREASED GLUCOSE; Start 06/04/19 at 18:30 Morphine Sulfate (morphine) 2 mg Q2H PRN IV SEVERE PAIN LEVEL 7-10; Start 06/04/19 at 20:30 Total Parenteral Nutrition 1,000 ml @ 60 mls/hr [id number] IV Last administered on 06/09/19 20:57; Admin Dose 60 MLS/HR; Start 06/05/19 at 12:30 Phenylephrine HCl 80 mg/Dextrose 250 ml @ 18.75 mls/ hr TITRATE IV Last administered on 06/06/19 14:04; Admin Dose 18.75 MLS/HR; Start 06/05/19 at 13:30 Caspofungin 50 mg/ Sodium Chloride 250 ml @ 250 mls/hr Q24H IVPB Last admi nistered on 06/09/19at 15:09; Admin Dose 250 MLS/HR; Start 06/06/19 at 15:00 Diagnostic Test (Pha) (Accu-Chek) 1 ea Q4 XX Last administered on 06/10/19at 05:31; Admin Dose 1 EA; Start 06/05/19 at 21:00 Norepinephrine 32 mg/Dextrose 250 ml @ 0 mls/hr TITRATE IV Last administered on 06/05/19at 18:18; Admin Dose 11.25 MLS/HR; Start 06/05/19 at 18:00 Vasopressin 60 unit/Dextrose 60 ml @ 0 mls/hr Q12H IV ; Start 06/05/19 at 20:00 Vancomycin HCl 250 ml @ 125 mls/hr Q24H IVPB Last administered on 06/09/19at 22:51; Admin Dose 125 MLS/HR; Start 06/07/19 at 23:00 Vancomycin HCl (Vanco Iv Per Pharmacy) VANCOMYCIN PER PHARMACY PER PROTOCOL XX ; Start 06/09/19 at 13:00 Miscellaneous Information (*Rx Drug Level Order Reminder*) VANCO TR AT 2200 2200 ONCE XX ; Start 06/10/19 at 22:00; Stop 06/10/19 at 22:01 Polyethylene Glycol (Miralax) 17 gm BID PO ; Start 06/10/19 at 10:00 Sodium Biphosphate/ Sodium Phosphate (Fleet Enema) 133 ml DAILY PRN [place] CONSTIPATION; Start 06/10/19 at 10:00 HOWARD MARRERO Jun 10, 2019 13:08
[2019-06-10] MEDS: CASPOFUNGIN 50 MG in SOD CHLORIDE 0.9% 250 ML IVPB SCH (16:32)
[2019-06-10] MEDS: TPN 1,000 ML IV SCH (16:52)
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
[2019-06-11] VITALS (19 sets, daily range): BP systolic 120–166; BP diastolic 62–93; PULSE 71–98; RESP 20–24
[2019-06-11] MEDS: VANCOMYCIN 1 GM 250 ML IVPB SCH (00:47)
[2019-06-11] MEDS: ACCU-CHEK XX SCH ×2 (03:00→09:30)
[2019-06-11] MEDS: TPN 1,000 ML IV SCH (05:20)
--- NOTE | 2019-06-11 06:57 | PN ---
DATE: 06/10/2019 SUBJECTIVE: No acute changes. The patient is awake, looks comfortable. Denies pain, no fevers over night. He remains on TPN. WBC decreasing today 18.3, with neutrophils 82.4, BUN 32, creatinine 0.71 . A KUB revealed nonspecific, relatively ____ abdomen, ileus or bowel obstruction excluded. INDWELLINGS: Trach, PEG, NG tube, Omalley catheter, PICC line. ANTIMICROBIALS: The patient remains on: 1. IV vancomycin. 2. Cancidas. 3. Meropenem. PHYSICAL EXAMINATION: GENERAL: This is a chronically ill-appearing, middle-aged man who is awake, in no d istress. HEENT: Head atraumatic, normocephalic. NECK: Supple. Tracheostomy present. CHEST: Rise is symmetrical. Breath sounds diminished to bases. HEART: S1, S2. ABDOMEN: Distended. Bowel sounds hypoactive. EXTREMITIES: Wasted, contractured. ASSESSMENT: 1. Resolving sepsis. 2. Status post bowel perforation repair with appendectomy on 06/04/2019. 3. Resolving pneumonia. 4. Status post urinary tract infection. 5. Quadriplegia with chronic suprapubic catheter secondary to neurogenic bladder. 6. Kidney mass, rule out malignancy. PLAN: The patient remains stable, covered with appropriate antibiotics. Continue present care, TPN. Follow surgical recommendations. Dictated By: JOSIAS BELLA ACCOUNTING METHODS ANALYST for APOLLO MOREL MD NI/NTS Conf#: [id number] DID#: [id number]
--- NOTE | 2019-06-11 07:39 | QN ---
Documentation Comment Postoperative day #7 Abdomen is soft and flat Tolerating NG tube clamping Leukocytosis markedly improved Plan: Start NG tube feedings ZENA CALDERÓN MD Jun 11, 2019 07:39
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
[2019-06-11] MEDS: BACLOFEN 10 MG TAB NGT SCH ×4 (09:00→20:43)
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
--- NOTE | 2019-06-11 09:23 | CONS ---
Consult Date/Type/Reason Admit Date/Time May 28, 2019 at 06:21 Initial Consult Date 05/30/19 Type of Consult Pulmonary Requesting Provider: TYLOR REESE Date/Time of Note DATE: 06/11/19 TIME: 09:22 Subjective Transferred out of ICU yesterday appears comfortable this morning no respiratory distress. Objective Vital Signs Date Temp Pulse Resp B/P (MAP) Pulse Ox O2 O2 Flow FiO2 Time Delivery Rate 06/11/19 66 24 99 30 08:16 06/11/19 98.0 166/93 Mechanical 08:12 (117) Ventilator Trach Collar Intake and Output 06/10/19 06/10/19 06/11/19 1515:00 23:00 07:00 IntakeIntake Total 470 ml 370 ml OutputOutput Total 550 ml 150 ml 250 ml BalanceBalance -80 ml 220 ml -250 ml Exam GENERAL: Chronically ill-appearing gentleman on mechanical ventilation via tracheostomy VITAL SIGNS: per chart NECK: Supple. No JVD or lymphadenopathy. CARDIAC EXAM: S1, S2. No added sounds or murmurs. CHEST: Diminished breath sounds bilaterally ABDOMEN: Diminished bowel sounds EXTREMITIES: No cyanosis, clubbing or edema. NEUROLOGIC: Quadriplegia Vent Setting Ventilator Support Mode: AC Fraction of Inspired Oxygen pe: 30 Positive End Expiratory Pressu: 5.0 Results/Medications Result Diagram: 06/11/19 0844 06/11/19 0524 Results 24 hrs Laboratory Tests Test 06/10/19 21:57 06/10/19 22:24 06/11/19 05:24 06/11/19 08:22 Vancomycin Level 15.7 Trough Bedside Glucose 88 97 Sodium Level 151 H Potassium Level 3.5 Chloride Level 117 H Carbon Dioxide Level 28 Anion Gap 6 Blood Urea Nitrogen 30 H Creatinine 0.73 Est Glomerular > 60 Filtrat Rate mL/min Glucose Level 81 Calcium Level 7.4 L Phosphorus Level 2.7 Magnesium Level 1.8 Test 06/11/19 08:44 White Blood Count 20.4 H Red Blood Count 3.21 L Hemoglobin 8.4 L Hematocrit 27.7 L Mean Corpuscular 86.3 Volume Mean Corpuscular 26.2 L Hemoglobin Mean Corpuscular 30.3 L Hemoglobin Concent Red Cell 21.0 H Distribution Width Platelet Count 271 Mean Platelet Volume 11.5 H Immature 2.400 H Granulocytes % Neutrophils % 83.9 H Lymphocytes % 6.8 L Monocytes % 6.7 Eosinophils % 0.1 Basophils % 0.1 Nucleated Red Blood 0.0 Cells % Immature 0.500 H Granulocytes # Neutrophils # 17.1 H Lymphocytes # 1.4 Monocytes # 1.4 H Eosinophils # 0.0 Basophils # 0.0 Nucleated Red Blood 0.0 Cells # Medications Current Medications Acetaminophen (Tylenol Tab) 650 mg Q6H PRN PO .PAIN 1-3 OR TEMP Last administered on 06/03/19at 15:36; Admin Dose 650 MG; Start 05/28/19 at 06:30 Albuterol/ Ipratropium (Duoneb) 3 ml Q2H RESP THERAPY PRN NEB SHORTNESS OF BREATH; Start 05/28/19 at 10:30 Nitroglycerin (Nitroglycerin (Sl Tab) 0.4 Mg) 1 tab Q5M PRN SL CHEST PAIN; Start 05/28/19 at 10:30 Acetaminophen (Tylenol Supp) 650 mg Q4H PRN IN PAIN LEVEL 1-3 OR FEVER; Start 05/28/19 at 10:30 Bisacodyl (Dulcolax Supp) 10 mg DAILY PRN IN CONSTIPATION Last administered on 06/01/19at 08:57; Admin Dose 10 MG; Start 05/28/19 at 10:30 IV Flush (NS 3 ml) 3 ml PER PROTOCOL IV ; Start 05/28/19 at 10:30 Ondansetron HCl (Zofran Inj) 4 mg Q6H PRN IV NAUSEA/VOMITING Last administered on 06/02/19at 14:31; Admin Dose 4 MG; Start 05/28/19 at 10:30 IV Flush (NS 10 ml) 10 ml Q8 PRN IV IV PROTOCOL Last administered on 06/02/19at 06:04; Admin Dose 10 ML; Start 05/28/19 at 19:00 Heparin Sodium (Porcine) (Heparin (5000 Units/1ml)) 5,000 unit BID SC Last administered on 06/10/19at 22:14; Admin Dose 5,000 UNIT; Start 05/29/19 at 21:00 Baclofen (Lioresal) 5 mg TID NGT Last administered on 06/09/19at 20:56; Admin Dose 5 MG; Start 05/31/19 at 13:00 Hydralazine HCl (Apresoline) 10 mg Q6H PRN IV SBP>160 Last administered on 06/01/19 08:58; Admin Dose 10 MG; Start 06/01/19 at 09:00 Simethicone (Mylicon) 80 mg Q6 PO Last administered on 06/10/19 05:16; Admin Dose 80 MG; Start 06/01/19 at 12:00 Lorazepam (Ativan) 2 mg Q4H PRN IV anxiety; Start 06/03/19 at 17:30 Meropenem/Sodium Chloride 50 ml @ 100 mls/hr Q12 IVPB Last administered on 06/10/19 22:10; Admin Dose 100 MLS/HR; Start 06/04/19 at 11:30 Miscellaneous Information 1 ea NOTE XX ; Start 06/04/19 at 18:30 Glucose (Glutose) 15 gm Q15M PRN PO DECREASED GLUCOSE; Start 06/04/19 at 18:30 Glucose (Glutose) 22.5 gm Q15M PRN PO DECREASED GLUCOSE; Start 06/04/19 at 18:30 Dextrose (D50w Syringe) 25 ml Q15M PRN IV DECREASED GLUCOSE; Start 06/04/19 at 18:30 Dextrose (D50w Syringe) 50 ml Q15M PRN IV DECREASED GLUCOSE; Start 06/04/19 at 18:30 Glucagon (Glucagen) 1 mg Q15M PRN IM DECREASED GLUCOSE; Start 06/04/19 at 18:30 Glucose (Glutose) 15 gm Q15M PRN BUCCAL DECREASED GLUCOSE; Start 06/04/19 at 18:30 Morphine Sulfate (morphine) 2 mg Q2H PRN IV SEVERE PAIN LEVEL 7-10; Start 06/04/19 at 20:30 Total Parenteral Nutrition 1,000 ml @ 60 mls/hr [id number] IV Last administered on 06/10/19at 16:52; Admin Dose 60 MLS/HR; Start 06/05/19 at 12:30 Caspofungin 50 mg/ Sodium Chloride 250 ml @ 250 mls/hr Q24H IVPB Last administered on 06/10/19at 16:32; Admin Dose 250 MLS/HR; Start 06/06/19 at 15:00 Vancomycin HCl 250 ml @ 125 mls/hr Q24H IVPB Last administered on 06/11/19 00:47; Admin Dose 125 MLS/HR; Start 06/07/19 at 23:00 Vancomycin HCl (Vanco Iv Per Pharmacy) VANCOMYCIN PER PHARMACY PER PROTOCOL XX ; Start 06/09/19 at 13:00 Polyethylene Glycol (Miralax) 17 gm BID PO ; Start 06/10/19 at 10:00 Sodium Biphosphate/ Sodium Phosphate (Fleet Enema) 133 ml DAILY PRN IN CONSTIPATION; Start 06/10/19 at 10:00 Diagnostic Test (Pha) (Accu-Chek) 1 ea Q6H XX ; Start 06/10/19 at 21:00 Assessment/Plan Hospital Course (Demo Recall) Assessment 1. Acute abdomen secondary to perforated bowel following PEG tube placement 2. Vent dependent respiratory failure 3. History of quadriplegia 4. Status post septic shock requiring vasopressors possible component of adrenal insufficiency, decreased vasopressor requirements. 5. Neurogenic bladder with suprapubic catheter Plan 1. Continue mechanical ventilation 2. Postop surgical recommendations 3. Urology recommendations noted 4. Postop antibiotics 5. DVT GI prophylaxis 6. Continues TPN Transfer to [facility]. CARYN PERLA MD, [facility] Jun 11, 2019 09:23
[2019-06-11] MEDS: MEROPENEM 1 GM/50ML(PMX) 50 ML IVPB SCH ×2 (09:31→20:43)
[2019-06-11] MEDS: HEPARIN 5,000 UNIT/1 ML VIAL SC SCH ×2 (09:36→20:44)
[2019-06-11] MEDS ORDERED: DEXTROSE 5% 1,000 ML IV ONE (10:30)
[2019-06-11] MEDS: POLYETHYLENE GLYCOL 17 GM PACKET PO SCH ×2 (13:48→20:43)
[2019-06-11] MEDS: BALSAM PERU/CASTOR OIL 60 GM TUBE TOP SCH ×2 (13:49→20:45)
[2019-06-11] MEDS: CASPOFUNGIN 50 MG in SOD CHLORIDE 0.9% 250 ML IVPB SCH (15:31)
--- NOTE | 2019-06-11 15:44 | PN ---
Date/Time of Note Date/Time of Note DATE: 06/11/19 TIME: 15:43 Assessment/Plan VTE Prophylaxis Risk score (from Nsg)>0 risk: 6 SCD applied (from Nsg): Yes Pharmacological prophylaxis: heparin Lines/Catheters IV Catheter Type (from Nrsg): PICC Line Central line still needed: Yes Urinary Cath still in place: No Assessment/Plan Hospital Course Paraplegia NG tube Alert, oriented no distress MV via trach PEG in place RRR CTAB Abdomen firm and distended A/P: 48 yo male with paraplegia complicated by parayltic ileus, chronic respiratory failure on MV who presented with ileus, underwent PEG which was complicated by bowel perforation requiring urgent surgery Bowel perforation: - Resolved s/p OR by Dr Quinonez - Empiric abx per ID - NG management per Dr Quinonez - Started on tube feeds today Hypernatremia: - FW repletion Paralytic ileus with abdominal distension and constipation: - Bowel regimen - Daily enema Hypokalemia: - Replete as needed Chronic respiratory failure: - MV per pulmonary BHARATI: - Resolved Paraplegia: - Stable Anemia of chronic illness Dispo: To SNF when stable Result Diagram: 06/11/19 0844 06/11/19 0524 Results 24hrs Laboratory Tests Test 06/10/19 21:57 06/10/19 22:24 06/11/19 05:24 06/11/19 08:22 Vancomycin Level 15.7 Trough Bedside Glucose 88 97 Sodium Level 151 H Potassium Level 3.5 Chloride Level 117 H Carbon Dioxide Level 28 Anion Gap 6 Blood Urea Nitrogen 30 H Creatinine 0.73 Est Glomerular > 60 Filtrat Rate mL/min Glucose Level 81 Calcium Level 7.4 L Phosphorus Level 2.7 Magnesium Level 1.8 Test 06/11/19 08:44 White Blood Count 20.4 H Red Blood Count 3.21 L Hemoglobin 8.4 L Hematocrit 27.7 L Mean Corpuscular 86.3 Volume Mean Corpuscular 26.2 L Hemoglobin Mean Corpuscular 30.3 L Hemoglobin Concent Red Cell 21.0 H Distribution Width Platelet Count 271 Mean Platelet Volume 11.5 H Immature 2.400 H Granulocytes % Neutrophils % 83.9 H Lymphocytes % 6.8 L Monocytes % 6.7 Eosinophils % 0.1 Basophils % 0.1 Nucleated Red Blood 0.0 Cells % Immature 0.500 H Granulocytes # Neutrophils # 17.1 H Lymphocytes # 1.4 Monocytes # 1.4 H Eosinophils # 0.0 Basophils # 0.0 Nucleated Red Blood 0.0 Cells # Subjective 24 Hr Interval Summary Free Text/Dictation Doing well Per Dr Quinonez started on tube feeds Exam/Review of Systems Exam Vitals Vital Signs Date Temp Pulse Resp B/P (MAP) Pulse Ox O2 O2 Flow FiO2 Time Delivery Rate 06/11/19 99.3 90 22 120/62 96 Mechanical 15:39 (81) Ventilator Trach Collar 06/11/19 30 08:16 Intake and Output 06/10/19 06/10/19 06/11/19 1515:00 23:00 07:00 IntakeIntake Total 470 ml 370 ml OutputOutput Total 550 ml 150 ml 250 ml BalanceBalance -80 ml 220 ml -250 ml Results Results 24hrs Laboratory Tests Test 06/10/19 21:57 06/10/19 22:24 06/11/19 05:24 06/11/19 08:22 Vancomycin Level 15.7 Trough Bedside Glucose 88 97 Sodium Level 151 H Potassium Level 3.5 Chloride Level 117 H Carbon Dioxide Level 28 Anion Gap 6 Blood Urea Nitrogen 30 H Creatinine 0.73 Est Glomerular > 60 Filtrat Rate mL/min Glucose Level 81 Calcium Level 7.4 L Phosphorus Level 2.7 Magnesium Level 1.8 Test 06/11/19 08:44 White Blood Count 20.4 H Red Blood Count 3.21 L Hemoglobin 8.4 L Hematocrit 27.7 L Mean Corpuscular 86.3 Volume Mean Corpuscular 26.2 L Hemoglobin Mean Corpuscular 30.3 L Hemoglobin Concent Red Cell 21.0 H Distribution Width Platelet Count 271 Mean Platelet Volume 11.5 H Immature 2.400 H Granulocytes % Neutrophils % 83.9 H Lymphocytes % 6.8 L Monocytes % 6.7 Eosinophils % 0.1 Basophils % 0.1 Nucleated Red Blood 0.0 Cells % Immature 0.500 H Granulocytes # Neutrophils # 17.1 H Lymphocytes # 1.4 Monocytes # 1.4 H Eosinophils # 0.0 Basophils # 0.0 Nucleated Red Blood 0.0 Cells # Medications Medication Current Medications Acetaminophen (Tylenol Tab) 650 mg Q6H PRN PO .PAIN 1-3 OR TEMP Last administered on 06/03/19at 15:36; Admin Dose 650 MG; Start 05/28/19 at 06:30 Albuterol/ Ipratropium (Duoneb) 3 ml Q2H RESP THERAPY PRN NEB SHORTNESS OF BREATH; Start 05/28/19 at 10:30 Nitroglycerin (Nitroglycerin (Sl Tab) 0.4 Mg) 1 tab Q5M PRN SL CHEST PAIN; Start 05/28/19 at 10:30 Acetaminophen (Tylenol Supp) 650 mg Q4H PRN [place] PAIN LEVEL 1-3 OR FEVER; Start 05/28/19 at 10:30 Bisacodyl (Dulcolax Supp) 10 mg DAILY PRN [place] CONSTIPATION Last administered on 06/01/19 08:57; Admin Dose 10 MG; Start 05/28/19 at 10:30 IV Flush (NS 3 ml) 3 ml PER PROTOCOL IV ; Start 05/28/19 at 10:30 Ondansetron HCl (Zofran Inj) 4 mg Q6H PRN IV NAUSEA/VOMITING Last administered on 06/02/19 14:31; Admin Dose 4 MG; Start 05/28/19 at 10:30 IV Flush (NS 10 ml) 10 ml Q8 PRN IV IV PROTOCOL Last administered on 06/02/19 06:04; Admin Dose 10 ML; Start 05/28/19 at 19:00 Heparin Sodium (Porcine) (Heparin (5000 Units/1ml)) 5,000 unit BID SC Last administered on 06/11/19 09:36; Admin Dose 5,000 UNIT; Start 05/29/19 at 21:00 Baclofen (Lioresal) 5 mg TID NGT Last administered on 06/11/19 13:52; Admin Dose 5 MG; Start 05/31/19 at 13:00 Hydralazine HCl (Apresoline) 10 mg Q6H PRN IV SBP>160 Last administered on 06/01/19 08:58; Admin Dose 10 MG; Start 06/01/19 at 09:00 Simethicone (Mylicon) 80 mg Q6 PO Last administered on 06/11/19 13:48; Admin Dose 80 MG; Start 06/01/19 at 12:00 Lorazepam (Ativan) 2 mg Q4H PRN IV anxiety; Start 06/03/19 at 17:30 Meropenem/Sodium Chloride 50 ml @ 100 mls/hr Q12 IVPB Last administered on 06/11/19at 09:31; Admin Dose 100 MLS/HR; Start 06/04/19 at 11:30 Miscellaneous Information 1 ea NOTE XX ; Start 06/04/19 at 18:30 Glucose (Glutose) 15 gm Q15M PRN PO DECREASED GLUCOSE; Start 06/04/19 at 18:30 Glucose (Glutose) 22.5 gm Q15M PRN PO DECREASED GLUCOSE; Start 06/04/19 at 18:30 Dextrose (D50w Syringe) 25 ml Q15M PRN IV DECREASED GLUCOSE; Start 06/04/19 at 18:30 Dextrose (D50w Syringe) 50 ml Q15M PRN IV DECREASED GLUCOSE; Start 06/04/19 at 18:30 Glucagon (Glucagen) 1 mg Q15M PRN IM DECREASED GLUCOSE; Start 06/04/19 at 18:30 Glucose (Glutose) 15 gm Q15M PRN BUCCAL DECREASED GLUCOSE; Start 06/04/19 at 18:30 Morphine Sulfate (morphine) 2 mg Q2H PRN IV SEVERE PAIN LEVEL 7-10; Start 06/04/19 at 20:30 Caspofungin 50 mg/ Sodium Chloride 250 ml @ 250 mls/hr Q24H IVPB Last administered on 06/11/19at 15:31; Admin Dose 250 MLS/HR; Start 06/06/19 at 15:00 Vancomycin HCl 250 ml @ 125 mls/hr Q24H IVPB Last administered on 06/11/19at 00:47; Admin Dose 125 MLS/HR; Start 06/07/19 at 23:00 Vancomycin HCl (Vanco Iv Per Pharmacy) VANCOMYCIN PER PHARMACY PER PROTOCOL XX ; Start 06/09/19 at 13:00 Polyethylene Glycol (Miralax) 17 gm BID PO Last administered on 06/11/19at 13:48; Admin Dose 17 GM; Start 06/10/19 at 10:00 Sodium Biphosphate/ Sodium Phosphate (Fleet Enema) 133 ml DAILY PRN [place] CONSTIPATION; Start 06/10/19 at 10:00 YAN SANDERS MD Jun 11, 2019 15:44
--- NOTE | 2019-06-11 16:33 | PN ---
DATE: 06/11/2019 SUBJECTIVE: Patient was transferred out of ICU. He is alert, feels better, looks comfortable, remai ns on TPN. INDWELLINGS: Trach, PEG, suprapubic catheter and PICC line. LAB DATA: WBC today 20.4, platelets 271, neutrophils 83.9, BUN 30, creatinine 0.73. Repeat urine culture negative. DIAGNOSTICS: Chest x-ray this morning revealed increasing airspace opacification, extending from the right hilum into the right lower lung zone compatible with atelectasis and there is increasing airsp summer opacification involving the medial left lower lobe. No pneumothorax. A KUB this morning reveale d no evidence of small-bowel obstruction. ANTIMICROBIALS: The patient is on: 1. Cancidas. 2. Vancomycin. 3. Meropenem. PHYSICAL EXAMINATION: GENERAL: Day #8 today. This is a wasted, chronically ill-appearing, middle-aged ma n who is awake, in no distress. HEENT: Head atraumatic, normocephalic. Sclerae anicteric. Buccal mucosa dry. NECK: Supple. Tracheostomy present. CHEST: Rise symmetrical. Breath sounds diminished to bases. HEART: S1, S2. ABDOMEN: Distended, soft. Bowel sounds hypoactive. EXTREMITIES: Wasted without cyanosis. ASSESSMENT: 1. Status post bowel perforation repair, postop day #7. 2. Status post pneumonia. 3. Status post urinary tract infection. 4. Status post septic shock. 5. Quadriplegia. 6. Kidney mass, questionable malignant. PLAN: The patient is doing better, tolerates NG tube clamping per surgical recommendations. Plan to start tube feedings soon, continue on current antibiotics for now. Dictated By: JOSIAS BELLA BUSINESS SUPPORT ASSOCIATE for APOLLO MOREL MD NI/NTS Conf#: [id number] DID#: [id number] CC: TYLOR REESE MD;*EndCC*
[2019-06-12] VITALS (19 sets, daily range): BP systolic 113–157; BP diastolic 69–88; PULSE 63–82; RESP 17–33
[2019-06-12] MEDS: VANCOMYCIN 1 GM 250 ML IVPB SCH ×2 (00:20→22:40)
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
[2019-06-12] MEDS: MEROPENEM 1 GM/50ML(PMX) 50 ML IVPB SCH ×2 (09:42→22:13)
[2019-06-12] MEDS: BACLOFEN 10 MG TAB NGT SCH ×3 (09:43→22:14)
[2019-06-12] MEDS: POLYETHYLENE GLYCOL 17 GM PACKET PO SCH ×2 (09:43→22:14)
[2019-06-12] MEDS: HEPARIN 5,000 UNIT/1 ML VIAL SC SCH ×2 (09:49→23:17)
--- NOTE | 2019-06-12 10:55 | CONS ---
Consult Date/Type/Reason Admit Date/Time May 28, 2019 at 06:21 Initial Consult Date 05/30/19 Type of Consult Pulmonary Requesting Provider: TYLOR REESE Date/Time of Note DATE: 06/12/19 TIME: 10:54 Subjective Patient remained stable this morning. Awake alert oriented tolerating tube feeding. Objective Vital Signs Date Temp Pulse Resp B/P (MAP) Pulse Ox O2 O2 Flow FiO2 Time Delivery Rate 06/12/19 98.7 63 18 142/88 98 07:56 (106) 06/12/19 30 04:45 06/12/19 Mechanical 04:00 Ventilator Intake and Output 06/11/19 06/11/19 06/12/19 1515:00 23:00 07:00 IntakeIntake Total 1050 ml 250 ml 1100 ml OutputOutput Total 850 ml 550 ml BalanceBalance 1050 ml -600 ml 550 ml Exam GENERAL: Chronically ill-appearing gentleman on mechanical ventilation via tracheostomy VITAL SIGNS: per chart NECK: Supple. No JVD or lymphadenopathy. CARDIAC EXAM: S1, S2. No added sounds or murmurs. CHEST: Diminished breath sounds bilaterally ABDOMEN: Diminished bowel sounds EXTREMITIES: No cyanosis, clubbing or edema. NEUROLOGIC: Quadriplegia Vent Setting Ventilator Support Mode: AC Fraction of Inspired Oxygen pe: 30 Positive End Expiratory Pressu: 5.0 Results/Medications Result Diagram: 06/12/19 0514 06/11/19 0524 Results 24 hrs Laboratory Tests Test 06/12/19 05:14 White Blood Count 21.4 H Red Blood Count 3.01 L Hemoglobin 8.0 L Hematocrit 25.8 L Mean Corpuscular Volume 85.7 Mean Corpuscular Hemoglobin 26.6 L Mean Corpuscular Hemoglobin Concent 31.0 L Red Cell Distribution Width 21.2 H Platelet Count 303 Mean Platelet Volume 11.5 H Immature Granulocytes % 2.200 H Neutrophils % 84.4 H Lymphocytes % 6.6 L Monocytes % 6.3 Eosinophils % 0.4 Basophils % 0.1 Nucleated Red Blood Cells % 0.0 Immature Granulocytes # 0.470 H Neutrophils # 18.1 H Lymphocytes # 1.4 Monocytes # 1.4 H Eosinophils # 0.1 Basophils # 0.0 Nucleated Red Blood Cells # 0.0 Prealbumin 8.7 L Medications Current Medications Acetaminophen (Tylenol Tab) 650 mg Q6H PRN PO .PAIN 1-3 OR TEMP Last administered on 06/03/19 15:36; Admin Dose 650 MG; Start 05/28/19 at 06:30 Albuterol/ Ipratropium (Duoneb) 3 ml Q2H RESP THERAPY PRN NEB SHORTNESS OF BREATH; Start 05/28/19 at 10:30 Nitroglycerin (Nitroglycerin (Sl Tab) 0.4 Mg) 1 tab Q5M PRN SL CHEST PAIN; Start 05/28/19 at 10:30 Acetaminophen (Tylenol Supp) 650 mg Q4H PRN OR PAIN LEVEL 1-3 OR FEVER; Start 05/28/19 at 10:30 Bisacodyl (Dulcolax Supp) 10 mg DAILY PRN OR CONSTIPATION Last administered on 06/01/19 08:57; Admin Dose 10 MG; Start 05/28/19 at 10:30 IV Flush (NS 3 ml) 3 ml PER PROTOCOL IV ; Start 05/28/19 at 10:30 Ondansetron HCl (Zofran Inj) 4 mg Q6H PRN IV NAUSEA/VOMITING Last administered on 06/02/19 14:31; Admin Dose 4 MG; Start 05/28/19 at 10:30 IV Flush (NS 10 ml) 10 ml Q8 PRN IV IV PROTOCOL Last administered on 06/02/19 06:04; Admin Dose 10 ML; Start 05/28/19 at 19:00 Heparin Sodium (Porcine) (Heparin (5000 Units/1ml)) 5,000 unit BID SC Last administered on 06/12/19 09:49; Admin Dose 5,000 UNIT; Start 05/29/19 at 21:00 Baclofen (Lioresal) 5 mg TID NGT Last administered on 06/12/19 09:43; Admin Dose 5 MG; Start 05/31/19 at 13:00 Hydralazine HCl (Apresoline) 10 mg Q6H PRN IV SBP>160 Last administered on 06/01/19 08:58; Admin Dose 10 MG; Start 06/01/19 at 09:00 Simethicone (Mylicon) 80 mg Q6 PO Last administered on 06/12/19 06:27; Admin Dose 80 MG; Start 06/01/19 at 12:00 Lorazepam (Ativan) 2 mg Q4H PRN IV anxiety Last administered on 06/12/19at 03:28; Admin Dose 2 MG; Start 06/03/19 at 17:30 Meropenem/Sodium Chloride 50 ml @ 100 mls/hr Q12 IVPB Last administered on 06/12/19at 09:42; Admin Dose 100 MLS/HR; Start 06/04/19 at 11:30 Miscellaneous Information 1 ea NOTE XX ; Start 06/04/19 at 18:30 Glucose (Glutose) 15 gm Q15M PRN PO DECREASED GLUCOSE; Start 06/04/19 at 18:30 Glucose (Glutose) 22.5 gm Q15M PRN PO DECREASED GLUCOSE; Start 06/04/19 at 18:30 Dextrose (D50w Syringe) 25 ml Q15M PRN IV DECREASED GLUCOSE; Start 06/04/19 at 18:30 Dextrose (D50w Syringe) 50 ml Q15M PRN IV DECREASED GLUCOSE; Start 06/04/19 at 18:30 Glucagon (Glucagen) 1 mg Q15M PRN IM DECREASED GLUCOSE; Start 06/04/19 at 18:30 Glucose (Glutose) 15 gm Q15M PRN BUCCAL DECREASED GLUCOSE; Start 06/04/19 at 18:30 Morphine Sulfate (morphine) 2 mg Q2H PRN IV SEVERE PAIN LEVEL 7-10; Start 06/04/19 at 20:30 Caspofungin 50 mg/ Sodium Chloride 250 ml @ 250 mls/hr Q24H IVPB Last administered on 06/11/19at 15:31; Admin Dose 250 MLS/HR; Start 06/06/19 at 15:00 Vancomycin HCl 250 ml @ 125 mls/hr Q24H IVPB Last administered on 06/12/19at 00:20; Admin Dose 125 MLS/HR; Start 06/07/19 at 23:00 Vancomycin HCl (Vanco Iv Per Pharmacy) VANCOMYCIN PER PHARMACY PER PROTOCOL XX ; Start 06/09/19 at 13:00 Polyethylene Glycol (Miralax) 17 gm BID PO Last administered on 06/12/19at 09:43; Admin Dose 17 GM; Start 06/10/19 at 10:00 Sodium Biphosphate/ Sodium Phosphate (Fleet Enema) 133 ml DAILY PRN OR CONSTIPATION; Start 06/10/19 at 10:00 Assessment/Plan Hospital Course (Demo Recall) Assessment 1. Acute abdomen secondary to perforated bowel following PEG tube placement 2. Vent dependent respiratory failure 3. History of quadriplegia 4. Status post septic shock requiring vasopressors possible component of adrenal insufficiency, decreased vasopressor requirements. 5. Neurogenic bladder with suprapubic catheter Plan 1. Continue mechanical ventilation 2. Postop surgical recommendations 3. Urology recommendations noted 4. Postop antibiotics 5. DVT GI prophylaxis 6. Continues nasogastric tube feeding as tolerated Patient declined turner Will likely need f[facility] facility. CARYN PERLA MD, [facility] Jun 12, 2019 10:55
[2019-06-12] MEDS: BALSAM PERU/CASTOR OIL 60 GM TUBE TOP SCH ×2 (12:39→22:13)
--- NOTE | 2019-06-12 12:43 | PN ---
Date/Time of Note Date/Time of Note DATE: 06/12/19 TIME: 12:31 Assessment/Plan VTE Prophylaxis Risk score (from Nsg)>0 risk: 3 SCD applied (from Nsg): Yes Pharmacological prophylaxis: heparin Lines/Catheters IV Catheter Type (from Nrsg): PICC Line Central line still needed: Yes Urinary Cath still in place: No Assessment/Plan Assessment/Plan Assessment: Acute abdomen secondary to perforated small bowel after PEG tube placement- s/p repair of small bowel Perforated appendix- s/p appendectomy Sepsis- 2/2 to above Acute on chronic RD on MV- FiO2 increased 100% BHARATI Recurrent small bowel obstruction Quadriplegia Abdominal gas UTI Pneumonia Neurogenic bladder- suprapubic catheter Plan: NGT -feeding 35 cc/h at goal G-tube to gravity Close observation Supportive care Patient seen in collaboration Dr. Hall Subjective: Course reviewed with nursing staff Patient interviewed and examined Patient is slowly improving. He is currently off TPN and receiving continuous NG tube feeding at 35 cc an hour -tolerated well. Complaining of mild abdominal pain. G-tube connected to gravity. White blood count is slightly higher today. Followed by ID. Continue observation. Exam PHYSICAL EXAMINATION: GENERAL: Quadriplegic, trached on MV, alert & oriented x 4 SKIN: Midline incision HEAD: Normocephalic, atraumatic, no tenderness. EYES: Pupils equal reactive to light, no discharge. EARS/NOSE AND THROAT: Ears normal, nose normal, oropharynx normal, oral membranes well hydrated without lesions. NECK: Supple, no masses CHEST: Inspection within normal limits. CARDIOVASCULAR: Heart: Regular rate and rhythm RESPIRATORY: Lungs clear to auscultation. GASTROINTESTINAL AND LIVER: Abdomen: Soft, distension , no hernias, no masses, no organomegaly, no ascites, no guarding, no rebound tenderness, extremely hypoactive distant BS. Rectal: Deferred. GENITOURINARY: Male genitalia within normal limits. suprapubic catheter Result Diagram: 06/12/19 0514 06/11/19 0524 Results 24hrs Laboratory Tests Test 06/12/19 05:14 White Blood Count 21.4 H Red Blood Count 3.01 L Hemoglobin 8.0 L Hematocrit 25.8 L Mean Corpuscular Volume 85.7 Mean Corpuscular Hemoglobin 26.6 L Mean Corpuscular Hemoglobin Concent 31.0 L Red Cell Distribution Width 21.2 H Platelet Count 303 Mean Platelet Volume 11.5 H Immature Granulocytes % 2.200 H Neutrophils % 84.4 H Lymphocytes % 6.6 L Monocytes % 6.3 Eosinophils % 0.4 Basophils % 0.1 Nucleated Red Blood Cells % 0.0 Immature Granulocytes # 0.470 H Neutrophils # 18.1 H Lymphocytes # 1.4 Monocytes # 1.4 H Eosinophils # 0.1 Basophils # 0.0 Nucleated Red Blood Cells # 0.0 Prealbumin 8.7 L CC: CHAPITO HALL MD ; Exam/Review of Systems Exam Vitals Vital Signs Date Temp Pulse Resp B/P (MAP) Pulse Ox O2 O2 Flow FiO2 Time Delivery Rate 06/12/19 98.3 68 17 138/83 100 11:35 (101) 06/12/19 30 04:45 06/12/19 Mechanical 04:00 Ventilator Intake and Output 06/11/19 06/11/19 06/12/19 1515:00 23:00 07:00 IntakeIntake Total 1050 ml 250 ml 1100 ml OutputOutput Total 850 ml 550 ml BalanceBalance 1050 ml -600 ml 550 ml Results Results 24hrs Laboratory Tests Test 06/12/19 05:14 White Blood Count 21.4 H Red Blood Count 3.01 L Hemoglobin 8.0 L Hematocrit 25.8 L Mean Corpuscular Volume 85.7 Mean Corpuscular Hemoglobin 26.6 L Mean Corpuscular Hemoglobin Concent 31.0 L Red Cell Distribution Width 21.2 H Platelet Count 303 Mean Platelet Volume 11.5 H Immature Granulocytes % 2.200 H Neutrophils % 84.4 H Lymphocytes % 6.6 L Monocytes % 6.3 Eosinophils % 0.4 Basophils % 0.1 Nucleated Red Blood Cells % 0.0 Immature Granulocytes # 0.470 H Neutrophils # 18.1 H Lymphocytes # 1.4 Monocytes # 1.4 H Eosinophils # 0.1 Basophils # 0.0 Nucleated Red Blood Cells # 0.0 Prealbumin 8.7 L Medications Medication Current Medications Acetaminophen (Tylenol Tab) 650 mg Q6H PRN PO .PAIN 1-3 OR TEMP Last administered on 06/03/19at 15:36; Admin Dose 650 MG; Start 05/28/19 at 06:30 Albuterol/ Ipratropium (Duoneb) 3 ml Q2H RESP THERAPY PRN NEB SHORTNESS OF BREATH; Start 05/28/19 at 10:30 Nitroglycerin (Nitroglycerin (Sl Tab) 0.4 Mg) 1 tab Q5M PRN SL CHEST PAIN; Start 05/28/19 at 10:30 Acetaminophen (Tylenol Supp) 650 mg Q4H PRN [place] PAIN LEVEL 1-3 OR FEVER; Start 05/28/19 at 10:30 Bisacodyl (Dulcolax Supp) 10 mg DAILY PRN [place] CONSTIPATION Last administered on 06/01/19 08:57; Admin Dose 10 MG; Start 05/28/19 at 10:30 IV Flush (NS 3 ml) 3 ml PER PROTOCOL IV ; Start 05/28/19 at 10:30 Ondansetron HCl (Zofran Inj) 4 mg Q6H PRN IV NAUSEA/VOMITING Last administered on 06/02/19 14:31; Admin Dose 4 MG; Start 05/28/19 at 10:30 IV Flush (NS 10 ml) 10 ml Q8 PRN IV IV PROTOCOL Last administered on 06/02/19 06:04; Admin Dose 10 ML; Start 05/28/19 at 19:00 Heparin Sodium (Porcine) (Heparin (5000 Units/1ml)) 5,000 unit BID SC Last administered on 06/12/19 09:49; Admin Dose 5,000 UNIT; Start 05/29/19 at 21:00 Baclofen (Lioresal) 5 mg TID NGT Last administered on 06/12/19 09:43; Admin Dose 5 MG; Start 05/31/19 at 13:00 Hydralazine HCl (Apresoline) 10 mg Q6H PRN IV SBP>160 Last administered on 06/01/19 08:58; Admin Dose 10 MG; Start 06/01/19 at 09:00 Simethicone (Mylicon) 80 mg Q6 PO Last administered on 06/12/19 06:27; Admin Dose 80 MG; Start 06/01/19 at 12:00 Lorazepam (Ativan) 2 mg Q4H PRN IV anxiety Last administered on 06/12/19 03:28; Admin Dose 2 MG; Start 06/03/19 at 17:30 Meropenem/Sodium Chloride 50 ml @ 100 mls/hr Q12 IVPB Last administered on 06/12/19 09:42; Admin Dose 100 MLS/HR; Start 06/04/19 at 11:30 Miscellaneous Information 1 ea NOTE XX ; Start 06/04/19 at 18:30 Glucose (Glutose) 15 gm Q15M PRN PO DECREASED GLUCOSE; Start 06/04/19 at 18:30 Glucose (Glutose) 22.5 gm Q15M PRN PO DECREASED GLUCOSE; Start 06/04/19 at 18:30 Dextrose (D50w Syringe) 25 ml Q15M PRN IV DECREASED GLUCOSE; Start 06/04/19 at 18:30 Dextrose (D50w Syringe) 50 ml Q15M PRN IV DECREASED GLUCOSE; Start 06/04/19 at 18:30 Glucagon (Glucagen) 1 mg Q15M PRN IM DECREASED GLUCOSE; Start 06/04/19 at 18:30 Glucose (Glutose) 15 gm Q15M PRN BUCCAL DECREASED GLUCOSE; Start 06/04/19 at 18:30 Morphine Sulfate (morphine) 2 mg Q2H PRN IV SEVERE PAIN LEVEL 7-10; Start 06/04/19 at 20:30 Caspofungin 50 mg/ Sodium Chloride 250 ml @ 250 mls/hr Q24H IVPB Last administered on 06/11/19at 15:31; Admin Dose 250 MLS/HR; Start 06/06/19 at 15:00 Vancomycin HCl 250 ml @ 125 mls/hr Q24H IVPB Last administered on 06/12/19at 00:20; Admin Dose 125 MLS/HR; Start 06/07/19 at 23:00 Vancomycin HCl (Vanco Iv Per Pharmacy) VANCOMYCIN PER PHARMACY PER PROTOCOL XX ; Start 06/09/19 at 13:00 Polyethylene Glycol (Miralax) 17 gm BID PO Last administered on 06/12/19at 09:43; Admin Dose 17 GM; Start 06/10/19 at 10:00 Sodium Biphosphate/ Sodium Phosphate (Fleet Enema) 133 ml DAILY PRN [place] CONSTIPATION; Start 06/10/19 at 10:00 TABBY FREITAS NP Jun 12, 2019 12:41
[2019-06-12] MEDS: CASPOFUNGIN 50 MG in SOD CHLORIDE 0.9% 250 ML IVPB SCH (14:23)
--- NOTE | 2019-06-12 14:29 | CONS ---
Assessment/Plan Assessment/Plan Hospital Course (Demo Recall) SUBJECTIVE: alert, feels 0k, looks comfortable, remains on TPN. INDWELLINGS: Trach, PEG, suprapubic catheter and PICC line. Repeat urine culture negative. ANTIMICROBIALS: The patient is on: 1. Cancidas. 2. Vancomycin. 3. Meropenem. PHYSICAL EXAMINATION: GENERAL: Day #8 today. This is a wasted, chronically ill-appearing, middle- aged man who is awake, in no distress. HEENT: Head atraumatic, normocephalic. Sclerae anicteric. Buccal mucosa dry. NECK: Supple. Tracheostomy present. CHEST: Rise symmetrical. Breath sounds diminished to bases. HEART: S1, S2. ABDOMEN: Distended, soft. Bowel sounds hypoactive. EXTREMITIES: Wasted without cyanosis. ASSESSMENT: 1. Status post bowel perforation repair, postop day #8. 2. Status post pneumonia. 3. Status post urinary tract infection. 4. Status post septic shock. 5. Quadriplegia. 6. Kidney mass, questionable malignant. PLAN: Clinically stable however w persistent leukocytosis, recommend repeat CT abdomen Consultation Date/Type/Reason Admit Date/Time May 28, 2019 at 06:21 Initial Consult Date 05/28/19 Type of Consult id Requesting Provider: TYLOR REESE Date/Time of Note DATE: 06/12/19 TIME: 14:28 Exam/Review of Systems Exam Vitals Vital Signs Date Temp Pulse Resp B/P (MAP) Pulse Ox O2 O2 Flow FiO2 Time Delivery Rate 06/12/19 98.3 68 17 138/83 100 11:35 (101) 06/12/19 30 04:45 06/12/19 Mechanical 04:00 Ventilator Intake and Output 06/11/19 06/11/19 06/12/19 1515:00 23:00 07:00 IntakeIntake Total 1050 ml 250 ml 1100 ml OutputOutput Total 850 ml 550 ml BalanceBalance 1050 ml -600 ml 550 ml Results Result Diagram: 06/12/19 0514 06/11/19 0524 Results 24hrs Laboratory Tests Test 06/12/19 05:14 White Blood Count 21.4 H Red Blood Count 3.01 L Hemoglobin 8.0 L Hematocrit 25.8 L Mean Corpuscular Volume 85.7 Mean Corpuscular Hemoglobin 26.6 L Mean Corpuscular Hemoglobin Concent 31.0 L Red Cell Distribution Width 21.2 H Platelet Count 303 Mean Platelet Volume 11.5 H Immature Granulocytes % 2.200 H Neutrophils % 84.4 H Lymphocytes % 6.6 L Monocytes % 6.3 Eosinophils % 0.4 Basophils % 0.1 Nucleated Red Blood Cells % 0.0 Immature Granulocytes # 0.470 H Neutrophils # 18.1 H Lymphocytes # 1.4 Monocytes # 1.4 H Eosinophils # 0.1 Basophils # 0.0 Nucleated Red Blood Cells # 0.0 Prealbumin 8.7 L Medications Medication Current Medications Acetaminophen (Tylenol Tab) 650 mg Q6H PRN PO .PAIN 1-3 OR TEMP Last administered on 06/03/19at 15:36; Admin Dose 650 MG; Start 05/28/19 at 06:30 Albuterol/ Ipratropium (Duoneb) 3 ml Q2H RESP THERAPY PRN NEB SHORTNESS OF BREATH; Start 05/28/19 at 10:30 Nitroglycerin (Nitroglycerin (Sl Tab) 0.4 Mg) 1 tab Q5M PRN SL CHEST PAIN; Start 05/28/19 at 10:30 Acetaminophen (Tylenol Supp) 650 mg Q4H PRN ID PAIN LEVEL 1-3 OR FEVER; Start 05/28/19 at 10:30 Bisacodyl (Dulcolax Supp) 10 mg DAILY PRN [place] CONSTIPATION Last administered on 06/01/19at 08:57; Admin Dose 10 MG; Start 05/28/19 at 10:30 IV Flush (NS 3 ml) 3 ml PER PROTOCOL IV ; Start 05/28/19 at 10:30 Ondansetron HCl (Zofran Inj) 4 mg Q6H PRN IV NAUSEA/VOMITING Last administered on 06/02/19at 14:31; Admin Dose 4 MG; Start 05/28/19 at 10:30 IV Flush (NS 10 ml) 10 ml Q8 PRN IV IV PROTOCOL Last administered on 06/02/19at 06:04; Admin Dose 10 ML; Start 05/28/19 at 19:00 Heparin Sodium (Porcine) (Heparin (5000 Units/1ml)) 5,000 unit BID SC Last adm inistered on 06/12/19at 09:49; Admin Dose 5,000 UNIT; Start 05/29/19 at 21:00 Baclofen (Lioresal) 5 mg TID NGT Last administered on 06/12/19at 12:39; Admin Dose 5 MG; Start 05/31/19 at 13:00 Hydralazine HCl (Apresoline) 10 mg Q6H PRN IV SBP>160 Last administered on 06/01/19 08:58; Admin Dose 10 MG; Start 06/01/19 at 09:00 Simethicone (Mylicon) 80 mg Q6 PO Last administered on 06/12/19at 12:39; Admin Dose 80 MG; Start 06/01/19 at 12:00 Lorazepam (Ativan) 2 mg Q4H PRN IV anxiety Last administered on 06/12/19 03:28; Admin Dose 2 MG; Start 06/03/19 at 17:30 Meropenem/Sodium Chloride 50 ml @ 100 mls/hr Q12 IVPB Last administered on 06/12/19 09:42; Admin Dose 100 MLS/HR; Start 06/04/19 at 11:30 Miscellaneous Information 1 ea NOTE XX ; Start 06/04/19 at 18:30 Glucose (Glutose) 15 gm Q15M PRN PO DECREASED GLUCOSE; Start 06/04/19 at 18:30 Glucose (Glutose) 22.5 gm Q15M PRN PO DECREASED GLUCOSE; Start 06/04/19 at 18:30 Dextrose (D50w Syringe) 25 ml Q15M PRN IV DECREASED GLUCOSE; Start 06/04/19 at 18:30 Dextrose (D50w Syringe) 50 ml Q15M PRN IV DECREASED GLUCOSE; Start 06/04/19 at 18:30 Glucagon (Glucagen) 1 mg Q15M PRN IM DECREASED GLUCOSE; Start 06/04/19 at 18:30 Glucose (Glutose) 15 gm Q15M PRN BUCCAL DECREASED GLUCOSE; Start 06/04/19 at 18:30 Morphine Sulfate (morphine) 2 mg Q2H PRN IV SEVERE PAIN LEVEL 7-10; Start 06/04/19 at 20:30 Caspofungin 50 mg/ Sodium Chloride 250 ml @ 250 mls/hr Q24H IVPB Last administered on 06/11/19at 15:31; Admin Dose 250 MLS/HR; Start 06/06/19 at 15:00 Vancomycin HCl 250 ml @ 125 mls/hr Q24H IVPB Last administered on 06/12/19at 00:20; Admin Dose 125 MLS/HR; Start 06/07/19 at 23:00 Vancomycin HCl (Vanco Iv Per Pharmacy) VANCOMYCIN PER PHARMACY PER PROTOCOL XX ; Start 06/09/19 at 13:00 Polyethylene Glycol (Miralax) 17 gm BID PO Last administered on 06/12/19at 09:43; Admin Dose 17 GM; Start 06/10/19 at 10:00 Sodium Biphosphate/ Sodium Phosphate (Fleet Enema) 133 ml DAILY PRN ID CONSTIPATION; Start 06/10/19 at 10:00 JOSIAS BELLA NP Jun 12, 2019 14:29
--- NOTE | 2019-06-12 17:53 | PN ---
Date/Time of Note Date/Time of Note DATE: 06/12/19 TIME: 17:47 Assessment/Plan VTE Prophylaxis Risk score (from Ns)>0 risk: 3 SCD applied (from Ns): Yes SCD contraindicated: low risk/ambulating Pharmacological prophylaxis: LMWH Lines/Catheters IV Catheter Type (from Nrs): PICC Line Central line still needed: Yes Urinary Cath still in place: No Assessment/Plan Hospital Course Assessment and plan 1. Chronic respiratory failure, stable continue vent 2. Small bowel obstruction unknown etiology, appreciate consult assistance 3. Malnutrition, off TPN, try oral feeds, watch I's and O's 4. Small bowel injury sp urgent repair, appendectomy, pod 8, cont ST care and try diet when stable 5. Chronic quadriplegia, continue supportive care offload, reposition etc. 6. Failure to thrive, home vs SNF at some point 7. Essential hypertension 8. Chronic paralytic ileus, continue new bowel care regimen 9. Aspiration pneumonia, stable continue/finish antibiotics 10. Anemia status post 4 unit transfusion. No active bleed, follow-up 11. Tracheostomy status 12. Neurogenic bladder; cont suprapubic care. bladder spasm care/ meds once on po meds. 13. ARF/ ATN stable S: No distress. tolerating NG feeds at 25/hr. PEG for decompression. no bm yet O: vss SR PE no pallor; NG cdi reg s1s2 no mrg mechan bs bs dimin, nt, distended? no r r g hypotonia Result Diagram: 06/12/19 0514 06/11/19 0524 Results 24hrs Laboratory Tests Test 06/12/19 05:14 White Blood Count 21.4 H Red Blood Count 3.01 L Hemoglobin 8.0 L Hematocrit 25.8 L Mean Corpuscular Volume 85.7 Mean Corpuscular Hemoglobin 26.6 L Mean Corpuscular Hemoglobin Concent 31.0 L Red Cell Distribution Width 21.2 H Platelet Count 303 Mean Platelet Volume 11.5 H Immature Granulocytes % 2.200 H Neutrophils % 84.4 H Lymphocytes % 6.6 L Monocytes % 6.3 Eosinophils % 0.4 Basophils % 0.1 Nucleated Red Blood Cells % 0.0 Immature Granulocytes # 0.470 H Neutrophils # 18.1 H Lymphocytes # 1.4 Monocytes # 1.4 H Eosinophils # 0.1 Basophils # 0.0 Nucleated Red Blood Cells # 0.0 Prealbumin 8.7 L Exam/Review of Systems Exam Vitals Vital Signs Date Temp Pulse Resp B/P (MAP) Pulse Ox O2 O2 Flow FiO2 Time Delivery Rate 06/12/19 74 24 100 30 15:50 06/12/19 98.0 133/78 15:45 (96) 06/12/19 Mechanical 04:00 Ventilator Intake and Output 06/11/19 06/11/19 06/12/19 1515:00 23:00 07:00 IntakeIntake Total 1050 ml 250 ml 1100 ml OutputOutput Total 850 ml 550 ml BalanceBalance 1050 ml -600 ml 550 ml Results Results 24hrs Laboratory Tests Test 06/12/19 05:14 White Blood Count 21.4 H Red Blood Count 3.01 L Hemoglobin 8.0 L Hematocrit 25.8 L Mean Corpuscular Volume 85.7 Mean Corpuscular Hemoglobin 26.6 L Mean Corpuscular Hemoglobin Concent 31.0 L Red Cell Distribution Width 21.2 H Platelet Count 303 Mean Platelet Volume 11.5 H Immature Granulocytes % 2.200 H Neutrophils % 84.4 H Lymphocytes % 6.6 L Monocytes % 6.3 Eosinophils % 0.4 Basophils % 0.1 Nucleated Red Blood Cells % 0.0 Immature Granulocytes # 0.470 H Neutrophils # 18.1 H Lymphocytes # 1.4 Monocytes # 1.4 H Eosinophils # 0.1 Basophils # 0.0 Nucleated Red Blood Cells # 0.0 Prealbumin 8.7 L Medications Medication Current Medications Acetaminophen (Tylenol Tab) 650 mg Q6H PRN PO .PAIN 1-3 OR TEMP Last administered on 06/03/19at 15:36; Admin Dose 650 MG; Start 05/28/19 at 06:30 Albuterol/ Ipratropium (Duoneb) 3 ml Q2H RESP THERAPY PRN NEB SHORTNESS OF BREATH; Start 05/28/19 at 10:30 Nitroglycerin (Nitroglycerin (Sl Tab) 0.4 Mg) 1 tab Q5M PRN SL CHEST PAIN; Start 05/28/19 at 10:30 Acetaminophen (Tylenol Supp) 650 mg Q4H PRN DC PAIN LEVEL 1-3 OR FEVER; Start 05/28/19 at 10:30 Bisacodyl (Dulcolax Supp) 10 mg DAILY PRN [place] CONSTIPATION Last administered on 06/01/19 08:57; Admin Dose 10 MG; Start 05/28/19 at 10:30 IV Flush (NS 3 ml) 3 ml PER PROTOCOL IV ; Start 05/28/19 at 10:30 Ondansetron HCl (Zofran Inj) 4 mg Q6H PRN IV NAUSEA/VOMITING Last administered on 06/02/19 14:31; Admin Dose 4 MG; Start 05/28/19 at 10:30 IV Flush (NS 10 ml) 10 ml Q8 PRN IV IV PROTOCOL Last administered on 06/02/19 06:04; Admin Dose 10 ML; Start 05/28/19 at 19:00 Heparin Sodium (Porcine) (Heparin (5000 Units/1ml)) 5,000 unit BID SC Last administered on 06/12/19 09:49; Admin Dose 5,000 UNIT; Start 05/29/19 at 21:00 Baclofen (Lioresal) 5 mg TID NGT Last administered on 06/12/19 12:39; Admin Dose 5 MG; Start 05/31/19 at 13:00 Hydralazine HCl (Apresoline) 10 mg Q6H PRN IV SBP>160 Last administered on 06/01/19 08:58; Admin Dose 10 MG; Start 06/01/19 at 09:00 Simethicone (Mylicon) 80 mg Q6 PO Last administered on 06/12/19 17:44; Admin Dose 80 MG; Start 06/01/19 at 12:00 Lorazepam (Ativan) 2 mg Q4H PRN IV anxiety Last administered on 06/12/19 03:28; Admin Dose 2 MG; Start 06/03/19 at 17:30 Meropenem/Sodium Chloride 50 ml @ 100 mls/hr Q12 IVPB Last administered on 06/12/19 09:42; Admin Dose 100 MLS/HR; Start 06/04/19 at 11:30 Miscellaneous Information 1 ea NOTE XX ; Start 06/04/19 at 18:30 Glucose (Glutose) 15 gm Q15M PRN PO DECREASED GLUCOSE; Start 06/04/19 at 18:30 Glucose (Glutose) 22.5 gm Q15M PRN PO DECREASED GLUCOSE; Start 06/04/19 at 18:30 Dextrose (D50w Syringe) 25 ml Q15M PRN IV DECREASED GLUCOSE; Start 06/04/19 at 18:30 Dextrose (D50w Syringe) 50 ml Q15M PRN IV DECREASED GLUCOSE; Start 06/04/19 at 18:30 Glucagon (Glucagen) 1 mg Q15M PRN IM DECREASED GLUCOSE; Start 06/04/19 at 18:30 Glucose (Glutose) 15 gm Q15M PRN BUCCAL DECREASED GLUCOSE; Start 06/04/19 at 18:30 Morphine Sulfate (morphine) 2 mg Q2H PRN IV SEVERE PAIN LEVEL 7-10; Start 06/04/19 at 20:30 Caspofungin 50 mg/ Sodium Chloride 250 ml @ 250 mls/hr Q24H IVPB Last a dministered on 06/12/19at 14:23; Admin Dose 250 MLS/HR; Start 06/06/19 at 15:00 Vancomycin HCl 250 ml @ 125 mls/hr Q24H IVPB Last administered on 06/12/19at 00:20; Admin Dose 125 MLS/HR; Start 06/07/19 at 23:00 Vancomycin HCl (Vanco Iv Per Pharmacy) VANCOMYCIN PER PHARMACY PER PROTOCOL XX ; Start 06/09/19 at 13:00 Polyethylene Glycol (Miralax) 17 gm BID PO Last administered on 06/12/19at 09:43; Admin Dose 17 GM; Start 06/10/19 at 10:00 Sodium Biphosphate/ Sodium Phosphate (Fleet Enema) 133 ml DAILY PRN [place] CONSTIPATION; Start 06/10/19 at 10:00 TAM ROJAS MD Jun 12, 2019 17:53
[2019-06-12] MEDS: FAMOTIDINE 20 MG INJ IV SCH (22:14)
[2019-06-13] VITALS (18 sets, daily range): BP systolic 108–140; BP diastolic 68–86; PULSE 71–92; RESP 18–27
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
[2019-06-13] MEDS: BACLOFEN 10 MG TAB NGT SCH ×3 (08:57→21:57)
[2019-06-13] MEDS: MEROPENEM 1 GM/50ML(PMX) 50 ML IVPB SCH ×2 (08:57→22:39)
[2019-06-13] MEDS: POLYETHYLENE GLYCOL 17 GM PACKET PO SCH ×2 (08:57→21:57)
[2019-06-13] MEDS: FAMOTIDINE 20 MG INJ IV SCH ×2 (08:57→21:57)
[2019-06-13] MEDS: BALSAM PERU/CASTOR OIL 60 GM TUBE TOP SCH ×2 (08:57→21:58)
[2019-06-13] MEDS: HEPARIN 5,000 UNIT/1 ML VIAL SC SCH ×2 (09:27→22:36)
--- NOTE | 2019-06-13 09:46 | QN ---
Documentation Comment Postoperative day #9 Afebrile throughout. Awake and alert Tolerating NG feeds at 35 cc an hour No bowel movement for 24 hours Abdomen is distended but soft Incision clean and dry Leukocytosis improved Plan: DC NG tube and start feeds per G-tube Dulcolax suppository Video swallow examination is scheduled for Saturday, June 15. Apparently this study cannot be done over this weekend Continue supportive therapy ZENA CALDERÓN MD Jun 13, 2019 09:46
[2019-06-13] MEDS ORDERED: BISACODYL 10 MG SUPP PR ONE (10:00)
[2019-06-13] MEDS ORDERED: PETROLATUM 5 GM OINT TOP ONE (10:50)
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
[2019-06-13] MEDS ORDERED: MAGNESIUM SULFATE 3 GM in DEXTROSE 5% 100 ML IVPB ONE (13:00)
--- NOTE | 2019-06-13 13:36 | PN ---
DATE: 06/13/2019 INFECTIOUS DISEASE PROGRESS NOTE SUBJECTIVE: The patient is alert, feels good, denies pain. He was started on tube feedings today. No fevers overnight. WBC 19.4, platelets 206. Neutrophils 85.9, BUN 21, creatinine 0.73. INDWELLINGS: Trach, PEG, NG tube, PICC line and a suprapubic catheter. PHYSICAL EXAMINATION: GENERAL: Chronically ill,. wasted, middle-aged -[place] man who is awake, in no distress. HEENT: Head atraumatic, normocephalic. NECK: Supple. CHEST: Rise symmetrical. Breath sounds diminished to bases. HEART: S1, S2. ABDOMEN: Soft. Bowel tones present. EXTREMITIES: Wasted, without cyanosis. ASSESSMENT: 1. Persistent leukocytosis, likely reactive. 2. Status post bowel perforation repair, postoperative day #9. 3. Status post urinary tract infection, pneumonia, and sepsis. 4. Quadriplegia. 5. Kidney mass of unknown significance. PLAN: The patient is stable. He is on postop day #9. Started on TF via NGT. We are going to order procalcitonin level, discontinue vancomycin, continue Cancidas and Merrem for now. Dictated By: JOSIAS BELLA ACTIVATED SLUDGE OPERATOR for APOLLO MOREL MD NI/NTS Conf#: [id number] DID#: [id number] CC: TYLOR REESE MD;*EndCC* MTDD
[2019-06-13] MEDS: CASPOFUNGIN 50 MG in SOD CHLORIDE 0.9% 250 ML IVPB SCH (14:51)
--- NOTE | 2019-06-13 15:18 | PN ---
Date/Time of Note Date/Time of Note DATE: 06/13/19 TIME: 15:12 Assessment/Plan VTE Prophylaxis Risk score (from Ns)>0 risk: 4 SCD applied (from Ns): Yes Pharmacological prophylaxis: NA/contraindicated Pharm contraindication: bleeding Lines/Catheters IV [facility]from [facility] PICC Line Central line still needed: Yes Urinary Cath still in place: No Assessment/Plan Assessment/Plan Assessment: Acute abdomen secondary to perforated small bowel after PEG tube placement- s/p repair of small bowel Perforated appendix- s/p appendectomy Sepsis- 2/2 to above Acute on chronic RD on MV- FiO2 increased 100% BHARATI Recurrent small bowel obstruction Quadriplegia Abdominal gas UTI Pneumonia Neurogenic bladder- suprapubic catheter Plan: G-tube feedings resumed, continue at goal 35cc/hr. Close observation Supportive care Patient seen in collaboration Dr. Hall Subjective: Course reviewed with nursing staff Patient interviewed and examined Patient is slowly improving. He is now receiving G tube feeding at 35 cc an hour and tolerating well. Denies abdominal pain. Denies any nausea or vomiting. He appears comofortable overall. Leukocytosis stable to mildly improved. Followed by ID. Continue observation. Exam PHYSICAL EXAMINATION: GENERAL: Quadriplegic, trached on MV, alert & oriented x 4 SKIN: Midline incision HEAD: Normocephalic, atraumatic, no tenderness. EYES: Pupils equal reactive to light, no discharge. EARS/NOSE AND THROAT: Ears normal, nose normal, oropharynx normal, oral membranes well hydrated without lesions. NECK: Supple, no masses CHEST: Inspection within normal limits. CARDIOVASCULAR: Heart: Regular rate and rhythm RESPIRATORY: Lungs clear to auscultation. GASTROINTESTINAL AND LIVER: Abdomen: Soft, no distension , no hernias, no masses, no organomegaly, no ascites, no guarding, no rebound tenderness, extremely hypoactive distant BS. Rectal: Deferred. GENITOURINARY: Male genitalia within normal limits. suprapubic catheter Result Diagram: 06/13/1952206/13/19522 Results 24hrs Laboratory Tests Test 06/13/19 05:23 06/13/19 14:02 White Blood Count 19.4 H Red Blood Count 2.86 L Hemoglobin 7.7 L Hematocrit 24.7 L Mean Corpuscular Volume 86.4 Mean Corpuscular Hemoglobin 26.9 L Mean Corpuscular Hemoglobin Concent 31.2 L Red Cell Distribution Width 21.3 H Platelet Count 306 Mean Platelet Volume 11.2 H Immature Granulocytes % 1.500 H Neutrophils % 85.9 H Lymphocytes % 5.9 L Monocytes % 6.4 Eosinophils % 0.2 Basophils % 0.1 Nucleated Red Blood Cells % 0.0 Immature Granulocytes # 0.290 H Neutrophils # 16.6 H Lymphocytes # 1.2 Monocytes # 1.2 H Eosinophils # 0.0 Basophils # 0.0 Nucleated Red Blood Cells # 0.0 Sodium Level 143 Potassium Level 3.7 Chloride Level 113 H Carbon Dioxide Level 24 Anion Gap 6 Blood Urea Nitrogen 21 H Creatinine 0.73 Est Glomerular Filtrat Rate mL/min > 60 Glucose Level 94 Calcium Level 7.3 L Phosphorus Level 2.6 Magnesium Level 1.6 L Total Bilirubin 1.0 Direct Bilirubin 0.00 Indirect Bilirubin 1.0 Aspartate Amino Transf (AST/SGOT) 21 Alanine Aminotransferase (ALT/SGPT) 17 Alkaline Phosphatase 210 H Total Protein 6.6 Albumin 2.5 L Globulin 4.10 H Albumin/Globulin Ratio 0.60 Thyroid Stimulating Hormone (TSH) 3.810 Procalcitonin 0.42 H CC: CHAPITO HALL MD ; Exam/Review of Systems Exam Vitals Vital Signs Date Temp Pulse Resp B/P (MAP) Pulse Ox O2 O2 Flow FiO2 Time Delivery Rate 06/13/19 76 24 98 50 13:50 06/13/19 98.5 123/76 Mechanical 11:24 (92) Ventilator Intake and Output 06/12/19 06/12/19 06/13/19 1515:00 23:00 07:00 IntakeIntake Total 50 ml 300 ml 1320 ml OutputOutput Total 55 ml BalanceBalance 50 ml 300 ml 1265 ml Results Results 24hrs Laboratory Tests Test 06/13/19 05:23 06/13/19 14:02 White Blood Count 19.4 H Red Blood Count 2.86 L Hemoglobin 7.7 L Hematocrit 24.7 L Mean Corpuscular Volume 86.4 Mean Corpuscular Hemoglobin 26.9 L Mean Corpuscular Hemoglobin Concent 31.2 L Red Cell Distribution Width 21.3 H Platelet Count 306 Mean Platelet Volume 11.2 H Immature Granulocytes % 1.500 H Neutrophils % 85.9 H Lymphocytes % 5.9 L Monocytes % 6.4 Eosinophils % 0.2 Basophils % 0.1 Nucleated Red Blood Cells % 0.0 Immature Granulocytes # 0.290 H Neutrophils # 16.6 H Lymphocytes # 1.2 Monocytes # 1.2 H Eosinophils # 0.0 Basophils # 0.0 Nucleated Red Blood Cells # 0.0 Sodium Level 143 Potassium Level 3.7 Chloride Level 113 H Carbon Dioxide Level 24 Anion Gap 6 Blood Urea Nitrogen 21 H Creatinine 0.73 Est Glomerular Filtrat Rate mL/min > 60 Glucose Level 94 Calcium Level 7.3 L Phosphorus Level 2.6 Magnesium Level 1.6 L Total Bilirubin 1.0 Direct Bilirubin 0.00 Indirect Bilirubin 1.0 Aspartate Amino Transf (AST/SGOT) 21 Alanine Aminotransferase (ALT/SGPT) 17 Alkaline Phosphatase 210 H Total Protein 6.6 Albumin 2.5 L Globulin 4.10 H Albumin/Globulin Ratio 0.60 Thyroid Stimulating Hormone (TSH) 3.810 Procalcitonin 0.42 H Medications Medication Current Medications Acetaminophen (Tylenol Tab) 650 mg Q6H PRN PO .PAIN 1-3 OR TEMP Last administered on 06/03/19at 15:36; Admin Dose 650 MG; Start 05/28/19 at 06:30 Albuterol/ Ipratropium (Duoneb) 3 ml Q2H RESP THERAPY PRN NEB SHORTNESS OF BREATH; Start 05/28/19 at 10:30 Nitroglycerin (Nitroglycerin (Sl Tab) 0.4 Mg) 1 tab Q5M PRN SL CHEST PAIN; Start 05/28/19 at 10:30 Acetaminophen (Tylenol Supp) 650 mg Q4H PRN [place] PAIN LEVEL 1-3 OR FEVER; Start 05/28/19 at 10:30 Bisacodyl (Dulcolax Supp) 10 mg DAILY PRN [place] CONSTIPATION Last administered on 06/01/19at 08:57; Admin Dose 10 MG; Start 05/28/19 at 10:30 IV Flush (NS 3 ml) 3 ml PER PROTOCOL IV ; Start 05/28/19 at 10:30 Ondansetron HCl (Zofran Inj) 4 mg Q6H PRN IV NAUSEA/VOMITING Last administered on 06/02/19at 14:31; Admin Dose 4 MG; Start 05/28/19 at 10:30 IV Flush (NS 10 ml) 10 ml Q8 PRN IV IV PROTOCOL Last administered on 06/02/19at 06:04; Admin Dose 10 ML; Start 05/28/19 at 19:00 Heparin Sodium (Porcine) (Heparin (5000 Units/1ml)) 5,000 unit BID SC Last administered on 06/13/19 09:27; Admin Dose 5,000 UNIT; Start 05/29/19 at 21:00 Baclofen (Lioresal) 5 mg TID NGT Last administered on 06/13/19 12:56; Admin Dose 5 MG; Start 05/31/19 at 13:00 Hydralazine HCl (Apresoline) 10 mg Q6H PRN IV SBP>160 Last administered on 06/01/19 08:58; Admin Dose 10 MG; Start 06/01/19 at 09:00 Simethicone (Mylicon) 80 mg Q6 PO Last administered on 06/13/19 11:52; Admin Dose 80 MG; Start 06/01/19 at 12:00 Lorazepam (Ativan) 2 mg Q4H PRN IV anxiety Last administered on 06/12/19 03:28; Admin Dose 2 MG; Start 06/03/19 at 17:30 Meropenem/Sodium Chloride 50 ml @ 100 mls/hr Q12 IVPB Last administered on 06/13/19 08:57; Admin Dose 100 MLS/HR; Start 06/04/19 at 11:30 Miscellaneous Information 1 ea NOTE XX ; Start 06/04/19 at 18:30 Glucose (Glutose) 15 gm Q15M PRN PO DECREASED GLUCOSE; Start 06/04/19 at 18:30 Glucose (Glutose) 22.5 gm Q15M PRN PO DECREASED GLUCOSE; Start 06/04/19 at 18:30 Dextrose (D50w Syringe) 25 ml Q15M PRN IV DECREASED GLUCOSE; Start 06/04/19 at 18:30 Dextrose (D50w Syringe) 50 ml Q15M PRN IV DECREASED GLUCOSE; Start 06/04/19 at 18:30 Glucagon (Glucagen) 1 mg Q15M PRN IM DECREASED GLUCOSE; Start 06/04/19 at 18:30 Glucose (Glutose) 15 gm Q15M PRN BUCCAL DECREASED GLUCOSE; Start 06/04/19 at 18:30 Morphine Sulfate (morphine) 2 mg Q2H PRN IV SEVERE PAIN LEVEL 7-10; Start 06/04/19 at 20:30 Caspofungin 50 mg/ Sodium Chloride 250 ml @ 250 mls/hr Q24H IVPB Last administered on 06/13/19at 14:51; Admin Dose 250 MLS/HR; Start 06/06/19 at 15:00 Polyethylene Glycol (Miralax) 17 gm BID PO Last administered on 06/13/19at 08:57; Admin Dose 17 GM; Start 06/10/19 at 10:00 Sodium Biphosphate/ Sodium Phosphate (Fleet Enema) 133 ml DAILY PRN [place] CONSTIPATION; Start 06/10/19 at 10:00 Famotidine (Pepcid Iv) 20 mg BID IV Last administered on 06/13/19at 08:57; Admin Dose 20 MG; Start 06/12/19 at 21:00 Magnesium Sulfate 3 gm/Dextrose 106 ml @ 35.333 mls/ hr ONCE ONCE IVPB Last administered on 06/13/19at 12:57; Admin Dose 35.333 MLS/HR; Start 06/13/19 at 13:00; Stop 06/13/19 at 15:59 NEAL MIRELES COMPOUNDING ASSISTANT Jun 13, 2019 15:18
--- NOTE | 2019-06-13 17:24 | CONS ---
Consult Date/Type/Reason Admit Date/Time May 28, 2019 at 06:21 Initial Consult Date 05/30/19 Type of Consultation: Pulm Requesting Provider: TYLOR REESE Date/Time of Note DATE: 06/13/19 TIME: 17:23 Subjective No events. Stable on the vent. Objective Vitals Vital Signs Date Temp Pulse Resp B/P (MAP) Pulse Ox O2 O2 Flow FiO2 Time Delivery Rate 06/13/19 98.3 71 18 131/82 100 Mechanical 15:52 (98) Ventilator 06/13/19 50 13:50 Intake and Output 06/12/19 06/12/19 06/13/19 1515:00 23:00 07:00 IntakeIntake Total 50 ml 300 ml 1320 ml OutputOutput Total 55 ml BalanceBalance 50 ml 300 ml 1265 ml Exam NECK: Supple. No JVD or lymphadenopathy. CARDIAC EXAM: S1, S2. No added sounds or murmurs. CHEST: Diminished breath sounds bilaterally ABDOMEN: Diminished bowel sounds EXTREMITIES: No cyanosis, clubbing or edema. NEUROLOGIC: Quadriplegia Results/Medications Result Diagram: 06/13/19 0523 06/13/19 0523 Results 24 hrs Laboratory Tests Test 06/13/19 05:23 06/13/19 14:02 White Blood Count 19.4 H Red Blood Count 2.86 L Hemoglobin 7.7 L Hematocrit 24.7 L Mean Corpuscular Volume 86.4 Mean Corpuscular Hemoglobin 26.9 L Mean Corpuscular Hemoglobin Concent 31.2 L Red Cell Distribution Width 21.3 H Platelet Count 306 Mean Platelet Volume 11.2 H Immature Granulocytes % 1.500 H Neutrophils % 85.9 H Lymphocytes % 5.9 L Monocytes % 6.4 Eosinophils % 0.2 Basophils % 0.1 Nucleated Red Blood Cells % 0.0 Immature Granulocytes # 0.290 H Neutrophils # 16.6 H Lymphocytes # 1.2 Monocytes # 1.2 H Eosinophils # 0.0 Basophils # 0.0 Nucleated Red Blood Cells # 0.0 Sodium Level 143 Potassium Level 3.7 Chloride Level 113 H Carbon Dioxide Level 24 Anion Gap 6 Blood Urea Nitrogen 21 H Creatinine 0.73 Est Glomerular Filtrat Rate mL/min > 60 Glucose Level 94 Calcium Level 7.3 L Phosphorus Level 2.6 Magnesium Level 1.6 L Total Bilirubin 1.0 Direct Bilirubin 0.00 Indirect Bilirubin 1.0 Aspartate Amino Transf (AST/SGOT) 21 Alanine Aminotransferase (ALT/SGPT) 17 Alkaline Phosphatase 210 H Total Protein 6.6 Albumin 2.5 L Globulin 4.10 H Albumin/Globulin Ratio 0.60 Thyroid Stimulating Hormone (TSH) 3.810 Procalcitonin 0.42 H Home Meds Reported Medications Ipratropium-Albuterol (Ipratropium-Albuterol) 0.5-3 Mg/3 Ml Ampul.neb, 3 ML INHALATION Q6 for SOB, #30 VIAL 05/28/19 Bacillus Coagulans (Probiotic) 1 Each Tab.chew, 1 EACH PO BID, TAB.CHEW 05/28/19 Docusate Sodium* (Colace*) 100 Mg Capsule, 200 MG PO DAILY, #30 CAP 05/28/19 Bisacodyl* (Dulcolax*) 5 Mg Tablet.dr, 10 MG PO DAILY PRN for [id number], TAB 05/28/19 Bisacodyl (Dulcolax) 10 Mg Supp.rect, 10 MG RC Q MON,SAT,SAT, SUPP.RECT OR NEEDED 02/04/19 Simethicone (Gas Relief 80) 80 Mg Tab.chew, 160 MG PO QID, TAB.CHEW 02/04/19 Potassium Chloride* (Klor-Con*) 20 Meq Tabsr, 40 MEQ PO DAILY, TAB.SA 02/04/19 Polyethylene Glycol* (Miralax*) 17 Gm Powd.pack, 17 GM PO DAILY for CONSTIPATION, #30 PACKET 02/04/19 Oxybutynin Chloride* (Ditropan*) 5 Mg Tab, 5 MG PO DAILY, TAB 02/04/19 Baclofen* (Baclofen*) 20 Mg Tablet, 30 MG PO QID, TAB 02/04/19 Amlodipine Besylate* (Amlodipine Besylate*) 2.5 Mg Tablet, 2.5 MG PO BID, #30 TAB 02/04/19 Acetaminophen* (Acetaminophen*) 325 Mg Tablet, 650 MG PO Q6H PRN for MILD PAIN(1-3)OR ELEVATED TEMP, #30 TAB 02/04/19 Medications Current Medications Acetaminophen (Tylenol Tab) 650 mg Q6H PRN PO .PAIN 1-3 OR TEMP Last administered on 06/03/19at 15:36; Admin Dose 650 MG; Start 05/28/19 at 06:30 Albuterol/ Ipratropium (Duoneb) 3 ml Q2H RESP THERAPY PRN NEB SHORTNESS OF BREATH; Start 05/28/19 at 10:30 Nitroglycerin (Nitroglycerin (Sl Tab) 0.4 Mg) 1 tab Q5M PRN SL CHEST PAIN; Start 05/28/19 at 10:30 Acetaminophen (Tylenol Supp) 650 mg Q4H PRN [place] PAIN LEVEL 1-3 OR FEVER; Start 05/28/19 at 10:30 Bisacodyl (Dulcolax Supp) 10 mg DAILY PRN [place] CONSTIPATION Last administered on 06/01/19 08:57; Admin Dose 10 MG; Start 05/28/19 at 10:30 IV Flush (NS 3 ml) 3 ml PER PROTOCOL IV ; Start 05/28/19 at 10:30 Ondansetron HCl (Zofran Inj) 4 mg Q6H PRN IV NAUSEA/VOMITING Last administered on 06/02/19 14:31; Admin Dose 4 MG; Start 05/28/19 at 10:30 IV Flush (NS 10 ml) 10 ml Q8 PRN IV IV PROTOCOL Last administered on 06/02/19 06:04; Admin Dose 10 ML; Start 05/28/19 at 19:00 Heparin Sodium (Porcine) (Heparin (5000 Units/1ml)) 5,000 unit BID SC Last administered on 06/13/19 09:27; Admin Dose 5,000 UNIT; Start 05/29/19 at 21:00 Baclofen (Lioresal) 5 mg TID NGT Last administered on 06/13/19 12:56; Admin Dose 5 MG; Start 05/31/19 at 13:00 Hydralazine HCl (Apresoline) 10 mg Q6H PRN IV SBP>160 Last administered on 06/01/19 08:58; Admin Dose 10 MG; Start 06/01/19 at 09:00 Simethicone (Mylicon) 80 mg Q6 PO Last administered on 06/13/19 11:52; Admin Dose 80 MG; Start 06/01/19 at 12:00 Lorazepam (Ativan) 2 mg Q4H PRN IV anxiety Last administered on 06/12/19 03:28; Admin Dose 2 MG; Start 06/03/19 at 17:30 Meropenem/Sodium Chloride 50 ml @ 100 mls/hr Q12 IVPB Last administered on 06/13/19at 08:57; Admin Dose 100 MLS/HR; Start 06/04/19 at 11:30 Miscellaneous Information 1 ea NOTE XX ; Start 06/04/19 at 18:30 Glucose (Glutose) 15 gm Q15M PRN PO DECREASED GLUCOSE; Start 06/04/19 at 18:30 Glucose (Glutose) 22.5 gm Q15M PRN PO DECREASED GLUCOSE; Start 06/04/19 at 18:30 Dextrose (D50w Syringe) 25 ml Q15M PRN IV DECREASED GLUCOSE; Start 06/04/19 at 18:30 Dextrose (D50w Syringe) 50 ml Q15M PRN IV DECREASED GLUCOSE; Start 06/04/19 at 18:30 Glucagon (Glucagen) 1 mg Q15M PRN IM DECREASED GLUCOSE; Start 06/04/19 at 18:30 Glucose (Glutose) 15 gm Q15M PRN BUCCAL DECREASED GLUCOSE; Start 06/04/19 at 18:30 Morphine Sulfate (morphine) 2 mg Q2H PRN IV SEVERE PAIN LEVEL 7-10; Start 06/04/19 at 20:30 Caspofungin 50 mg/ Sodium Chloride 250 ml @ 250 mls/hr Q24H IVPB Last administered on 06/13/19at 14:51; Admin Dose 250 MLS/HR; Start 06/06/19 at 15:00 Polyethylene Glycol (Miralax) 17 gm BID PO Last administered on 06/13/19at 08:57; Admin Dose 17 GM; Start 06/10/19 at 10:00 Sodium Biphosphate/ Sodium Phosphate (Fleet Enema) 133 ml DAILY PRN [place] CONST IPATION; Start 06/10/19 at 10:00 Famotidine (Pepcid Iv) 20 mg BID IV Last administered on 06/13/19at 08:57; Admin Dose 20 MG; Start 06/12/19 at 21:00 Assessment/Plan Assessment/Plan (Daily) IMP 1. Acute abdomen secondary to perforated bowel following PEG tube placem ent--s/p repair 2. Vent dependent respiratory failure 3. History of quadriplegia 4. Status post septic shock requiring vasopressors possible component of adrenal insufficiency, decreased vasopressor requirements. 5. Neurogenic bladder with suprapubic catheter RECS: 1. Continue mechanical ventilation 2. Postop surgical recommendations 3. Urology recommendations noted 4. Postop antibiotics 5. DVT GI prophylaxis 6. Continues nasogastric tube feeding as tolerated LYDIA LOTT MD Jun 13, 2019 17:24
--- NOTE | 2019-06-13 18:52 | PN ---
Date/Time of Note Date/Time of Note DATE: 06/13/19 TIME: 18:50 Assessment/Plan VTE Prophylaxis Risk score (from Ns)>0 risk: 4 SCD applied (from Ns): Yes SCD contraindicated: low risk/ambulating Pharmacological prophylaxis: LMWH Lines/Catheters IV Catheter Type (from Nrs): PICC Line Central line still needed: Yes Urinary Cath still in place: No Assessment/Plan Hospital Course Assessment and plan 1. Chronic respiratory failure, stable continue vent 2. Small bowel obstruction ukn etio, appreciate consult assistance 3. Malnutrition, off TPN, dc ng feeds and try PEG feeds, watch I's and O's 4. Small bowel injury sp urgent repair, appendectomy, POD 9, cont ST care. Video swallow Saturday. 5. Chronic quadriplegia, continue supportive care offload, reposition etc. 6. Failure to thrive, home vs SNF at some point 7. Essential hypertension 8. Chronic paralytic ileus, continue new bowel care regimen 9. Aspiration pneumonia, stable continue/finish antibiotics 10. Anemia status post 4 unit transfusion. No active bleed, follow-up 11. Tracheostomy status 12. Neurogenic bladder; cont suprapubic care. bladder spasm care/ meds once on po meds. 13. ARF/ ATN stable S: 06/12 no distress. tolerating NG feeds at 25/hr. PEG for decompression. no bm yet 06/13 starting PEG feeds. No distress. O: vss SR PE no pallor reg s1s2 no mrg mechan bs bs dimin, nt, distended. no r r g hypotonia Result Diagram: 06/13/19 0523 06/13/19 0523 Results 24hrs Laboratory Tests Test 06/13/19 05:23 06/13/19 14:02 White Blood Count 19.4 H Red Blood Count 2.86 L Hemoglobin 7.7 L Hematocrit 24.7 L Mean Corpuscular Volume 86.4 Mean Corpuscular Hemoglobin 26.9 L Mean Corpuscular Hemoglobin Concent 31.2 L Red Cell Distribution Width 21.3 H Platelet Count 306 Mean Platelet Volume 11.2 H Immature Granulocytes % 1.500 H Neutrophils % 85.9 H Lymphocytes % 5.9 L Monocytes % 6.4 Eosinophils % 0.2 Basophils % 0.1 Nucleated Red Blood Cells % 0.0 Immature Granulocytes # 0.290 H Neutrophils # 16.6 H Lymphocytes # 1.2 Monocytes # 1.2 H Eosinophils # 0.0 Basophils # 0.0 Nucleated Red Blood Cells # 0.0 Sodium Level 143 Potassium Level 3.7 Chloride Level 113 H Carbon Dioxide Level 24 Anion Gap 6 Blood Urea Nitrogen 21 H Creatinine 0.73 Est Glomerular Filtrat Rate mL/min > 60 Glucose Level 94 Calcium Level 7.3 L Phosphorus Level 2.6 Magnesium Level 1.6 L Total Bilirubin 1.0 Direct Bilirubin 0.00 Indirect Bilirubin 1.0 Aspartate Amino Transf (AST/SGOT) 21 Alanine Aminotransferase (ALT/SGPT) 17 Alkaline Phosphatase 210 H Total Protein 6.6 Albumin 2.5 L Globulin 4.10 H Albumin/Globulin Ratio 0.60 Thyroid Stimulating Hormone (TSH) 3.810 Procalcitonin 0.42 H Exam/Review of Systems Exam Vitals Vital Signs Date Temp Pulse Resp B/P (MAP) Pulse Ox O2 O2 Flow FiO2 Time Delivery Rate 06/13/19 76 24 100 50 17:36 06/13/19 98.3 131/82 Mechanical 15:52 (98) Ventilator Intake and Output 06/12/19 06/12/19 06/13/19 1515:00 23:00 07:00 IntakeIntake Total 50 ml 300 ml 1320 ml OutputOutput Total 55 ml BalanceBalance 50 ml 300 ml 1265 ml Results Results 24hrs Laboratory Tests Test 06/13/19 05:23 06/13/19 14:02 White Blood Count 19.4 H Red Blood Count 2.86 L Hemoglobin 7.7 L Hematocrit 24.7 L Mean Corpuscular Volume 86.4 Mean Corpuscular Hemoglobin 26.9 L Mean Corpuscular Hemoglobin Concent 31.2 L Red Cell Distribution Width 21.3 H Platelet Count 306 Mean Platelet Volume 11.2 H Immature Granulocytes % 1.500 H Neutrophils % 85.9 H Lymphocytes % 5.9 L Monocytes % 6.4 Eosinophils % 0.2 Basophils % 0.1 Nucleated Red Blood Cells % 0.0 Immature Granulocytes # 0.290 H Neutrophils # 16.6 H Lymphocytes # 1.2 Monocytes # 1.2 H Eosinophils # 0.0 Basophils # 0.0 Nucleated Red Blood Cells # 0.0 Sodium Level 143 Potassium Level 3.7 Chloride Level 113 H Carbon Dioxide Level 24 Anion Gap 6 Blood Urea Nitrogen 21 H Creatinine 0.73 Est Glomerular Filtrat Rate mL/min > 60 Glucose Level 94 Calcium Level 7.3 L Phosphorus Level 2.6 Magnesium Level 1.6 L Total Bilirubin 1.0 Direct Bilirubin 0.00 Indirect Bilirubin 1.0 Aspartate Amino Transf (AST/SGOT) 21 Alanine Aminotransferase (ALT/SGPT) 17 Alkaline Phosphatase 210 H Total Protein 6.6 Albumin 2.5 L Globulin 4.10 H Albumin/Globulin Ratio 0.60 Thyroid Stimulating Hormone (TSH) 3.810 Procalcitonin 0.42 H Medications Medication Current Medications Acetaminophen (Tylenol Tab) 650 mg Q6H PRN PO .PAIN 1-3 OR TEMP Last administered on 06/03/19at 15:36; Admin Dose 650 MG; Start 05/28/19 at 06:30 Albuterol/ Ipratropium (Duoneb) 3 ml Q2H RESP THERAPY PRN NEB SHORTNESS OF BREATH; Start 05/28/19 at 10:30 Nitroglycerin (Nitroglycerin (Sl Tab) 0.4 Mg) 1 tab Q5M PRN SL CHEST PAIN; Start 05/28/19 at 10:30 Acetaminophen (Tylenol Supp) 650 mg Q4H PRN IN PAIN LEVEL 1-3 OR FEVER; Start 05/28/19 at 10:30 Bisacodyl (Dulcolax Supp) 10 mg DAILY PRN IN CONSTIPATION Last administered on 06/01/19at 08:57; Admin Dose 10 MG; Start 05/28/19 at 10:30 IV Flush (NS 3 ml) 3 ml PER PROTOCOL IV ; Start 05/28/19 at 10:30 Ondansetron HCl (Zofran Inj) 4 mg Q6H PRN IV NAUSEA/VOMITING Last administered on 06/02/19at 14:31; Admin Dose 4 MG; Start 05/28/19 at 10:30 IV Flush (NS 10 ml) 10 ml Q8 PRN IV IV PROTOCOL Last administered on 06/02/19 06:04; Admin Dose 10 ML; Start 05/28/19 at 19:00 Heparin Sodium (Porcine) (Heparin (5000 Units/1ml)) 5,000 unit BID SC Last administered on 06/13/19 09:27; Admin Dose 5,000 UNIT; Start 05/29/19 at 21:00 Baclofen (Lioresal) 5 mg TID NGT Last administered on 06/13/19 12:56; Admin Dose 5 MG; Start 05/31/19 at 13:00 Hydralazine HCl (Apresoline) 10 mg Q6H PRN IV SBP>160 Last administered on 06/01/19 08:58; Admin Dose 10 MG; Start 06/01/19 at 09:00 Simethicone (Mylicon) 80 mg Q6 PO Last administered on 06/13/19 17:33; Admin Dose 80 MG; Start 06/01/19 at 12:00 Lorazepam (Ativan) 2 mg Q4H PRN IV anxiety Last administered on 06/12/19 03:28; Admin Dose 2 MG; Start 06/03/19 at 17:30 Meropenem/Sodium Chloride 50 ml @ 100 mls/hr Q12 IVPB Last administered on 06/13/19 08:57; Admin Dose 100 MLS/HR; Start 06/04/19 at 11:30 Miscellaneous Information 1 ea NOTE XX ; Start 06/04/19 at 18:30 Glucose (Glutose) 15 gm Q15M PRN PO DECREASED GLUCOSE; Start 06/04/19 at 18:30 Glucose (Glutose) 22.5 gm Q15M PRN PO DECREASED GLUCOSE; Start 06/04/19 at 18:30 Dextrose (D50w Syringe) 25 ml Q15M PRN IV DECREASED GLUCOSE; Start 06/04/19 at 18:30 Dextrose (D50w Syringe) 50 ml Q15M PRN IV DECREASED GLUCOSE; Start 06/04/19 at 18:30 Glucagon (Glucagen) 1 mg Q15M PRN IM DECREASED GLUCOSE; Start 06/04/19 at 18:30 Glucose (Glutose) 15 gm Q15M PRN BUCCAL DECREASED GLUCOSE; Start 06/04/19 at 18:30 Morphine Sulfate (morphine) 2 mg Q2H PRN IV SEVERE PAIN LEVEL 7-10; Start 06/04/19 at 20:30 Caspofungin 50 mg/ Sodium Chloride 250 ml @ 250 mls/hr Q24H IVPB Last administered on 06/13/19 14:51; Admin Dose 250 MLS/HR; Start 06/06/19 at 15:00 Polyethylene Glycol (Miralax) 17 gm BID PO Last administered on 06/13/19 08:57; Admin Dose 17 GM; Start 06/10/19 at 10:00 Sodium Biphosphate/ Sodium Phosphate (Fleet Enema) 133 ml DAILY PRN IN CONSTIPATION; Start 06/10/19 at 10:00 Famotidine (Pepcid Iv) 20 mg BID IV Last administered on 06/13/19at 08:57; Admin Dose 20 MG; Start 06/12/19 at 21:00 TAM ROJAS MD Jun 13, 2019 18:52
[2019-06-14] VITALS (19 sets, daily range): BP systolic 94–156; BP diastolic 54–92; PULSE 68–85; RESP 20–24
[2019-06-14] MEDS: POLYETHYLENE GLYCOL 17 GM PACKET PO SCH ×2 (08:29→22:24)
[2019-06-14] MEDS: BACLOFEN 10 MG TAB NGT SCH ×3 (08:29→22:25)
[2019-06-14] MEDS: FAMOTIDINE 20 MG INJ IV SCH ×2 (08:29→22:24)
[2019-06-14] MEDS: MEROPENEM 1 GM/50ML(PMX) 50 ML IVPB SCH ×2 (08:29→22:25)
[2019-06-14] MEDS: BALSAM PERU/CASTOR OIL 60 GM TUBE TOP SCH ×2 (08:29→22:26)
[2019-06-14] MEDS: HEPARIN 5,000 UNIT/1 ML VIAL SC SCH ×2 (08:40→23:10)
--- NOTE | 2019-06-14 11:04 | QN ---
Documentation Comment Postoperative day #10 Tolerating G-tube feedings at 35 cc an hour Had a bowel movement Abdomen remains slightly distended and less tense than yesterday Incision is clean and dry CBC pending Video swallow eval tomorrow Plan: I will repeat the CT scan of the abdomen and pelvis today ZENA CALDERÓN MD Jun 14, 2019 11:04
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
--- NOTE | 2019-06-14 13:35 | CONS ---
Consultation Date/Type/Reason Admit Date/Time May 28, 2019 at 06:21 Initial Consult Date SUBJECTIVE: The patient is awake, alert, looks comfortable. Low grade fevers today VS: stable T: 98.4 In AM=99.9 LABS: Reviewed MICROBIOLOGY: Repeat UA and blood CX were negative. INDWELLINGS: Trach, PEG, NG tube, PICC line and a suprapubic catheter. PHYSICAL EXAMINATION: GENERAL: Chronically ill,. wasted, middle-aged -[place] man who is awake, in no distress. HEENT: Head atraumatic, normocephalic. NECK: Supple. CHEST: Rise symmetrical. Breath sounds diminished to bases. HEART: S1, S2. ABDOMEN: Soft. Bowel tones present. EXTREMITIES: Wasted, without cyanosis. ASSESSMENT: 1. Persistent leukocytosis, likely reactive. 2. Status post bowel perforation repair, postoperative day #9. 3. Status post urinary tract infection, pneumonia, and sepsis. 4. Quadriplegia. 5. Kidney mass of unknown significance. PLAN: The patient is stable. Started on TF via NGT. Procalcitonin level is mildly elevated today. Continue Cancidas and Merrem. AM labs. Requesting Provider: TYLOR REESE Date/Time of Note DATE: 06/14/19 TIME: 13:31 Exam/Review of Systems Exam Vitals Vital Signs Date Temp Pulse Resp B/P (MAP) Pulse Ox O2 O2 Flow FiO2 Time Delivery Rate 06/14/19 98.4 85 20 113/67 100 Mechanical 11:14 (82) Ventilator 06/14/19 40 11:13 Intake and Output 06/13/19 06/13/19 06/14/19 1515:00 23:00 07:00 IntakeIntake Total 50 ml 350 ml 1270 ml OutputOutput Total 300 ml BalanceBalance 50 ml 350 ml 970 ml Results Result Diagram: 06/14/19 1100 06/14/19 1100 Results 24hrs Laboratory Tests Test 06/13/19 14:02 06/14/19 11:00 Procalcitonin 0.42 H White Blood Count 16.1 H Red Blood Count 2.54 L Hemoglobin 6.9 *L Hematocrit 22.0 L Mean Corpuscular Volume 86.6 Mean Corpuscular Hemoglobin 27.2 L Mean Corpuscular Hemoglobin Concent 31.4 L Red Cell Distribution Width 20.8 H Platelet Count 305 Mean Platelet Volume 11.9 H Immature Granulocytes % 1.400 H Neutrophils % 86.2 H Lymphocytes % 5.0 L Monocytes % 6.9 Eosinophils % 0.4 Basophils % 0.1 Nucleated Red Blood Cells % 0.0 Immature Granulocytes # 0.220 H Neutrophils # 13.9 H Lymphocytes # 0.8 Monocytes # 1.1 H Eosinophils # 0.1 Basophils # 0.0 Nucleated Red Blood Cells # 0.0 Sodium Level 137 Potassium Level 3.4 L Chloride Level 109 Carbon Dioxide Level 23 Anion Gap 5 Blood Urea Nitrogen 16 Creatinine 0.70 Est Glomerular Filtrat Rate mL/min > 60 Glucose Level 96 Calcium Level 7.4 L Phosphorus Level 2.6 Magnesium Level 1.9 Total Bilirubin 0.9 Direct Bilirubin 0.00 Indirect Bilirubin 0.9 Aspartate Amino Transf (AST/SGOT) 19 Alanine Aminotransferase (ALT/SGPT) 18 Alkaline Phosphatase 239 H Total Protein 6.6 Albumin 2.5 L Globulin 4.10 H Albumin/Globulin Ratio 0.60 Medications Medication Current Medications Acetaminophen (Tylenol Tab) 650 mg Q6H PRN PO .PAIN 1-3 OR TEMP Last admi nistered on 06/03/19at 15:36; Admin Dose 650 MG; Start 05/28/19 at 06:30 Albuterol/ Ipratropium (Duoneb) 3 ml Q2H RESP THERAPY PRN NEB SHORTNESS OF BREATH; Start 05/28/19 at 10:30 Nitroglycerin (Nitroglycerin (Sl Tab) 0.4 Mg) 1 tab Q5M PRN SL CHEST PAIN; Start 05/28/19 at 10:30 Acetaminophen (Tylenol Supp) 650 mg Q4H PRN [place] PAIN LEVEL 1-3 OR FEVER; Start 05/28/19 at 10:30 Bisacodyl (Dulcolax Supp) 10 mg DAILY PRN [place] CONSTIPATION Last administered on 06/01/19at 08:57; Admin Dose 10 MG; Start 05/28/19 at 10:30 IV Flush (NS 3 ml) 3 ml PER PROTOCOL IV ; Start 05/28/19 at 10:30 Ondansetron HCl (Zofran Inj) 4 mg Q6H PRN IV NAUSEA/VOMITING Last administered on 06/02/19at 14:31; Admin Dose 4 MG; Start 05/28/19 at 10:30 IV Flush (NS 10 ml) 10 ml Q8 PRN IV IV PROTOCOL Last administered on 06/02/19at 06:04; Admin Dose 10 ML; Start 05/28/19 at 19:00 Heparin Sodium (Porcine) (Heparin (5000 Units/1ml)) 5,000 unit BID SC Last administered on 06/14/19 08:40; Admin Dose 5,000 UNIT; Start 05/29/19 at 21:00 Baclofen (Lioresal) 5 mg TID NGT Last administered on 06/14/19 12:34; Admin Dose 5 MG; Start 05/31/19 at 13:00 Hydralazine HCl (Apresoline) 10 mg Q6H PRN IV SBP>160 Last administered on 08:58; Admin Dose 10 MG; Start 06/01/19 at 09:00 Simethicone (Mylicon) 80 mg Q6 PO Last administered on 06/14/19 12:34; Admin Dose 80 MG; Start 06/01/19 at 12:00 Lorazepam (Ativan) 2 mg Q4H PRN IV anxiety Last administered on 06/12/19at 03:28; Admin Dose 2 MG; Start 06/03/19 at 17:30 Meropenem/Sodium Chloride 50 ml @ 100 mls/hr Q12 IVPB Last administered on 06/14/19 08:29; Admin Dose 100 MLS/HR; Start 06/04/19 at 11:30 Miscellaneous Information 1 ea NOTE XX ; Start 06/04/19 at 18:30 Glucose (Glutose) 15 gm Q15M PRN PO DECREASED GLUCOSE; Start 06/04/19 at 18:30 Glucose (Glutose) 22.5 gm Q15M PRN PO DECREASED GLUCOSE; Start 06/04/19 at 18:30 Dextrose (D50w Syringe) 25 ml Q15M PRN IV DECREASED GLUCOSE; Start 06/04/19 at 18:30 Dextrose (D50w Syringe) 50 ml Q15M PRN IV DECREASED GLUCOSE; Start 06/04/19 at 18:30 Glucagon (Glucagen) 1 mg Q15M PRN IM DECREASED GLUCOSE; Start 06/04/19 at 18:30 Glucose (Glutose) 15 gm Q15M PRN BUCCAL DECREASED GLUCOSE; Start 06/04/19 at 18:30 Morphine Sulfate (morphine) 2 mg Q2H PRN IV SEVERE PAIN LEVEL 7-10; Start 06/04/19 at 20:30 Caspofungin 50 mg/ Sodium Chloride 250 ml @ 250 mls/hr Q24H IVPB Last administered on 06/13/19at 14:51; Admin Dose 250 MLS/HR; Start 06/06/19 at 15:00 Polyethylene Glycol (Miralax) 17 gm BID PO Last administered on 06/14/19at 08:29; Admin Dose 17 GM; Start 06/10/19 at 10:00 Sodium Biphosphate/ Sodium Phosphate (Fleet Enema) 133 ml DAILY PRN [place] CONSTIPATION; Start 06/10/19 at 10:00 Famotidine (Pepcid Iv) 20 mg BID IV Last administered on 06/14/19at 08:29; Admin Dose 20 MG; Start 06/12/19 at 21:00 ADAMS STAPLETON Jun 14, 2019 13:35
--- NOTE | 2019-06-14 14:23 | PN ---
Date/Time of Note Date/Time of Note DATE: 06/14/19 TIME: 14:20 Assessment/Plan VTE Prophylaxis Risk score (from Ns)>0 risk: 9 SCD applied (from Ns): Yes SCD contraindicated: low risk/ambulating Pharmacological prophylaxis: LMWH Lines/Catheters IV [facility]ter Type (from [facility]): Peripheral IV Assessment/Plan Hospital Course A/P 1. Chr respiratory failure, stable cont vent 2. SBO, ukn etio, appreciate consult assistance 3. Malnutrition, off TPN, dced ng feeds and trying PEG feeds, watch I/O's 4. Small bowel injury, sp urgent repair, appendectomy, POD 10, rpt CT today. cont ST care. Video swallow Saturday. 5. Chr quadriplegia, continue supportive care offload, reposition etc. 6. Ftt, Subacute/ SNF at some point 7. Essential hypertension 8. Chr paralytic ileus, continue new bowel care regimen 9. Aspiration pneumonia, stable cont/finish antibiotics 10. Anemia s/p 4 unit transfusion. No active bleed, follow-up. Transfuse/ occult stool 11. Tracheostomy status 12. Neurogenic bladder; cont suprapubic care. bladder spasm care/ meds once on po meds. 13. ARF/ ATN stable S: 06/12 no distress. tolerating NG feeds at 25/hr. PEG for decompression. no bm yet 06/13 starting PEG feeds. No distress. 06/14 no bleeding, tolerating vent. O: vss SR PE no pallor; trach c/d/i reg s1s2 no mrg mechanical bs bs dimin, nt, distended. no r r g hypotonia Result Diagram: 06/14/19 1100 06/14/19 1100 Results 24hrs Laboratory Tests Test 06/14/19 11:00 White Blood Count 16.1 H Red Blood Count 2.54 L Hemoglobin 6.9 *L Hematocrit 22.0 L Mean Corpuscular Volume 86.6 Mean Corpuscular Hemoglobin 27.2 L Mean Corpuscular Hemoglobin Concent 31.4 L Red Cell Distribution Width 20.8 H Platelet Count 305 Mean Platelet Volume 11.9 H Immature Granulocytes % 1.400 H Neutrophils % 86.2 H Lymphocytes % 5.0 L Monocytes % 6.9 Eosinophils % 0.4 Basophils % 0.1 Nucleated Red Blood Cells % 0.0 Immature Granulocytes # 0.220 H Neutrophils # 13.9 H Lymphocytes # 0.8 Monocytes # 1.1 H Eosinophils # 0.1 Basophils # 0.0 Nucleated Red Blood Cells # 0.0 Sodium Level 137 Potassium Level 3.4 L Chloride Level 109 Carbon Dioxide Level 23 Anion Gap 5 Blood Urea Nitrogen 16 Creatinine 0.70 Est Glomerular Filtrat Rate mL/min > 60 Glucose Level 96 Calcium Level 7.4 L Phosphorus Level 2.6 Magnesium Level 1.9 Total Bilirubin 0.9 Direct Bilirubin 0.00 Indirect Bilirubin 0.9 Aspartate Amino Transf (AST/SGOT) 19 Alanine Aminotransferase (ALT/SGPT) 18 Alkaline Phosphatase 239 H Total Protein 6.6 Albumin 2.5 L Globulin 4.10 H Albumin/Globulin Ratio 0.60 Exam/Review of Systems Exam Vitals Vital Signs Date Temp Pulse Resp B/P (MAP) Pulse Ox O2 O2 Flow FiO2 Time Delivery Rate 06/14/19 98.4 85 20 113/67 100 Mechanical 11:14 (82) Ventilator 06/14/19 40 11:13 Intake and Output 06/13/19 06/13/19 06/14/19 1515:00 23:00 07:00 IntakeIntake Total 50 ml 350 ml 1270 ml OutputOutput Total 300 ml BalanceBalance 50 ml 350 ml 970 ml Results Results 24hrs Laboratory Tests Test 06/14/19 11:00 White Blood Count 16.1 H Red Blood Count 2.54 L Hemoglobin 6.9 *L Hematocrit 22.0 L Mean Corpuscular Volume 86.6 Mean Corpuscular Hemoglobin 27.2 L Mean Corpuscular Hemoglobin Concent 31.4 L Red Cell Distribution Width 20.8 H Platelet Count 305 Mean Platelet Volume 11.9 H Immature Granulocytes % 1.400 H Neutrophils % 86.2 H Lymphocytes % 5.0 L Monocytes % 6.9 Eosinophils % 0.4 Basophils % 0.1 Nucleated Red Blood Cells % 0.0 Immature Granulocytes # 0.220 H Neutrophils # 13.9 H Lymphocytes # 0.8 Monocytes # 1.1 H Eosinophils # 0.1 Basophils # 0.0 Nucleated Red Blood Cells # 0.0 Sodium Level 137 Potassium Level 3.4 L Chloride Level 109 Carbon Dioxide Level 23 Anion Gap 5 Blood Urea Nitrogen 16 Creatinine 0.70 Est Glomerular Filtrat Rate mL/min > 60 Glucose Level 96 Calcium Level 7.4 L Phosphorus Level 2.6 Magnesium Level 1.9 Total Bilirubin 0.9 Direct Bilirubin 0.00 Indirect Bilirubin 0.9 Aspartate Amino Transf (AST/SGOT) 19 Alanine Aminotransferase (ALT/SGPT) 18 Alkaline Phosphatase 239 H Total Protein 6.6 Albumin 2.5 L Globulin 4.10 H Albumin/Globulin Ratio 0.60 Medications Medication Current Medications Acetaminophen (Tylenol Tab) 650 mg Q6H PRN PO .PAIN 1-3 OR TEMP Last admin istered on 06/03/19at 15:36; Admin Dose 650 MG; Start 05/28/19 at 06:30 Albuterol/ Ipratropium (Duoneb) 3 ml Q2H RESP THERAPY PRN NEB SHORTNESS OF BREATH; Start 05/28/19 at 10:30 Nitroglycerin (Nitroglycerin (Sl Tab) 0.4 Mg) 1 tab Q5M PRN SL CHEST PAIN; Start 05/28/19 at 10:30 Acetaminophen (Tylenol Supp) 650 mg Q4H PRN [place] PAIN LEVEL 1-3 OR FEVER; Start 05/28/19 at 10:30 Bisacodyl (Dulcolax Supp) 10 mg DAILY PRN [place] CONSTIPATION Last administered on 06/01/19at 08:57; Admin Dose 10 MG; Start 05/28/19 at 10:30 IV Flush (NS 3 ml) 3 ml PER PROTOCOL IV ; Start 05/28/19 at 10:30 Ondansetron HCl (Zofran Inj) 4 mg Q6H PRN IV NAUSEA/VOMITING Last administered on 06/02/19at 14:31; Admin Dose 4 MG; Start 05/28/19 at 10:30 IV Flush (NS 10 ml) 10 ml Q8 PRN IV IV PROTOCOL Last administered on 06/02/19at 06:04; Admin Dose 10 ML; Start 05/28/19 at 19:00 Heparin Sodium (Porcine) (Heparin (5000 Units/1ml)) 5,000 unit BID SC Last administered on 06/14/19at 08:40; Admin Dose 5,000 UNIT; Start 05/29/19 at 21:00 Baclofen (Lioresal) 5 mg TID NGT Last administered on 06/14/19at 12:34; Admin Dose 5 MG; Start 05/31/19 at 13:00 Hydralazine HCl (Apresoline) 10 mg Q6H PRN IV SBP>160 Last administered on 05/18 08:58; Admin Dose 10 MG; Start 06/01/19 at 09:00 Simethicone (Mylicon) 80 mg Q6 PO Last administered on 06/14/19at 12:34; Admin Dose 80 MG; Start 06/01/19 at 12:00 Lorazepam (Ativan) 2 mg Q4H PRN IV anxiety Last administered on 06/12/19 03:28; Admin Dose 2 MG; Start 06/03/19 at 17:30 Meropenem/Sodium Chloride 50 ml @ 100 mls/hr Q12 IVPB Last administered on 06/14/19 08:29; Admin Dose 100 MLS/HR; Start 06/04/19 at 11:30 Miscellaneous Information 1 ea NOTE XX ; Start 06/04/19 at 18:30 Glucose (Glutose) 15 gm Q15M PRN PO DECREASED GLUCOSE; Start 06/04/19 at 18:30 Glucose (Glutose) 22.5 gm Q15M PRN PO DECREASED GLUCOSE; Start 06/04/19 at 18:30 Dextrose (D50w Syringe) 25 ml Q15M PRN IV DECREASED GLUCOSE; Start 06/04/19 at 18:30 Dextrose (D50w Syringe) 50 ml Q15M PRN IV DECREASED GLUCOSE; Start 06/04/19 at 18:30 Glucagon (Glucagen) 1 mg Q15M PRN IM DECREASED GLUCOSE; Start 06/04/19 at 18:30 Glucose (Glutose) 15 gm Q15M PRN BUCCAL DECREASED GLUCOSE; Start 06/04/19 at 18:30 Morphine Sulfate (morphine) 2 mg Q2H PRN IV SEVERE PAIN LEVEL 7-10; Start 06/04/19 at 20:30 Caspofungin 50 mg/ Sodium Chloride 250 ml @ 250 mls/hr Q24H IVPB Last administered on 06/13/19at 14:51; Admin Dose 250 MLS/HR; Start 06/06/19 at 15:00 Polyethylene Glycol (Miralax) 17 gm BID PO Last administered on 06/14/19at 08:29; Admin Dose 17 GM; Start 06/10/19 at 10:00 Sodium Biphosphate/ Sodium Phosphate (Fleet Enema) 133 ml DAILY PRN [place] CONSTIPATION; Start 06/10/19 at 10:00 Famotidine (Pepcid Iv) 20 mg BID IV Last administered on 06/14/19at 08:29; Admin Dose 20 MG; Start 06/12/19 at 21:00 TAM ROJAS MD Jun 14, 2019 14:23
[2019-06-14] MEDS: CASPOFUNGIN 50 MG in SOD CHLORIDE 0.9% 250 ML IVPB SCH (15:37)
[2019-06-14] MEDS ORDERED: SOD CHLORIDE 0.9% 250 ML IV* ONE (15:40)
--- NOTE | 2019-06-14 15:41 | CONS ---
Consult Date/Type/Reason Admit Date/Time May 28, 2019 at 06:21 Initial Consult Date 05/30/19 Type of Consultation: Pulm Requesting Provider: TYLOR REESE Date/Time of Note DATE: 06/14/19 TIME: 15:40 Subjective No events. Stable on the vent. Objective Vitals Vital Signs Date Temp Pulse Resp B/P (MAP) Pulse Ox O2 O2 Flow FiO2 Time Delivery Rate 06/14/19 99.1 85 20 100/61 100 Mechanical 15:09 (74) Ventilator 06/14/19 40 13:25 Intake and Output 06/13/19 06/13/19 06/14/19 1515:00 23:00 07:00 IntakeIntake Total 50 ml 350 ml 1270 ml OutputOutput Total 300 ml BalanceBalance 50 ml 350 ml 970 ml Exam NECK: Supple. No JVD or lymphadenopathy. CARDIAC EXAM: S1, S2. No added sounds or murmurs. CHEST: Diminished breath sounds bilaterally ABDOMEN: Diminished bowel sounds EXTREMITIES: No cyanosis, clubbing or edema. NEUROLOGIC: Quadriplegia Results/Medications Result Diagram: 06/14/19 1100 06/14/19 1100 Results 24 hrs Laboratory Tests Test 06/14/19 11:00 White Blood Count 16.1 H Red Blood Count 2.54 L Hemoglobin 6.9 *L Hematocrit 22.0 L Mean Corpuscular Volume 86.6 Mean Corpuscular Hemoglobin 27.2 L Mean Corpuscular Hemoglobin Concent 31.4 L Red Cell Distribution Width 20.8 H Platelet Count 305 Mean Platelet Volume 11.9 H Immature Granulocytes % 1.400 H Neutrophils % 86.2 H Lymphocytes % 5.0 L Monocytes % 6.9 Eosinophils % 0.4 Basophils % 0.1 Nucleated Red Blood Cells % 0.0 Immature Granulocytes # 0.220 H Neutrophils # 13.9 H Lymphocytes # 0.8 Monocytes # 1.1 H Eosinophils # 0.1 Basophils # 0.0 Nucleated Red Blood Cells # 0.0 Sodium Level 137 Potassium Level 3.4 L Chloride Level 109 Carbon Dioxide Level 23 Anion Gap 5 Blood Urea Nitrogen 16 Creatinine 0.70 Est Glomerular Filtrat Rate mL/min > 60 Glucose Level 96 Calcium Level 7.4 L Phosphorus Level 2.6 Magnesium Level 1.9 Total Bilirubin 0.9 Direct Bilirubin 0.00 Indirect Bilirubin 0.9 Aspartate Amino Transf (AST/SGOT) 19 Alanine Aminotransferase (ALT/SGPT) 18 Alkaline Phosphatase 239 H Total Protein 6.6 Albumin 2.5 L Globulin 4.10 H Albumin/Globulin Ratio 0.60 Home Meds Reported Medications Ipratropium-Albuterol (Ipratropium-Albuterol) 0.5-3 Mg/3 Ml Ampul.neb, 3 ML INHALATION Q6 for SOB, #30 VIAL 05/28/19 Bacillus Coagulans (Probiotic) 1 Each Tab.chew, 1 EACH PO BID, TAB.CHEW 05/28/19 Docusate Sodium* (Colace*) 100 Mg Capsule, 200 MG PO DAILY, #30 CAP 05/28/19 Bisacodyl* (Dulcolax*) 5 Mg Tablet.dr, 10 MG PO DAILY PRN for DPNP-KOI-YED, TAB 05/28/19 Bisacodyl (Dulcolax) 10 Mg Supp.rect, 10 MG RC Q MON,SAT,SAT, SUPP.RECT OR NEEDED 02/04/19 Simethicone (Gas Relief 80) 80 Mg Tab.chew, 160 MG PO QID, TAB.CHEW 02/04/19 Potassium Chloride* (Klor-Con*) 20 Meq Tabsr, 40 MEQ PO DAILY, TAB.SA 02/04/19 Polyethylene Glycol* (Miralax*) 17 Gm Powd.pack, 17 GM PO DAILY for CONSTIPATION, #30 PACKET 02/04/19 Oxybutynin Chloride* (Ditropan*) 5 Mg Tab, 5 MG PO DAILY, TAB 02/04/19 Baclofen* (Baclofen*) 20 Mg Tablet, 30 MG PO QID, TAB 02/04/19 Amlodipine Besylate* (Amlodipine Besylate*) 2.5 Mg Tablet, 2.5 MG PO BID, #30 TAB 02/04/19 Acetaminophen* (Acetaminophen*) 325 Mg Tablet, 650 MG PO Q6H PRN for MILD PAIN(1-3)OR ELEVATED TEMP, #30 TAB 02/04/19 Medications Current Medications Acetaminophen (Tylenol Tab) 650 mg Q6H PRN PO .PAIN 1-3 OR TEMP Last administered on 06/03/19at 15:36; Admin Dose 650 MG; Start 05/28/19 at 06:30 Albuterol/ Ipratropium (Duoneb) 3 ml Q2H RESP THERAPY PRN NEB SHORTNESS OF BREATH; Start 05/28/19 at 10:30 Nitroglycerin (Nitroglycerin (Sl Tab) 0.4 Mg) 1 tab Q5M PRN SL CHEST PAIN; Start 05/28/19 at 10:30 Acetaminophen (Tylenol Supp) 650 mg Q4H PRN [place] PAIN LEVEL 1-3 OR FEVER; Start 05/28/19 at 10:30 Bisacodyl (Dulcolax Supp) 10 mg DAILY PRN [place] CONSTIPATION Last administered on 06/01/19 08:57; Admin Dose 10 MG; Start 05/28/19 at 10:30 IV Flush (NS 3 ml) 3 ml PER PROTOCOL IV ; Start 05/28/19 at 10:30 Ondansetron HCl (Zofran Inj) 4 mg Q6H PRN IV NAUSEA/VOMITING Last administered on 06/02/19 14:31; Admin Dose 4 MG; Start 05/28/19 at 10:30 IV Flush (NS 10 ml) 10 ml Q8 PRN IV IV PROTOCOL Last administered on 06/02/19 06:04; Admin Dose 10 ML; Start 05/28/19 at 19:00 Heparin Sodium (Porcine) (Heparin (5000 Units/1ml)) 5,000 unit BID SC Last administered on 06/14/19 08:40; Admin Dose 5,000 UNIT; Start 05/29/19 at 21:00 Baclofen (Lioresal) 5 mg TID NGT Last administered on 06/14/19 12:34; Admin Dose 5 MG; Start 05/31/19 at 13:00 Hydralazine HCl (Apresoline) 10 mg Q6H PRN IV SBP>160 Last administered on 06/01/19 08:58; Admin Dose 10 MG; Start 06/01/19 at 09:00 Simethicone (Mylicon) 80 mg Q6 PO Last administered on 06/14/19 12:34; Admin Dose 80 MG; Start 06/01/19 at 12:00 Lorazepam (Ativan) 2 mg Q4H PRN IV anxiety Last administered on 06/12/19 03:28; Admin Dose 2 MG; Start 06/03/19 at 17:30 Meropenem/Sodium Chloride 50 ml @ 100 mls/hr Q12 IVPB Last administered on 06/14/19at 08:29; Admin Dose 100 MLS/HR; Start 06/04/19 at 11:30 Miscellaneous Information 1 ea NOTE XX ; Start 06/04/19 at 18:30 Glucose (Glutose) 15 gm Q15M PRN PO DECREASED GLUCOSE; Start 06/04/19 at 18:30 Glucose (Glutose) 22.5 gm Q15M PRN PO DECREASED GLUCOSE; Start 06/04/19 at 18:30 Dextrose (D50w Syringe) 25 ml Q15M PRN IV DECREASED GLUCOSE; Start 06/04/19 at 18:30 Dextrose (D50w Syringe) 50 ml Q15M PRN IV DECREASED GLUCOSE; Start 06/04/19 at 18:30 Glucagon (Glucagen) 1 mg Q15M PRN IM DECREASED GLUCOSE; Start 06/04/19 at 18:30 Glucose (Glutose) 15 gm Q15M PRN BUCCAL DECREASED GLUCOSE; Start 06/04/19 at 18:30 Morphine Sulfate (morphine) 2 mg Q2H PRN IV SEVERE PAIN LEVEL 7-10; Start 06/04/19 at 20:30 Caspofungin 50 mg/ Sodium Chloride 250 ml @ 250 mls/hr Q24H IVPB Last administered on 06/14/19at 15:37; Admin Dose 250 MLS/HR; Start 06/06/19 at 15:00 Polyethylene Glycol (Miralax) 17 gm BID PO Last administered on 06/14/19at 08:29; Admin Dose 17 GM; Start 06/10/19 at 10:00 Sodium Biphosphate/ Sodium Phosphate (Fleet Enema) 133 ml DAILY PRN [place] CONSTIPATION; Start 06/10/19 at 10:00 Famotidine (Pepcid Iv) 20 mg BID IV Last administered on 06/14/19at 08:29; Admin Dose 20 MG; Start 06/12/19 at 21:00 Assessment/Plan Assessment/Plan (Daily) IMP 1. Acute abdomen secondary to perforated bowel following PEG tube placement--s/p repair 2. Vent dependent respiratory failure 3. History of quadriplegia 4. Status post septic shock requiring vasopressors possible component of adrenal insufficiency, decreased vasopressor requirements. 5. Neurogenic bladder with suprapubic catheter 6. Anemia 7. HypoK+ RECS: 1. Continue mechanical ventilation 2. Postop surgical recommendations 3. Follow H/H; transfuse 1 unit PRBC 4. Postop antibiotics 5. DVT GI prophylaxis LYDIA LOTT MD Jun 14, 2019 15:41
--- NOTE | 2019-06-14 15:51 | PN ---
Date/Time of Note Date/Time of Note DATE: 06/14/19 TIME: 15:34 Assessment/Plan VTE Prophylaxis Risk score (from Ns)>0 risk: 9 SCD applied (from Ns): Yes Pharmacological prophylaxis: NA/contraindicated Pharm contraindication: bleeding Lines/Catheters IV Catheter Type (from [facility]): Peripheral IV Assessment/Plan Assessment/Plan Assessment: Acute abdomen secondary to perforated small bowel after PEG tube placement- s/p repair of small bowel Perforated appendix- s/p appendectomy Sepsis- 2/2 to above Acute on chronic RD on MV- FiO2 increased 100% BHARATI Recurrent small bowel obstruction Quadriplegia Abdominal gas UTI Pneumonia Neurogenic bladder- suprapubic catheter Plan: Transfuse 1 unit PRBC's Continue G-tube feeding Close observation Supportive care Monitor H and H Transfuse Hgb less then 7.5 Patient seen in collaboration Dr. Hall Subjective: Course reviewed with nursing staff Patient interviewed and examined Patient is slowly improving. WBC is trending down. He is now receiving G-tube feeding at 35 cc an hour and tolerating well. Hgb is 6.9 without evidence of GI bleeding. Denies abdominal pain. Denies any nausea or vomiting. Followed by ID. Continue observation. Exam PHYSICAL EXAMINATION: GENERAL: Quadriplegic, trached on MV, alert & oriented x 4 SKIN: Midline incision HEAD: Normocephalic, atraumatic, no tenderness. EYES: Pupils equal reactive to light, no discharge. EARS/NOSE AND THROAT: Ears normal, nose normal, oropharynx normal, oral membranes well hydrated without lesions. NECK: Supple, no masses CHEST: Inspection within normal limits. CARDIOVASCULAR: Heart: Regular rate and rhythm RESPIRATORY: Lungs clear to auscultation. GASTROINTESTINAL AND LIVER: Abdomen: Soft, no distension , no hernias, no masses, no organomegaly, no ascites, no guarding, no rebound tenderness, extremely hypoactive distant BS. Rectal: Deferred. GENITOURINARY: Male genitalia within normal limits. suprapubic catheter Result Diagram: 06/14/19 1100 06/14/19 1100 Results 24hrs Laboratory Tests Test 06/14/19 11:00 White Blood Count 16.1 H Red Blood Count 2.54 L Hemoglobin 6.9 *L Hematocrit 22.0 L Mean Corpuscular Volume 86.6 Mean Corpuscular Hemoglobin 27.2 L Mean Corpuscular Hemoglobin Concent 31.4 L Red Cell Distribution Width 20.8 H Platelet Count 305 Mean Platelet Volume 11.9 H Immature Granulocytes % 1.400 H Neutrophils % 86.2 H Lymphocytes % 5.0 L Monocytes % 6.9 Eosinophils % 0.4 Basophils % 0.1 Nucleated Red Blood Cells % 0.0 Immature Granulocytes # 0.220 H Neutrophils # 13.9 H Lymphocytes # 0.8 Monocytes # 1.1 H Eosinophils # 0.1 Basophils # 0.0 Nucleated Red Blood Cells # 0.0 Sodium Level 137 Potassium Level 3.4 L Chloride Level 109 Carbon Dioxide Level 23 Anion Gap 5 Blood Urea Nitrogen 16 Creatinine 0.70 Est Glomerular Filtrat Rate mL/min > 60 Glucose Level 96 Calcium Level 7.4 L Phosphorus Level 2.6 Magnesium Level 1.9 Total Bilirubin 0.9 Direct Bilirubin 0.00 Indirect Bilirubin 0.9 Aspartate Amino Transf (AST/SGOT) 19 Alanine Aminotransferase (ALT/SGPT) 18 Alkaline Phosphatase 239 H Total Protein 6.6 Albumin 2.5 L Globulin 4.10 H Albumin/Globulin Ratio 0.60 CC: CHAPITO HALL MD ; Exam/Review of Systems Exam Vitals Vital Signs Date Temp Pulse Resp B/P (MAP) Pulse Ox O2 O2 Flow FiO2 Time Delivery Rate 06/14/19 99.1 85 20 100/61 100 Mechanical 15:09 (74) Ventilator 06/14/19 40 13:25 Intake and Output 06/13/19 06/13/19 06/14/19 1515:00 23:00 07:00 IntakeIntake Total 50 ml 350 ml 1270 ml OutputOutput Total 300 ml BalanceBalance 50 ml 350 ml 970 ml Results Results 24hrs Laboratory Tests Test 06/14/19 11:00 White Blood Count 16.1 H Red Blood Count 2.54 L Hemoglobin 6.9 *L Hematocrit 22.0 L Mean Corpuscular Volume 86.6 Mean Corpuscular Hemoglobin 27.2 L Mean Corpuscular Hemoglobin Concent 31.4 L Red Cell Distribution Width 20.8 H Platelet Count 305 Mean Platelet Volume 11.9 H Immature Granulocytes % 1.400 H Neutrophils % 86.2 H Lymphocytes % 5.0 L Monocytes % 6.9 Eosinophils % 0.4 Basophils % 0.1 Nucleated Red Blood Cells % 0.0 Immature Granulocytes # 0.220 H Neutrophils # 13.9 H Lymphocytes # 0.8 Monocytes # 1.1 H Eosinophils # 0.1 Basophils # 0.0 Nucleated Red Blood Cells # 0.0 Sodium Level 137 Potassium Level 3.4 L Chloride Level 109 Carbon Dioxide Level 23 Anion Gap 5 Blood Urea Nitrogen 16 Creatinine 0.70 Est Glomerular Filtrat Rate mL/min > 60 Glucose Level 96 Calcium Level 7.4 L Phosphorus Level 2.6 Magnesium Level 1.9 Total Bilirubin 0.9 Direct Bilirubin 0.00 Indirect Bilirubin 0.9 Aspartate Amino Transf (AST/SGOT) 19 Alanine Aminotransferase (ALT/SGPT) 18 Alkaline Phosphatase 239 H Total Protein 6.6 Albumin 2.5 L Globulin 4.10 H Albumin/Globulin Ratio 0.60 Medications Medication Current Medications Acetaminophen (Tylenol Tab) 650 mg Q6H PRN PO .PAIN 1-3 OR TEMP Last administered on 06/03/19at 15:36; Admin Dose 650 MG; Start 05/28/19 at 06:30 Albuterol/ Ipratropium (Duoneb) 3 ml Q2H RESP THERAPY PRN NEB SHORTNESS OF BREATH; Start 05/28/19 at 10:30 Nitroglycerin (Nitroglycerin (Sl Tab) 0.4 Mg) 1 tab Q5M PRN SL CHEST PAIN; Start 05/28/19 at 10:30 Acetaminophen (Tylenol Supp) 650 mg Q4H PRN [place] PAIN LEVEL 1-3 OR FEVER; Start 05/28/19 at 10:30 Bisacodyl (Dulcolax Supp) 10 mg DAILY PRN [place] CONSTIPATION Last administered on 06/01/19at 08:57; Admin Dose 10 MG; Start 05/28/19 at 10:30 IV Flush (NS 3 ml) 3 ml PER PROTOCOL IV ; Start 05/28/19 at 10:30 Ondansetron HCl (Zofran Inj) 4 mg Q6H PRN IV NAUSEA/VOMITING Last administered on 06/02/19at 14:31; Admin Dose 4 MG; Start 05/28/19 at 10:30 IV Flush (NS 10 ml) 10 ml Q8 PRN IV IV PROTOCOL Last administered on 06/02/19at 06:04; Admin Dose 10 ML; Start 05/28/19 at 19:00 Heparin Sodium (Porcine) (Heparin (5000 Units/1ml)) 5,000 unit BID SC Last administered on 06/14/19at 08:40; Admin Dose 5,000 UNIT; Start 05/29/19 at 21:00 Baclofen (Lioresal) 5 mg TID NGT Last administered on 06/14/19at 12:34; Admin Dose 5 MG; Start 05/31/19 at 13:00 Hydralazine HCl (Apresoline) 10 mg Q6H PRN IV SBP>160 Last administered on 06/01/19at 08:58; Admin Dose 10 MG; Start 06/01/19 at 09:00 Simethicone (Mylicon) 80 mg Q6 PO Last administered on 06/14/19at 12:34; Admin Dose 80 MG; Start 06/01/19 at 12:00 Lorazepam (Ativan) 2 mg Q4H PRN IV anxiety Last administered on 06/12/19 03:28; Admin Dose 2 MG; Start 06/03/19 at 17:30 Meropenem/Sodium Chloride 50 ml @ 100 mls/hr Q12 IVPB Last administered on 06/14/19at 08:29; Admin Dose 100 MLS/HR; Start 06/04/19 at 11:30 Miscellaneous Information 1 ea NOTE XX ; Start 06/04/19 at 18:30 Glucose (Glutose) 15 gm Q15M PRN PO DECREASED GLUCOSE; Start 06/04/19 at 18:30 Glucose (Glutose) 22.5 gm Q15M PRN PO DECREASED GLUCOSE; Start 06/04/19 at 18:30 Dextrose (D50w Syringe) 25 ml Q15M PRN IV DECREASED GLUCOSE; Start 06/04/19 at 18:30 Dextrose (D50w Syringe) 50 ml Q15M PRN IV DECREASED GLUCOSE; Start 06/04/19 at 18:30 Glucagon (Glucagen) 1 mg Q15M PRN IM DECREASED GLUCOSE; Start 06/04/19 at 18:30 Glucose (Glutose) 15 gm Q15M PRN BUCCAL DECREASED GLUCOSE; Start 06/04/19 at 18:30 Morphine Sulfate (morphine) 2 mg Q2H PRN IV SEVERE PAIN LEVEL 7-10; Start 06/04/19 at 20:30 Caspofungin 50 mg/ Sodium Chloride 250 ml @ 250 mls/hr Q24H IVPB Last administered on 06/13/19at 14:51; Admin Dose 250 MLS/HR; Start 06/06/19 at 15:00 Polyethylene Glycol (Miralax) 17 gm BID PO Last administered on 06/14/19at 08:29; Admin Dose 17 GM; Start 06/10/19 at 10:00 Sodium Biphosphate/ Sodium Phosphate (Fleet Enema) 133 ml DAILY PRN [place] CONSTIPATION; Start 06/10/19 at 10:00 Famotidine (Pepcid Iv) 20 mg BID IV Last administered on 06/14/19at 08:29; Admin Dose 20 MG; Start 06/12/19 at 21:00 TABBY FREITAS NP Jun 14, 2019 15:50
[2019-06-14] MEDS: BISACODYL 10 MG SUPP PR PRN (22:24)
[2019-06-14] MEDS: ACETAMINOPHEN 325 MG TAB PO PRN (22:25)
[2019-06-15] VITALS (17 sets, daily range): BP systolic 120–160; BP diastolic 75–87; PULSE 67–84; RESP 18–24
[2019-06-15] MEDS ORDERED: SOD CHLORIDE 0.9% 250 ML IV* ONE (05:46)
[2019-06-15] MEDS ORDERED: POTASSIUM CHLORIDE 20 MEQ POWDER FOR ORAL SOLN GTB ONE (07:30)
--- NOTE | 2019-06-15 08:05 | PN ---
DATE: 06/15/2019 SUBJECTIVE: The patient noted to be anemic this morning, pending blood transfusion. No other acute events noted. No hemoptysis, hematemesis, or hematochezia. OBJECTIVE: VITAL SIGNS: Blood pressure 141/83, respirations 24, pulse 69, temperature 99.1. HEENT: Head is normocephalic. NECK: Supple. HEART: Regular rate. LUNGS: Show diminished breath sounds at the base. ABDOMEN: Soft, nontender to palpation without rebound or guarding. EXTREMITIES: Negative for clubbing, cyanosis. Trace edema. DERMATOLOGIC: No rashes. MUSCULOSKELETAL: No joint effusions. NEUROLOGIC: No change in exam. MEDICATIONS: Have been reviewed. LABORATORY DATA: Has been reviewed. IMAGING STUDIES: Have been reviewed. ASSESSMENT AND PLAN: 1. Nonoliguric acute kidney injury, etiology is secondary to hemodynamics, volume depletion and anai rointestinal losses. The patient's renal function is improved. At this point, would continue mark evans treatment plan, supportive care, renally dose all meds, monitor closely on IV fluids. 2. Hypokalemia, replete with potassium chloride. 3. Anemia. The patient's hemoglobin levels are low pending blood transfusion, monitor closely. 4. Mineral bone disorder, monitor calcium and phosphorus levels. 5. Acute abdomen secondary to perforated bowel after PEG tube placement, status post repair of small bowel. Continue to monitor. Follow up with GI. 6. Sepsis. Continue current antibiotic regimen. Etiology of sepsis secondary to urinary tract infe ction and pneumonia. 7. Hyponatremia. Sodium level is improving. Continue free water flushes. 8. Ventilator-dependent respiratory failure. Vent settings and ABG was reviewed. Continue to monit or. 9. bladder, status post suprapubic catheter. The patient has noted to leak around suprapubic catheter. Consider urology evaluation. 10. Right renal cyst. Continue to monitor. 11. History of cerebrovascular accident with a C-spine injury and quadriplegia. Dictated By: AMAIRANI HIGGINBOTHAM/NTS Conf#: [id number] DID#: [id number] CC: TYLOR REESE MD;*EndCC*
[2019-06-15] MEDS: POLYETHYLENE GLYCOL 17 GM PACKET PO SCH ×2 (08:43→20:50)
[2019-06-15] MEDS: MEROPENEM 1 GM/50ML(PMX) 50 ML IVPB SCH ×2 (08:43→20:49)
[2019-06-15] MEDS: FAMOTIDINE 20 MG INJ IV SCH ×2 (08:43→20:57)
[2019-06-15] MEDS: BACLOFEN 10 MG TAB NGT SCH ×3 (08:43→20:49)
[2019-06-15] MEDS: BALSAM PERU/CASTOR OIL 60 GM TUBE TOP SCH ×2 (08:44→20:57)
[2019-06-15] MEDS: HEPARIN 5,000 UNIT/1 ML VIAL SC SCH ×2 (08:49→20:51)
[2019-06-15] MEDS: ACETAMINOPHEN 325 MG TAB PO PRN (08:51)
--- NOTE | 2019-06-15 11:28 | PN ---
Date/Time of Note Date/Time of Note DATE: 06/15/19 TIME: 11:17 Assessment/Plan VTE Prophylaxis Risk score (from Ns)>0 risk: 6 SCD applied (from Ns): No SCD contraindicated: other Pharmacological prophylaxis: heparin Lines/Catheters IV [facility]atheter Type (from [facility]): PICC Line Central line still needed: Yes Assessment/Plan Hospital Course S: Patient received blood transfusion last night and this morning. Seen by renal team this morning. Did have positive fevers overnight. Tolerating tube feeds. Awaiting possible video swallow study today (although no official order in place). Also waiting for CT scan abdomen pelvis which was ordered earlier, to be done later this afternoon. O: vs-see below PE: Gen: Lying in bed, opens eyes HEENT: no pallor; trach c/d/i CV: reg s1s2 no mrg Res: Trach, mechanical bs GI: bs dimin, nt, distended. no r r g M/S: hypotonia A/P: 48-year-old male who presented with: 1. Chr respiratory failure-has tracheostomy in place, stable - cont vent 2. SBO: ukn etio, appreciate consult assistance -Monitor, follow-up surgery condition, follow-up results of repeat CT scan abdomen pelvis -Also order for wound care for sacral ulcer 3. Malnutrition: Again, off TPN. Earlier this admission dced ng feeds. Now tolerating PEG feeds -Continue feeds as tolerated through PEG, follow GI recommendations 4. Small bowel injury: sp urgent repair, appendectomy on June 04, 2019. -Monitor, again follow-up results of Rpt CT today. - cont ST care. -Again for possible video swallow today, we will try to confirm with swallow lab if this is going to occur 5. Chr quadriplegia: - continue supportive care offload, reposition etc. 6. Ftt: Again on PEG feeds -Monitor, eventual transfer to subacute/ SNF when medically stable 7. Essential hypertension: Stable, monitor 8. Chr paralytic ileus: Appears to be resolving - continue new bowel care regimen 9. Aspiration pneumonia- stable - cont/finish antibiotics 10. Anemia: s/p 4 unit transfusion of blood earlier this admission. Again received 2 more units last night and this morning. No active bleed - follow-up posttransfusion CBC. 11. Tracheostomy: Monitor, follow pulmonary recommendations 12. Neurogenic bladder; again has suprapubic catheter in place. Does have some leakage around the catheter site. Seen by urology team earlier this admission - cont suprapubic care. bladder spasm care/ meds once on po meds. -Follow-up urology recommendations 13. ARF/ ATN stable: Monitor, follow-up renal recommendations Dispo: Again likely placement to subacute/ SNF when medically stable, hopefully in 1 to 2 days. Result Diagram: 06/15/19 0452 06/15/19 0452 Results 24hrs Laboratory Tests Test 06/14/19 22:45 06/15/19 04:52 Stool Occult Blood NEGATIVE White Blood Count 20.7 #H Red Blood Count 2.24 L Hemoglobin 6.3 *L Hematocrit 19.6 L Mean Corpuscular Volume 87.5 Mean Corpuscular Hemoglobin 28.1 L Mean Corpuscular Hemoglobin Concent 32.1 Red Cell Distribution Width 19.7 H Platelet Count 345 Mean Platelet Volume 11.8 H Immature Granulocytes % 1.500 H Neutrophils % 86.5 H Lymphocytes % 4.7 L Monocytes % 6.9 Eosinophils % 0.3 Basophils % 0.1 Nucleated Red Blood Cells % 0.0 Immature Granulocytes # 0.320 H Neutrophils # 17.8 H Lymphocytes # 1.0 Monocytes # 1.4 H Eosinophils # 0.1 Basophils # 0.0 Nucleated Red Blood Cells # 0.0 Prothrombin Time 15.1 H Prothrombin Time Ratio 1.2 INR International Normalized Ratio 1.18 Sodium Level 141 Potassium Level 3.3 L Chloride Level 111 H Carbon Dioxide Level 24 Anion Gap 6 Blood Urea Nitrogen 15 Creatinine 0.67 Est Glomerular Filtrat Rate mL/min > 60 Glucose Level 100 Calcium Level 7.6 L Phosphorus Level 2.5 Magnesium Level 1.8 Iron Level 11 L Total Iron Binding Capacity 169 L Percent Iron Saturation 7 L Total Bilirubin 1.3 Direct Bilirubin 0.00 Indirect Bilirubin 1.3 H Aspartate Amino Transf (AST/SGOT) 21 Alanine Aminotransferase (ALT/SGPT) 17 Alkaline Phosphatase 271 H Total Protein 6.7 Albumin 2.4 L Globulin 4.30 H Albumin/Globulin Ratio 0.55 Exam/Review of Systems Exam Vitals Vital Signs Date Temp Pulse Resp B/P (MAP) Pulse Ox O2 O2 Flow FiO2 Time Delivery Rate 06/15/19 98.8 09:40 06/15/19 67 20 160/87 100 07:43 (111) 06/15/19 40 05:40 06/14/19 Mechanical 18:47 Ventilator Intake and Output 06/14/19 06/14/19 06/15/19 1515:00 23:00 07:00 IntakeIntake Total 1120 ml 1620 ml OutputOutput Total 25 ml BalanceBalance 1120 ml 1595 ml Results Results 24hrs Laboratory Tests Test 06/14/19 22:45 06/15/19 04:52 Stool Occult Blood NEGATIVE White Blood Count 20.7 #H Red Blood Count 2.24 L Hemoglobin 6.3 *L Hematocrit 19.6 L Mean Corpuscular Volume 87.5 Mean Corpuscular Hemoglobin 28.1 L Mean Corpuscular Hemoglobin Concent 32.1 Red Cell Distribution Width 19.7 H Platelet Count 345 Mean Platelet Volume 11.8 H Immature Granulocytes % 1.500 H Neutrophils % 86.5 H Lymphocytes % 4.7 L Monocytes % 6.9 Eosinophils % 0.3 Basophils % 0.1 Nucleated Red Blood Cells % 0.0 Immature Granulocytes # 0.320 H Neutrophils # 17.8 H Lymphocytes # 1.0 Monocytes # 1.4 H Eosinophils # 0.1 Basophils # 0.0 Nucleated Red Blood Cells # 0.0 Prothrombin Time 15.1 H Prothrombin Time Ratio 1.2 INR International Normalized Ratio 1.18 Sodium Level 141 Potassium Level 3.3 L Chloride Level 111 H Carbon Dioxide Level 24 Anion Gap 6 Blood Urea Nitrogen 15 Creatinine 0.67 Est Glomerular Filtrat Rate mL/min > 60 Glucose Level 100 Calcium Level 7.6 L Phosphorus Level 2.5 Magnesium Level 1.8 Iron Level 11 L Total Iron Binding Capacity 169 L Percent Iron Saturation 7 L Total Bilirubin 1.3 Direct Bilirubin 0.00 Indirect Bilirubin 1.3 H Aspartate Amino Transf (AST/SGOT) 21 Alanine Aminotransferase (ALT/SGPT) 17 Alkaline Phosphatase 271 H Total Protein 6.7 Albumin 2.4 L Globulin 4.30 H Albumin/Globulin Ratio 0.55 Medications Medication Current Medications Acetaminophen (Tylenol Tab) 650 mg Q6H PRN PO .PAIN 1-3 OR TEMP Last adminis tered on 06/15/19at 08:51; Admin Dose 650 MG; Start 05/28/19 at 06:30 Albuterol/ Ipratropium (Duoneb) 3 ml Q2H RESP THERAPY PRN NEB SHORTNESS OF BREATH; Start 05/28/19 at 10:30 Nitroglycerin (Nitroglycerin (Sl Tab) 0.4 Mg) 1 tab Q5M PRN SL CHEST PAIN; Start 05/28/19 at 10:30 Acetaminophen (Tylenol Supp) 650 mg Q4H PRN DE PAIN LEVEL 1-3 OR FEVER; Start 05/28/19 at 10:30 Bisacodyl (Dulcolax Supp) 10 mg DAILY PRN DE CONSTIPATION Last administered on 06/14/19 22:24; Admin Dose 10 MG; Start 05/28/19 at 10:30 IV Flush (NS 3 ml) 3 ml PER PROTOCOL IV ; Start 05/28/19 at 10:30 Ondansetron HCl (Zofran Inj) 4 mg Q6H PRN IV NAUSEA/VOMITING Last administered on 06/02/19 14:31; Admin Dose 4 MG; Start 05/28/19 at 10:30 IV Flush (NS 10 ml) 10 ml Q8 PRN IV IV PROTOCOL Last administered on 06/02/19 06:04; Admin Dose 10 ML; Start 05/28/19 at 19:00 Heparin Sodium (Porcine) (Heparin (5000 Units/1ml)) 5,000 unit BID SC Last administered on 06/15/19 08:49; Admin Dose 5,000 UNIT; Start 05/29/19 at 21:00 Baclofen (Lioresal) 5 mg TID NGT Last administered on 06/15/19 08:43; Admin Dose 5 MG; Start 05/31/19 at 13:00 Hydralazine HCl (Apresoline) 10 mg Q6H PRN IV SBP>160 Last administered on 06/01/19 08:58; Admin Dose 10 MG; Start 06/01/19 at 09:00 Simethicone (Mylicon) 80 mg Q6 PO Last administered on 06/15/19 06:28; Admin Dose 80 MG; Start 06/01/19 at 12:00 Lorazepam (Ativan) 2 mg Q4H PRN IV anxiety Last administered on 06/12/19 03:28; Admin Dose 2 MG; Start 06/03/19 at 17:30 Meropenem/Sodium Chloride 50 ml @ 100 mls/hr Q12 IVPB Last administered on 06/15/19 08:43; Admin Dose 100 MLS/HR; Start 06/04/19 at 11:30 Miscellaneous Information 1 ea NOTE XX ; Start 06/04/19 at 18:30 Glucose (Glutose) 15 gm Q15M PRN PO DECREASED GLUCOSE; Start 06/04/19 at 18:30 Glucose (Glutose) 22.5 gm Q15M PRN PO DECREASED GLUCOSE; Start 06/04/19 at 18:30 Dextrose (D50w Syringe) 25 ml Q15M PRN IV DECREASED GLUCOSE; Start 06/04/19 at 18:30 Dextrose (D50w Syringe) 50 ml Q15M PRN IV DECREASED GLUCOSE; Start 06/04/19 at 18:30 Glucagon (Glucagen) 1 mg Q15M PRN IM DECREASED GLUCOSE; Start 06/04/19 at 18:30 Glucose (Glutose) 15 gm Q15M PRN BUCCAL DECREASED GLUCOSE; Start 06/04/19 at 18:30 Morphine Sulfate (morphine) 2 mg Q2H PRN IV SEVERE PAIN LEVEL 7-10; Start 06/04/19 at 20:30 Caspofungin 50 mg/ Sodium Chloride 250 ml @ 250 mls/hr Q24H IVPB Last administered on 06/14/19at 15:37; Admin Dose 250 MLS/HR; Start 06/06/19 at 15:00 Polyethylene Glycol (Miralax) 17 gm BID PO Last administered on 06/15/19at 08:43; Admin Dose 17 GM; Start 06/10/19 at 10:00 Sodium Biphosphate/ Sodium Phosphate (Fleet Enema) 133 ml DAILY PRN DE CONSTIPATION; Start 06/10/19 at 10:00 Famotidine (Pepcid Iv) 20 mg BID IV Last administered on 06/15/19at 08:43; Admin Dose 20 MG; Start 06/12/19 at 21:00 BRUNO LUCAS Jun 15, 2019 11:27
--- NOTE | 2019-06-15 11:48 | CONS ---
Consult Date/Type/Reason Admit Date/Time May 28, 2019 at 06:21 Initial Consult Date 05/30/19 Type of Consult Pulmonary Requesting Provider: TYLOR REESE Date/Time of Note DATE: 06/15/19 TIME: 11:47 Subjective Patient stable no new events Objective Vital Signs Date Temp Pulse Resp B/P (MAP) Pulse Ox O2 O2 Flow FiO2 Time Delivery Rate 06/15/19 98.1 78 20 120/75 98 11:29 (90) 06/15/19 40 05:40 06/14/19 Mechanical 18:47 Ventilator Intake and Output 06/14/19 06/14/19 06/15/19 1515:00 23:00 07:00 IntakeIntake Total 1120 ml 1620 ml OutputOutput Total 25 ml BalanceBalance 1120 ml 1595 ml Exam GENERAL: Chronically ill-appearing gentleman on mechanical ventilation via tracheostomy VITAL SIGNS: per chart NECK: Supple. No JVD or lymphadenopathy. CARDIAC EXAM: S1, S2. No added sounds or murmurs. CHEST: Diminished air entry bilaterally with rales ABDOMEN: Soft, nontender. No guarding or rebound. EXTREMITIES: No cyanosis, clubbing or edema. NEUROLOGIC: Quadriplegia Vent Setting Ventilator Support Mode: AC, VC plus Fraction of Inspired Oxygen pe: 40 Positive End Expiratory Pressu: 5.0 Results/Medications Result Diagram: 06/15/19 0452 06/15/19 0452 Results 24 hrs Laboratory Tests Test 06/14/19 22:45 06/15/19 04:52 Stool Occult Blood NEGATIVE White Blood Count 20.7 #H Red Blood Count 2.24 L Hemoglobin 6.3 *L Hematocrit 19.6 L Mean Corpuscular Volume 87.5 Mean Corpuscular Hemoglobin 28.1 L Mean Corpuscular Hemoglobin Concent 32.1 Red Cell Distribution Width 19.7 H Platelet Count 345 Mean Platelet Volume 11.8 H Immature Granulocytes % 1.500 H Neutrophils % 86.5 H Lymphocytes % 4.7 L Monocytes % 6.9 Eosinophils % 0.3 Basophils % 0.1 Nucleated Red Blood Cells % 0.0 Immature Granulocytes # 0.320 H Neutrophils # 17.8 H Lymphocytes # 1.0 Monocytes # 1.4 H Eosinophils # 0.1 Basophils # 0.0 Nucleated Red Blood Cells # 0.0 Prothrombin Time 15.1 H Prothrombin Time Ratio 1.2 INR International Normalized Ratio 1.18 Sodium Level 141 Potassium Level 3.3 L Chloride Level 111 H Carbon Dioxide Level 24 Anion Gap 6 Blood Urea Nitrogen 15 Creatinine 0.67 Est Glomerular Filtrat Rate mL/min > 60 Glucose Level 100 Calcium Level 7.6 L Phosphorus Level 2.5 Magnesium Level 1.8 Iron Level 11 L Total Iron Binding Capacity 169 L Percent Iron Saturation 7 L Total Bilirubin 1.3 Direct Bilirubin 0.00 Indirect Bilirubin 1.3 H Aspartate Amino Transf (AST/SGOT) 21 Alanine Aminotransferase (ALT/SGPT) 17 Alkaline Phosphatase 271 H Total Protein 6.7 Albumin 2.4 L Globulin 4.30 H Albumin/Globulin Ratio 0.55 Medications Current Medications Acetaminophen (Tylenol Tab) 650 mg Q6H PRN PO .PAIN 1-3 OR TEMP Last adm inistered on 06/15/19 08:51; Admin Dose 650 MG; Start 05/28/19 at 06:30 Albuterol/ Ipratropium (Duoneb) 3 ml Q2H RESP THERAPY PRN NEB SHORTNESS OF BREATH; Start 05/28/19 at 10:30 Nitroglycerin (Nitroglycerin (Sl Tab) 0.4 Mg) 1 tab Q5M PRN SL CHEST PAIN; Start 05/28/19 at 10:30 Acetaminophen (Tylenol Supp) 650 mg Q4H PRN [place] PAIN LEVEL 1-3 OR FEVER; Start 05/28/19 at 10:30 Bisacodyl (Dulcolax Supp) 10 mg DAILY PRN [place] CONSTIPATION Last administered on 06/14/19 22:24; Admin Dose 10 MG; Start 05/28/19 at 10:30 IV Flush (NS 3 ml) 3 ml PER PROTOCOL IV ; Start 05/28/19 at 10:30 Ondansetron HCl (Zofran Inj) 4 mg Q6H PRN IV NAUSEA/VOMITING Last administered on 06/02/19 14:31; Admin Dose 4 MG; Start 05/28/19 at 10:30 IV Flush (NS 10 ml) 10 ml Q8 PRN IV IV PROTOCOL Last administered on 06/02/19 06:04; Admin Dose 10 ML; Start 05/28/19 at 19:00 Heparin Sodium (Porcine) (Heparin (5000 Units/1ml)) 5,000 unit BID SC Last administered on 06/15/19 08:49; Admin Dose 5,000 UNIT; Start 05/29/19 at 21:00 Baclofen (Lioresal) 5 mg TID NGT Last administered on 06/15/19 08:43; Admin Dose 5 MG; Start 05/31/19 at 13:00 Hydralazine HCl (Apresoline) 10 mg Q6H PRN IV SBP>160 Last administered on 08:58; Admin Dose 10 MG; Start 06/01/19 at 09:00 Simethicone (Mylicon) 80 mg Q6 PO Last administered on 06/15/19 06:28; Admin Dose 80 MG; Start 06/01/19 at 12:00 Lorazepam (Ativan) 2 mg Q4H PRN IV anxiety Last administered on 06/12/19 03:28; Admin Dose 2 MG; Start 06/03/19 at 17:30 Meropenem/Sodium Chloride 50 ml @ 100 mls/hr Q12 IVPB Last administered on 06/15/19 08:43; Admin Dose 100 MLS/HR; Start 06/04/19 at 11:30 Miscellaneous Information 1 ea NOTE XX ; Start 06/04/19 at 18:30 Glucose (Glutose) 15 gm Q15M PRN PO DECREASED GLUCOSE; Start 06/04/19 at 18:30 Glucose (Glutose) 22.5 gm Q15M PRN PO DECREASED GLUCOSE; Start 06/04/19 at 18:30 Dextrose (D50w Syringe) 25 ml Q15M PRN IV DECREASED GLUCOSE; Start 06/04/19 at 18:30 Dextrose (D50w Syringe) 50 ml Q15M PRN IV DECREASED GLUCOSE; Start 06/04/19 at 18:30 Glucagon (Glucagen) 1 mg Q15M PRN IM DECREASED GLUCOSE; Start 06/04/19 at 18:30 Glucose (Glutose) 15 gm Q15M PRN BUCCAL DECREASED GLUCOSE; Start 06/04/19 at 18:30 Morphine Sulfate (morphine) 2 mg Q2H PRN IV SEVERE PAIN LEVEL 7-10; Start 06/04/19 at 20:30 Caspofungin 50 mg/ Sodium Chloride 250 ml @ 250 mls/hr Q24H IVPB Last administered on 06/14/19 15:37; Admin Dose 250 MLS/HR; Start 06/06/19 at 15:00 Polyethylene Glycol (Miralax) 17 gm BID PO Last administered on 06/15/19at 08:43; Admin Dose 17 GM; Start 06/10/19 at 10:00 Sodium Biphosphate/ Sodium Phosphate (Fleet Enema) 133 ml DAILY PRN [place] CONSTIPATION; Start 06/10/19 at 10:00 Famotidine (Pepcid Iv) 20 mg BID IV Last administered on 06/15/19at 08:43; Admin Dose 20 MG; Start 06/12/19 at 21:00 Oxybutynin Chloride (Ditropan) 5 mg TID PO ; Start 06/15/19 at 13:00 Assessment/Plan Hospital Course (Demo Recall) IMP 1. Acute abdomen secondary to perforated bowel following PEG tube placement--s/p repair 2. Vent dependent respiratory failure 3. History of quadriplegia 4. Status post septic shock requiring vasopressors possible component of adrenal insufficiency, decreased vasopressor requirements. 5. Neurogenic bladder with suprapubic catheter 6. Anemia 7. HypoK+ RECS: 1. Continue mechanical ventilation 2. Postop surgical recommendations 3. Follow H/H; transfuse 1 unit PRBC 4. Postop antibiotics 5. DVT GI prophylaxis CARYN PERLA MD, [facility] Jun 15, 2019 11:48
--- NOTE | 2019-06-15 12:28 | PN ---
Date/Time of Note Date/Time of Note DATE: 06/15/19 TIME: 12:23 Assessment/Plan VTE Prophylaxis Risk score (from Ns)>0 risk: 6 SCD applied (from Ns): Yes SCD contraindicated: other Pharmacological prophylaxis: heparin Lines/Catheters IV Catheter Type (from Nrs): PICC Line Central line still needed: Yes (meds) Assessment/Plan Hospital Course Assessment/Plan Assessment: Acute abdomen secondary to perforated small bowel -s/p repair of small bowel Perforated appendix- s/p appendectomy Sepsis- 2/2 to above Acute on chronic RD on MV- FiO2 increased 100% BHARATI- resolved Recurrent small bowel obstruction Quadriplegia Abdominal gas UTI Pneumonia Neurogenic bladder- suprapubic catheter Plan: Monitor H/H transfuse as needed -0Received a total of 2 units of packed cells last night and this am Repeat imaging pending Patient seen in collaboration Dr. Hall Subjective: Course reviewed with nursing staff Patient interviewed and examined Increase in WBC with fever in the last 24 hours. Currently patient appears comfortable, no over signs of GI bleed Pt viktor TF well. Exam PHYSICAL EXAMINATION: GENERAL: Quadriplegic, trached on MV, alert & oriented x 4 SKIN: Midline incision HEAD: Normocephalic, atraumatic, no tenderness. EYES: Pupils equal reactive to light, no discharge. EARS/NOSE AND THROAT: Ears normal, nose normal, oropharynx normal, oral membranes well hydrated without lesions. NECK: Supple, no masses CHEST: Inspection within normal limits. CARDIOVASCULAR: Heart: Regular rate and rhythm RESPIRATORY: Lungs clear to auscultation. GASTROINTESTINAL AND LIVER: Abdomen: Soft, no distension , no hernias, no masses, no organomegaly, no ascites, no guarding, no rebound tenderness, extremely hypoactive distant BS. Rectal: Deferred. GENITOURINARY: Male genitalia within normal limits. suprapubic catheter Result Diagram: 06/15/19 0452 06/15/19 0452 Results 24hrs Laboratory Tests Test 06/14/19 22:45 06/15/19 04:52 Stool Occult Blood NEGATIVE White Blood Count 20.7 #H Red Blood Count 2.24 L Hemoglobin 6.3 *L Hematocrit 19.6 L Mean Corpuscular Volume 87.5 Mean Corpuscular Hemoglobin 28.1 L Mean Corpuscular Hemoglobin Concent 32.1 Red Cell Distribution Width 19.7 H Platelet Count 345 Mean Platelet Volume 11.8 H Immature Granulocytes % 1.500 H Neutrophils % 86.5 H Lymphocytes % 4.7 L Monocytes % 6.9 Eosinophils % 0.3 Basophils % 0.1 Nucleated Red Blood Cells % 0.0 Immature Granulocytes # 0.320 H Neutrophils # 17.8 H Lymphocytes # 1.0 Monocytes # 1.4 H Eosinophils # 0.1 Basophils # 0.0 Nucleated Red Blood Cells # 0.0 Prothrombin Time 15.1 H Prothrombin Time Ratio 1.2 INR International Normalized Ratio 1.18 Sodium Level 141 Potassium Level 3.3 L Chloride Level 111 H Carbon Dioxide Level 24 Anion Gap 6 Blood Urea Nitrogen 15 Creatinine 0.67 Est Glomerular Filtrat Rate mL/min > 60 Glucose Level 100 Calcium Level 7.6 L Phosphorus Level 2.5 Magnesium Level 1.8 Iron Level 11 L Total Iron Binding Capacity 169 L Percent Iron Saturation 7 L Total Bilirubin 1.3 Direct Bilirubin 0.00 Indirect Bilirubin 1.3 H Aspartate Amino Transf (AST/SGOT) 21 Alanine Aminotransferase (ALT/SGPT) 17 Alkaline Phosphatase 271 H Total Protein 6.7 Albumin 2.4 L Globulin 4.30 H Albumin/Globulin Ratio 0.55 Exam/Review of Systems Exam Vitals Vital Signs Date Temp Pulse Resp B/P (MAP) Pulse Ox O2 O2 Flow FiO2 Time Delivery Rate 06/15/19 75 24 100 40 11:51 06/15/19 98.1 120/75 11:29 (90) 06/14/19 Mechanical 18:47 Ventilator Intake and Output 06/14/19 06/14/19 06/15/19 1515:00 23:00 07:00 IntakeIntake Total 1120 ml 1620 ml OutputOutput Total 25 ml BalanceBalance 1120 ml 1595 ml Results Results 24hrs Laboratory Tests Test 06/14/19 22:45 06/15/19 04:52 Stool Occult Blood NEGATIVE White Blood Count 20.7 #H Red Blood Count 2.24 L Hemoglobin 6.3 *L Hematocrit 19.6 L Mean Corpuscular Volume 87.5 Mean Corpuscular Hemoglobin 28.1 L Mean Corpuscular Hemoglobin Concent 32.1 Red Cell Distribution Width 19.7 H Platelet Count 345 Mean Platelet Volume 11.8 H Immature Granulocytes % 1.500 H Neutrophils % 86.5 H Lymphocytes % 4.7 L Monocytes % 6.9 Eosinophils % 0.3 Basophils % 0.1 Nucleated Red Blood Cells % 0.0 Immature Granulocytes # 0.320 H Neutrophils # 17.8 H Lymphocytes # 1.0 Monocytes # 1.4 H Eosinophils # 0.1 Basophils # 0.0 Nucleated Red Blood Cells # 0.0 Prothrombin Time 15.1 H Prothrombin Time Ratio 1.2 INR International Normalized Ratio 1.18 Sodium Level 141 Potassium Level 3.3 L Chloride Level 111 H Carbon Dioxide Level 24 Anion Gap 6 Blood Urea Nitrogen 15 Creatinine 0.67 Est Glomerular Filtrat Rate mL/min > 60 Glucose Level 100 Calcium Level 7.6 L Phosphorus Level 2.5 Magnesium Level 1.8 Iron Level 11 L Total Iron Binding Capacity 169 L Percent Iron Saturation 7 L Total Bilirubin 1.3 Direct Bilirubin 0.00 Indirect Bilirubin 1.3 H Aspartate Amino Transf (AST/SGOT) 21 Alanine Aminotransferase (ALT/SGPT) 17 Alkaline Phosphatase 271 H Total Protein 6.7 Albumin 2.4 L Globulin 4.30 H Albumin/Globulin Ratio 0.55 Medications Medication Current Medications Acetaminophen (Tylenol Tab) 650 mg Q6H PRN PO .PAIN 1-3 OR TEMP Last admini stered on 06/15/19at 08:51; Admin Dose 650 MG; Start 05/28/19 at 06:30 Albuterol/ Ipratropium (Duoneb) 3 ml Q2H RESP THERAPY PRN NEB SHORTNESS OF BREATH; Start 05/28/19 at 10:30 Nitroglycerin (Nitroglycerin (Sl Tab) 0.4 Mg) 1 tab Q5M PRN SL CHEST PAIN; Start 05/28/19 at 10:30 Acetaminophen (Tylenol Supp) 650 mg Q4H PRN [place] PAIN LEVEL 1-3 OR FEVER; Start 05/28/19 at 10:30 Bisacodyl (Dulcolax Supp) 10 mg DAILY PRN [place] CONSTIPATION Last administered on 06/14/19at 22:24; Admin Dose 10 MG; Start 05/28/19 at 10:30 IV Flush (NS 3 ml) 3 ml PER PROTOCOL IV ; Start 05/28/19 at 10:30 Ondansetron HCl (Zofran Inj) 4 mg Q6H PRN IV NAUSEA/VOMITING Last administered on 06/02/19at 14:31; Admin Dose 4 MG; Start 05/28/19 at 10:30 IV Flush (NS 10 ml) 10 ml Q8 PRN IV IV PROTOCOL Last administered on 06/02/19 06:04; Admin Dose 10 ML; Start 05/28/19 at 19:00 Heparin Sodium (Porcine) (Heparin (5000 Units/1ml)) 5,000 unit BID SC Last administered on 06/15/19 08:49; Admin Dose 5,000 UNIT; Start 05/29/19 at 21:00 Baclofen (Lioresal) 5 mg TID NGT Last administered on 06/15/19 08:43; Admin Dose 5 MG; Start 05/31/19 at 13:00 Hydralazine HCl (Apresoline) 10 mg Q6H PRN IV SBP>160 Last administered on 06/01 08:58; Admin Dose 10 MG; Start 06/01/19 at 09:00 Simethicone (Mylicon) 80 mg Q6 PO Last administered on 06/15/19 06:28; Admin Dose 80 MG; Start 06/01/19 at 12:00 Lorazepam (Ativan) 2 mg Q4H PRN IV anxiety Last administered on 06/12/19 03:28; Admin Dose 2 MG; Start 06/03/19 at 17:30 Meropenem/Sodium Chloride 50 ml @ 100 mls/hr Q12 IVPB Last administered on 06/15/19 08:43; Admin Dose 100 MLS/HR; Start 06/04/19 at 11:30 Miscellaneous Information 1 ea NOTE XX ; Start 06/04/19 at 18:30 Glucose (Glutose) 15 gm Q15M PRN PO DECREASED GLUCOSE; Start 06/04/19 at 18:30 Glucose (Glutose) 22.5 gm Q15M PRN PO DECREASED GLUCOSE; Start 06/04/19 at 18:30 Dextrose (D50w Syringe) 25 ml Q15M PRN IV DECREASED GLUCOSE; Start 06/04/19 at 18:30 Dextrose (D50w Syringe) 50 ml Q15M PRN IV DECREASED GLUCOSE; Start 06/04/19 at 18:30 Glucagon (Glucagen) 1 mg Q15M PRN IM DECREASED GLUCOSE; Start 06/04/19 at 18:30 Glucose (Glutose) 15 gm Q15M PRN BUCCAL DECREASED GLUCOSE; Start 06/04/19 at 18:30 Morphine Sulfate (morphine) 2 mg Q2H PRN IV SEVERE PAIN LEVEL 7-10; Start 06/04/19 at 20:30 Caspofungin 50 mg/ Sodium Chloride 250 ml @ 250 mls/hr Q24H IVPB Last administered on 06/14/19at 15:37; Admin Dose 250 MLS/HR; Start 06/06/19 at 15:00 Polyethylene Glycol (Miralax) 17 gm BID PO Last administered on 06/15/19at 08:43; Admin Dose 17 GM; Start 06/10/19 at 10:00 Sodium Biphosphate/ Sodium Phosphate (Fleet Enema) 133 ml DAILY PRN SC CONSTIPATION; Start 06/10/19 at 10:00 Famotidine (Pepcid Iv) 20 mg BID IV Last administered on 06/15/19at 08:43; Admin Dose 20 MG; Start 06/12/19 at 21:00 Oxybutynin Chloride (Ditropan) 5 mg TID PO ; Start 06/15/19 at 13:00 HOWARD MARRERO Jun 15, 2019 12:28
[2019-06-15] MEDS ORDERED: OXYBUTYNIN (XL) 5 MG TAB PO ONE (12:57)
[2019-06-15] MEDS: OXYBUTYNIN 5 MG TAB PO SCH ×2 (13:27→20:49)
[2019-06-15] MEDS ORDERED: IOHEXOL 300MG/ML 150 ML BTL ONE (15:42)
[2019-06-15] MEDS ORDERED: SOD CHLORIDE 0.9% 100 ML ONE (15:42)
[2019-06-15] MEDS: CASPOFUNGIN 50 MG in SOD CHLORIDE 0.9% 250 ML IVPB SCH (17:42)
--- NOTE | 2019-06-15 19:23 | PN ---
DATE: 06/15/2019 SUBJECTIVE: The patient is awake, in no distress. Tolerates tube feeding, had been having low grade fevers yesterday. WBC today 20.7 with H and H of 6.3 and 19.6, platelets 345, neutrophils 86.5, BUN 15, creatinine 0.67. ANTIMICROBIALS: The patient remains on Cancidas and meropenem. INDWELLINGS: NG tube, suprapubic catheter, PICC line and PEG. PHYSICAL EXAMINATION: GENERAL: This is a chronically ill-appearing, middle-aged man who is awake, in no d istress. HEENT: Head atraumatic, normocephalic. NECK: Supple. Tracheostomy present. CHEST: Rise symmetrical. Breath sounds diminished to bases. HEART: S1, S2. ABDOMEN: Soft, slightly distended. Bowel tones hypoactive. ASSESSMENT: 1. Ongoing leukocytosis with low-grade fevers. 2. Status post perforated bowel repair on 05/05/2019. 3. Status post urinary tract infection and pneumonia. 4. Quadriplegia. 5. Chronic kidney mass, rule out malignancy. 6. Acute on chronic anemia, status post blood transfusion today. PLAN: The patient is clinically unchanged, overall stable. Leukocytosis is worrisome. We are going to order CT abdomen and pelvis. If negative, we will discontinue antibiotics. I will also order re peat urine culture. Plan to transfer to [facility]. Dictated By: JOSIAS BELLA SILVER MINER BLASTING for APOLLO KIMBALL/SUNDAY Conf#: [id number] DID#: [id number]
[2019-06-16] VITALS (19 sets, daily range): BP systolic 108–172; BP diastolic 74–104; PULSE 59–85; RESP 20–32
[2019-06-16] MEDS ORDERED: *CONTINUE SAME TPN IV ONE (07:00)
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
[2019-06-16] MEDS: POLYETHYLENE GLYCOL 17 GM PACKET PO SCH ×2 (08:14→21:00)
[2019-06-16] MEDS: BACLOFEN 10 MG TAB NGT SCH ×3 (08:14→21:00)
[2019-06-16] MEDS: OXYBUTYNIN 5 MG TAB PO SCH ×3 (08:14→21:00)
[2019-06-16] MEDS: FAMOTIDINE 20 MG INJ IV SCH ×2 (08:28→21:19)
[2019-06-16] MEDS: hydrALAzine 20 MG INJ IV PRN (08:28)
[2019-06-16] MEDS: MEROPENEM 1 GM/50ML(PMX) 50 ML IVPB SCH ×2 (08:31→21:19)
[2019-06-16] MEDS: HEPARIN 5,000 UNIT/1 ML VIAL SC SCH ×2 (08:31→22:20)
[2019-06-16] MEDS: BALSAM PERU/CASTOR OIL 60 GM TUBE TOP SCH ×2 (08:32→21:20)
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
--- NOTE | 2019-06-16 11:33 | PN ---
Date/Time of Note Date/Time of Note DATE: 06/16/19 TIME: 11:26 Assessment/Plan VTE Prophylaxis Risk score (from Ns)>0 risk: 10 SCD applied (from Ns): No SCD contraindicated: other Pharmacological prophylaxis: heparin Lines/Catheters [facility]from [facility] PICC Line Central line still needed: Yes Assessment/Plan Hospital Course S: Patient had CT scan abdomen pelvis performed yesterday, results reviewed. Patient states tube feedings have now been held in order for TPN has been made this morning by surgery team. Patient also had fever overnight 100.2. O: vs-see below PE: Gen: Lying in bed, opens eyes HEENT: no pallor; trach c/d/i CV: reg s1s2 no mrg Res: Trach, mechanical bs GI: bs dimin, nt, distended. no r r g M/S: hypotonia CT scan abdomen pelvis June 16, 2019: IMPRESSION: 1. small bowel obstruction. 2. Gastrostomy tube in place. 3. High attenuation material within the colon which may be secondary to prior study is contrast residual remaining. However, follow-up is recommended to exclude hemorrhage. 4. Appendix is not well visualized this exam. Cannot exclude acute appendicitis. 5. Several hypodense lesions throughout the right kidney. Recommend renal ultrasound to exclude neoplasm. 6. Multiple pockets of fluid throughout the abdomen pelvis.The largest pocket is perisplenic and measures 18.5 x 14.1 cm. Cannot exclude seroma, hematoma, or abscess. 7. Patchy consolidation throughout the bilateral lower lung lobes. There are moderate bilateral pleural effusion associated bilateral lung base consolidations. 8. Diffuse anasarca. 9. Incompletely visualized bilateral hydroceles. Recommend follow-up to sacral ultrasound. 10.There are postsurgical changes overlying the anterior abdomen soft tissues and skin. 11. There are postsurgical changes within bowel loops of the anterior left lower quadrant, as well as in several other regions A/P: 48-year-old male who presented with: 1. Chr respiratory failure-has tracheostomy in place, stable - cont vent, follow-up further pulmonary recommendations 2. SBO: Appears to be still present based on the latest CT scan abdomen pelvis performed on the last 24 hours. Ukn etio, appreciate consult assistance -Monitor again per surgery recommendations have stopped tube feeding for now and will reinitiate TPN -Follow-up further GI and surgery recommendations -Also follow-up further recommendations for wound care for sacral ulcer -Given the possible abscess findings on the latest CT scan, and fever still present, leukocytosis still present, continue current antibiotics per ID recommendations. Will discuss with them about possible IR guided drainage if possible. 3. Malnutrition: Again, patient had been off TPN. Earlier this admission dced ng feeds. Again given the new CT scan abdomen pelvis findings, order for TPN to be reinitiated now placed -Continue now feeds per TPN, ordered to restart today, follow-up further GI and surgery recommendations 4. Small bowel injury: sp urgent repair, appendectomy on June 04, 2019. -Monitor, follow further surgery recommendations - cont ST care. 5. Chr quadriplegia: - continue supportive care offload, reposition etc. 6. Ftt: Again PEG feeds stopped today -Monitor, TPN, eventual transfer to subacute/ SNF when medically stable 7. Essential hypertension: Stable, monitor 8. Chr paralytic ileus: Appears to be resolving - continue new bowel care regimen 9. Aspiration pneumonia- stable - cont/finish antibiotics 10. Anemia: s/p 4 unit transfusion of blood earlier this admission. Again received 2 more units 24 hours ago. Hemoglobin appears stable now. - follow-up posttransfusion CBC. 12. Neurogenic bladder; again has suprapubic catheter in place. Per urology reassessment this morning, patient in fact does not appear to have leakage around the catheter site. - cont suprapubic care. bladder spasm care/ meds once on po meds. -Follow-up urology recommendations 13. ARF/ ATN stable: Monitor, follow-up renal recommendations Dispo: Again likely placement to subacute/ SNF when medically stable Result Diagram: 06/16/19 0509 06/16/19 1027 Results 24hrs Laboratory Tests Test 06/15/19 12:41 06/16/19 05:09 06/16/19 07:31 06/16/19 10:27 Hemoglobin 9.2 #L 8.9 L Hematocrit 28.1 #L 27.8 L White Blood Count 19.1 H Red Blood Count 3.27 #L Mean Corpuscular 85.0 Volume Mean Corpuscular 27.2 L Hemoglobin Mean Corpuscular 32.0 Hemoglobin Concen t Red Cell 19.3 H Distribution Width Platelet Count 326 Mean Platelet 12.7 H Volume Immature 0.900 H Granulocytes % Neutrophils % 86.9 H Lymphocytes % 4.1 L Monocytes % 7.5 Eosinophils % 0.3 Basophils % 0.3 Nucleated Red 0.0 Blood Cells % Immature 0.180 H Granulocytes # Neutrophils # 16.6 H Lymphocytes # 0.8 Monocytes # 1.4 H Eosinophils # 0.1 Basophils # 0.1 Nucleated Red 0.0 Blood Cells # Sodium Level 139 139 Potassium Level 3.6 3.5 Chloride Level 110 110 Carbon Dioxide 23 23 Level Anion Gap 6 6 Blood Urea 14 14 Nitrogen Creatinine 0.62 0.63 Est Glomerular > 60 > 60 Filtrat Rate mL/min Glucose Level 92 77 Calcium Level 7.7 L 7.7 L Phosphorus Level 2.6 2.7 Magnesium Level 1.8 1.7 Lab Scanned BLOOD TRANSFUSIO Report N Total Bilirubin 1.1 Direct Bilirubin 0.00 Indirect 1.1 Bilirubin Aspartate Amino 22 Transf (AST/SGOT) Alanine 17 Aminotransferase (ALT/SGPT) Alkaline 287 H Phosphatase Total Protein 6.9 Albumin 2.5 L Globulin 4.40 H Albumin/Globulin 0.56 Ratio Prealbumin Pending Triglycerides 89 Level Exam/Review of Systems Exam Vitals Vital Signs Date Temp Pulse Resp B/P (MAP) Pulse Ox O2 O2 Flow FiO2 Time Delivery Rate 06/16/19 77 24 100 40 11:16 06/16/19 133/86 09:46 (102) 06/16/19 98.4 09:37 06/14/19 Mechanical 18:47 Ventilator Intake and Output 06/15/19 06/15/19 06/16/19 1515:00 23:00 07:00 IntakeIntake Total 940 ml OutputOutput Total 950 ml 450 ml BalanceBalance -950 ml 490 ml Results Results 24hrs Laboratory Tests Test 06/15/19 12:41 06/16/19 05:09 06/16/19 07:31 06/16/19 10:27 Hemoglobin 9.2 #L 8.9 L Hematocrit 28.1 #L 27.8 L White Blood Count 19.1 H Red Blood Count 3.27 #L Mean Corpuscular 85.0 Volume Mean Corpuscular 27.2 L Hemoglobin Mean Corpuscular 32.0 Hemoglobin Concen t Red Cell 19.3 H Distribution Width Platelet Count 326 Mean Platelet 12.7 H Volume Immature 0.900 H Granulocytes % Neutrophils % 86.9 H Lymphocytes % 4.1 L Monocytes % 7.5 Eosinophils % 0.3 Basophils % 0.3 Nucleated Red 0.0 Blood Cells % Immature 0.180 H Granulocytes # Neutrophils # 16.6 H Lymphocytes # 0.8 Monocytes # 1.4 H Eosinophils # 0.1 Basophils # 0.1 Nucleated Red 0.0 Blood Cells # Sodium Level 139 139 Potassium Level 3.6 3.5 Chloride Level 110 110 Carbon Dioxide 23 23 Level Anion Gap 6 6 Blood Urea 14 14 Nitrogen Creatinine 0.62 0.63 Est Glomerular > 60 > 60 Filtrat Rate mL/min Glucose Level 92 77 Calcium Level 7.7 L 7.7 L Phosphorus Level 2.6 2.7 Magnesium Level 1.8 1.7 Lab Scanned BLOOD TRANSFUSIO Report N Total Bilirubin 1.1 Direct Bilirubin 0.00 Indirect 1.1 Bilirubin Aspartate Amino 22 Transf (AST/SGOT) Alanine 17 Aminotransferase (ALT/SGPT) Alkaline 287 H Phosphatase Total Protein 6.9 Albumin 2.5 L Globulin 4.40 H Albumin/Globulin 0.56 Ratio Prealbumin Pending Triglycerides 89 Level Medications Medication Current Medications Acetaminophen (Tylenol Tab) 650 mg Q6H PRN PO .PAIN 1-3 OR TEMP Last administered on 06/15/19at 08:51; Admin Dose 650 MG; Start 05/28/19 at 06:30 Albuterol/ Ipratropium (Duoneb) 3 ml Q2H RESP THERAPY PRN NEB SHORTNESS OF BREATH; Start 05/28/19 at 10:30 Nitroglycerin (Nitroglycerin (Sl Tab) 0.4 Mg) 1 tab Q5M PRN SL CHEST PAIN; Start 05/28/19 at 10:30 Acetaminophen (Tylenol Supp) 650 mg Q4H PRN [place] PAIN LEVEL 1-3 OR FEVER; Start 05/28/19 at 10:30 Bisacodyl (Dulcolax Supp) 10 mg DAILY PRN [place] CONSTIPATION Last administered on 06/14/19at 22:24; Admin Dose 10 MG; Start 05/28/19 at 10:30 IV Flush (NS 3 ml) 3 ml PER PROTOCOL IV ; Start 05/28/19 at 10:30 Ondansetron HCl (Zofran Inj) 4 mg Q6H PRN IV NAUSEA/VOMITING Last administered on 06/02/19at 14:31; Admin Dose 4 MG; Start 05/28/19 at 10:30 IV Flush (NS 10 ml) 10 ml Q8 PRN IV IV PROTOCOL Last administered on 06/02/19at 06:04; Admin Dose 10 ML; Start 05/28/19 at 19:00 Heparin Sodium (Porcine) (Heparin (5000 Units/1ml)) 5,000 unit BID SC Last administered on 06/16/19 08:31; Admin Dose 5,000 UNIT; Start 05/29/19 at 21:00 Baclofen (Lioresal) 5 mg TID NGT Last administered on 06/15/19 20:49; Admin Dose 5 MG; Start 05/31/19 at 13:00 Hydralazine HCl (Apresoline) 10 mg Q6H PRN IV SBP>160 Last administered on 06/16/19 08:28; Admin Dose 10 MG; Start 06/01/19 at 09:00 Simethicone (Mylicon) 80 mg Q6 PO Last administered on 06/16/19 03:13; Admin Dose 80 MG; Start 06/01/19 at 12:00 Lorazepam (Ativan) 2 mg Q4H PRN IV anxiety Last administered on 06/12/19 03:28; Admin Dose 2 MG; Start 06/03/19 at 17:30 Meropenem/Sodium Chloride 50 ml @ 100 mls/hr Q12 IVPB Last administered on 06/16/19 08:31; Admin Dose 100 MLS/HR; Start 06/04/19 at 11:30 Miscellaneous Information 1 ea NOTE XX ; Start 06/04/19 at 18:30 Glucose (Glutose) 15 gm Q15M PRN PO DECREASED GLUCOSE; Start 06/04/19 at 18:30 Glucose (Glutose) 22.5 gm Q15M PRN PO DECREASED GLUCOSE; Start 06/04/19 at 18:30 Dextrose (D50w Syringe) 25 ml Q15M PRN IV DECREASED GLUCOSE; Start 06/04/19 at 18:30 Dextrose (D50w Syringe) 50 ml Q15M PRN IV DECREASED GLUCOSE; Start 06/04/19 at 18:30 Glucagon (Glucagen) 1 mg Q15M PRN IM DECREASED GLUCOSE; Start 06/04/19 at 18:30 Glucose (Glutose) 15 gm Q15M PRN BUCCAL DECREASED GLUCOSE; Start 06/04/19 at 18:30 Morphine Sulfate (morphine) 2 mg Q2H PRN IV SEVERE PAIN LEVEL 7-10; Start 06/04/19 at 20:30 Caspofungin 50 mg/ Sodium Chloride 250 ml @ 250 mls/hr Q24H IVPB Last administered on 06/15/19at 17:42; Admin Dose 250 MLS/HR; Start 06/06/19 at 15:00 Polyethylene Glycol (Miralax) 17 gm BID PO Last administered on 06/15/19at 20:50; Admin Dose 17 GM; Start 06/10/19 at 10:00 Sodium Biphosphate/ Sodium Phosphate (Fleet Enema) 133 ml DAILY PRN [place] CONSTIPATION; Start 06/10/19 at 10:00 Famotidine (Pepcid Iv) 20 mg BID IV Last administered on 06/16/19at 08:28; Admin Dose 20 MG; Start 06/12/19 at 21:00 Oxybutynin Chloride (Ditropan) 5 mg TID PO Last administered on 06/15/19at 20:49; Admin Dose 5 MG; Start 06/15/19 at 13:00 Diagnostic Test (Pha) (Accu-Chek) 1 ea Q4 XX ; Start 06/16/19 at 13:00; Status UNV Total Parenteral Nutrition 1,000 ml @ 0 mls/hr Q0M IV ; Start 06/16/19 at 09:37; Status UNV BRUNO LUCAS Jun 16, 2019 11:32
--- NOTE | 2019-06-16 11:52 | CONS ---
Consult Date/Type/Reason Admit Date/Time May 28, 2019 at 06:21 Initial Consult Date 05/30/19 Type of Consult Pulmonary Requesting Provider: TYLOR REESE Date/Time of Note DATE: 06/16/19 TIME: 11:51 Subjective Patient appears comfortable at present. Objective Vital Signs Date Temp Pulse Resp B/P (MAP) Pulse Ox O2 O2 Flow FiO2 Time Delivery Rate 06/16/19 98.6 72 20 108/74 100 11:35 (85) 06/16/19 40 11:16 06/14/19 Mechanical 18:47 Ventilator Intake and Output 06/15/19 06/15/19 06/16/19 1515:00 23:00 07:00 IntakeIntake Total 940 ml OutputOutput Total 950 ml 450 ml BalanceBalance -950 ml 490 ml Exam GENERAL: Chronically ill-appearing gentleman on mechanical ventilation via tracheostomy VITAL SIGNS: per chart NECK: Supple. No JVD or lymphadenopathy. CARDIAC EXAM: S1, S2. No added sounds or murmurs. CHEST: Diminished air entry bilaterally with rales ABDOMEN: Soft, nontender. No guarding or rebound. EXTREMITIES: No cyanosis, clubbing or edema. NEUROLOGIC: Quadriplegia Vent Setting Ventilator Support Mode: AC, VC plus Fraction of Inspired Oxygen pe: 40 Positive End Expiratory Pressu: 5.0 Results/Medications Result Diagram: 06/16/19 0509 06/16/19 1027 Results 24 hrs Laboratory Tests Test 06/15/19 12:41 06/16/19 05:09 06/16/19 07:31 06/16/19 10:27 Hemoglobin 9.2 #L 8.9 L Hematocrit 28.1 #L 27.8 L White Blood Count 19.1 H Red Blood Count 3.27 #L Mean Corpuscular 85.0 Volume Mean Corpuscular 27.2 L Hemoglobin Mean Corpuscular 32.0 Hemoglobin Concen t Red Cell 19.3 H Distribution Width Platelet Count 326 Mean Platelet 12.7 H Volume Immature 0.900 H Granulocytes % Neutrophils % 86.9 H Lymphocytes % 4.1 L Monocytes % 7.5 Eosinophils % 0.3 Basophils % 0.3 Nucleated Red 0.0 Blood Cells % Immature 0.180 H Granulocytes # Neutrophils # 16.6 H Lymphocytes # 0.8 Monocytes # 1.4 H Eosinophils # 0.1 Basophils # 0.1 Nucleated Red 0.0 Blood Cells # Sodium Level 139 139 Potassium Level 3.6 3.5 Chloride Level 110 110 Carbon Dioxide 23 23 Level Anion Gap 6 6 Blood Urea 14 14 Nitrogen Creatinine 0.62 0.63 Est Glomerular > 60 > 60 Filtrat Rate mL/min Glucose Level 92 77 Calcium Level 7.7 L 7.7 L Phosphorus Level 2.6 2.7 Magnesium Level 1.8 1.7 Lab Scanned BLOOD TRANSFUSIO Report N Total Bilirubin 1.1 Direct Bilirubin 0.00 Indirect 1.1 Bilirubin Aspartate Amino 22 Transf (AST/SGOT) Alanine 17 Aminotransferase (ALT/SGPT) Alkaline 287 H Phosphatase Total Protein 6.9 Albumin 2.5 L Globulin 4.40 H Albumin/Globulin 0.56 Ratio Prealbumin Pending Triglycerides 89 Level Medications Current Medications Acetaminophen (Tylenol Tab) 650 mg Q6H PRN PO .PAIN 1-3 OR TEMP Last administered on 06/15/19at 08:51; Admin Dose 650 MG; Start 05/28/19 at 06:30 Albuterol/ Ipratropium (Duoneb) 3 ml Q2H RESP THERAPY PRN NEB SHORTNESS OF BREATH; Start 05/28/19 at 10:30 Nitroglycerin (Nitroglycerin (Sl Tab) 0.4 Mg) 1 tab Q5M PRN SL CHEST PAIN; Start 05/28/19 at 10:30 Acetaminophen (Tylenol Supp) 650 mg Q4H PRN [place] PAIN LEVEL 1-3 OR FEVER; Start 05/28/19 at 10:30 Bisacodyl (Dulcolax Supp) 10 mg DAILY PRN [place] CONSTIPATION Last administered on 06/14/19at 22:24; Admin Dose 10 MG; Start 05/28/19 at 10:30 IV Flush (NS 3 ml) 3 ml PER PROTOCOL IV ; Start 05/28/19 at 10:30 Ondansetron HCl (Zofran Inj) 4 mg Q6H PRN IV NAUSEA/VOMITING Last administered on 06/02/19at 14:31; Admin Dose 4 MG; Start 05/28/19 at 10:30 IV Flush (NS 10 ml) 10 ml Q8 PRN IV IV PROTOCOL Last administered on 06/02/19at 06:04; Admin Dose 10 ML; Start 05/28/19 at 19:00 Heparin Sodium (Porcine) (Heparin (5000 Units/1ml)) 5,000 unit BID SC Last administered on 06/16/19 08:31; Admin Dose 5,000 UNIT; Start 05/29/19 at 21:00 Baclofen (Lioresal) 5 mg TID NGT Last administered on 06/15/19 20:49; Admin Dose 5 MG; Start 05/31/19 at 13:00 Hydralazine HCl (Apresoline) 10 mg Q6H PRN IV SBP>160 Last administered on 06/16/19 08:28; Admin Dose 10 MG; Start 06/01/19 at 09:00 Simethicone (Mylicon) 80 mg Q6 PO Last administered on 06/16/19 03:13; Admin Dose 80 MG; Start 06/01/19 at 12:00 Lorazepam (Ativan) 2 mg Q4H PRN IV anxiety Last administered on 06/12/19 03:28; Admin Dose 2 MG; Start 06/03/19 at 17:30 Meropenem/Sodium Chloride 50 ml @ 100 mls/hr Q12 IVPB Last administered on 06/16/19 08:31; Admin Dose 100 MLS/HR; Start 06/04/19 at 11:30 Miscellaneous Information 1 ea NOTE XX ; Start 06/04/19 at 18:30 Glucose (Glutose) 15 gm Q15M PRN PO DECREASED GLUCOSE; Start 06/04/19 at 18:30 Glucose (Glutose) 22.5 gm Q15M PRN PO DECREASED GLUCOSE; Start 06/04/19 at 18:30 Dextrose (D50w Syringe) 25 ml Q15M PRN IV DECREASED GLUCOSE; Start 06/04/19 at 18:30 Dextrose (D50w Syringe) 50 ml Q15M PRN IV DECREASED GLUCOSE; Start 06/04/19 at 18:30 Glucagon (Glucagen) 1 mg Q15M PRN IM DECREASED GLUCOSE; Start 06/04/19 at 18:30 Glucose (Glutose) 15 gm Q15M PRN BUCCAL DECREASED GLUCOSE; Start 06/04/19 at 18:30 Morphine Sulfate (morphine) 2 mg Q2H PRN IV SEVERE PAIN LEVEL 7-10; Start 06/04/19 at 20:30 Caspofungin 50 mg/ Sodium Chloride 250 ml @ 250 mls/hr Q24H IVPB Last administered on 7/29/19at 17:42; Admin Dose 250 MLS/HR; Start 06/06/19 at 15:00 Polyethylene Glycol (Miralax) 17 gm BID PO Last administered on 06/15/19at 2 0:50; Admin Dose 17 GM; Start 06/10/19 at 10:00 Sodium Biphosphate/ Sodium Phosphate (Fleet Enema) 133 ml DAILY PRN [place] CONSTIPATION; Start 06/10/19 at 10:00 Famotidine (Pepcid Iv) 20 mg BID IV Last administered on 06/16/19at 08:28; Admin Dose 20 MG; Start 06/12/19 at 21:00 Oxybutynin Chloride (Ditropan) 5 mg TID PO Last administered on 06/15/19at 20:49; Admin Dose 5 MG; Start 06/15/19 at 13:00 Diagnostic Test (Pha) (Accu-Chek) 1 ea Q4 XX ; Start 06/16/19 at 13:00; Status UNV Total Parenteral Nutrition 1,000 ml @ 0 mls/hr Q0M IV ; Start 06/16/19 at 09:37; Status UNV Assessment/Plan Hospital Course (Demo Recall) IMP 1. Acute abdomen secondary to perforated bowel following PEG tube placement--s/p repair 2. Vent dependent respiratory failure 3. History of quadriplegia 4. Status post septic shock requiring vasopressors possible component of adrenal insufficiency, decreased vasopressor requirements. 5. Neurogenic bladder with suprapubic catheter 6. Anemia 7. Persistent leukocytosis RECS: 1. Continue mechanical ventilation 2. Postop surgical recommendations 3. ID recommendations 4. Postop antibiotics 5. DVT GI prophylaxis CARYN PERLA MD, [facility] Jun 16, 2019 11:52
--- NOTE | 2019-06-16 13:01 | CONS ---
Assessment/Plan Assessment/Plan Hospital Course (Demo Recall) SUBJECTIVE: Patient is sleeping. Tube feeding on hold. She is back on TPN. ANTIMICROBIALS: The patient remains on Cancidas and meropenem. INDWELLINGS: NG tube, suprapubic catheter, PICC line and PEG. PHYSICAL EXAMINATION: GENERAL: This is a chronically ill-appearing, middle-aged man who is awake, in no distress. HEENT: Head atraumatic, normocephalic. NECK: Supple. Tracheostomy present. CHEST: Rise symmetrical. Breath sounds diminished to bases. HEART: S1, S2. ABDOMEN: Soft, slightly distended. Bowel tones hypoactive. ASSESSMENT: 1. Ongoing leukocytosis with low-grade fevers secondary to multiple intra- abdominal abscesses. 2. Small bowel obstruction 2. Status post perforated bowel repair on 05/05/2019. 3. Status post urinary tract infection and pneumonia. 4. Quadriplegia. 5. Chronic kidney mass, rule out malignancy. 6. Acute on chronic anemia, status post blood transfusion today. PLAN: Remains clinically unchanged, continue antibiotics, follow surgical recommendations ?IR guided abscess drainage Consultation Date/Type/Reason Admit Date/Time May 28, 2019 at 06:21 Initial Consult Date 05/28/19 Type of Consult id Requesting Provider: TYLOR REESE Date/Time of Note DATE: 06/16/19 TIME: 12:58 Exam/Review of Systems Exam Vitals Vital Signs Date Temp Pulse Resp B/P (MAP) Pulse Ox O2 O2 Flow FiO2 Time Delivery Rate 06/16/19 98.6 72 20 108/74 100 11:35 (85) 06/16/19 40 11:16 06/14/19 Mechanical 18:47 Ventilator Intake and Output 06/15/19 06/15/19 06/16/19 1515:00 23:00 07:00 IntakeIntake Total 940 ml OutputOutput Total 950 ml 450 ml BalanceBalance -950 ml 490 ml Results Result Diagram: 06/16/19 0509 06/16/19 1027 Results 24hrs Laboratory Tests Test 06/16/19 05:09 06/16/19 07:31 06/16/19 10:27 White Blood Count 19.1 H Red Blood Count 3.27 #L Hemoglobin 8.9 L Hematocrit 27.8 L Mean Corpuscular Volume 85.0 Mean Corpuscular Hemoglobin 27.2 L Mean Corpuscular 32.0 Hemoglobin Concent Red Cell Distribution Width 19.3 H Platelet Count 326 Mean Platelet Volume 12.7 H Immature Granulocytes % 0.900 H Neutrophils % 86.9 H Lymphocytes % 4.1 L Monocytes % 7.5 Eosinophils % 0.3 Basophils % 0.3 Nucleated Red Blood Cells % 0.0 Immature Granulocytes # 0.180 H Neutrophils # 16.6 H Lymphocytes # 0.8 Monocytes # 1.4 H Eosinophils # 0.1 Basophils # 0.1 Nucleated Red Blood Cells # 0.0 Sodium Level 139 139 Potassium Level 3.6 3.5 Chloride Level 110 110 Carbon Dioxide Level 23 23 Anion Gap 6 6 Blood Urea Nitrogen 14 14 Creatinine 0.62 0.63 Est Glomerular Filtrat > 60 > 60 Rate mL/min Glucose Level 92 77 Calcium Level 7.7 L 7.7 L Phosphorus Level 2.6 2.7 Magnesium Level 1.8 1.7 Lab Scanned Report BLOOD TRANSFUSION Total Bilirubin 1.1 Direct Bilirubin 0.00 Indirect Bilirubin 1.1 Aspartate Amino 22 Transf (AST/SGOT) Alanine 17 Aminotransferase (ALT/SGPT) Alkaline Phosphatase 287 H Total Protein 6.9 Albumin 2.5 L Globulin 4.40 H Albumin/Globulin Ratio 0.56 Prealbumin 5.8 L Triglycerides Level 89 Medications Medication Current Medications Acetaminophen (Tylenol Tab) 650 mg Q6H PRN PO .PAIN 1-3 OR TEMP Last administered on 06/15/19at 08:51; Admin Dose 650 MG; Start 05/28/19 at 06:30 Albuterol/ Ipratropium (Duoneb) 3 ml Q2H RESP THERAPY PRN NEB SHORTNESS OF BREATH; Start 05/28/19 at 10:30 Nitroglycerin (Nitroglycerin (Sl Tab) 0.4 Mg) 1 tab Q5M PRN SL CHEST PAIN; Start 05/28/19 at 10:30 Acetaminophen (Tylenol Supp) 650 mg Q4H PRN [place] PAIN LEVEL 1-3 OR FEVER; Start 05/28/19 at 10:30 Bisacodyl (Dulcolax Supp) 10 mg DAILY PRN [place] CONSTIPATION Last administered on 06/14/19at 22:24; Admin Dose 10 MG; Start 05/28/19 at 10:30 IV Flush (NS 3 ml) 3 ml PER PROTOCOL IV ; Start 05/28/19 at 10:30 Ondansetron HCl (Zofran Inj) 4 mg Q6H PRN IV NAUSEA/VOMITING Last administered on 06/02/19 14:31; Admin Dose 4 MG; Start 05/28/19 at 10:30 IV Flush (NS 10 ml) 10 ml Q8 PRN IV IV PROTOCOL Last administered on 06/02/19 06:04; Admin Dose 10 ML; Start 05/28/19 at 19:00 Heparin Sodium (Porcine) (Heparin (5000 Units/1ml)) 5,000 unit BID SC Last administered on 06/16/19 08:31; Admin Dose 5,000 UNIT; Start 05/29/19 at 21:00 Baclofen (Lioresal) 5 mg TID NGT Last administered on 06/15/19 20:49; Admin Dose 5 MG; Start 05/31/19 at 13:00 Hydralazine HCl (Apresoline) 10 mg Q6H PRN IV SBP>160 Last administered on 06/16/19 08:28; Admin Dose 10 MG; Start 06/01/19 at 09:00 Simethicone (Mylicon) 80 mg Q6 PO Last administered on 06/16/19 03:13; Admin Dose 80 MG; Start 06/01/19 at 12:00 Lorazepam (Ativan) 2 mg Q4H PRN IV anxiety Last administered on 06/12/19 03:28; Admin Dose 2 MG; Start 06/03/19 at 17:30 Meropenem/Sodium Chloride 50 ml @ 100 mls/hr Q12 IVPB Last administered on 06/16/19 08:31; Admin Dose 100 MLS/HR; Start 06/04/19 at 11:30 Miscellaneous Information 1 ea NOTE XX ; Start 06/04/19 at 18:30 Glucose (Glutose) 15 gm Q15M PRN PO DECREASED GLUCOSE; Start 06/04/19 at 18:30 Glucose (Glutose) 22.5 gm Q15M PRN PO DECREASED GLUCOSE; Start 06/04/19 at 18:30 Dextrose (D50w Syringe) 25 ml Q15M PRN IV DECREASED GLUCOSE; Start 06/04/19 at 18:30 Dextrose (D50w Syringe) 50 ml Q15M PRN IV DECREASED GLUCOSE; Start 06/04/19 at 18:30 Glucagon (Glucagen) 1 mg Q15M PRN IM DECREASED GLUCOSE; Start 06/04/19 at 18:30 Glucose (Glutose) 15 gm Q15M PRN BUCCAL DECREASED GLUCOSE; Start 06/04/19 at 18:30 Morphine Sulfate (morphine) 2 mg Q2H PRN IV SEVERE PAIN LEVEL 7-10; Start 06/04/19 at 20:30 Caspofungin 50 mg/ Sodium Chloride 250 ml @ 250 mls/hr Q24H IVPB Last a dministered on 06/15/19at 17:42; Admin Dose 250 MLS/HR; Start 06/06/19 at 15:00 Polyethylene Glycol (Miralax) 17 gm BID PO Last administered on 06/15/19at 20:50; Admin Dose 17 GM; Start 06/10/19 at 10:00 Sodium Biphosphate/ Sodium Phosphate (Fleet Enema) 133 ml DAILY PRN [place] CONSTIPATION; Start 06/10/19 at 10:00 Famotidine (Pepcid Iv) 20 mg BID IV Last administered on 06/16/19at 08:28; Admin Dose 20 MG; Start 06/12/19 at 21:00 Oxybutynin Chloride (Ditropan) 5 mg TID PO Last administered on 06/15/19at 20:49; Admin Dose 5 MG; Start 06/15/19 at 13:00 Diagnostic Test (Pha) (Accu-Chek) 1 ea Q4 XX ; Start 06/16/19 at 13:00; Status UNV Total Parenteral Nutrition 1,000 ml @ 0 mls/hr Q0M IV ; Start 06/16/19 at 09:37; Status UNV JOSIAS BELLA NP Jun 16, 2019 13:01
[2019-06-16] MEDS ORDERED: LIDOCAINE 1% (MDV) 20 ML INJ ONE (13:37)
[2019-06-16] MEDS ORDERED: FENTAnyl 50 MCG/ML VIAL ONE (14:39)
[2019-06-16] MEDS: CASPOFUNGIN 50 MG in SOD CHLORIDE 0.9% 250 ML IVPB SCH (15:52)
[2019-06-16] MEDS: ACCU-CHEK XX SCH ×2 (17:00→21:18)
[2019-06-16] MEDS: TPN 1,000 ML IV SCH (17:56)
--- NOTE | 2019-06-16 18:23 | QN ---
Documentation Comment Postoperative day #12 Large abdominal abscess drained by IR today Abdomen remains slightly tense Leukocytosis and fever slightly improved Will need complete bowel rest and TPN ZENA CALDERÓN MD Jun 16, 2019 18:23
[2019-06-17] VITALS (17 sets, daily range): BP systolic 118–168; BP diastolic 78–96; PULSE 74–85; RESP 16–24
[2019-06-17] MEDS: ACCU-CHEK XX SCH ×6 (01:37→21:47)
[2019-06-17] MEDS: POTASSIUM CHLORIDE 100 ML IVPB SCH ×2 (07:38→10:15)
[2019-06-17] MEDS: TPN 1,000 ML IV SCH ×2 (07:40→21:58)
[2019-06-17] MEDS: BACLOFEN 10 MG TAB NGT SCH ×3 (07:55→21:04)
[2019-06-17] MEDS: OXYBUTYNIN 5 MG TAB PO SCH ×3 (07:55→21:05)
[2019-06-17] MEDS: POLYETHYLENE GLYCOL 17 GM PACKET PO SCH ×2 (07:56→21:04)
[2019-06-17] MEDS: MEROPENEM 1 GM/50ML(PMX) 50 ML IVPB SCH ×2 (09:04→21:04)
[2019-06-17] MEDS: BALSAM PERU/CASTOR OIL 60 GM TUBE TOP SCH ×2 (09:04→21:05)
[2019-06-17] MEDS: FAMOTIDINE 20 MG INJ IV SCH ×2 (09:04→21:04)
[2019-06-17] MEDS: HEPARIN 5,000 UNIT/1 ML VIAL SC SCH ×2 (09:10→21:27)
--- NOTE | 2019-06-17 11:56 | CONS ---
Consult Date/Type/Reason Admit Date/Time May 28, 2019 at 06:21 Initial Consult Date 05/30/19 Type of Consult Pulmonary Requesting Provider: TYLOR REESE Date/Time of Note DATE: 06/17/19 TIME: 11:55 Subjective Status post drainage of abdominal abscess. Currently stable this morning. Objective Vital Signs Date Temp Pulse Resp B/P (MAP) Pulse Ox O2 O2 Flow FiO2 Time Delivery Rate 06/17/19 98.8 82 16 120/82 100 Nasal 11:47 (95) Cannula 06/17/19 50 08:20 Intake and Output 06/16/19 06/16/19 06/17/19 1515:00 23:00 07:00 IntakeIntake Total 50 ml 250 ml OutputOutput Total 200 ml 1450 ml 1250 ml BalanceBalance -150 ml -1200 ml -1250 ml Exam GENERAL: Chronically ill-appearing gentleman on mechanical ventilation via tracheostomy VITAL SIGNS: per chart NECK: Supple. No JVD or lymphadenopathy. CARDIAC EXAM: S1, S2. No added sounds or murmurs. CHEST: Diminished air entry bilaterally with rales ABDOMEN: Soft, nontender. No guarding or rebound. EXTREMITIES: No cyanosis, clubbing or edema. NEUROLOGIC: Quadriplegia Vent Setting Ventilator Support Mode: AC Fraction of Inspired Oxygen pe: 50 Positive End Expiratory Pressu: 5.0 Results/Medications Result Diagram: 06/17/19 0556 06/17/19 0556 Results 24 hrs Laboratory Tests Test 06/16/19 21:17 06/17/19 01:35 06/17/19 05:22 06/17/19 05:56 Bedside Glucose 96 84 123 White Blood Count 12.6 #H Red Blood Count 3.03 L Hemoglobin 8.3 L Hematocrit 26.1 L Mean Corpuscular 86.1 Volume Mean Corpuscular 27.4 L Hemoglobin Mean Corpuscular 31.8 L Hemoglobin Concent Red Cell 19.2 H Distribution Width Platelet Count 360 Mean Platelet Volume 12.0 H Immature 1.000 H Granulocytes % Neutrophils % 85.8 H Lymphocytes % 5.0 L Monocytes % 7.8 Eosinophils % 0.2 Basophils % 0.2 Nucleated Red Blood 0.0 Cells % Immature 0.130 H Granulocytes # Neutrophils # 10.8 H Lymphocytes # 0.6 L Monocytes # 1.0 H Eosinophils # 0.0 Basophils # 0.0 Nucleated Red Blood 0.0 Cells # Sodium Level 136 Potassium Level 3.4 L Chloride Level 108 Carbon Dioxide Level 24 Anion Gap 4 L Blood Urea Nitrogen 15 Creatinine 0.63 Est Glomerular > 60 Filtrat Rate mL/min Glucose Level 110 Calcium Level 7.8 L Phosphorus Level 2.7 Magnesium Level 1.9 Test 06/17/19 09:09 Bedside Glucose 113 Medications Current Medications Acetaminophen (Tylenol Tab) 650 mg Q6H PRN PO .PAIN 1-3 OR TEMP Last adminis tered on 06/15/19 08:51; Admin Dose 650 MG; Start 05/28/19 at 06:30 Albuterol/ Ipratropium (Duoneb) 3 ml Q2H RESP THERAPY PRN NEB SHORTNESS OF BREATH Last administered on 06/17/19 07:16; Admin Dose 3 ML; Start 05/28/19 at 10:30 Nitroglycerin (Nitroglycerin (Sl Tab) 0.4 Mg) 1 tab Q5M PRN SL CHEST PAIN; Start 05/28/19 at 10:30 Acetaminophen (Tylenol Supp) 650 mg Q4H PRN RI PAIN LEVEL 1-3 OR FEVER; Start 05/28/19 at 10:30 Bisacodyl (Dulcolax Supp) 10 mg DAILY PRN RI CONSTIPATION Last administered on 06/14/19 22:24; Admin Dose 10 MG; Start 05/28/19 at 10:30 IV Flush (NS 3 ml) 3 ml PER PROTOCOL IV ; Start 05/28/19 at 10:30 Ondansetron HCl (Zofran Inj) 4 mg Q6H PRN IV NAUSEA/VOMITING Last administered on 06/02/19 14:31; Admin Dose 4 MG; Start 05/28/19 at 10:30 IV Flush (NS 10 ml) 10 ml Q8 PRN IV IV PROTOCOL Last administered on 06/02/19 06:04; Admin Dose 10 ML; Start 05/28/19 at 19:00 Heparin Sodium (Porcine) (Heparin (5000 Units/1ml)) 5,000 unit BID SC Last administered on 06/17/19 09:10; Admin Dose 5,000 UNIT; Start 05/29/19 at 21:00 Baclofen (Lioresal) 5 mg TID NGT Last administered on 06/15/19 20:49; Admin Dose 5 MG; Start 05/31/19 at 13:00 Hydralazine HCl (Apresoline) 10 mg Q6H PRN IV SBP>160 Last administered on 06/16/19 08:28; Admin Dose 10 MG; Start 06/01/19 at 09:00 Simethicone (Mylicon) 80 mg Q6 PO Last administered on 06/16/19 03:13; Admin Dose 80 MG; Start 06/01/19 at 12:00 Lorazepam (Ativan) 2 mg Q4H PRN IV anxiety Last administered on 06/12/19 03 :28; Admin Dose 2 MG; Start 06/03/19 at 17:30 Meropenem/Sodium Chloride 50 ml @ 100 mls/hr Q12 IVPB Last administered on 06/17/19 09:04; Admin Dose 100 MLS/HR; Start 06/04/19 at 11:30 Miscellaneous Information 1 ea NOTE XX ; Start 06/04/19 at 18:30 Glucose (Glutose) 15 gm Q15M PRN PO DECREASED GLUCOSE; Start 06/04/19 at 18:30 Glucose (Glutose) 22.5 gm Q15M PRN PO DECREASED GLUCOSE; Start 06/04/19 at 18:30 Dextrose (D50w Syringe) 25 ml Q15M PRN IV DECREASED GLUCOSE; Start 06/04/19 at 18:30 Dextrose (D50w Syringe) 50 ml Q15M PRN IV DECREASED GLUCOSE; Start 06/04/19 at 18:30 Glucagon (Glucagen) 1 mg Q15M PRN IM DECREASED GLUCOSE; Start 06/04/19 at 18:30 Glucose (Glutose) 15 gm Q15M PRN BUCCAL DECREASED GLUCOSE; Start 06/04/19 at 18:30 Morphine Sulfate (morphine) 2 mg Q2H PRN IV SEVERE PAIN LEVEL 7-10; Start 06/04/19 at 20:30 Caspofungin 50 mg/ Sodium Chloride 250 ml @ 250 mls/hr Q24H IVPB Last administered on 06/16/19 15:52; Admin Dose 250 MLS/HR; Start 06/06/19 at 15:00 Polyethylene Glycol (Miralax) 17 gm BID PO Last administered on 06/15/19at 20:50; Admin Dose 17 GM; Start 06/10/19 at 10:00 Sodium Biphosphate/ Sodium Phosphate (Fleet Enema) 133 ml DAILY PRN RI CONSTIPA TION; Start 06/10/19 at 10:00 Famotidine (Pepcid Iv) 20 mg BID IV Last administered on 06/17/19 09:04; Admin Dose 20 MG; Start 06/12/19 at 21:00 Oxybutynin Chloride (Ditropan) 5 mg TID PO Last administered on 06/15/19at 20:49; Admin Dose 5 MG; Start 06/15/19 at 13:00 Diagnostic Test (Pha) (Accu-Chek) 1 ea Q4 XX Last administered on 06/17/19 05:32; Admin Dose 1 EA; Start 06/16/19 at 17:00 Total Parenteral Nutrition 1,000 ml @ 70 mls/hr [id number] IV Last administered on 06/17/19 07:40; Admin Dose 70 MLS/HR; Start 06/16/19 at 17:00 Assessment/Plan Hospital Course (Demo Recall) IMP 1. Acute abdomen secondary to perforated bowel following PEG tube placement-- s/p repair 2. Vent dependent respiratory failure 3. History of quadriplegia 4. Status post septic shock requiring vasopressors possible component of adrenal insufficiency, decreased vasopressor requirements. 5. Neurogenic bladder with suprapubic catheter 6. Anemia 7. Persistent leukocytosis status post drainage of abdominal abscess RECS: 1. Continue mechanical ventilation 2. Postop surgical recommendations, continue complete bowel rest with TPN 3. ID recommendations 4. Postop antibiotics 5. DVT GI prophylaxis CARYN PERLA MD, [facility] Jun 17, 2019 11:56
--- NOTE | 2019-06-17 12:29 | PDOCDIS ---
Discharge Instructions CONDITION [id number] Patient Condition: [id number] Stable HOME CARE INSTRUCTIONS: [id number] Special Diet: [id number] BRUNO CULLEN Jun 17, 2019 12:29
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
--- NOTE | 2019-06-17 13:29 | PN ---
Date/Time of Note Date/Time of Note DATE: 06/17/19 TIME: 13:27 Assessment/Plan VTE Prophylaxis Risk score (from Nsg)>0 risk: 10 SCD applied (from Nsg): Yes Pharmacological prophylaxis: heparin Lines/Catheters IV Catheter Type (from Nrsg): PICC Line Central line still needed: Yes (TPN) Assessment/Plan Hospital Course Assessment/Plan Assessment: SBO- as noted on imaging Acute abdomen secondary to perforated small bowel -s/p repair of small bowel Perforated appendix- s/p appendectomy Sepsis- 2/2 to above Acute on chronic RD on MV- FiO2 increased 100% BHARATI- resolved Recurrent small bowel obstruction Quadriplegia Abdominal gas UTI Pneumonia Neurogenic bladder- suprapubic catheter Kidney mass- renal u/s ordered Multiple pockets of fluid throughout the abdomen pelvis -Status post drainage of abdominal abscess. Plan: TPN Antibiotics per ID Supportive care Patient seen in collaboration Dr. Hall Subjective: Course reviewed with nursing staff Patient interviewed and examined No over night events, s/p drainage WBC trending down. Exam PHYSICAL EXAMINATION: GENERAL: Quadriplegic, trached on MV, alert & oriented x 4 SKIN: Midline incision HEAD: Normocephalic, atraumatic, no tenderness. EYES: Pupils equal reactive to light, no discharge. EARS/NOSE AND THROAT: Ears normal, nose normal, oropharynx normal, oral membranes well hydrated without lesions. NECK: Supple, no masses CHEST: Inspection within normal limits. CARDIOVASCULAR: Heart: Regular rate and rhythm RESPIRATORY: Lungs clear to auscultation. GASTROINTESTINAL AND LIVER: Abdomen: Soft, no distension , no hernias, no masses, no organomegaly, no ascites, no guarding, no rebound tenderness, extremely hypoactive distant BS. Rectal: Deferred. GENITOURINARY: Male genitalia within normal limits. suprapubic catheter Result Diagram: 06/17/19 0556 06/17/19 0556 Results 24hrs Laboratory Tests Test 06/16/19 21:17 06/17/19 01:35 06/17/19 05:22 06/17/19 05:56 Bedside Glucose 96 84 123 White Blood Count 12.6 #H Red Blood Count 3.03 L Hemoglobin 8.3 L Hematocrit 26.1 L Mean Corpuscular 86.1 Volume Mean Corpuscular 27.4 L Hemoglobin Mean Corpuscular 31.8 L Hemoglobin Concent Red Cell 19.2 H Distribution Width Platelet Count 360 Mean Platelet Volume 12.0 H Immature 1.000 H Granulocytes % Neutrophils % 85.8 H Lymphocytes % 5.0 L Monocytes % 7.8 Eosinophils % 0.2 Basophils % 0.2 Nucleated Red Blood 0.0 Cells % Immature 0.130 H Granulocytes # Neutrophils # 10.8 H Lymphocytes # 0.6 L Monocytes # 1.0 H Eosinophils # 0.0 Basophils # 0.0 Nucleated Red Blood 0.0 Cells # Sodium Level 136 Potassium Level 3.4 L Chloride Level 108 Carbon Dioxide Level 24 Anion Gap 4 L Blood Urea Nitrogen 15 Creatinine 0.63 Est Glomerular > 60 Filtrat Rate mL/min Glucose Level 110 Calcium Level 7.8 L Phosphorus Level 2.7 Magnesium Level 1.9 Test 06/17/19 09:09 Bedside Glucose 113 Exam/Review of Systems Exam Vitals Vital Signs Date Temp Pulse Resp B/P (MAP) Pulse Ox O2 O2 Flow FiO2 Time Delivery Rate 06/17/19 98.8 82 16 120/82 100 Nasal 11:47 (95) Cannula 06/17/19 60 11:20 Intake and Output 06/16/19 06/16/19 06/17/19 1515:00 23:00 07:00 IntakeIntake Total 50 ml 250 ml OutputOutput Total 200 ml 1450 ml 1250 ml BalanceBalance -150 ml -1200 ml -1250 ml Results Results 24hrs Laboratory Tests Test 06/16/19 21:17 06/17/19 01:35 06/17/19 05:22 06/17/19 05:56 Bedside Glucose 96 84 123 White Blood Count 12.6 #H Red Blood Count 3.03 L Hemoglobin 8.3 L Hematocrit 26.1 L Mean Corpuscular 86.1 Volume Mean Corpuscular 27.4 L Hemoglobin Mean Corpuscular 31.8 L Hemoglobin Concent Red Cell 19.2 H Distribution Width Platelet Count 360 Mean Platelet Volume 12.0 H Immature 1.000 H Granulocytes % Neutrophils % 85.8 H Lymphocytes % 5.0 L Monocytes % 7.8 Eosinophils % 0.2 Basophils % 0.2 Nucleated Red Blood 0.0 Cells % Immature 0.130 H Granulocytes # Neutrophils # 10.8 H Lymphocytes # 0.6 L Monocytes # 1.0 H Eosinophils # 0.0 Basophils # 0.0 Nucleated Red Blood 0.0 Cells # Sodium Level 136 Potassium Level 3.4 L Chloride Level 108 Carbon Dioxide Level 24 Anion Gap 4 L Blood Urea Nitrogen 15 Creatinine 0.63 Est Glomerular > 60 Filtrat Rate mL/min Glucose Level 110 Calcium Level 7.8 L Phosphorus Level 2.7 Magnesium Level 1.9 Test 06/17/19 09:09 Bedside Glucose 113 Medications Medication Current Medications Acetaminophen (Tylenol Tab) 650 mg Q6H PRN PO .PAIN 1-3 OR TEMP Last administered on 06/15/19 08:51; Admin Dose 650 MG; Start 05/28/19 at 06:30 Albuterol/ Ipratropium (Duoneb) 3 ml Q2H RESP THERAPY PRN NEB SHORTNESS OF BREATH Last administered on 06/17/19 07:16; Admin Dose 3 ML; Start 05/28/19 at 10:30 Nitroglycerin (Nitroglycerin (Sl Tab) 0.4 Mg) 1 tab Q5M PRN SL CHEST PAIN; Start 05/28/19 at 10:30 Acetaminophen (Tylenol Supp) 650 mg Q4H PRN RI PAIN LEVEL 1-3 OR FEVER; Start 05/28/19 at 10:30 Bisacodyl (Dulcolax Supp) 10 mg DAILY PRN RI CONSTIPATION Last administered on 06/14/19 22:24; Admin Dose 10 MG; Start 05/28/19 at 10:30 IV Flush (NS 3 ml) 3 ml PER PROTOCOL IV ; Start 05/28/19 at 10:30 Ondansetron HCl (Zofran Inj) 4 mg Q6H PRN IV NAUSEA/VOMITING Last administered on 06/02/19 14:31; Admin Dose 4 MG; Start 05/28/19 at 10:30 IV Flush (NS 10 ml) 10 ml Q8 PRN IV IV PROTOCOL Last administered on 06/02/19 06:04; Admin Dose 10 ML; Start 05/28/19 at 19:00 Heparin Sodium (Porcine) (Heparin (5000 Units/1ml)) 5,000 unit BID SC Last administered on 06/17/19 09:10; Admin Dose 5,000 UNIT; Start 05/29/19 at 21:00 Baclofen (Lioresal) 5 mg TID NGT Last administered on 06/15/19 20:49; Admin Dose 5 MG; Start 05/31/19 at 13:00 Hydralazine HCl (Apresoline) 10 mg Q6H PRN IV SBP>160 Last administered on 06/16/19 08:28; Admin Dose 10 MG; Start 06/01/19 at 09:00 Simethicone (Mylicon) 80 mg Q6 PO Last administered on 06/16/19 03:13; Admin Dose 80 MG; Start 06/01/19 at 12:00 Lorazepam (Ativan) 2 mg Q4H PRN IV anxiety Last administered on 06/12/19at 03:28; Admin Dose 2 MG; Start 06/03/19 at 17:30 Meropenem/Sodium Chloride 50 ml @ 100 mls/hr Q12 IVPB Last administered on 05/20 09:04; Admin Dose 100 MLS/HR; Start 06/04/19 at 11:30 Miscellaneous Information 1 ea NOTE XX ; Start 06/04/19 at 18:30 Glucose (Glutose) 15 gm Q15M PRN PO DECREASED GLUCOSE; Start 06/04/19 at 18:30 Glucose (Glutose) 22.5 gm Q15M PRN PO DECREASED GLUCOSE; Start 06/04/19 at 18:30 Dextrose (D50w Syringe) 25 ml Q15M PRN IV DECREASED GLUCOSE; Start 06/04/19 at 18:30 Dextrose (D50w Syringe) 50 ml Q15M PRN IV DECREASED GLUCOSE; Start 06/04/19 at 18:30 Glucagon (Glucagen) 1 mg Q15M PRN IM DECREASED GLUCOSE; Start 06/04/19 at 18:30 Glucose (Glutose) 15 gm Q15M PRN BUCCAL DECREASED GLUCOSE; Start 06/04/19 at 18:30 Morphine Sulfate (morphine) 2 mg Q2H PRN IV SEVERE PAIN LEVEL 7-10; Start 06/04/19 at 20:30 Caspofungin 50 mg/ Sodium Chloride 250 ml @ 250 mls/hr Q24H IVPB Last administered on 06/16/19at 15:52; Admin Dose 250 MLS/HR; Start 06/06/19 at 15:00 Polyethylene Glycol (Miralax) 17 gm BID PO Last administered on 06/15/19at 20:50; Admin Dose 17 GM; Start 06/10/19 at 10:00 Sodium Biphosphate/ Sodium Phosphate (Fleet Enema) 133 ml DAILY PRN RI CONSTIPATION; Start 06/10/19 at 10:00 Famotidine (Pepcid Iv) 20 mg BID IV Last administered on 06/17/19at 09:04; Admin Dose 20 MG; Start 06/12/19 at 21:00 Oxybutynin Chloride (Ditropan) 5 mg TID PO Last administered on 06/15/19 20:4 9; Admin Dose 5 MG; Start 06/15/19 at 13:00 Diagnostic Test (Pha) (Accu-Chek) 1 ea Q4 XX Last administered on 06/17/19 05:32; Admin Dose 1 EA; Start 06/16/19 at 17:00 Total Parenteral Nutrition 1,000 ml @ 70 mls/hr [id number] IV Last administered on 06/17/19at 07:40; Admin Dose 70 MLS/HR; Start 06/16/19 at 17:00 HOWARD MARRERO Jun 17, 2019 13:29
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
--- NOTE | 2019-06-17 14:09 | CONS ---
Assessment/Plan Assessment/Plan Hospital Course (Demo Recall) SUBJECTIVE: Patient is alert feels good denies pain no fevers overnight WBC went down to 12.6 neutrophils 85.8 BUN 15 creatinine 0.63 ANTIMICROBIALS: The patient remains on Cancidas and meropenem. INDWELLINGS: NG tube, suprapubic catheter, PICC line and PEG. PHYSICAL EXAMINATION: GENERAL: This is a chronically ill-appearing, middle-aged man who is awake, in no distress. HEENT: Head atraumatic, normocephalic. NECK: Supple. Tracheostomy present. CHEST: Rise symmetrical. Breath sounds diminished to bases. HEART: S1, S2. ABDOMEN: Soft, slightly distended. Bowel tones hypoactive. Patient have left sided intra-abdominal drainage catheter ASSESSMENT: 1. Ongoing leukocytosis with low-grade fevers secondary to intra-abdominal abscesse, status post IR guided drainage this morning. 2. Small bowel obstruction 2. Status post perforated bowel repair on 05/05/2019. 3. Status post urinary tract infection and pneumonia. 4. Quadriplegia. 5. Chronic kidney mass, rule out malignancy. 6. Acute on chronic anemia, status post blood transfusion today. PLAN: Stable, continue antibiotics, follow fluid culture and surgical recommendations Consultation Date/Type/Reason Admit Date/Time May 28, 2019 at 06:21 Initial Consult Date 05/28/19 Type of Consult id Requesting Provider: TYLOR REESE Date/Time of Note DATE: 06/17/19 TIME: 14:08 Exam/Review of Systems Exam Vitals Vital Signs Date Temp Pulse Resp B/P (MAP) Pulse Ox O2 O2 Flow FiO2 Time Delivery Rate 06/17/19 98.8 82 16 120/82 100 Nasal 11:47 (95) Cannula 06/17/19 60 11:20 Intake and Output 06/16/19 06/16/19 06/17/19 1515:00 23:00 07:00 IntakeIntake Total 50 ml 250 ml OutputOutput Total 200 ml 1450 ml 1250 ml BalanceBalance -150 ml -1200 ml -1250 ml Results Result Diagram: 06/17/19 0556 06/17/19 0556 Results 24hrs Laboratory Tests Test 06/16/19 21:17 06/17/19 01:35 06/17/19 05:22 06/17/19 05:56 Bedside Glucose 96 84 123 White Blood Count 12.6 #H Red Blood Count 3.03 L Hemoglobin 8.3 L Hematocrit 26.1 L Mean Corpuscular 86.1 Volume Mean Corpuscular 27.4 L Hemoglobin Mean Corpuscular 31.8 L Hemoglobin Concent Red Cell 19.2 H Distribution Width Platelet Count 360 Mean Platelet Volume 12.0 H Immature 1.000 H Granulocytes % Neutrophils % 85.8 H Lymphocytes % 5.0 L Monocytes % 7.8 Eosinophils % 0.2 Basophils % 0.2 Nucleated Red Blood 0.0 Cells % Immature 0.130 H Granulocytes # Neutrophils # 10.8 H Lymphocytes # 0.6 L Monocytes # 1.0 H Eosinophils # 0.0 Basophils # 0.0 Nucleated Red Blood 0.0 Cells # Sodium Level 136 Potassium Level 3.4 L Chloride Level 108 Carbon Dioxide Level 24 Anion Gap 4 L Blood Urea Nitrogen 15 Creatinine 0.63 Est Glomerular > 60 Filtrat Rate mL/min Glucose Level 110 Calcium Level 7.8 L Phosphorus Level 2.7 Magnesium Level 1.9 Test 06/17/19 09:09 06/17/19 13:43 Bedside Glucose 113 118 Medications Medication Current Medications Acetaminophen (Tylenol Tab) 650 mg Q6H PRN PO .PAIN 1-3 OR TEMP Last administered on 06/15/19at 08:51; Admin Dose 650 MG; Start 05/28/19 at 06:30 Albuterol/ Ipratropium (Duoneb) 3 ml Q2H RESP THERAPY PRN NEB SHORTNESS OF BROOKS TH Last administered on 06/17/19at 07:16; Admin Dose 3 ML; Start 05/28/19 at 10:30 Nitroglycerin (Nitroglycerin (Sl Tab) 0.4 Mg) 1 tab Q5M PRN SL CHEST PAIN; Start 05/28/19 at 10:30 Acetaminophen (Tylenol Supp) 650 mg Q4H PRN [place] PAIN LEVEL 1-3 OR FEVER; Start 05/28/19 at 10:30 Bisacodyl (Dulcolax Supp) 10 mg DAILY PRN HI CONSTIPATION Last administered on 06/14/19at 22:24; Admin Dose 10 MG; Start 05/28/19 at 10:30 IV Flush (NS 3 ml) 3 ml PER PROTOCOL IV ; Start 05/28/19 at 10:30 Ondansetron HCl (Zofran Inj) 4 mg Q6H PRN IV NAUSEA/VOMITING Last administered on 06/02/19 14:31; Admin Dose 4 MG; Start 05/28/19 at 10:30 IV Flush (NS 10 ml) 10 ml Q8 PRN IV IV PROTOCOL Last administered on 06/02/19 06:04; Admin Dose 10 ML; Start 05/28/19 at 19:00 Heparin Sodium (Porcine) (Heparin (5000 Units/1ml)) 5,000 unit BID SC Last administered on 06/17/19 09:10; Admin Dose 5,000 UNIT; Start 05/29/19 at 21:00 Baclofen (Lioresal) 5 mg TID NGT Last administered on 06/15/19 20:49; Admin Dose 5 MG; Start 05/31/19 at 13:00 Hydralazine HCl (Apresoline) 10 mg Q6H PRN IV SBP>160 Last administered on 06/16/19 08:28; Admin Dose 10 MG; Start 06/01/19 at 09:00 Simethicone (Mylicon) 80 mg Q6 PO Last administered on 06/16/19 03:13; Admin Dose 80 MG; Start 06/01/19 at 12:00 Lorazepam (Ativan) 2 mg Q4H PRN IV anxiety Last administered on 06/12/19 03:28; Admin Dose 2 MG; Start 06/03/19 at 17:30 Meropenem/Sodium Chloride 50 ml @ 100 mls/hr Q12 IVPB Last administered on 06/17/19 09:04; Admin Dose 100 MLS/HR; Start 06/04/19 at 11:30 Miscellaneous Information 1 ea NOTE XX ; Start 06/04/19 at 18:30 Glucose (Glutose) 15 gm Q15M PRN PO DECREASED GLUCOSE; Start 06/04/19 at 18:30 Glucose (Glutose) 22.5 gm Q15M PRN PO DECREASED GLUCOSE; Start 06/04/19 at 18:30 Dextrose (D50w Syringe) 25 ml Q15M PRN IV DECREASED GLUCOSE; Start 06/04/19 at 18:30 Dextrose (D50w Syringe) 50 ml Q15M PRN IV DECREASED GLUCOSE; Start 06/04/19 at 18:30 Glucagon (Glucagen) 1 mg Q15M PRN IM DECREASED GLUCOSE; Start 06/04/19 at 18:30 Glucose (Glutose) 15 gm Q15M PRN BUCCAL DECREASED GLUCOSE; Start 06/04/19 at 18:30 Morphine Sulfate (morphine) 2 mg Q2H PRN IV SEVERE PAIN LEVEL 7-10; Start 06/04/19 at 20:30 Caspofungin 50 mg/ Sodium Chloride 250 ml @ 250 mls/hr Q24H IVPB Last administered on 06/16/19at 15:52; Admin Dose 250 MLS/HR; Start 06/06/19 at 15:00 Polyethylene Glycol (Miralax) 17 gm BID PO Last administered on 06/15/19at 20:50; Admin Dose 17 GM; Start 06/10/19 at 10:00 Sodium Biphosphate/ Sodium Phosphate (Fleet Enema) 133 ml DAILY PRN [place] CONSTIPATION; Start 06/10/19 at 10:00 Famotidine (Pepcid Iv) 20 mg BID IV Last administered on 06/17/19at 09:04; Admin Dose 20 MG; Start 06/12/19 at 21:00 Oxybutynin Chloride (Ditropan) 5 mg TID PO Last administered on 06/15/19at 20:49; Admin Dose 5 MG; Start 06/15/19 at 13:00 Diagnostic Test (Pha) (Accu-Chek) 1 ea Q4 XX Last administered on 06/17/19at 13 :45; Admin Dose 1 EA; Start 06/16/19 at 17:00 Total Parenteral Nutrition 1,000 ml @ 70 mls/hr [id number] IV Last administered on 06/17/19at 07:40; Admin Dose 70 MLS/HR; Start 06/16/19 at 17:00 JOSIAS BELLA NP Jun 17, 2019 14:09
[2019-06-17] MEDS: CASPOFUNGIN 50 MG in SOD CHLORIDE 0.9% 250 ML IVPB SCH (14:22)
[2019-06-18] VITALS (15 sets, daily range): BP systolic 135–179; BP diastolic 75–91; PULSE 65–87; RESP 18–25
[2019-06-18] MEDS: ACCU-CHEK XX SCH ×5 (01:00→17:38)
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
[2019-06-18] MEDS: FAMOTIDINE 20 MG INJ IV SCH (09:00)
[2019-06-18] MEDS: BACLOFEN 10 MG TAB NGT SCH ×2 (09:00→12:35)
[2019-06-18] MEDS: POLYETHYLENE GLYCOL 17 GM PACKET PO SCH (09:00)
[2019-06-18] MEDS: OXYBUTYNIN 5 MG TAB PO SCH ×2 (09:00→12:35)
[2019-06-18] MEDS: HEPARIN 5,000 UNIT/1 ML VIAL SC SCH (09:01)
[2019-06-18] MEDS: BALSAM PERU/CASTOR OIL 60 GM TUBE TOP SCH (09:02)
--- NOTE | 2019-06-18 09:04 | QN ---
Documentation Comment Postoperative day #14 Afebrile throughout Moderate drainage through pigtail catheter Marked improvement in leukocytosis Abdomen still feels tense despite multiple bowel movements We will attempt trial of clear liquids From my standpoint, patient can be transferred to [facility] provided he has surgical coverage there ZENA CALDERÓN MD Jun 18, 2019 09:04
[2019-06-18] MEDS: MEROPENEM 1 GM/50ML(PMX) 50 ML IVPB SCH (09:31)
--- NOTE | 2019-06-18 09:57 | CONS ---
Consultation Date/Type/Reason Admit Date/Time May 28, 2019 at 06:21 Initial Consult Date 05/28/19 Type of Consult Pulmonary/critical care Patient is a pleasant 48-year-old gentleman who was [facility] with abdominal distention and vomiting. Upon evaluation here patient was hypotensive and had been diagnosed with bowel obstruction. Nasogastric tube was placed and 3200 mL of fluid was drained. Chest x-ray also was done which is showing right upper lobe infiltrate. Possibly aspiration. At the time I saw the patient in ER, patient is on ventilator via tracheostomy and is completely awake and alert. Denies any shortness of breath, abdominal pain any fever or chills. Past medical history; 1. VDRF. 2. Quadriplegia. 3. Status post tracheostomy with interval removal of G-tube. Medications; reviewed. Allergies; iodine. Social history; noncontributory. Family history; noncontributory. Occupational history; patient is disabled. Review of systems; denies any headache, shortness of breath, coughing. Complains of abdominal discomfort. Complains of nausea. Denies any fever or chills. Denies any chronic dysphagia. General exam; young male, quadriplegic. On ventilator via tracheostomy curr ently no distress. Requesting Provider: TYLOR REESE Date/Time of Note DATE: 06/18/19 TIME: 09:55 24 HR Interval Summary Free Text/Dictation Patient's condition is stable. Has remained hemodynamically stable. General exam; young male, on ventilator via tracheostomy, currently no distress. HEENT exam; supple neck, no JVD. No lymphadenopathy. Midline trachea. No thyromegaly. Patient has fair dentition. Tracheostomy in place. Chest exam; clear to auscultation. S1-S2 audible, no murmurs. Regular rhythm. Abdomen exam; soft, bowel sounds are very sluggish to absent. G-tube in place. Midline dressing in place. Extremity exam; no peripheral edema. DESK SERGEANT exam; patient has stable quadriplegia. Ventilator setting; noted. Assessment and recommendations; 1. Patient with history of quadriplegia and VDR F admitted for acute abdomen due to bowel perforation status post laparotomy. 2. Persistent ileus. Maintained on TPN. 3. History of muscle spasms. 4. Neurogenic bladder, status post suprapubic catheter placement in the past. 5. Anemia. Continue current supportive care. Further recommendations per general surgeon. Exam/Review of Systems Exam Vitals Vital Signs Date Temp Pulse Resp B/P (MAP) Pulse Ox O2 O2 Flow FiO2 Time Delivery Rate 06/18/19 75 24 97 50 07:56 06/18/19 98.1 138/90 03:19 (106) 06/17/19 Mechanical 15:58 Ventilator Intake and Output 06/17/19 06/17/19 06/18/19 1515:00 23:00 07:00 IntakeIntake Total 2230 ml 910 ml OutputOutput Total 475 ml BalanceBalance 2230 ml 435 ml Results Result Diagram: 06/17/19 0556 06/18/19 0511 Results 24hrs Laboratory Tests Test 06/17/19 13:43 06/17/19 17:09 06/17/19 19:25 06/17/19 23:57 Bedside Glucose 118 102 112 106 Test 06/18/19 05:11 06/18/19 05:14 06/18/19 08:30 Sodium Level 138 Potassium Level 3.8 Chloride Level 109 Carbon Dioxide Level 24 Anion Gap 5 Blood Urea Nitrogen 16 Creatinine 0.58 L Est Glomerular > 60 Filtrat Rate mL/min Glucose Level 103 Calcium Level 7.7 L Phosphorus Level 2.4 L Magnesium Level 1.9 Bedside Glucose 100 108 Medications Medication Current Medications Acetaminophen (Tylenol Tab) 650 mg Q6H PRN PO .PAIN 1-3 OR TEMP Last administered on 06/15/19at 08:51; Admin Dose 650 MG; Start 05/28/19 at 06:30 Albuterol/ Ipratropium (Duoneb) 3 ml Q2H RESP THERAPY PRN NEB SHORTNESS OF BREATH Last administered on 06/17/19at 07:16; Admin Dose 3 ML; Start 05/28/19 at 10:30 Nitroglycerin (Nitroglycerin (Sl Tab) 0.4 Mg) 1 tab Q5M PRN SL CHEST PAIN; Start 05/28/19 at 10:30 Acetaminophen (Tylenol Supp) 650 mg Q4H PRN [place] PAIN LEVEL 1-3 OR FEVER; Start 05/28/19 at 10:30 Bisacodyl (Dulcolax Supp) 10 mg DAILY PRN [place] CONSTIPATION Last administered on 06/14/19at 22:24; Admin Dose 10 MG; Start 05/28/19 at 10:30 IV Flush (NS 3 ml) 3 ml PER PROTOCOL IV ; Start 05/28/19 at 10:30 Ondansetron HCl (Zofran Inj) 4 mg Q6H PRN IV NAUSEA/VOMITING Last administered on 06/02/19 14:31; Admin Dose 4 MG; Start 05/28/19 at 10:30 IV Flush (NS 10 ml) 10 ml Q8 PRN IV IV PROTOCOL Last administered on 06/02/19 06:04; Admin Dose 10 ML; Start 05/28/19 at 19:00 Heparin Sodium (Porcine) (Heparin (5000 Units/1ml)) 5,000 unit BID SC Last administered on 06/18/19 09:01; Admin Dose 5,000 UNIT; Start 05/29/19 at 21:00 Baclofen (Lioresal) 5 mg TID NGT Last administered on 06/18/19 09:00; Admin Dose 5 MG; Start 05/31/19 at 13:00 Hydralazine HCl (Apresoline) 10 mg Q6H PRN IV SBP>160 Last administered on 06/16/19 08:28; Admin Dose 10 MG; Start 06/01/19 at 09:00 Simethicone (Mylicon) 80 mg Q6 PO Last administered on 06/16/19 03:13; Admin Dose 80 MG; Start 06/01/19 at 12:00 Lorazepam (Ativan) 2 mg Q4H PRN IV anxiety Last administered on 06/12/19 03:28; Admin Dose 2 MG; Start 06/03/19 at 17:30 Meropenem/Sodium Chloride 50 ml @ 100 mls/hr Q12 IVPB Last administered on 06/18/19 09:31; Admin Dose 100 MLS/HR; Start 06/04/19 at 11:30 Miscellaneous Information 1 ea NOTE XX ; Start 06/04/19 at 18:30 Glucose (Glutose) 15 gm Q15M PRN PO DECREASED GLUCOSE; Start 06/04/19 at 18:30 Glucose (Glutose) 22.5 gm Q15M PRN PO DECREASED GLUCOSE; Start 06/04/19 at 18:30 Dextrose (D50w Syringe) 25 ml Q15M PRN IV DECREASED GLUCOSE; Start 06/04/19 at 18:30 Dextrose (D50w Syringe) 50 ml Q15M PRN IV DECREASED GLUCOSE; Start 06/04/19 at 18:30 Glucagon (Glucagen) 1 mg Q15M PRN IM DECREASED GLUCOSE; Start 06/04/19 at 18:30 Glucose (Glutose) 15 gm Q15M PRN BUCCAL DECREASED GLUCOSE; Start 06/04/19 at 18:30 Morphine Sulfate (morphine) 2 mg Q2H PRN IV SEVERE PAIN LEVEL 7-10; Start 06/04/19 at 20:30 Caspofungin 50 mg/ Sodium Chloride 250 ml @ 250 mls/hr Q24H IVPB Last administered on 06/17/19at 14:22; Admin Dose 250 MLS/HR; Start 06/06/19 at 15:00 Polyethylene Glycol (Miralax) 17 gm BID PO Last administered on 06/18/19 09:00; Admin Dose 17 GM; Start 06/10/19 at 10:00 Sodium Biphosphate/ Sodium Phosphate (Fleet Enema) 133 ml DAILY PRN [place] CONSTIPATION; Start 06/10/19 at 10:00 Famotidine (Pepcid Iv) 20 mg BID IV Last administered on 06/18/19 09:00; Admin Dose 20 MG; Start 06/12/19 at 21:00 Oxybutynin Chloride (Ditropan) 5 mg TID PO Last administered on 06/18/19at 09:00; Admin Dose 5 MG; Start 06/15/19 at 13:00 Diagnostic Test (Pha) (Accu-Chek) 1 ea Q4 XX Last administered on 06/18/19at 09:02; Admin Dose 1 EA; Start 06/16/19 at 17:00 Total Parenteral Nutrition 1,000 ml @ 70 mls/hr [id number] IV Last administered on 06/17/19at 21:58; Admin Dose 70 MLS/HR; Start 06/16/19 at 17:00 Potassium Phosphate 15 mm/ Sodium Chloride 255 ml @ 63.75 mls/ hr ONCE ONCE IVPB ; Start 06/18/19 at 10:00; Stop 06/18/19 at 13:59 ROLANDO OLIVEROS Jun 18, 2019 09:57
[2019-06-18] MEDS ORDERED: POTASSIUM PHOSPHATE 15 MM in SOD CHLORIDE 0.9% 250 ML IVPB ONE (10:00)
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
--- NOTE | 2019-06-18 11:05 | PN ---
Date/Time of Note Date/Time of Note DATE: 06/18/19 TIME: 11:01 Assessment/Plan VTE Prophylaxis Risk score (from Nsg)>0 risk: 9 SCD applied (from Nsg): Yes Pharmacological prophylaxis: heparin Lines/Catheters IV Catheter Type (from Nrsg): PICC Line Central line still needed: Yes (TPN) Assessment/Plan Hospital Course Assessment/Plan Assessment: SBO- as noted on imaging- resolving? Acute abdomen secondary to perforated small bowel -s/p repair of small bowel Perforated appendix- s/p appendectomy Sepsis- 2/2 to above Acute on chronic RD on MV- resolved BHARATI- resolved Recurrent small bowel obstruction Quadriplegia UTI- treated Pneumonia- treated Neurogenic bladder- suprapubic catheter Kidney mass - renal u/s -Increased echogenicity of the right kidney suggesting medical renal disease. Benign right renal cyst. Multiple pockets of fluid throughout the abdomen pelvis -Status post drainage of abdominal abscess. Plan: TPN diet per surgery S/p abscess drain- with pigtail in place ABX- per ID Supportive care Possible transfer to [facility] in near future Patient seen in collaboration Dr. Hall Subjective: Course reviewed with nursing staff Patient interviewed and examined Mr. Owusu appears comfortable, he states he is feeling better and in fact feels hungry today. BS noted during examination. No c/o n/v. pigtail in place with noted drainage. possible d/c to [facility] in near future. Exam PHYSICAL EXAMINATION: GENERAL: Quadriplegic, trached on MV, alert & oriented x 4 SKIN: Midline incision HEAD: Normocephalic, atraumatic, no tenderness. EYES: Pupils equal reactive to light, no discharge. EARS/NOSE AND THROAT: Ears normal, nose normal, oropharynx normal, oral membranes well hydrated without lesions. NECK: Supple, no masses CHEST: Inspection within normal limits. CARDIOVASCULAR: Heart: Regular rate and rhythm RESPIRATORY: Lungs clear to auscultation. GASTROINTESTINAL AND LIVER: Abdomen: Soft, no distension , no hernias, no masses, no organomegaly, no ascites, no guarding, no rebound tenderness, active BS. Rectal: Deferred. GENITOURINARY: Male genitalia within normal limits. suprapubic catheter Result Diagram: 06/17/19 0556 06/18/19 0511 Results 24hrs Laboratory Tests Test 06/17/19 13:43 06/17/19 17:09 06/17/19 19:25 06/17/19 23:57 Bedside Glucose 118 102 112 106 Test 06/18/19 05:11 06/18/19 05:14 06/18/19 08:30 Sodium Level 138 Potassium Level 3.8 Chloride Level 109 Carbon Dioxide Level 24 Anion Gap 5 Blood Urea Nitrogen 16 Creatinine 0.58 L Est Glomerular > 60 Filtrat Rate mL/min Glucose Level 103 Calcium Level 7.7 L Phosphorus Level 2.4 L Magnesium Level 1.9 Bedside Glucose 100 108 Exam/Review of Systems Exam Vitals Vital Signs Date Temp Pulse Resp B/P (MAP) Pulse Ox O2 O2 Flow FiO2 Time Delivery Rate 06/18/19 50 10:36 06/18/19 75 24 97 07:56 06/18/19 98.1 138/90 03:19 (106) 06/17/19 Mechanical 15:58 Ventilator Intake and Output 06/17/19 06/17/19 06/18/19 1515:00 23:00 07:00 IntakeIntake Total 2230 ml 910 ml OutputOutput Total 475 ml BalanceBalance 2230 ml 435 ml Results Results 24hrs Laboratory Tests Test 06/17/19 13:43 06/17/19 17:09 06/17/19 19:25 06/17/19 23:57 Bedside Glucose 118 102 112 106 Test 06/18/19 05:11 06/18/19 05:14 06/18/19 08:30 Sodium Level 138 Potassium Level 3.8 Chloride Level 109 Carbon Dioxide Level 24 Anion Gap 5 Blood Urea Nitrogen 16 Creatinine 0.58 L Est Glomerular > 60 Filtrat Rate mL/min Glucose Level 103 Calcium Level 7.7 L Phosphorus Level 2.4 L Magnesium Level 1.9 Bedside Glucose 100 108 Medications Medication Current Medications Acetaminophen (Tylenol Tab) 650 mg Q6H PRN PO .PAIN 1-3 OR TEMP Last administered on 06/15/19at 08:51; Admin Dose 650 MG; Start 05/28/19 at 06:30 Albuterol/ Ipratropium (Duoneb) 3 ml Q2H RESP THERAPY PRN NEB SHORTNESS OF BREATH Last administered on 06/17/19at 07:16; Admin Dose 3 ML; Start 05/28/19 at 10:30 Nitroglycerin (Nitroglycerin (Sl Tab) 0.4 Mg) 1 tab Q5M PRN SL CHEST PAIN; Start 05/28/19 at 10:30 Acetaminophen (Tylenol Supp) 650 mg Q4H PRN [place] PAIN LEVEL 1-3 OR FEVER; Start 05/28/19 at 10:30 Bisacodyl (Dulcolax Supp) 10 mg DAILY PRN [place] CONSTIPATION Last administered on 06/14/19 22:24; Admin Dose 10 MG; Start 05/28/19 at 10:30 IV Flush (NS 3 ml) 3 ml PER PROTOCOL IV ; Start 05/28/19 at 10:30 Ondansetron HCl (Zofran Inj) 4 mg Q6H PRN IV NAUSEA/VOMITING Last administered on 06/02/19 14:31; Admin Dose 4 MG; Start 05/28/19 at 10:30 IV Flush (NS 10 ml) 10 ml Q8 PRN IV IV PROTOCOL Last administered on 06/02/19 06:04; Admin Dose 10 ML; Start 05/28/19 at 19:00 Heparin Sodium (Porcine) (Heparin (5000 Units/1ml)) 5,000 unit BID SC Last adm inistered on 06/18/19 09:01; Admin Dose 5,000 UNIT; Start 05/29/19 at 21:00 Baclofen (Lioresal) 5 mg TID NGT Last administered on 06/18/19 09:00; Admin Dose 5 MG; Start 05/31/19 at 13:00 Hydralazine HCl (Apresoline) 10 mg Q6H PRN IV SBP>160 Last administered on 06/16/19 08:28; Admin Dose 10 MG; Start 06/01/19 at 09:00 Simethicone (Mylicon) 80 mg Q6 PO Last administered on 06/16/19 03:13; Admin Dose 80 MG; Start 06/01/19 at 12:00 Lorazepam (Ativan) 2 mg Q4H PRN IV anxiety Last administered on 06/12/19 03:28; Admin Dose 2 MG; Start 06/03/19 at 17:30 Meropenem/Sodium Chloride 50 ml @ 100 mls/hr Q12 IVPB Last administered on 06/18/19 09:31; Admin Dose 100 MLS/HR; Start 06/04/19 at 11:30 Miscellaneous Information 1 ea NOTE XX ; Start 06/04/19 at 18:30 Glucose (Glutose) 15 gm Q15M PRN PO DECREASED GLUCOSE; Start 06/04/19 at 18:30 Glucose (Glutose) 22.5 gm Q15M PRN PO DECREASED GLUCOSE; Start 06/04/19 at 18:30 Dextrose (D50w Syringe) 25 ml Q15M PRN IV DECREASED GLUCOSE; Start 06/04/19 at 18:30 Dextrose (D50w Syringe) 50 ml Q15M PRN IV DECREASED GLUCOSE; Start 06/04/19 at 18:30 Glucagon (Glucagen) 1 mg Q15M PRN IM DECREASED GLUCOSE; Start 06/04/19 at 18:30 Glucose (Glutose) 15 gm Q15M PRN BUCCAL DECREASED GLUCOSE; Start 06/04/19 at 18:30 Morphine Sulfate (morphine) 2 mg Q2H PRN IV SEVERE PAIN LEVEL 7-10; Start 06/04/19 at 20:30 Caspofungin 50 mg/ Sodium Chloride 250 ml @ 250 mls/hr Q24H IVPB Last administered on 06/17/19at 14:22; Admin Dose 250 MLS/HR; Start 06/06/19 at 15:00 Polyethylene Glycol (Miralax) 17 gm BID PO Last administered on 06/18/19at 09:00; Admin Dose 17 GM; Start 06/10/19 at 10:00 Sodium Biphosphate/ Sodium Phosphate (Fleet Enema) 133 ml DAILY PRN [place] CONSTIPATION; Start 06/10/19 at 10:00 Famotidine (Pepcid Iv) 20 mg BID IV Last administered on 06/18/19at 09:00; Admin Dose 20 MG; Start 06/12/19 at 21:00 Oxybutynin Chloride (Ditropan) 5 mg TID PO Last administered on 06/18/19 09:00; Admin Dose 5 MG; Start 06/15/19 at 13:00 Diagnostic Test (Pha) (Accu-Chek) 1 ea Q4 XX Last administered on 06/18/19at 09:02; Admin Dose 1 EA; Start 06/16/19 at 17:00 Total Parenteral Nutrition 1,000 ml @ 70 mls/hr [id number] IV Last administered on 06/17/19at 21:58; Admin Dose 70 MLS/HR; Start 06/16/19 at 17:00 Potassium Phosphate 15 mm/ Sodium Chloride 255 ml @ 63.75 mls/ hr ONCE ONCE IVPB ; Start 06/18/19 at 10:00; Stop 06/18/19 at 13:59 HOWARD MARRERO Jun 18, 2019 11:05
[2019-06-18] MEDS: TPN 1,000 ML IV SCH (12:45)
[2019-06-18] MEDS: CASPOFUNGIN 50 MG in SOD CHLORIDE 0.9% 250 ML IVPB SCH (15:45)
--- NOTE | 2019-06-18 15:46 | CONS ---
Assessment/Plan Assessment/Plan Hospital Course (Demo Recall) SUBJECTIVE: Patient is alert feels good, no fevers overnight ANTIMICROBIALS: Cancidas, Meropenem. INDWELLINGS: NG tube, suprapubic catheter, PICC line and PEG. PHYSICAL EXAMINATION: GENERAL: This is a chronically ill-appearing, middle-aged man who is awake, in no distress. HEENT: Head atraumatic, normocephalic. NECK: Supple. Tracheostomy present. CHEST: Rise symmetrical. Breath sounds diminished to bases. HEART: S1, S2. ABDOMEN: Soft, slightly distended. Bowel tones hypoactive. Patient have left sided intra-abdominal drainage catheter ASSESSMENT: 1. Ongoing leukocytosis with low-grade fevers secondary to intra-abdominal abscess, status post IR guided drainage 06/17/19. 2. Small bowel obstruction 2. Status post perforated bowel repair on 05/05/2019. 3. Status post urinary tract infection and pneumonia. 4. Quadriplegia. 5. Chronic kidney mass, rule out malignancy. 6. Acute on chronic anemia, status post blood transfusion today. PLAN: Remains stable, continue antibiotics, follow surgical recommendations Consultation Date/Type/Reason Admit Date/Time May 28, 2019 at 06:21 Initial Consult Date 05/28/19 Type of Consult id Requesting Provider: TYLOR REESE Date/Time of Note DATE: 06/18/19 TIME: 15:45 Exam/Review of Systems Exam Vitals Vital Signs Date Temp Pulse Resp B/P (MAP) Pulse Ox O2 O2 Flow FiO2 Time Delivery Rate 06/18/19 67 24 100 50 13:27 06/18/19 98.5 135/85 11:17 (102) 06/17/19 Mechanical 15:58 Ventilator Intake and Output 06/17/19 06/17/19 06/18/19 1515:00 23:00 07:00 IntakeIntake Total 2230 ml 910 ml OutputOutput Total 475 ml BalanceBalance 2230 ml 435 ml Results Result Diagram: 06/17/19 0556 06/18/19 0511 Results 24hrs Laboratory Tests Test 06/17/19 17:09 06/17/19 19:25 06/17/19 23:57 06/18/19 05:11 Bedside Glucose 102 112 106 Sodium Level 138 Potassium Level 3.8 Chloride Level 109 Carbon Dioxide Level 24 Anion Gap 5 Blood Urea Nitrogen 16 Creatinine 0.58 L Est Glomerular > 60 Filtrat Rate mL/min Glucose Level 103 Calcium Level 7.7 L Phosphorus Level 2.4 L Magnesium Level 1.9 Test 06/18/19 05:14 06/18/19 08:30 06/18/19 12:45 Bedside Glucose 100 108 101 Medications Medication Current Medications Acetaminophen (Tylenol Tab) 650 mg Q6H PRN PO .PAIN 1-3 OR TEMP Last administered on 06/15/19 08:51; Admin Dose 650 MG; Start 05/28/19 at 06:30 Albuterol/ Ipratropium (Duoneb) 3 ml Q2H RESP THERAPY PRN NEB SHORTNESS OF BREATH Last administered on 06/17/19 07:16; Admin Dose 3 ML; Start 05/28/19 at 10:30 Nitroglycerin (Nitroglycerin (Sl Tab) 0.4 Mg) 1 tab Q5M PRN SL CHEST PAIN; Start 05/28/19 at 10:30 Acetaminophen (Tylenol Supp) 650 mg Q4H PRN MA PAIN LEVEL 1-3 OR FEVER; Start 05/28/19 at 10:30 Bisacodyl (Dulcolax Supp) 10 mg DAILY PRN MA CONSTIPATION Last administered on 06/14/19 22:24; Admin Dose 10 MG; Start 05/28/19 at 10:30 IV Flush (NS 3 ml) 3 ml PER PROTOCOL IV ; Start 05/28/19 at 10:30 Ondansetron HCl (Zofran Inj) 4 mg Q6H PRN IV NAUSEA/VOMITING Last administered on 06/02/19at 14:31; Admin Dose 4 MG; Start 05/28/19 at 10:30 IV Flush (NS 10 ml) 10 ml Q8 PRN IV IV PROTOCOL Last administered on 06/02/19 06:04; Admin Dose 10 ML; Start 05/28/19 at 19:00 Heparin Sodium (Porcine) (Heparin (5000 Units/1ml)) 5,000 unit BID SC Last administered on 06/18/19at 09:01; Admin Dose 5,000 UNIT; Start 05/29/19 at 21:00 Baclofen (Lioresal) 5 mg TID NGT Last administered on 06/18/19at 12:35; Admin Dose 5 MG; Start 05/31/19 at 13:00 Hydralazine HCl (Apresoline) 10 mg Q6H PRN IV SBP>160 Last administered on 06/16/19 08:28; Admin Dose 10 MG; Start 06/01/19 at 09:00 Simethicone (Mylicon) 80 mg Q6 PO Last administered on 06/18/19 12:35; Admin Dose 80 MG; Start 06/01/19 at 12:00 Lorazepam (Ativan) 2 mg Q4H PRN IV anxiety Last administered on 06/12/19at 03:28; Admin Dose 2 MG; Start 06/03/19 at 17:30 Meropenem/Sodium Chloride 50 ml @ 100 mls/hr Q12 IVPB Last administered on 06/18/19 09:31; Admin Dose 100 MLS/HR; Start 06/04/19 at 11:30 Miscellaneous Information 1 ea NOTE XX ; Start 06/04/19 at 18:30 Glucose (Glutose) 15 gm Q15M PRN PO DECREASED GLUCOSE; Start 06/04/19 at 18:30 Glucose (Glutose) 22.5 gm Q15M PRN PO DECREASED GLUCOSE; Start 06/04/19 at 18:30 Dextrose (D50w Syringe) 25 ml Q15M PRN IV DECREASED GLUCOSE; Start 06/04/19 at 18:30 Dextrose (D50w Syringe) 50 ml Q15M PRN IV DECREASED GLUCOSE; Start 06/04/19 at 18:30 Glucagon (Glucagen) 1 mg Q15M PRN IM DECREASED GLUCOSE; Start 06/04/19 at 18:30 Glucose (Glutose) 15 gm Q15M PRN BUCCAL DECREASED GLUCOSE; Start 06/04/19 at 18:30 Morphine Sulfate (morphine) 2 mg Q2H PRN IV SEVERE PAIN LEVEL 7-10; Start 06/04/19 at 20:30 Caspofungin 50 mg/ Sodium Chloride 250 ml @ 250 mls/hr Q24H IVPB Last administered on 06/17/19at 14:22; Admin Dose 250 MLS/HR; Start 06/06/19 at 15:00 Polyethylene Glycol (Miralax) 17 gm BID PO Last administered on 06/18/19 09:00; Admin Dose 17 GM; Start 06/10/19 at 10:00 Sodium Biphosphate/ Sodium Phosphate (Fleet Enema) 133 ml DAILY PRN MA CONSTIPATION; Start 06/10/19 at 10:00 Famotidine (Pepcid Iv) 20 mg BID IV Last administered on 06/18/19at 09:00; Admin Dose 20 MG; Start 06/12/19 at 21:00 Oxybutynin Chloride (Ditropan) 5 mg TID PO Last administered on 06/18/19 12:35; Admin Dose 5 MG; Start 06/15/19 at 13:00 Diagnostic Test (Pha) (Accu-Chek) 1 ea Q4 XX Last administered on 06/18/19 12:46; Admin Dose 1 EA; Start 06/16/19 at 17:00 Total Parenteral Nutrition 1,000 ml @ 70 mls/hr [id number] IV Last administered on 06/18/19 12:45; Admin Dose 70 MLS/HR; Start 06/16/19 at 17:00 JOSIAS BELLA NP Jun 18, 2019 15:46
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
== END 2019-06-18 20:16 | DRG 329 ==
LOC: E/R 03:18 → ICU 06:21 → EDBEDREQSVC 11:04 → CANRESERV 11:47 → 6WM 13:51 → ICU 06-04 11:58 → 6WM 06-11 05:45
PROVIDERS: ADMIT Family Medicine; ATTEND Hospitalist
PROC: 5A1955Z Respiratory Ventilation, Greater than 96 Consecutive Hours (ICD-10-PCS; 2019-05-28)
PROC: 02HV33Z Insertion of Infusion Device into Superior Vena Cava, Percutaneous Approach (ICD-10-PCS; 2019-05-28)
PROC: 0TPB70Z Removal of Drainage Device from Bladder, Via Natural or Artificial Opening (ICD-10-PCS; 2019-05-28)
PROC: 0T9B70Z Drainage of Bladder with Drainage Device, Via Natural or Artificial Opening (ICD-10-PCS; 2019-05-28)
PROC: 0DH63UZ Insertion of Feeding Device into Stomach, Percutaneous Approach (ICD-10-PCS; principal; 2019-06-02 21:30)
PROC: 0DQ80ZZ Repair Small Intestine, Open Approach (ICD-10-PCS; 2019-06-04)
PROC: 0DB80ZZ Excision of Small Intestine, Open Approach (ICD-10-PCS; 2019-06-04)
PROC: 0DTJ0ZZ Resection of Appendix, Open Approach (ICD-10-PCS; 2019-06-04)
PROC: 30233N1 Transfusion of Nonautologous Red Blood Cells into Peripheral Vein, Percutaneous Approach (ICD-10-PCS; 2019-06-06)
PROC: 0W9G30Z Drainage of Peritoneal Cavity with Drainage Device, Percutaneous Approach (ICD-10-PCS; 2019-06-16)
DX: K56.691 Other complete intestinal obstruction (principal); K63.1 Perforation of intestine (nontraumatic); L89.313 Pressure ulcer of right buttock, stage 3; J96.20 Acute and chronic respiratory failure, unspecified whether with hypoxia or hypercapnia; J69.0 Pneumonitis due to inhalation of food and vomit; G82.50 Quadriplegia, unspecified; R65.21 Severe sepsis with septic shock; A41.9 Sepsis, unspecified organism; N17.0 Acute kidney failure with tubular necrosis; K35.32 Acute appendicitis with perforation, localized peritonitis, and gangrene, without abscess; K65.1 Peritoneal abscess; Z99.11 Dependence on respirator [ventilator] status; J90 Pleural effusion, not elsewhere classified; E87.1 Hypo-osmolality and hyponatremia; N39.0 Urinary tract infection, site not specified; N17.9 Acute kidney failure, unspecified; R64 Cachexia; Z68.1 Body mass index [BMI] 19.9 or less, adult; E44.0 Moderate protein-calorie malnutrition; J98.11 Atelectasis; K46.0 Unspecified abdominal hernia with obstruction, without gangrene; E27.40 Unspecified adrenocortical insufficiency; K56.0 Paralytic ileus; B96.89 Other specified bacterial agents as the cause of diseases classified elsewhere; D72.829 Elevated white blood cell count, unspecified; D63.8 Anemia in other chronic diseases classified elsewhere; E87.6 Hypokalemia; E86.9 Volume depletion, unspecified; I95.9 Hypotension, unspecified; I10 Essential (primary) hypertension; N31.9 Neuromuscular dysfunction of bladder, unspecified; N28.1 Cyst of kidney, acquired; R62.7 Adult failure to thrive; Q43.0 Meckel's diverticulum (displaced) (hypertrophic); Z93.0 Tracheostomy status; Z93.51 Cutaneous-vesicostomy status
CPT/HCPCS: 36430; 36569; 36600; 71045; 74018; 74176; 74177; 74230; 74250; 76604; 76775; 77012; 80048; 80053; 80202; 81001; 81003; 82043; 82270; 82533; 82803; 82947; 82962; 83036; 83540; 83605; 83690; 83735; 84100; 84132; 84134; 84145; 84155; 84300; 84443; 84478; 84484; 85014; 85018; 85025; 85049; 85610; 85670; 85730; 86850; 86900; 86901; 86920; 87070; 87081; 87086; 88304; 92526; 92610; 92611; 93005; 94002; 94003; 94640; 94664; 96365; 96375; C1729; J0360; J0692; J1644; J1650; J2060; J2185; J2270; J2370; J2405; J2543; J2710; J2765; J2997; J3010; J3370; J3475; J3480; J7030; J7040; J7042; J7050; J7070; P9016; P9047; Q9967